=== PATIENT | male | born 1980 | race Caucasian/White ===

== ENCOUNTER → 2021-02-21 09:19 | Outpatient (CLI) | payer OTHER, MEDICAID, SELFPAY ==
[2021-02-21 10:36] LABS: Cholesterol 247 mg/dL (140-199); HDL Cholesterol 60 mg/dL (40-60); LDL Cholesterol Calculated 144 mg/dL (<100); Triglycerides 213 mg/dL (35-150)
[2021-02-21 10:45] LABS: Add Manual Diff / Slide Review NO; Basophils Absolute Auto 100 /uL (0-100); Basophils Percent Auto 0.9 % (0-2); Eosinophils Absolute Auto 100 /uL (0-450); Eosinophils Percent Auto 1.4 % (2-4); Hematocrit 48.1 % (41-53); Hemoglobin 16.6 g/dL (13.5-17.5); Lymphocytes Absolute Auto 2900 /uL (1100-4500); Lymphocytes Percent Auto 31.8 % (25-40); Mean Corpuscular HGB Conc 34.5 % (30-36); Mean Corpuscular Hemoglobin 30.4 PG (26-34); Monocytes Absolute Auto 600 /uL (0-900); Monocytes Percent Auto 6.8 % (3-14); Neutrophils Absolute Auto 5400 /uL (1500-7000); Neutrophils Percent Auto 59.1 % (50-75); Platelet Count 325 X10^3/uL (150-400); Red Blood Cell Count 5.46 X10^6/uL (4.5-5.9); Red Cell Distribution Width 13.7 % (11.6-14.8); White Blood Cell Count 9.2 X10^3/uL (4.5-11.0)
[2021-02-21 10:47] LABS: Magnesium 2.2 mg/dL (1.6-2.3)
[2021-02-21 11:51] LABS: Folate 16.7 ng/mL (2.76-20.0); Vitamin B12 427 pg/mL (239-931)
== END ==
PROVIDERS: Physician Assistant; PCP Family Medicine; Referring Provider Family Medicine; Visit Provider Family Medicine
DX: Z01.812 Encounter for preprocedural laboratory examination (principal); R71.8 Other abnormality of red blood cells
CPT/HCPCS: 36415; 80061; 82607; 82746; 83036; 83735; 85025

== ENCOUNTER → 2021-04-24 08:28 | Outpatient (CLI) | payer OTHER, MEDICAID, SELFPAY ==
[2021-04-24 10:33] LABS: Testosterone 589 ng/dL (132-813)
== END ==
PROVIDERS: PCP Family Medicine; Referring Provider Family Medicine; Visit Provider Family Medicine
DX: N52.9 Male erectile dysfunction, unspecified (principal)
CPT/HCPCS: 36415; 84403

== ENCOUNTER → 2021-08-13 09:05 | Outpatient (CLI) | payer OTHER, MEDICAID, SELFPAY ==
[2021-08-13 09:47] LABS: COVID19 -Nasal RAPID Negative (Negative)
== END ==
PROVIDERS: PCP Family Medicine; Visit Provider Specialist
DX: Z20.822 Contact with and (suspected) exposure to COVID-19 (principal)
CPT/HCPCS: 87635; C9803

== ENCOUNTER 2021-08-15 06:32 | Day surgery (SDC) | payer OTHER, MEDICAID, SELFPAY ==
[2021-08-12 08:10] VITALS: BMI 27.1
[2021-08-15] VITALS (7 sets, daily range): BP systolic 138–179; BP diastolic 92–112; PULSE 85–99; RESP 14–18; TEMP 36.3–36.4; O2SAT 98–99; BMI 26.6
--- NOTE | 2021-08-15 08:38 | PM.PREOP ---
Pre-operative Note Interval Note History & Physical reviewed/Exam performed by Physician: Yes Changes to H&P: No
[2021-08-15] MEDS: CEFAZOLIN 1 GM VIAL 2 GM IV (09:07)
--- NOTE | 2021-08-15 09:19 | SUR.OPER ---
Supine on padded OR bed, head on pillow, arms secured on padded arm boards at <90 degrees abduction, legs uncrossed, safety belt at thigh, tape over blanket over lower legs.
[2021-08-15] MEDS: BUPIVACAINE 0.25% (PF) VIAL 30 ML INJ (09:23)
[2021-08-15] MEDS: BACITRACIN OINT 0.9 GM PCKT 1 APPLIC TOP (09:27)
[2021-08-15] MEDS: LORazepam 2 MG/ML INJ 0.5 MG IV (09:51)
--- NOTE | 2021-08-15 09:57 | PM.OP.1 ---
Operative Date/Time/Diagnoses Date of procedure: 08/15/21 Time of procedure: 09:57 Pre-op diagnosis: 1. Desires sterility Post-op diagnosis: same Procedure & Clinicians Procedure: 1. Vasectomy Same procedure as scheduled: Yes Indications: 1. Desires sterility. Surgeon: Sahara Aldridge Anesthesia Type: General (LMA) Operative Notes Findings: Tissues and tissue planes were unremarkable. Closure Type: primary Specimen(s): none sent Estimated Blood Loss (mL): 0 Blood products transfused: none Procedure in detail: Patient was positioned in supine and the lower abdomen, genitalia, and groin were then prepped and draped in sterile fashion. Local anesthetic was then used to infiltrate the midline scrotal raphae and the sheath of each the right, and the left vas. Using a scalpel technique an opening the skin and dartos fascia was made in midline scrotal raphae. A ringed vas clamp was then insinuated in the incision and with guidance from the opposite hand the vas on the right was engaged within the ringed clamp. Gentle traction was then provided bringing the vas up to the skin surface. A 2nd ringed vas clamp was then applied opposite the 1st and a mild further traction brought the structure above the plane of the scrotal skin. The needle point cautery was then used to longitudinally divided the vas sheath. The ringed vas clamps reposition. A vas hook was then engaged in the midpoint and further gentle traction then brought a loop of vas well above the plane of the scrotal skin. Medium stainless steel surgical clips were then applied in opposite directions (x2) on the distal aspect and a single clip was applied proximally. An intervening segment of 1+ cm was then excised using the cautery pen and discarded. Vas as lumens were then cauterized as well. Next, the same steps and maneuvers were performed on the left side to complete bilateral interruption of the vas. The skin and subcutaneous tissues were then reapproximated with 2 interrupted 4-0 chromic suture. Bacitracin antibiotic ointment was then applied to the incision site and dry sterile gauze were applied on top of that appointment. Net shorts were then applied to the patient. He was then awakened, transferred to [facility], and transferred recovery in stable condition. Complications: none Post-operative Condition: stable Disposition: PACU Plan for aftercare: Discharge
[2021-08-15] MEDS: ACETAMINOPHEN 325 MG TABLET 975 MG PO (10:11)
[2021-08-15] MEDS: OXYCODONE IR 5 MG TABLET PO (10:12)
== END 2021-08-15 10:31 | disposition home or self-care (01) ==
PROVIDERS: PCP Family Medicine; Referring Provider Specialist; Visit Provider Specialist
PROC: (CPT 55250; principal; 2021-08-15 07:45)
DX: Z30.2 Encounter for sterilization (principal); N52.01 Erectile dysfunction due to arterial insufficiency; I10 Essential (primary) hypertension; E78.5 Hyperlipidemia, unspecified; F32.9 Major depressive disorder, single episode, unspecified
CPT/HCPCS: 55250; 82962; J0690; J1100; J2060; J2250; J2405; J2704; J3010

== ENCOUNTER → 2021-10-22 11:31 | Outpatient (CLI) | payer OTHER, MEDICAID, SELFPAY ==
[2021-10-22 12:06] LABS: Semen Sperm Prescence Post-Vas Absent (ABSENT)
== END ==
PROVIDERS: PCP Family Medicine; Referring Provider Specialist; Visit Provider Specialist
DX: Z98.52 Vasectomy status (principal)
CPT/HCPCS: 89321

== ENCOUNTER → 2023-05-03 15:20 | Oncology outpatient (ONC) | payer OTHER, MEDICAID, SELFPAY ==
--- NOTE | 2023-02-22 09:45 | ONC.MSW ---
T/C-New Referral Navigation Activity: Reviewed referral and clinicals for medical status, acuity, and immediate needs. Called the referring PCP to clarify labs, 02/11/23 was the only lab available. Called pt, he states that he has had no other labs elsewhere. Forwarded to schedulers for next available f/u.
--- NOTE | 2023-04-01 14:45 | ONC.CONS ---
History of Present Illness - Data of Consult Patient: new to practice Consult date: 04/01/23 Requesting Physician: Emanuel Chapa MD Primary Care Provider: Emanuel Chapa MD - Consult Narrative Reason for consult: Elevated red blood cells. Narrative: Scot Rosenberg is a 42 year old male with HTN, HLD, anxiety and depression. He was referred here for elevated H/H: WBC HGB HCT PLT EPO 12/12/2020 8.1 17.5 50.1 272 01/13/2021 7.1 17.1 51.2 260 02/11/2023 8.0 18.2 53.3 248 13.6 For the past 1 year, he has been experiencing itching of the skin, mostly upper chest without visible skin rashes. Patient said that the symptoms are especially worse after shower and sweating. He had to use Zyrtec before going into shower. He used to use 1 pill and sometimes he had to use 2-3 pills of Zyrtec recently. He denies any abdominal pain. He reports no abdominal distension, and no abdominal fullness. Patient had a history of H pylori infection when he was young. Patient had history of chronic diarrhea. He denies sleep apnea and denies smoking. Last Wednesday, patient had his first colonoscopy. According to patient, cecum inflammatory changes noted with 4 polyps removed. Final pathology is still pending. CC: Jenny Corado MD Patient reports pain?: No Home Medications and Allergies Home Medications Medication Instructions Recorded Confirmed Type omeprazole 20 mg capsule,delayed 20 mg PO DAILY 05/06/21 04/01/23 History release propranolol 10 mg tablet 20 mg PO BID 07/30/21 04/01/23 History lisinopril 10 mg tablet 10 mg PO DAILY 08/15/21 04/01/23 History bupropion HCl 150 mg 24 hr tablet, 450 mg PO QAM 04/01/23 04/01/23 History extended release (Wellbutrin XL) cetirizine 10 mg tablet (Zyrtec) 10 mg PO DAILY PRN Itching 04/01/23 04/01/23 History melatonin 3 mg tablet 3 mg PO BEDTIME 04/01/23 04/01/23 History tadalafil 10 mg tablet 10 mg PO PRN PRN Sexual Activity 04/01/23 04/01/23 History Allergies Allergy/AdvReac Type Severity Reaction Status Date / Time No Known Drug Allergies Allergy Verified 08/15/21 07:40 Medical History - Medical, Surgical, Family History Medical History: Medical History (Last Updated 08/15/21 @ 07:39 by Herlinda Galeano RN) Aftercare following left finger joint replacement surgery Depression Erectile dysfunction due to arterial insufficiency Family history of hypertension Finger wound, simple, open HTN (hypertension) Hyperlipidemia Migraine headache Sterilization consult Surgical History: Surgical History (Last Reviewed 08/15/21 @ 07:36 by Herlinda Galeano RN) H/O circumcision H/O umbilical hernia repair Family History: Family History (Last Reviewed 07/30/21 @ 08:44 by Sahara Aldridge MD) Mother Hypertension History of thyroid disorder - Social History Smoking Status: Never smoker Substance Use Type: does not use Review of Systems All systems PM: reviewed and no additional remarkable complaints except as stated Exam Vital signs: 04/01/23 15:12 Last Vital Signs Temp 97.2 F L 04/01/23 15:01 Pulse 95 H 04/01/23 15:01 Resp 16 04/01/23 15:01 BP 183/108 H 04/01/23 15:01 Pulse Ox 99 04/01/23 15:01 - Constitutional positive no acute distress, positive average body habitus, positive cooperative - Routine HEENT Exam Head: Present: normocephalic, atraumatic Eye: Present: EOMI, PERRL, normal accommodation. Absent: conjunctival icterus - Routine Neck Exam Present: supple. Absent: lymphadenopathy, thyromegaly - Routine Chest/Breast/Axilla Exam Axillae: Absent: lymphadenopathy - Routine Respiratory Exam Present: Clear to auscultation bilaterally. Absent: wheezes, crackles - Routine Cardiovascular Exam Present: RRR, S1, S2. Absent: murmur, gallop, rubs - Routine Abdominal Exam Present: soft. Absent: organomegaly - Routine Extremities Exam Absent: edema - Routine Neurological Exam Present: alert, oriented X3, CN II-XII intact. Absent: sensory deficit, motor deficit - Routine Psychiatric Exam Present: normal affect Results - Labs Pending Assessment and Plan (1) Polycythemia Scot Rosenberg is a is 42-year-old gentleman with medical problems notable for hypertension and hyperlipidemia. Patient endorses one year history of upper chest skin itching especially after shower and sweating and history of progressively worsening erythrocytosis. Patient denies smoking or sleep apnea. On my physical examination, no palpable splenomegaly. I talked with him that the history is highly suspicious for the diagnosis of polycythemia vera. I am recommending that we obtain laboratory tests to evaluate the JAK2 V617F mutation with reflex to CALR or JAK2 E12-E15 mutations. I also will obtain ultrasound study to evaluate if there is any evidence of enlarged spleen or enlarged liver. Today, I offered phlebotomy with goal to improve her skin itching symptoms. Patient prefers to start phlebotomy after the diagnosis is made. Today, I also touched base with the patient about the bone marrow aspiration biopsy. I talked with him that ideally it would be helpful to obtain bone marrow aspiration and biopsy, but it is not mandatory. Patient said that he would agree with bone marrow aspiration biopsy but preferably under anesthesia. Plan: CBC, CMP, Iron panel, Ferritin, JAK2 V617F RFX CALR/E12-15 US abdomen complete RTC in 10 days for follow up visit.
[2023-04-01 15:01] VITALS: BP 183/108; PULSE 95; RESP 16; TEMP 36.2; O2SAT 99
--- NOTE | 2023-04-13 16:07 | ONC.SCHED ---
Jak2 lab: Auth has been submitted with [employer]. Pending approval.
--- NOTE | 2023-04-20 10:54 | ONC.SCHED ---
Jak2 lab: I received a letter from [facility] stating that PA is not required for this lab. I have called the patient and left a VM to let him know he can go and have the draw now.
[2023-04-20 16:15] LABS: HEMOLYSIS 37 (0-50); Iron 148 ug/dL (49-181)
[2023-04-20 16:16] LABS: Alanine Aminotransferase 229 IU/L (<50); Albumin 4.6 g/dL (3.5-5.0); Albumin Globulin Ratio 1.4 (1.0-2.8); Alkaline Phosphatase 114 U/L (38-126); Aspartate Aminotransferase 152 IU/L (17-59); BUN Creatinine Ratio 10.7 (6-22); Blood Urea Nitrogen 9 mg/dL (9-20); Calcium 10.1 mg/dL (8.4-10.2); Carbon Dioxide 25 mmol/L (22-32); Chloride 103 mmol/L (98-107); Estimated Glomerular Filt Rate > 60 mL/min (>60); Globulin 3.3 g/dL (1.7-4.1); Glucose 109 mg/dL (70-100); Potassium 4.5 mmol/L (3.4-5.1); Sodium 138 mmol/L (137-145); Total Protein 7.9 g/dL (6.3-8.2)
[2023-04-20 16:17] LABS: HEMOLYSIS 55 (0-50)
[2023-04-20 16:25] LABS: Percent Iron Saturation 37 % (20-50); Total Iron Binding Capacity 405 ug/dL (261-462); Transferrin 323 mg/dL (206-381)
[2023-04-20 16:53] LABS: Ferritin 132 ng/mL (18-464)
[2023-04-24 09:40] LABS: Add Manual Diff / Slide Review NO; Basophils Absolute Auto 100 /uL (0-100); Basophils Percent Auto 1.3 % (0-2); Eosinophils Absolute Auto 200 /uL (0-450); Eosinophils Percent Auto 2.4 % (2-4); Hematocrit 46.8 % (41-53); Hemoglobin 16.3 g/dL (13.5-17.5); Lymphocytes Absolute Auto 2500 /uL (1100-4500); Lymphocytes Percent Auto 32.1 % (25-40); Mean Corpuscular HGB Conc 34.8 % (30-36); Mean Corpuscular Hemoglobin 32.7 PG (26-34); Mean Corpuscular Volume 93.8 fL (80-100); Monocytes Absolute Auto 800 /uL (0-900); Monocytes Percent Auto 10.9 % (3-14); Neutrophils Absolute Auto 4100 /uL (1500-7000); Neutrophils Percent Auto 53.3 % (50-75); Platelet Count 226 X10^3/uL (150-400); Red Blood Cell Count 4.99 X10^6/uL (4.5-5.9); White Blood Cell Count 7.7 X10^3/uL (4.5-11.0)
--- NOTE | 2023-05-03 15:50 | P.PNONC_ITS ---
PN -Subjective - Date of Visit Date of visit: 05/03/23 Chief Complaint: Polycythemia Interval history: He presents for scheduled follow up visit. He reports no new signs or symptoms. He said he continues to have aquagentic itching symptoms. [facility] Scot Rosenberg is a 42 year old male with HTN, HLD, anxiety and depression. He was referred here for elevated H/H: WBC HGB HCT PLT EPO 12/12/2020 8.1 17.5 50.1 272 01/13/2021 7.1 17.1 51.2 260 02/11/2023 8.0 18.2 53.3 248 13.6 I first met patient on 04/01/2023. He reported that for the prior one year, he had been experiencing itching of the skin, mostly upper chest without visible skin rashes. Patient said that the symptoms are especially worse after shower and sweating. He had to use Zyrtec before going into shower. He used to use 1 pill and sometimes he had to use 2-3 pills of Zyrtec recently. He denies any abdominal pain. He reports no abdominal distension, and no abdominal fullness. Patient had a history of H pylori infection when he was young. Patient had history of chronic diarrhea. He denies sleep apnea and denies smoking. - Patient Self-Reported Symptoms SR Constitution: Night Sweats SR Skin issues: Skin rash or itching - ROS All Systems: reviewed and no additional remarkable complaints except as stated Home Medications and Allergies Home Medications Medication Instructions Recorded Confirmed Type omeprazole 20 mg capsule,delayed 20 mg PO DAILY 05/06/21 05/03/23 History release propranolol 10 mg tablet 20 mg PO BID 07/30/21 05/03/23 History lisinopril 10 mg tablet 10 mg PO DAILY 08/15/21 05/03/23 History bupropion HCl 150 mg 24 hr tablet, 450 mg PO QAM 04/01/23 05/03/23 History extended release (Wellbutrin XL) cetirizine 10 mg tablet (Zyrtec) 10 mg PO DAILY PRN Itching 04/01/23 05/03/23 History melatonin 3 mg tablet 3 mg PO BEDTIME 04/01/23 05/03/23 History tadalafil 10 mg tablet 10 mg PO PRN PRN Sexual Activity 04/01/23 05/03/23 History Allergies Allergy/AdvReac Type Severity Reaction Status Date / Time No Known Drug Allergies Allergy Verified 08/15/21 07:40 Exam Vital signs: 05/03/23 18:21 Last Vital Signs Temp 97.1 F L 05/03/23 15:55 Pulse 87 05/03/23 15:55 Resp 16 05/03/23 15:55 BP 166/111 H 05/03/23 15:55 Pulse Ox 97 05/03/23 15:55 Narrative: He appears comfortable and not in any acute respiratory distress. Results - Labs Laboratory Last Values WBC 7.7 X10^3/uL (4.5-11.0) 04/24/23 09:15 RBC 4.99 X10^6/uL (4.5-5.9) 04/24/23 09:15 Hgb 16.3 g/dL (13.5-17.5) 04/24/23 09:15 Hct 46.8 % (41-53) 04/24/23 09:15 MCV 93.8 fL (80-100) 04/24/23 09:15 MCH 32.7 PG (26-34) 04/24/23 09:15 MCHC 34.8 % (30-36) 04/24/23 09:15 RDW 14.0 % (11.6-14.8) 04/24/23 09:15 Plt Count 226 X10^3/uL (150-400) 04/24/23 09:15 Neut % (Auto) 53.3 % (50-75) 04/24/23 09:15 Lymph % (Auto) 32.1 % (25-40) 04/24/23 09:15 [place] % (Auto) 10.9 % (3-14) 04/24/23 09:15 Eos % (Auto) 2.4 % (2-4) 04/24/23 09:15 Baso % (Auto) 1.3 % (0-2) 04/24/23 09:15 Neut # (Auto) 4100 /uL (0449-7022) 04/24/23 09:15 Lymph # (Auto) 2500 /uL (1129-9530) 04/24/23 09:15 [place] # (Auto) 800 /uL (0-900) 04/24/23 09:15 Eos # (Auto) 200 /uL (0-450) 04/24/23 09:15 Baso # (Auto) 100 /uL (0-100) 04/24/23 09:15 Sodium 138 mmol/L (137-145) 04/20/23 15:41 Potassium 4.5 mmol/L (3.4-5.1) 04/20/23 15:41 Chloride 103 mmol/L (98-107) 04/20/23 15:41 Carbon Dioxide 25 mmol/L (22-32) 04/20/23 15:41 BUN 9 mg/dL (9-20) 04/20/23 15:41 Creatinine 0.84 mg/dL (0.66-1.25) 04/20/23 15:41 Estimated GFR > 60 mL/min (>60) 04/20/23 15:41 BUN/Creatinine Ratio 10.7 (6-22) 04/20/23 15:41 Glucose 109 mg/dL (70-100) H 04/20/23 15:41 Calcium 10.1 mg/dL (8.4-10.2) 04/20/23 15:41 Iron 148 ug/dL (49-181) 04/20/23 15:41 TIBC 405 ug/dL (261-462) 04/20/23 15:41 % Saturation 37 % (20-50) 04/20/23 15:41 Transferrin 323 mg/dL (206-381) 04/20/23 15:41 Ferritin 132 ng/mL (18-464) 04/20/23 15:41 Total Bilirubin 1.0 mg/dL (0.2-1.3) 04/20/23 15:41 AST 152 IU/L (17-59) H 04/20/23 15:41 ALT 229 IU/L (<50) H 04/20/23 15:41 Alkaline Phosphatase 114 U/L (38-126) 04/20/23 15:41 Total Protein 7.9 g/dL (6.3-8.2) 04/20/23 15:41 Albumin 4.6 g/dL (3.5-5.0) 04/20/23 15:41 Globulin 3.3 g/dL (1.7-4.1) 04/20/23 15:41 Albumin/Globulin Ratio 1.4 (1.0-2.8) 04/20/23 15:41 Assessment and Plan (1) Polycythemia Scot Rosenberg is a 42-year-old gentleman with medical problems notable for hypertension and hyperlipidemia. Patient endorses 1-year history of upper chest skin itching especially after shower and sweating and history of progressively worsening erythrocytosis. Patient denies smoking or sleep apnea. On my physical examination, no palpable splenomegaly. Since his previous visit, patient did not get the abdominal ultrasound done. The lab tests for JAK2 molecular studies also are not done due to lack of regents and and discontinuation of the test. Available laboratory tests showed persistent polycythemia and unexpectedly worsening transaminitis. Clinically, patient has been doing relatively well without any new signs or symptoms. I talked with the patient that [facility] is discontinuing surface at [facility]. I am recommending that patient be followed at [facility] with me for continued care. Patient voiced understanding and agreed. Plan: Patient will call and get the US abdomen completeD Hepatitis screening and JAK2 mutation analysis at [facility] MD visit in 3-4 weeks.
[2023-05-03 15:55] VITALS: BP 166/111; PULSE 87; RESP 16; TEMP 36.2; O2SAT 97
--- NOTE | 2023-05-03 16:24 | ONC.SCHED ---
Transfer of Care: This has been emailed to the clinical team to send to Dr. Corado at [facility].
[2023-05-19 13:43] LABS: JAK2 V617F Mutation Detection NEGATIVE
== END ==
PROVIDERS: PCP Family Medicine; Referring Provider Family Medicine; Visit Provider Internal Medicine Hematology & Oncology
DX: D75.1 Secondary polycythemia (principal); I10 Essential (primary) hypertension; E78.5 Hyperlipidemia, unspecified; F32.A Depression, unspecified; F41.9 Anxiety disorder, unspecified
CPT/HCPCS: 36415; 80053; 81270; 82728; 83540; 83550; 85025; 99204; 99214

== ENCOUNTER → 2023-05-12 15:22 | Outpatient (CLI) | payer OTHER, MEDICAID, SELFPAY ==
--- NOTE | 2023-05-12 15:24 | DI.US.S_ITS ---
PROCEDURE: US ABDOMEN COMPLETE INDICATIONS: POLYCYTHEMIA TECHNIQUE: Real-time scanning was performed of the abdominal and retroperitoneal organs, with image documentation. COMPARISON: None. FINDINGS: Liver: The liver demonstrates enlarged size. The liver demonstrates generalized moderately increased echogenicity. This decreases ultrasound sensitivity for detection of hepatic masses. Gallbladder: No findings of gallstones or sludge are seen. The gallbladder wall is not thickened, measuring 3 mm or less. No specific pericholecystic fluid is seen. The sonographic Wright sign is negative. Biliary ducts: Intrahepatic bile ducts are non-dilated. Extrahepatic bile duct caliber measures 3 mm. Normal is 6-7 mm or less in diameter, or 10 mm or less post-cholecystectomy. Pancreas: Visualized portions of the pancreas are sonographically normal. Spleen: Spleen is normal in size and homogeneous in echotexture. Incidental note is made of a 2.1 cm accessory splenule along the hilum of the primary spleen. Kidneys: Kidneys are normal in size and echotexture. Right kidney measures 10.6 cm long; left kidney measures 10.4 cm long. No hydronephrosis or nephrolithiasis. No solid masses. Aorta: Visualized aorta is normal in caliber at less than 3 cm. Iliacs: Proximal common iliac arteries are normal in caliber at less than 2.5 cm. IVC: Intrahepatic inferior vena cava is patent. Miscellaneous: No free abdominal fluid. IMPRESSION: Normal size spleen. A 2.1 cm accessory splenule is incidentally noted. Enlarged, fatty liver. Dictated by: Golden Chirinos M.D. on 05/12/2023 at 19:49 Approved by: Golden Chirinos M.D. on 05/12/2023 at 19:50
== END ==
PROVIDERS: PCP Family Medicine; Referring Provider Internal Medicine Hematology & Oncology; Visit Provider Internal Medicine Hematology & Oncology
DX: D75.1 Secondary polycythemia (principal); K76.0 Fatty (change of) liver, not elsewhere classified
CPT/HCPCS: 76700

== ENCOUNTER 2023-06-03 00:56 | Inpatient (IN) | payer OTHER, MEDICAID, SELFPAY ==
[2023-06-03] VITALS (29 sets, daily range): BP systolic 96–213; BP diastolic 61–119; PULSE 92–141; RESP 16–51; TEMP 36.4–37.2; O2SAT 90–96; BMI 28.8; BMI 29.0
--- NOTE | 2023-06-03 01:02 | DI.RAD.S_ITS ---
PROCEDURE: XR CHEST 1V INDICATIONS: chest pain TECHNIQUE: One view of the chest was acquired. COMPARISON: None. FINDINGS: Surgical changes and devices: None. Lungs and pleura: Lungs are clear. No pleural effusions or pneumothorax. Mediastinum: Mediastinal contours appear normal. Heart size is normal. Bones and chest wall: No suspicious bony lesions. Overlying soft tissues appear unremarkable. IMPRESSION: Portable chest within normal limits for age. Dictated by: Luis Rhodes M.D. on 06/03/2023 at 1:57 Approved by: Luis Rhodes M.D. on 06/03/2023 at 1:57
--- NOTE | 2023-06-03 01:02 | DI.CT.S_ITS ---
PROCEDURE: CT ABDOMEN PELVIS W CON INDICATIONS: pain and polycythemia vera. TECHNIQUE: After the administration of intravenous contrast, axial sections acquired from the lung bases to the pubic symphysis. Coronal and sagittal reformats were performed. For radiation dose reduction, the following was used: automated exposure control, adjustment of mA and/or kV according to patient size. COMPARISON: None. FINDINGS: Image quality: Excellent. Lung bases: Small hiatal hernia. Heart: No significant findings. ABDOMEN: Liver: Marked hepatic steatosis. No solid mass. Gallbladder: No radiopaque stones. Biliary ducts: No dilation. Pancreas: Significant inflammatory changes surrounding the pancreas. Some segments of the pancreas demonstrate decreased enhancement relative to the normal parenchyma. No pancreatic ductal dilation. No vascular complication. No acute on chronic collection at this time. Spleen: Unremarkable. Adrenal Glands: Unremarkable. Kidneys and Ureters: Unremarkable. Stomach and Bowel: Stomach, small bowel loops, and colon are unremarkable. Peritoneum: Moderate volume free fluid. Peritoneal calcification in the deep pelvis, consistent with prior intraperitoneal fat necrosis. Ventral Wall: No hernias. Abdominal Nodes: No retroperitoneal or mesenteric adenopathy by size criteria. Vessels: Aorta and inferior vena cava are normal in size. PELVIS: Pelvic Organs: Unremarkable. Bladder: Unremarkable. Pelvic Nodes: No enlarged lymph nodes. Miscellaneous: No hernias are seen. Bones: Unremarkable. IMPRESSION: Acute pancreatitis. Some small segments of the pancreatic parenchyma due not demonstrate enhancement, most concerning for necrotizing pancreatitis. No acute necrotizing collection or vascular complication. No gallstones or biliary dilation. Marked hepatic steatosis. Dictated by: Luis Rhodes M.D. on 06/03/2023 at 1:57 Approved by: Luis Rhodes M.D. on 06/03/2023 at 2:03
[2023-06-03 01:39] LABS: Alanine Aminotransferase 156 IU/L (<50); Albumin 4.5 g/dL (3.5-5.0); Albumin Globulin Ratio 1.3 (1.0-2.8); Alkaline Phosphatase 85 U/L (38-126); Aspartate Aminotransferase 168 IU/L (17-59); BUN Creatinine Ratio 14.3 (6-22); Bilirubin Total 1.3 mg/dL (0.2-1.3); Blood Urea Nitrogen 12 mg/dL (9-20); Calcium 8.1 mg/dL (8.4-10.2); Carbon Dioxide 15 mmol/L (22-32); Chloride 95 mmol/L (98-107); Creatine Kinase 102 U/L (55-170); Estimated Glomerular Filt Rate > 60 mL/min (>60); Globulin 3.4 g/dL (1.7-4.1); Glucose 62 mg/dL (70-100); HEMOLYSIS < 15 (0-50); Potassium 4.4 mmol/L (3.4-5.1); Sodium 133 mmol/L (137-145); Total Protein 7.9 g/dL (6.3-8.2)
[2023-06-03 01:40] LABS: Add Manual Diff / Slide Review NO; Basophils Absolute Auto 0 /uL (0-100); Basophils Percent Auto 0.3 % (0-2); Eosinophils Absolute Auto 0 /uL (0-450); Eosinophils Percent Auto 0.1 % (2-4); Hematocrit 52.9 % (41-53); Hemoglobin 18.1 g/dL (13.5-17.5); Lymphocytes Absolute Auto 700 /uL (1100-4500); Lymphocytes Percent Auto 4.5 % (25-40); Mean Corpuscular HGB Conc 34.3 % (30-36); Mean Corpuscular Hemoglobin 32.9 PG (26-34); Mean Corpuscular Volume 95.8 fL (80-100); Monocytes Absolute Auto 1000 /uL (0-900); Monocytes Percent Auto 6.9 % (3-14); Neutrophils Absolute Auto 13200 /uL (1500-7000); Neutrophils Percent Auto 88.2 % (50-75); Platelet Count 143 X10^3/uL (150-400); Red Blood Cell Count 5.52 X10^6/uL (4.5-5.9); Red Cell Distribution Width 13.8 % (11.6-14.8)
[2023-06-03] MEDS: SODIUM CHLORIDE 0.9% 1,000 ML 1000 ML IV ×3 (01:40→11:30)
[2023-06-03 01:46] LABS: Ethanol (ETOH) 161 mg/dL
--- NOTE | 2023-06-03 01:52 | ED_ITS ---
HPI - Abdominal Pain General Chief Complaint: Abdominal Pain Stated Complaint: abd pain x 3 days Time Seen by Provider: 06/03/23 01:00 Source: patient and EMS Mode of arrival: EMS History of Present Illness HPI narrative: Patient is a 42-year-old male history of anxiety hypertension GERD and probable polycythemia vera presents today with abdominal pain for the last few days. He reports that he is had pain around his periumbilical region he is having some left-sided flank pain which radiates around his abdomen down to his pelvis. He reports that he is had some difficulty with urination in fact he thought it smelled funny so he took some emergent moxifloxacin for 3 days. He denies any fever chills. He is noted to be extremely tachycardic med denies any chest pain or palpitations. He has been taking his propranolol. He also admits to drinking a pt of vodka daily and did so today. He is also been taking Vicodin to help with pain and he reports that it is not helping pain. He says he is under a lot of stress going through a divorce. Reports that due to pain he is not been drinking as much alcohol.. To be extremely tachycardic in the 140s with normal blood pressure Related Data Home Medications Medication Instructions Recorded Confirmed omeprazole 20 mg capsule,delayed 20 mg PO DAILY 05/06/21 05/03/23 release propranolol 10 mg tablet 20 mg PO BID 07/30/21 05/03/23 lisinopril 10 mg tablet 10 mg PO DAILY 08/15/21 05/03/23 bupropion HCl 150 mg 24 hr tablet, 450 mg PO QAM 04/01/23 05/03/23 extended release (Wellbutrin XL) cetirizine 10 mg tablet (Zyrtec) 10 mg PO DAILY PRN Itching 04/01/23 05/03/23 melatonin 3 mg tablet 3 mg PO BEDTIME 04/01/23 05/03/23 tadalafil 10 mg tablet 10 mg PO PRN PRN Sexual Activity 04/01/23 05/03/23 Allergies Allergy/AdvReac Type Severity Reaction Status Date / Time No Known Drug Allergies Allergy Verified 08/15/21 07:40 Review of Systems Review of Systems ROS Unobtainable: All systems reviewed & are unremarkable except as noted in HPI and below Patient History Medical History Aftercare following left finger joint replacement surgery Depression Erectile dysfunction due to arterial insufficiency Family history of hypertension Finger wound, simple, open HTN (hypertension) Hyperlipidemia Migraine headache Sterilization consult Surgical History H/O circumcision H/O umbilical hernia repair Family History Mother Hypertension History of thyroid disorder Social History marital status: number of children: 2 household members: spouse occupational status: employed leisure activities: exercise Smoking Status: Never smoker alcohol intake: current substance use type: does not use Type(s) of exercise: weight lifting and running frequency: 5-6 times per week duration: 45-60 minutes/day Smoking Status: Never smoker alcohol intake frequency: 0-2 drinks per day Alcohol type: hard liquor Substance Use Type: does not use Exam Initial Vital Signs Initial Vital Signs: Vital Signs Pulse Rate 141 H 06/03/23 00:58 Pulse Oximetry 96 06/03/23 00:58 GENERAL: Alert well-appearing 42-year-old male HEENT: Head atraumatic,EOMI, pupils reactive, face symmetric, moist mucous membranes CARDIOVASCULAR: Regular rate and rhythm without murmurs, rubs or gallops. RESPIRATORY: Breath sounds equal bilaterally, no wheezes rales or rhonchi. ABDOMEN: Tender periumbilical region no guarding no rebound no epigastric pain or right upper quadrant pain negative Wright sign no significant lower abdominal pain : Mild bilateral CVA tenderness EXTREMITIES: Normal range of motion, no clubbing or edema. Neurovascularly intact NEUROLOGICAL: Alert and oriented x4.Normal gait and speech. SKIN: Warm, dry, no laceration, no petechiae, no rashes or lesions. Course Orders Ordered: ED Orders 06/03/23 01:02 CT abdomen pelvis w con Stat XR chest 1V Stat Urine Drug Screen, Rapid Stat EKG-12 Lead Stat 06/03/23 01:20 Complete Blood Count AUTO DIFF Stat Comprehensive Metabolic Panel Stat ETOH [Ethanol (ETOH)] Stat Lactate (Lactic Acid) Stat Lipase Stat Troponin & CK Cardiac Panel Stat Acetaminophen (Acetaminophen 325 Mg Tablet) 650 mg PO Q6H MEMO Al Hydrox/Mg Hydrox/Simethicone (Mag Hydrox/Alum/Simeth 30 Ml Udc) 30 ml PO Q6HR PRN PRN Reason: Dyspepsia Calcium Carbonate (Calcium Carbonate 500 Mg Tab) 1,000 mg PO Q4HR PRN PRN Reason: Dyspepsia Enoxaparin Sodium (Enoxaparin 40 Mg/0.4 Ml Syringe) 40 mg SUBCUT DAILY [facility] Folic Acid (Folic Acid 1 Mg Tablet) 1 mg PO DAILY [facility] Haloperidol (Haloperidol 5 Mg/Ml Vial) 5 mg IV Q1HR PRN PRN Reason: Hallucinations Sodium Chloride (Normal Saline 0.9%) 1,000 mls @ 1,000 mls/hr IV CONT MEMO Last Infusion: 06/03/23 02:40 Dose: 1,000 mls/hr Documented By: Admin: 06/03/23 01:40 Dose: 1,000 mls/hr Documented By: GC Sodium Chloride (Normal Saline 0.9%) 1,000 mls @ 150 mls/hr IV CONT [facility] Lorazepam (Lorazepam 2 Mg/Ml Inj) 0 mg IV CIWAPRN PRN; Protocol PRN Reason: Alcohol Withdrawal Metoprolol Tartrate (Metoprolol Tartrate 5 Mg/5 Ml Inj) 5 mg IV Q6H PRN PRN Reason: Hypertension Morphine Sulfate (Morphine 4 Mg/Ml Inj) 3 mg IV Q4HR PRN PRN Reason: Pain, Severe (7-10) Multivitamins (Multivitamin 1 Tablet) 1 tab PO DAILY [facility] Naloxone HCl (Naloxone 0.4 Mg/Ml Vial) 0.2 mg IV Q2MIN PRN PRN Reason: Opiate Reversal Ondansetron HCl (Ondansetron 4 Mg/2 Ml Inj) 4 mg IV Q8HR PRN PRN Reason: Nausea And Vomiting Pantoprazole Sodium (Pantoprazole 40 Mg Vial) 40 mg IV DAILY [facility] Thiamine HCl (Thiamine 100 Mg Tablet) 100 mg PO DAILY [facility] Stop: 06/06/23 09:01 Discontinued Medications Hydromorphone HCl (Hydromorphone 1 Mg Inj) 1 mg IV NOW ONE Stop: 06/03/23 02:27 Last Admin: 06/03/23 02:54 Dose: 1 mg Documented By: GC Sodium Chloride (Normal Saline 0.9%) 1,000 mls @ 1,000 mls/hr IV BOLUS ONE Stop: 06/03/23 03:25 Last Admin: 06/03/23 02:54 Dose: 1,000 mls/hr Documented By: ROSARIO Ketorolac Tromethamine (Ketorolac 30 Mg/Ml Vial) 15 mg IV NOW ONE Stop: 06/03/23 01:49 Last Admin: 06/03/23 01:55 Dose: 15 mg Documented By: ROSARIO Phenobarbital (Phenobarbital 65 Mg/Ml Vial) 130 mg IV NOW ONE Stop: 06/03/23 02:49 Last Admin: 06/03/23 02:58 Dose: 130 mg Documented By: ROSARIO Vital Signs Vital signs: Vital Signs - 8 hr 06/03/23 01:00 06/03/23 00:58 06/03/23 01:00 Temperature 98.3 F Pulse Rate 140 H 141 H 140 H Respiratory Rate 20 Blood Pressure 213/119 H Pulse Oximetry 96 96 96 Oxygen Delivery Method Room Air 06/03/23 01:13 06/03/23 01:13 06/03/23 01:38 Temperature Pulse Rate 132 H 131 H Respiratory Rate 27 H Blood Pressure 192/99 H Pulse Oximetry 94 96 Oxygen Delivery Method 06/03/23 01:57 06/03/23 01:57 06/03/23 02:00 Temperature Pulse Rate 116 H Respiratory Rate Blood Pressure 174/91 H 163/86 H Pulse Oximetry 95 Oxygen Delivery Method 06/03/23 02:00 06/03/23 02:30 06/03/23 02:30 Temperature Pulse Rate 116 H 118 H Respiratory Rate Blood Pressure 171/97 H Pulse Oximetry 94 94 Oxygen Delivery Method 06/03/23 03:00 06/03/23 03:00 Temperature Pulse Rate 109 H Respiratory Rate 27 H Blood Pressure 144/82 H Pulse Oximetry 93 Oxygen Delivery Method MDM - Abdominal Pain Lab Data 06/03/23 01:20 06/03/23 01:20 Labs: Lab Results 06/03/23 06/03/23 06/03/23 Range/Units 01:20 01:20 01:20 WBC 15.0 H (4.5-11.0) X10^3/uL RBC 5.52 (4.5-5.9) X10^6/uL Hgb 18.1 H (13.5-17.5) g/dL Hct 52.9 (41-53) % MCV 95.8 (80-100) fL MCH 32.9 (26-34) PG MCHC 34.3 (30-36) % RDW 13.8 (11.6-14.8) % Plt Count 143 L (150-400) X10^3/uL Neut % (Auto) 88.2 H (50-75) % Lymph % (Auto) 4.5 L (25-40) % [place] % (Auto) 6.9 (3-14) % Eos % (Auto) 0.1 L (2-4) % Baso % (Auto) 0.3 (0-2) % Neut # (Auto) 37426 H (4985-2419) /uL Lymph # (Auto) 700 L (0300-8222) /uL [place] # (Auto) 1000 H (0-900) /uL Eos # (Auto) 0 (0-450) /uL Baso # (Auto) 0 (0-100) /uL Sodium 133 L (137-145) mmol/L Potassium 4.4 (3.4-5.1) mmol/L Chloride 95 L (98-107) mmol/L Carbon Dioxide 15 L (22-32) mmol/L BUN 12 (9-20) mg/dL Creatinine 0.84 (0.66-1.25) mg/dL Estimated GFR > 60 (>60) mL/min BUN/Creatinine Ratio 14.3 (6-22) Glucose 62 L (70-100) mg/dL Lactate 3.3 H (0.7-2.1) mmol/L Calcium 8.1 L (8.4-10.2) mg/dL Total Bilirubin 1.3 (0.2-1.3) mg/dL AST 168 H (17-59) IU/L ALT 156 H (<50) IU/L Alkaline Phosphatase 85 (38-126) U/L Total Creatine Kinase 102 (55-170) U/L Troponin I < 0.012 (0.01-0.034) ng/mL Total Protein 7.9 (6.3-8.2) g/dL Albumin 4.5 (3.5-5.0) g/dL Globulin 3.4 (1.7-4.1) g/dL Albumin/Globulin Ratio 1.3 (1.0-2.8) Lipase 5523 H (23-300) U/L Ethyl Alcohol 161 H ( - 10) mg/dL Imaging Data CT scan - abdomen/pelvis: Radiologist's Impression: PROCEDURE:? CT ABDOMEN PELVIS W CON ? INDICATIONS:? pain and polycythemia vera. ? TECHNIQUE:? After the administration of intravenous contrast, axial sections acquired from the lung bases to the pubic symphysis.? Coronal and sagittal reformats were performed.? For radiation dose reduction, the following was used:? automated exposure control, adjustment of mA and/or kV according to patient size.? ? COMPARISON:? None. ? FINDINGS:? Image quality:? Excellent.? ? Lung bases:? Small hiatal hernia. Heart:? No significant findings. ? ABDOMEN: Liver:? Marked hepatic steatosis.? No solid mass.? ? Gallbladder:? No radiopaque stones.? ? Biliary ducts:? No dilation.? ? Pancreas:? Significant inflammatory changes surrounding the pancreas.? Some segments of the pancreas demonstrate decreased enhancement relative to the normal parenchyma.? No pancreatic ductal dilation.? No vascular complication.? No acute on chronic collection at this time.? ? Spleen:? Unremarkable.? ? Adrenal Glands:? Unremarkable.? ? Kidneys and Ureters:? Unremarkable.? ? ? Stomach and Bowel:? Stomach, small bowel loops, and colon are unremarkable.? Peritoneum:? Moderate volume free fluid.? Peritoneal calcification in the deep pelvis, consistent with prior intraperitoneal fat necrosis. ? Ventral Wall: ? No hernias.? Abdominal Nodes:? No retroperitoneal or mesenteric adenopathy by size criteria.? Vessels:? Aorta and inferior vena cava are normal in size.? ? PELVIS: Pelvic Organs:? Unremarkable.? ? Bladder:? Unremarkable.? ? Pelvic Nodes: No enlarged lymph nodes.? Miscellaneous: No hernias are seen. ? ? ? Bones:? Unremarkable.? IMPRESSION:? Acute pancreatitis.? Some small segments of the pancreatic parenchyma due not demonstrate enhancement, most concerning for necrotizing pancreatitis.? No acute necrotizing collection or vascular complication. ? No gallstones or biliary dilation. ? Marked hepatic steatosis.? ? Dictated by: Luis Rhodes M.D. on 06/03/2023 at 1:57 ? ? Approved by: Luis Rhodes M.D. on 06/03/2023 at 2:03?? Chest x-ray: Radiologist's Impression: PROCEDURE:? XR CHEST 1V ? INDICATIONS:? chest pain ? TECHNIQUE:? One view of the chest was acquired.? ? COMPARISON:? None. ? FINDINGS:? ? Surgical changes and devices:? None.? ? Lungs and pleura:? Lungs are clear.? No pleural effusions or pneumothorax.? ? Mediastinum:? Mediastinal contours appear normal.? Heart size is normal.? ? Bones and chest wall:? No suspicious bony lesions.? Overlying soft tissues appear unremarkable.? ? ? IMPRESSION:? Portable chest within normal limits for age. ? ? Dictated by: Luis Rhodes M.D. on 06/03/2023 at 1:57 ?? ECG Data Interpretation: Sinus tachycardia rate 132 SC interval 132 QRS [address] changes MDM Narrative Medical decision making narrative: Patient 42-year-old male who presents today with periumbilical pain ongoing for the past past few days. He admits to drinking alcohol daily. He is found to have pancreatitis with a lipase of 5500 and acute pancreatitis with a necrotizing pancreatitis on CT. He who is quite tachycardic no actively shaking denies any withdrawal although he feels anxious and reports history of anxiety. Heart rate improves with IV fluids and pain meds but is never actually below 100, blood pressure remained stable. I suspect that he is having some alcohol withdrawal. He reports that due to the pain he has not been able to drink as much. Lab work reviewed: He is also found have an elevated lactate of 3.3 and a bicarb of 15, with a glucose of 62. Images: Chest xray negative. Ct see above. He is given juice to drink he is tolerating some p.o. fluids Dr. angela accepts patient. Discharge Plan Departure Patient Disposition: Admitted As Inpatient Clinical Impression: Acute pancreatitis, Alcohol withdrawal Admit Date/Time: 06/03/23 03:06 Admit Provider: Mark Angela
[2023-06-03] MEDS: KETOROLAC 30 MG/ML VIAL 15 MG IV (01:55)
[2023-06-03 02:02] LABS: Lipase 5523 U/L (23-300)
[2023-06-03 02:04] LABS: Troponin I < 0.012 ng/mL (0.01-0.034)
[2023-06-03 02:40] LABS: Lactate (Lactic Acid) 3.3 mmol/L (0.7-2.1)
[2023-06-03] MEDS: HYDROMORPHONE 1 MG INJ IV (02:54)
[2023-06-03] MEDS: PHENobarbital 65 MG/ML VIAL 130 MG IV (02:58)
[2023-06-03 03:54] LABS: Lactate (Lactic Acid) 2.1 mmol/L (0.7-2.1)
[2023-06-03] MEDS: ACETAMINOPHEN 325 MG TABLET 650 MG PO ×3 (04:02→20:30)
[2023-06-03] MEDS: SODIUM CHLORIDE 0.9% 1,000 ML 150 ML IV ×2 (04:03→12:49)
[2023-06-03] MEDS: LORazepam 2 MG/ML INJ IV ×6 (04:14→21:40)
[2023-06-03 04:33] LABS: Reflexed Lactate in 2 Hours Y
--- NOTE | 2023-06-03 05:26 | PM.HP.1 ---
History of Present Illness History of Present Illness Date Patient Seen: 06/03/23 Time Patient Seen: 05:27 Chief complaint: abd pain x 3 days Narrative: The pt presents to the ER with dull achy pain in the epigastric area for the past 3 days, worse with any type of movement, his last meal was >24 hours ago, his last alcoholic drink was 5 hours ago. He normmally drinks one pint to 1/5th of vodka daily, he is not sure whether he wants to quit drinking or not, has never been in rehab before, denies having seizures with withdrawl before. Josesito states that he has had one episode of vomiting, and diarrhea, no hemoptysis, melana, but has a hx of GERD/ PUD as well as anxiety. [facility] Medical History Aftercare following left finger joint replacement surgery Depression Erectile dysfunction due to arterial insufficiency Family history of hypertension Finger wound, simple, open HTN (hypertension) Hyperlipidemia Migraine headache Sterilization consult Surgical History H/O circumcision H/O umbilical hernia repair Family History Mother Hypertension History of thyroid disorder Social History marital status: number of children: 2 household members: none occupational status: employed leisure activities: exercise Smoking Status: Never smoker alcohol intake: current substance use type: does not use Type(s) of exercise: weight lifting and running frequency: 5-6 times per week duration: 45-60 minutes/day Meds Home Medications and Allergies Home Medications Medication Instructions Recorded Confirmed Type omeprazole 20 mg capsule,delayed 20 mg PO DAILY 05/06/21 06/03/23 History release propranolol 10 mg tablet 20 mg PO BID 07/30/21 06/03/23 History lisinopril 10 mg tablet 10 mg PO DAILY 08/15/21 06/03/23 History bupropion HCl 150 mg 24 hr tablet, 450 mg PO QAM 04/01/23 06/03/23 History extended release (Wellbutrin XL) cetirizine 10 mg tablet (Zyrtec) 10 mg PO DAILY PRN Itching 04/01/23 06/03/23 History tadalafil 10 mg tablet 10 mg PO PRN PRN Sexual Activity 04/01/23 06/03/23 History aspirin 81 mg chewable tablet 81 mg PO DAILY 06/03/23 06/03/23 History Allergies Allergy/AdvReac Type Severity Reaction Status Date / Time No Known Drug Allergies Allergy Verified 08/15/21 07:40 Review of Systems Review of Systems Narrative: all systems were reviewed and are negative except what is listed in the HPI Exam Vital Signs (past 8 hours): - 06/03/23 01:00 06/03/23 00:58 06/03/23 01:00 Temperature 98.3 F Pulse Rate 140 H 141 H 140 H Respiratory Rate 20 Blood Pressure 213/119 H Pulse Oximetry 96 96 96 Oxygen Delivery Method Room Air Oxygen Flow Rate 06/03/23 01:13 06/03/23 01:13 06/03/23 01:38 Temperature Pulse Rate 132 H 131 H Respiratory Rate 27 H Blood Pressure 192/99 H Pulse Oximetry 94 96 Oxygen Delivery Method Oxygen Flow Rate 06/03/23 01:57 06/03/23 01:57 06/03/23 02:00 Temperature Pulse Rate 116 H Respiratory Rate Blood Pressure 174/91 H 163/86 H Pulse Oximetry 95 Oxygen Delivery Method Oxygen Flow Rate 06/03/23 02:00 06/03/23 02:30 06/03/23 02:30 Temperature Pulse Rate 116 H 118 H Respiratory Rate Blood Pressure 171/97 H Pulse Oximetry 94 94 Oxygen Delivery Method Oxygen Flow Rate 06/03/23 03:00 06/03/23 03:00 06/03/23 03:30 Temperature Pulse Rate 109 H Respiratory Rate 27 H Blood Pressure 144/82 H 141/79 H Pulse Oximetry 93 Oxygen Delivery Method Oxygen Flow Rate 06/03/23 03:30 06/03/23 03:39 06/03/23 04:32 Temperature 97.6 F Pulse Rate 112 H Respiratory Rate 24 Blood Pressure Pulse Oximetry 90 L Oxygen Delivery Method Room Air Room Air Oxygen Flow Rate 06/03/23 03:40 06/03/23 04:44 06/03/23 04:53 Temperature 98.6 F Pulse Rate 111 H 117 H Respiratory Rate 20 20 Blood Pressure 165/97 H 130/76 Pulse Oximetry 94 94 Oxygen Delivery Method Room Air Oxygen Flow Rate 0 Oxygen Delivery Method Room Air Oxygen Flow Rate 0 Const General: cooperative, healthy appearing and comfortable Eyes Other: no nystagmus Resp Auscultation: clear to auscultation bilaterally Cardio Rate: regular rate Rhythm: regular rhythm GI Palpation: No tender Auscultation: normal bowel sounds Objective Labs 06/03/23 01:20 06/03/23 01:20 Labs: Laboratory Results - last 24 hr 06/03/23 06/03/23 06/03/23 01:20 01:20 01:20 WBC 15.0 H RBC 5.52 Hgb 18.1 H Hct 52.9 MCV 95.8 MCH 32.9 MCHC 34.3 RDW 13.8 Plt Count 143 L Neut % (Auto) 88.2 H Lymph % (Auto) 4.5 L [place] % (Auto) 6.9 Eos % (Auto) 0.1 L Baso % (Auto) 0.3 Neut # (Auto) 00757 H Lymph # (Auto) 700 L [place] # (Auto) 1000 H Eos # (Auto) 0 Baso # (Auto) 0 Sodium 133 L Potassium 4.4 Chloride 95 L Carbon Dioxide 15 L BUN 12 Creatinine 0.84 Estimated GFR > 60 BUN/Creatinine Ratio 14.3 Glucose 62 L Lactate 3.3 H Calcium 8.1 L Total Bilirubin 1.3 AST 168 H ALT 156 H Alkaline Phosphatase 85 Total Creatine Kinase 102 Troponin I < 0.012 Total Protein 7.9 Albumin 4.5 Globulin 3.4 Albumin/Globulin Ratio 1.3 Lipase 5523 H Ethyl Alcohol 161 H 06/03/23 03:35 WBC RBC Hgb Hct MCV MCH MCHC RDW Plt Count Neut % (Auto) Lymph % (Auto) [place] % (Auto) Eos % (Auto) Baso % (Auto) Neut # (Auto) Lymph # (Auto) [place] # (Auto) Eos # (Auto) Baso # (Auto) Sodium Potassium Chloride Carbon Dioxide BUN Creatinine Estimated GFR BUN/Creatinine Ratio Glucose Lactate 2.1 Calcium Total Bilirubin AST ALT Alkaline Phosphatase Total Creatine Kinase Troponin I Total Protein Albumin Globulin Albumin/Globulin Ratio Lipase Ethyl Alcohol Assessment & Plan Assessment and plan (1) Acute pancreatitis: Status: Acute (2) Alcohol withdrawal: Status: Acute Plan Will admit the pt for IVFluids, NS at 150 cc/hr, repeat labs in am, including lipase, antiemetics ordered, no signs of withdrawl at this time since it has only been 5 hours since his last drink but he is high risk, CIWA order set ordered, ativan prn, frequent neuro checks, MVI, thiamine, folic acid ordered, NPO for now due to his N/V. We discussed popssible rehab which he is not ready for yet. Quality VTE Deep Vein Thrombosis/Pulmonary Embolism Present on Admission: Yes
[2023-06-03 05:38] LABS: Add Manual Diff / Slide Review NO; Basophils Absolute Auto 0 /uL (0-100); Basophils Percent Auto 0.2 % (0-2); Eosinophils Absolute Auto 0 /uL (0-450); Eosinophils Percent Auto 0.1 % (2-4); Hematocrit 47.1 % (41-53); INR 1.2 (0.9-1.3); Lymphocytes Absolute Auto 500 /uL (1100-4500); Lymphocytes Percent Auto 4.9 % (25-40); Mean Corpuscular HGB Conc 34.1 % (30-36); Mean Corpuscular Hemoglobin 32.7 PG (26-34); Mean Corpuscular Volume 96.1 fL (80-100); Monocytes Absolute Auto 600 /uL (0-900); Monocytes Percent Auto 5.5 % (3-14); Neutrophils Absolute Auto 9400 /uL (1500-7000); Neutrophils Percent Auto 89.3 % (50-75); Platelet Count 107 X10^3/uL (150-400); Prothrombin Time 13.9 SECONDS (10.1-12.7); White Blood Cell Count 10.5 X10^3/uL (4.5-11.0)
[2023-06-03 05:45] LABS: Reflexed Lactate in 2 Hours Y
[2023-06-03 05:55] LABS: Alanine Aminotransferase 125 IU/L (<50); Albumin 3.6 g/dL (3.5-5.0); Albumin Globulin Ratio 1.3 (1.0-2.8); Alkaline Phosphatase 65 U/L (38-126); Aspartate Aminotransferase 133 IU/L (17-59); BUN Creatinine Ratio 13.5 (6-22); Blood Urea Nitrogen 10 mg/dL (9-20); Calcium 7.1 mg/dL (8.4-10.2); Carbon Dioxide 16 mmol/L (22-32); Chloride 101 mmol/L (98-107); Estimated Glomerular Filt Rate > 60 mL/min (>60); Globulin 2.8 g/dL (1.7-4.1); Glucose 91 mg/dL (70-100); HEMOLYSIS < 15 (0-50); Magnesium 1.6 mg/dL (1.6-2.3); Potassium 4.2 mmol/L (3.4-5.1); Sodium 133 mmol/L (137-145); Total Protein 6.4 g/dL (6.3-8.2)
--- NOTE | 2023-06-03 06:00 | PC.NURSE ---
Pt. arrived to the floor via wheelchair. Pt. is a&ox4 and is actively withdrawing from ETOH, anxious, tremulous and diaphoretic. Oriented to room, call light use and instructed to never get OOB without assistance. Ativan 2 mg IV given for score of 11. Seizure pads applied and SCD's. Pt. also was assessed by Dr. Angela via video.
[2023-06-03] MEDS: MORPHINE 4 MG/ML INJ 3 MG IV ×3 (06:13→13:33)
[2023-06-03 06:15] LABS: Lipase 3916 U/L (23-300)
[2023-06-03 06:16] LABS: Ur Creatinine 20 (Normal)
[2023-06-03 06:17] LABS: UR Morphine/Opiate cutoff 300 Positive (Negative); Ur Specific Gravity >1.030 (Normal); Urine Amphetamines Negative (Negative); Urine Barbiturates Negative (Negative); Urine Benzodiazepines Negative (Negative); Urine Cocaine Negative (Negative); Urine MDMA Negative (Negative); Urine Methadone Negative (Negative); Urine Methamphetamines Negative (Negative); Urine Oxycodone Positive (Negative); Urine Phencyclidine Negative (Negative); Urine Tetrahydrocannabinol Negative (Negative); Urine Tricyclic Antidepressant Negative (Negative); Urine pH 5 (Normal)
[2023-06-03] MEDS: PANTOPRAZOLE 40 MG VIAL IV (10:05)
[2023-06-03] MEDS: ENOXAPARIN 40 MG/0.4 ML SYRINGE SUBCUT (10:05)
[2023-06-03] MEDS: THIAMINE 100 MG TABLET PO (10:05)
[2023-06-03] MEDS: FOLIC ACID 1 MG TABLET PO (10:05)
[2023-06-03] MEDS: MULTIVITAMIN 1 TABLET 1 TAB PO (10:07)
[2023-06-03] MEDS: chlordiazePOXIDE 25 MG CAPSULE 50 MG PO ×3 (10:07→20:31)
[2023-06-03] MEDS: PROPRANOLOL 10 MG TABLET 20 MG PO ×2 (11:30→20:31)
[2023-06-03] MEDS: MAGNESIUM CHLORIDE 64 MG TABLET 128 MG PO (11:31)
--- NOTE | 2023-06-03 12:27 | PC.NURSE ---
Assess- Patient is alert and oriented x4, he was given morphine and ativan for ciwa of 8 and pain of 7/10 to abdomen. Patient is unsteady on his feet and is a one person assist to bathroom. Patient is sweaty, and his heart rate is high at times. States to the doctor that he does get anxiety with being in the hospital or medical issues.
--- NOTE | 2023-06-03 12:40 | PM.PN.1 ---
Subjective Subjective Date Patient Seen: 06/03/23 Time Patient Seen: 08:00 Interval history: He says he feels quite a bit better. Pain is better controlled. He wants to trial foods. He feels his withdrawals are improving. He does look tremulous to me. Exam Vital Signs (past 8 hours): - 06/03/23 04:44 06/03/23 04:53 06/03/23 06:15 Temperature Pulse Rate 117 H 117 H Respiratory Rate 20 20 Blood Pressure 130/76 122/77 Pulse Oximetry 94 Oxygen Delivery Method Room Air Oxygen Flow Rate 06/03/23 07:16 06/03/23 09:47 06/03/23 11:30 Temperature 98.1 F Pulse Rate 120 H 120 H 120 H Respiratory Rate 20 16 18 Blood Pressure 154/91 H 154/91 H 176/103 H Pulse Oximetry 93 94 Oxygen Delivery Method Oxygen Flow Rate 0 0 06/03/23 08:00 06/03/23 12:00 Temperature Pulse Rate Respiratory Rate Blood Pressure Pulse Oximetry Oxygen Delivery Method Room Air Room Air Oxygen Flow Rate Oxygen Delivery Method Room Air Oxygen Flow Rate 0 Narrative Exam Narrative: GEN: slightly tremulous CV: tachcyardic PULM: clear ABD: soft, mildly tender, no rebound/guarding Objective Labs 06/03/23 05:12 06/03/23 05:12 Labs: Laboratory Results - last 24 hr 06/03/23 06/03/23 06/03/23 01:20 01:20 01:20 WBC 15.0 H RBC 5.52 Hgb 18.1 H Hct 52.9 MCV 95.8 MCH 32.9 MCHC 34.3 RDW 13.8 Plt Count 143 L Neut % (Auto) 88.2 H Lymph % (Auto) 4.5 L Davis % (Auto) 6.9 Eos % (Auto) 0.1 L Baso % (Auto) 0.3 Neut # (Auto) 75307 H Lymph # (Auto) 700 L Davis # (Auto) 1000 H Eos # (Auto) 0 Baso # (Auto) 0 PT INR Sodium 133 L Potassium 4.4 Chloride 95 L Carbon Dioxide 15 L BUN 12 Creatinine 0.84 Estimated GFR > 60 BUN/Creatinine Ratio 14.3 Glucose 62 L Lactate 3.3 H Calcium 8.1 L Magnesium Total Bilirubin 1.3 AST 168 H ALT 156 H Alkaline Phosphatase 85 Total Creatine Kinase 102 Troponin I < 0.012 Total Protein 7.9 Albumin 4.5 Globulin 3.4 Albumin/Globulin Ratio 1.3 Lipase 5523 H U Opiates 300ng/mL cut Ur Oxycodone Screen Urine Methadone Screen Ur Barbiturates Screen U Tricyclic Antidepress Ur Phencyclidine Scrn Ur Amphetamines Screen U Methamphetamines Scrn Ur MDMA Scrn (Ecstasy) U Benzodiazepines Scrn Urine Cocaine Screen U Marijuana (THC) Screen Ethyl Alcohol 161 H 06/03/23 06/03/23 06/03/23 03:35 05:00 05:12 WBC 10.5 RBC 4.90 Hgb 16.0 Hct 47.1 MCV 96.1 MCH 32.7 MCHC 34.1 RDW 14.0 Plt Count 107 L Neut % (Auto) 89.3 H Lymph % (Auto) 4.9 L Davis % (Auto) 5.5 Eos % (Auto) 0.1 L Baso % (Auto) 0.2 Neut # (Auto) 9400 H Lymph # (Auto) 500 L Davis # (Auto) 600 Eos # (Auto) 0 Baso # (Auto) 0 PT INR Sodium Potassium Chloride Carbon Dioxide BUN Creatinine Estimated GFR BUN/Creatinine Ratio Glucose Lactate 2.1 Calcium Magnesium Total Bilirubin AST ALT Alkaline Phosphatase Total Creatine Kinase Troponin I Total Protein Albumin Globulin Albumin/Globulin Ratio Lipase U Opiates 300ng/mL cut Positive H Ur Oxycodone Screen Positive H Urine Methadone Screen Negative Ur Barbiturates Screen Negative U Tricyclic Antidepress Negative Ur Phencyclidine Scrn Negative Ur Amphetamines Screen Negative U Methamphetamines Scrn Negative Ur MDMA Scrn (Ecstasy) Negative U Benzodiazepines Scrn Negative Urine Cocaine Screen Negative U Marijuana (THC) Screen Negative Ethyl Alcohol 06/03/23 06/03/23 06/03/23 05:12 05:12 05:12 WBC RBC Hgb Hct MCV MCH MCHC RDW Plt Count Neut % (Auto) Lymph % (Auto) Davis % (Auto) Eos % (Auto) Baso % (Auto) Neut # (Auto) Lymph # (Auto) Davis # (Auto) Eos # (Auto) Baso # (Auto) PT 13.9 H INR 1.2 Sodium 133 L Potassium 4.2 Chloride 101 Carbon Dioxide 16 L BUN 10 Creatinine 0.74 Estimated GFR > 60 BUN/Creatinine Ratio 13.5 Glucose 91 Lactate Calcium 7.1 L Magnesium 1.6 Total Bilirubin 1.0 AST 133 H ALT 125 H Alkaline Phosphatase 65 Total Creatine Kinase Troponin I Total Protein 6.4 Albumin 3.6 Globulin 2.8 Albumin/Globulin Ratio 1.3 Lipase 3916 H U Opiates 300ng/mL cut Ur Oxycodone Screen Urine Methadone Screen Ur Barbiturates Screen U Tricyclic Antidepress Ur Phencyclidine Scrn Ur Amphetamines Screen U Methamphetamines Scrn Ur MDMA Scrn (Ecstasy) U Benzodiazepines Scrn Urine Cocaine Screen U Marijuana (THC) Screen Ethyl Alcohol PFSH Medical History Aftercare following left finger joint replacement surgery Depression Erectile dysfunction due to arterial insufficiency Family history of hypertension Finger wound, simple, open HTN (hypertension) Hyperlipidemia Migraine headache Sterilization consult Surgical History H/O circumcision H/O umbilical hernia repair Family History Mother Hypertension History of thyroid disorder Social History marital status: number of children: 2 household members: none occupational status: employed leisure activities: exercise Smoking Status: Never smoker alcohol intake: current substance use type: does not use Type(s) of exercise: weight lifting and running frequency: 5-6 times per week duration: 45-60 minutes/day Assessment & Plan Assessment and plan (1) Acute pancreatitis: Status: Acute (2) Alcohol withdrawal: Status: Acute Plan Continue with IV fluids while not taking normal amount of PO. For his withdrawal, continue on CIWA and start librium taper today (06/03) at 50mg q6, careful with oversedating. Pain control, and nausea control meds have been reordered. Restart home dose of propanolol due to his persistent tachycardia. Quality VTE Deep Vein Thrombosis/Pulmonary Embolism Present on Admission: Yes
[2023-06-03] MEDS: LORATADINE 10 MG TABLET PO (13:33)
[2023-06-03] MEDS: LACTATED RINGERS 1,000 ML 125 ML IV (15:16)
[2023-06-03] MEDS: METOPROLOL TARTRATE 5 MG/5 ML INJ IV ×2 (15:50→20:55)
--- NOTE | 2023-06-03 20:44 | PC.NURSE ---
When I first got her patient respirations were 20 and breath normally, I noticed when I went into patients room his breathing increased I retook his respirations and they were 45. I had patient does he feel like his breathing is getting worse and hard to breath when I first got onto shift and he said yes. Nurse notified
[2023-06-03] MEDS: dexmedeTOMIDine in 0.9 % NaCL 400 MCG/100 ML PLAST..BAG 33.375 MCG IV (22:10)
[2023-06-04] VITALS (56 sets, daily range): BP systolic 96–153; BP diastolic 56–92; PULSE 83–101; RESP 33–51; TEMP 36.8–37.1; O2SAT 91–98
[2023-06-04] MEDS: dexmedeTOMIDine in 0.9 % NaCL 400 MCG/100 ML PLAST..BAG 22.25 MCG IV (00:38)
--- NOTE | 2023-06-04 02:50 | PC.NURSE ---
Addendum entered by Azeb Johnson R.N. 06/04/23 06:51: 0650-Patient given Ativan again for Ciwaa of 21. Patient requesting his father be called. Raimundo Rosenberg father notified of patients admission. Father states he was aware that he was hospitalized. Will monitor. Addendum entered by Azeb Johnson R.N. 06/04/23 05:53: 0548- Ciwaa now 20. Medicated per orders. Will monitor. Addendum entered by Azeb Johnson R.N. 06/04/23 05:19: 0515- Patient awake and responsive. Patient suspicious of RN and this project. Patient reoriented to hospital but does not retain the information. Patient wants to leave. Patient advised that he cannot leave due to safety. Precedex titrated up to 1.5 mcg/kg/hr. Patient states he is anxious. Ciwaa 10. Patient has had two loose stools. Cleaned and linens changed. Will monitor. Addendum entered by Azeb Johnson R.N. 06/04/23 04:26: 0420- Dr. Resendiz aware of respiratory rate no order received. Will monitor. Addendum entered by Aezb Johnson R.N. 06/04/23 03:49: 0330- Patient respiratory rate is elevated. Patient denies pain, taking sips of water. Patient lung sounds are unchanged will monitor. Original Note: 2200- Patient transferred to room 227 for delirium and combative behaviour. Patient has elevated Ciwaa scores requiring frequent Ativan IV. Patient transferred to start precedex gtt. Precedex started per order, chang catheter placed. Patient continued with agitation and combative behaviour and was given another dose of Ativan IV. 2240- Patient less combative and vss are stable. Will monitor.
[2023-06-04] MEDS: dexmedeTOMIDine in 0.9 % NaCL 400 MCG/100 ML PLAST..BAG 17.8 MCG IV (04:58)
[2023-06-04 05:00] LABS: Hemoglobin 14.2 g/dL (13.5-17.5); Mean Corpuscular HGB Conc 33.7 % (30-36); Mean Corpuscular Hemoglobin 32.8 PG (26-34); Mean Corpuscular Volume 97.3 fL (80-100); Platelet Count 79 X10^3/uL (150-400); Red Blood Cell Count 4.32 X10^6/uL (4.5-5.9); Red Cell Distribution Width 14.2 % (11.6-14.8); White Blood Cell Count 6.4 X10^3/uL (4.5-11.0)
[2023-06-04 05:10] LABS: BUN Creatinine Ratio 19.4 (6-22); Blood Urea Nitrogen 13 mg/dL (9-20); Calcium 7.6 mg/dL (8.4-10.2); Carbon Dioxide 23 mmol/L (22-32); Chloride 106 mmol/L (98-107); Estimated Glomerular Filt Rate > 60 mL/min (>60); Glucose 113 mg/dL (70-100); HEMOLYSIS < 15 (0-50); Magnesium 2.1 mg/dL (1.6-2.3); Sodium 136 mmol/L (137-145)
[2023-06-04] MEDS: LORazepam 2 MG/ML INJ IV ×9 (05:49→22:21)
[2023-06-04] MEDS: LACTATED RINGERS 1,000 ML 125 ML IV ×3 (05:50→21:49)
[2023-06-04] MEDS: dexmedeTOMIDine in 0.9 % NaCL 400 MCG/100 ML PLAST..BAG 33.375 MCG IV (07:20)
[2023-06-04] MEDS: MORPHINE 4 MG/ML INJ 3 MG IV (08:20)
--- NOTE | 2023-06-04 09:01 | DI.RAD.S_ITS ---
PROCEDURE: XR CHEST 1V INDICATIONS: respiratory failure TECHNIQUE: One view of the chest was acquired. COMPARISON: [facility], , XR CHEST 1V, 06/03/2023, 1:14. FINDINGS: Surgical changes and devices: None. Lungs and pleura: Low lung volumes are seen bilaterally with atelectasis of the lung bases. Superimposed retrocardiac consolidation is not excluded. No definite pleural effusion or pneumothorax. Mediastinum: Mediastinal contours appear normal. Heart size is normal. Bones and chest wall: No suspicious bony lesions. Overlying soft tissues appear unremarkable. IMPRESSION: Markedly low lung volumes bilaterally with atelectasis versus consolidation at the lung bases. Approved by: Hernando Diane M.D. on 06/04/2023 at 9:50
--- NOTE | 2023-06-04 09:02 | DI.US.S_ITS ---
PROCEDURE: US ABDOMEN COMPLETE INDICATIONS: Abdominal pain TECHNIQUE: Real-time scanning was performed of the abdominal and retroperitoneal organs, with image documentation. COMPARISON: [facility], CT, CT ABDOMEN PELVIS W CON, 06/03/2023, 1:22. [facility], US, US ABDOMEN COMPLETE, 05/12/2023, 15:28. FINDINGS: Liver: Liver is enlarged measuring 18.6 cm maximum diameter with diffusely increased echogenicity and posterior acoustic attenuation. Gallbladder: The gallbladder appears normal without gallstones or gallbladder wall thickening. There is no pericholecystic fluid. Sonographic Wright sign is negative. Biliary ducts: Intrahepatic bile ducts are non-dilated. Extrahepatic bile duct caliber measures 5.7 mm. Normal is 6-7 mm or less in diameter, or 10 mm or less post-cholecystectomy. Pancreas: Pancreas is not well visualized due to overlying bowel gas. Spleen: Spleen is mildly enlarged, measuring up to 14.2 cm in maximum dimension. A splenule is present.. Kidneys: Kidneys are normal in size and echotexture. Right kidney measures 10.3 cm long; left kidney measures 10.9 cm long. No hydronephrosis or nephrolithiasis. No solid masses. Aorta: Not well visualized due to overlying bowel gas. Iliacs: Not well visualized IVC: Not well visualized. Miscellaneous: Trace free fluid in the right upper and lower quadrants. IMPRESSION: 1. No gallstones or biliary ductal dilatation. 2. Trace free fluid in the right abdomen is likely related to known acute pancreatitis. The pancreas is not well visualized on this exam. 3. Hepatomegaly and diffusely hepatic echogenicity are seen, most commonly secondary to diffuse severe hepatic steatosis but other sources of hepatocellular disease cannot be excluded. Recommend clinical correlation. Approved by: Hernando Diane M.D. on 06/04/2023 at 10:27
--- NOTE | 2023-06-04 09:03 | PM.CN.EICU ---
History of Present Illness Consult details IF CAMERA ACTIVATED, patient seen via real-time interactive audiovisual communication: Camera activated Date Patient Seen: 06/04/23 Chief complaint: abd pain x 3 days Reason for consult: Alcohol withdrawal Consent obtained for tele-multicraft operator care: Yes Patient Location: ICU Provider location (State): [place] Other participants/roles: Bedside RN and MD Narrative: Patient is a 42 year old male with hisotry of alcohol abuse who presents with abdominal pain for the past few days. By report patient drinks about 1/5th of vodka daily. On presentation, CT abdomen/pelvis showed acute pancreatitis. He was started on IVF. Overnight patient became agitated and transferred to ICU. Started on precedex. Patient remains agitated and received ativan 2 mg follow by morphine IV push. Tele multicraft operator consulted for alcohol withdrawal management. CT Abdomen/Pelvis: Acute pancreatitis.? Some small segments of the pancreatic parenchyma due not demonstrate enhancement, most concerning for necrotizing pancreatitis.? No acute necrotizing collection or vascular complication. [facility] Medical History Aftercare following left finger joint replacement surgery Depression Erectile dysfunction due to arterial insufficiency Family history of hypertension Finger wound, simple, open HTN (hypertension) Hyperlipidemia Migraine headache Sterilization consult Surgical History H/O circumcision H/O umbilical hernia repair Family History Mother Hypertension History of thyroid disorder Social History marital status: number of children: 2 household members: none occupational status: employed leisure activities: exercise Smoking Status: Never smoker alcohol intake: current substance use type: does not use Type(s) of exercise: weight lifting and running frequency: 5-6 times per week duration: 45-60 minutes/day Current Medications Current Medications Medications: Home Medications omeprazole 20 mg capsule,delayed release 20 mg PO DAILY 05/06/21 [History Confirmed 06/03/23] propranolol 10 mg tablet 20 mg PO BID 07/30/21 [History Confirmed 06/03/23] lisinopril 10 mg tablet 10 mg PO DAILY 08/15/21 [History Confirmed 06/03/23] bupropion HCl 150 mg 24 hr tablet, extended release (Wellbutrin XL) 450 mg PO QAM 04/01/23 [History Confirmed 06/03/23] cetirizine 10 mg tablet (Zyrtec) 10 mg PO DAILY PRN Itching 04/01/23 [History Confirmed 06/03/23] tadalafil 10 mg tablet 10 mg PO PRN PRN Sexual Activity 04/01/23 [History Confirmed 06/03/23] aspirin 81 mg chewable tablet 81 mg PO DAILY 06/03/23 [History Confirmed 06/03/23] Visit Medications (administered) Generic Name Dose Route Start Last Admin Trade Name Freq PRN Reason Stop Dose Admin Acetaminophen 650 mg 06/03/23 03:30 06/04/23 08:48 Acetaminophen 325 Mg Tablet PO Not Given Q6H MEMO Chlordiazepoxide HCl 50 mg 06/03/23 09:00 06/04/23 08:47 Chlordiazepoxide 25 Mg Capsule PO Not Given Q6H MEMO Enoxaparin Sodium 40 mg 06/03/23 09:00 06/04/23 08:48 Enoxaparin 40 Mg/0.4 Ml Syringe SUBCUT Not Given DAILY MEMO Folic Acid 1 mg 06/03/23 09:00 06/04/23 08:48 Folic Acid 1 Mg Tablet PO Not Given DAILY MMEO Sodium Chloride 1,000 mls @ 1,000 mls/hr 06/03/23 01:15 06/03/23 02:40 Normal Saline 0.9% IV Infused CONT MEMO Infusion Lactated Ringer's 1,000 mls @ 125 mls/hr 06/03/23 14:30 06/04/23 05:50 Lactated Ringers IV 125 mls/hr CONT MEMO Administration dexmedeTOMIDine in 0.9 % NaCL 400 mcg in 100 mls @ 4.45 mls/hr 06/03/23 22:00 06/04/23 08:26 Precedex IV 2 mcg/kg/hr TITRATE MEMO 44.5 mls/hr Titration Protocol 0.2 MCG/KG/HR Loratadine 10 mg 06/03/23 12:45 06/03/23 13:33 Loratadine 10 Mg Tablet PO 10 mg DAILY PRN Administration Itching Lorazepam 0 mg 06/03/23 03:21 06/04/23 08:13 Lorazepam 2 Mg/Ml Inj IV 2 mg CIWAPRN PRN Administration Alcohol Withdrawal Protocol Metoprolol Tartrate 5 mg 06/03/23 05:26 06/03/23 20:55 Metoprolol Tartrate 5 Mg/5 Ml Inj IV 5 mg Q6H PRN Administration Hypertension if HR >100 Morphine Sulfate 3 mg 06/03/23 03:16 06/04/23 08:20 Morphine 4 Mg/Ml Inj IV 3 mg Q4HR PRN Administration Pain, Severe (7-10) Multivitamins 1 tab 06/03/23 09:00 06/04/23 08:48 Multivitamin 1 Tablet PO Not Given DAILY [facility] Pantoprazole Sodium 40 mg 06/03/23 09:00 06/03/23 10:05 Pantoprazole 40 Mg Vial IV 40 mg DAILY MEMO Administration Propranolol HCl 20 mg 06/03/23 12:45 06/04/23 08:48 Propranolol 10 Mg Tablet PO Not Given BID MEMO Thiamine HCl 100 mg 06/03/23 09:00 06/04/23 08:48 Thiamine 100 Mg Tablet PO 06/06/23 09:01 Not Given DAILY [facility] Exam Vital Signs (past 8 hours): - 06/04/23 01:30 06/04/23 01:30 06/04/23 02:00 Temperature Pulse Rate 86 Respiratory Rate 37 H Blood Pressure 98/58 L 108/72 Pulse Oximetry 96 Oxygen Delivery Method Oxygen Flow Rate 06/04/23 02:00 06/04/23 02:30 06/04/23 02:30 Temperature Pulse Rate 83 88 Respiratory Rate 33 H 37 H Blood Pressure 102/64 Pulse Oximetry 97 95 Oxygen Delivery Method Oxygen Flow Rate 06/04/23 03:00 06/04/23 03:00 06/04/23 03:30 Temperature Pulse Rate 89 Respiratory Rate 34 H Blood Pressure 102/64 141/84 H Pulse Oximetry 95 Oxygen Delivery Method Oxygen Flow Rate 06/04/23 03:30 06/04/23 05:00 06/04/23 04:00 Temperature Pulse Rate 83 Respiratory Rate 39 H Blood Pressure 114/65 Pulse Oximetry 98 95 Oxygen Delivery Method Nasal Cannula Oxygen Flow Rate 2 06/04/23 04:00 06/04/23 04:30 06/04/23 04:30 Temperature Pulse Rate 92 H 98 H Respiratory Rate 42 H 38 H Blood Pressure 142/89 H Pulse Oximetry 97 97 Oxygen Delivery Method Oxygen Flow Rate 06/04/23 05:00 06/04/23 05:00 06/04/23 06:09 Temperature Pulse Rate 100 H 101 H Respiratory Rate 42 H 35 H Blood Pressure 147/89 H 153/92 H Pulse Oximetry 95 Oxygen Delivery Method Oxygen Flow Rate 06/04/23 06:30 06/04/23 07:00 06/04/23 07:00 Temperature 98.2 F Pulse Rate 101 H Respiratory Rate 40 H Blood Pressure 153/92 H 119/72 Pulse Oximetry Oxygen Delivery Method Room Air Oxygen Flow Rate 06/04/23 07:00 06/04/23 07:30 06/04/23 07:30 Temperature Pulse Rate 97 H 95 H Respiratory Rate 43 H 41 H Blood Pressure 110/66 Pulse Oximetry 93 91 Oxygen Delivery Method Oxygen Flow Rate 06/04/23 08:33 Temperature Pulse Rate 93 H Respiratory Rate 38 H Blood Pressure 124/83 Pulse Oximetry Oxygen Delivery Method Oxygen Flow Rate Oxygen Delivery Method Room Air Oxygen Flow Rate 2 Narrative Exam Narrative: Tachypnea and on 2 liters NC. Sleeping comfortably. Objective Labs 06/04/23 04:30 06/04/23 04:30 Labs: Laboratory Results - last 24 hr 06/04/23 06/04/23 04:30 04:30 WBC 6.4 RBC 4.32 L Hgb 14.2 Hct 42.0 MCV 97.3 MCH 32.8 MCHC 33.7 RDW 14.2 Plt Count 79 L Sodium 136 L Potassium 4.0 Chloride 106 Carbon Dioxide 23 BUN 13 Creatinine 0.67 Estimated GFR > 60 BUN/Creatinine Ratio 19.4 Glucose 113 H Calcium 7.6 L Magnesium 2.1 Assessment & Plan Assessment & Plan narrative: NEURO: # Alcohol withdrawal -- Last drink was 36 hours ago -- On thiamine and folic acid -- On precedex to seek RASS goal -1 to 0 -- On librium therapy -- Ativan as needed per [facility] protocol RESP: # Acute hypoxemia respiratory failure -- Secondary to pancreatitis w/ MODS -- Pancreatitis management as below -- HOB elevation -- Aspiration precaution -- CXR pending -- Goal SPO2 > 88% CVS: -- MAP goal > 65 GI: # Acute pancreatitis -- Secondary to alcohol abuse -- On IVF -- NPO and pain control ENDO: -- GOal BS < 180 Time Spent With Patient Time with patient: 30 to 49 minutes with 50% spent counseling/coordinating care
[2023-06-04] MEDS: dexmedeTOMIDine in 0.9 % NaCL 400 MCG/100 ML PLAST..BAG 44.5 MCG IV ×7 (09:23→23:16)
[2023-06-04] MEDS: PANTOPRAZOLE 40 MG VIAL IV (09:23)
[2023-06-04 09:44] LABS: Ammonia (NH3) 24 umol/L (9-30)
[2023-06-04 10:23] LABS: Alanine Aminotransferase 77 IU/L (<50); Albumin 2.8 g/dL (3.5-5.0); Alkaline Phosphatase 56 U/L (38-126); Aspartate Aminotransferase 63 IU/L (17-59); Bilirubin Total 1.4 mg/dL (0.2-1.3); Bilirubin Unconjugated 0.6 mg/dL (0.0-1.1); Globulin 2.7 g/dL (1.7-4.1); HEMOLYSIS < 15 (0-50); Total Protein 5.5 g/dL (6.3-8.2)
--- NOTE | 2023-06-04 10:27 | PC.NURSE ---
pt currently on Precedex at 1.5 mcg, has been given 4 mg total of Ativan previous shift. Pt woke up and became extremely agitated scoring CIWA of 25, increased Precedex gtt to 2 mcg/kg/hr, administered 2mg Ativan and 3mg Morphine for pain. Pt resting again, rouses to voice, slurred speech, strugging with swallowing water using a straw or from a cup. Keeping pt NPO at this time. 1000 CIWA 20, mediccated with 2 mg Ativan, pt remains sleepy, but rouses to voice, becomes agitated, pulling at lines, RR 35-55 Dr Wallace notified, no new orders at this time. Pt 1:1, parents at bedside, 2L NC due to desat O2 87-90%. Will continue to monitor
[2023-06-04] MEDS: MORPHINE 4 MG/ML INJ IV ×3 (12:26→20:58)
--- NOTE | 2023-06-04 13:22 | PM.PN.1 ---
Subjective Subjective Interval history: Overnight he became more agitated and confused, with hallucinations. Placed on precedex infusion and moved to the ICU. He states he feels okay this morning, no nausea vomiting or abdominal pain. Exam Vital Signs (past 8 hours): - 06/04/23 06:09 06/04/23 06:30 06/04/23 07:00 Temperature Pulse Rate 101 H 101 H Respiratory Rate 35 H 40 H Blood Pressure 153/92 H 153/92 H Pulse Oximetry Oxygen Delivery Method Room Air Oxygen Flow Rate 06/04/23 07:00 06/04/23 07:00 06/04/23 07:30 Temperature 98.2 F Pulse Rate 97 H Respiratory Rate 43 H Blood Pressure 119/72 110/66 Pulse Oximetry 93 Oxygen Delivery Method Oxygen Flow Rate 06/04/23 07:30 06/04/23 08:33 06/04/23 09:00 Temperature Pulse Rate 95 H 93 H Respiratory Rate 41 H 38 H Blood Pressure 124/83 Pulse Oximetry 91 96 Oxygen Delivery Method Nasal Cannula Oxygen Flow Rate 2 06/04/23 08:00 06/04/23 08:00 06/04/23 08:30 Temperature Pulse Rate 93 H Respiratory Rate 40 H Blood Pressure 112/70 124/83 Pulse Oximetry 91 Oxygen Delivery Method Oxygen Flow Rate 06/04/23 08:30 06/04/23 09:00 06/04/23 09:00 Temperature Pulse Rate 93 H 96 H Respiratory Rate 40 H 44 H Blood Pressure 134/88 Pulse Oximetry 95 95 Oxygen Delivery Method Oxygen Flow Rate 06/04/23 09:30 06/04/23 09:30 06/04/23 10:26 Temperature Pulse Rate 96 H 93 H Respiratory Rate 39 H 38 H Blood Pressure 137/87 127/80 Pulse Oximetry 94 Oxygen Delivery Method Oxygen Flow Rate 06/04/23 10:00 06/04/23 10:00 06/04/23 11:22 Temperature 98.7 F Pulse Rate 99 H Respiratory Rate 44 H Blood Pressure 138/91 H Pulse Oximetry 94 Oxygen Delivery Method Nasal Cannula Oxygen Flow Rate 06/04/23 11:00 06/04/23 11:00 06/04/23 11:30 Temperature Pulse Rate 93 H Respiratory Rate 39 H Blood Pressure 121/76 116/78 Pulse Oximetry 96 Oxygen Delivery Method Oxygen Flow Rate 06/04/23 11:30 06/04/23 12:21 Temperature Pulse Rate 93 H 93 H Respiratory Rate 40 H 44 H Blood Pressure 129/76 Pulse Oximetry 95 Oxygen Delivery Method Oxygen Flow Rate Oxygen Delivery Method Nasal Cannula Oxygen Flow Rate 2 Narrative Exam Narrative: GEN: slightly tremulous, lethargic but arousable to voice on precedex infusion. CV: RRR no m/r/g PULM: clear ABD: S NT ND Ext: trace edema bilaterally, no joint swelling. Objective Labs 06/04/23 04:30 06/04/23 04:30 Labs: Laboratory Results - last 24 hr 06/04/23 06/04/23 06/04/23 04:30 04:30 09:18 WBC 6.4 RBC 4.32 L Hgb 14.2 Hct 42.0 MCV 97.3 MCH 32.8 MCHC 33.7 RDW 14.2 Plt Count 79 L Sodium 136 L Potassium 4.0 Chloride 106 Carbon Dioxide 23 BUN 13 Creatinine 0.67 Estimated GFR > 60 BUN/Creatinine Ratio 19.4 Glucose 113 H Calcium 7.6 L Magnesium 2.1 Total Bilirubin Conjugated Bilirubin Unconjugated Bilirubin AST ALT Alkaline Phosphatase Ammonia 24 Total Protein Albumin Globulin Albumin/Globulin Ratio 06/04/23 10:14 WBC RBC Hgb Hct MCV MCH MCHC RDW Plt Count Sodium Potassium Chloride Carbon Dioxide BUN Creatinine Estimated GFR BUN/Creatinine Ratio Glucose Calcium Magnesium Total Bilirubin 1.4 H Conjugated Bilirubin 0.0 Unconjugated Bilirubin 0.6 AST 63 H ALT 77 H Alkaline Phosphatase 56 Ammonia Total Protein 5.5 L Albumin 2.8 L Globulin 2.7 Albumin/Globulin Ratio 1.0 PFSH Medical History Aftercare following left finger joint replacement surgery Depression Erectile dysfunction due to arterial insufficiency Family history of hypertension Finger wound, simple, open HTN (hypertension) Hyperlipidemia Migraine headache Sterilization consult Surgical History H/O circumcision H/O umbilical hernia repair Family History Mother Hypertension History of thyroid disorder Social History marital status: number of children: 2 household members: none occupational status: employed leisure activities: exercise Smoking Status: Never smoker alcohol intake: current substance use type: does not use Type(s) of exercise: weight lifting and running frequency: 5-6 times per week duration: 45-60 minutes/day Assessment & Plan Assessment & Plan narrative: 1. Acute alcohol withdrawal with DTs. - librium on hold with decreased alertness due to sedation required, resume when able to with improved mental status - continue precedex infusion after discussion with tele-double end production grinder today. - continue MVI, folate, thiamine 2. Alcoholic pancreatitis - currently NPO, can advance as tolerated and advance diet when more alert. - abdominal ultrasound with no evidence for biliary obstruction. Follow bilirubin with increase to 1.4. 3. Alcoholic hepatitis - continue to follow AST/ALT, improving day by day thus far, though tbili rising - abdominal ultrasound with steatosis. 4. Acute respiratory failure with hypoxia - suspect secondary to sedation / atelectasis with EtOH withdrawal. No fever, or leukocytosis but low threshold to start antibiotics. 5. HTN, chronic - hold home propranolol for now. HOld home lisinopril - on metoprolol IV q6 hr. 6. GERD, chronic - Continue IV PPI daily 7. Depression, chronic - has self titrated to 75 mg daily, will resume buproprion when mental status improves. 8. Thrombocytopenia with history of polycythemia - Hg 14.2, had outpatient JAK2 ordered along with abdominal ultrasound. Suspect current suppression in setting of EtOH use. - continue to follow. Hold lovenox for now with thrombocytopenia. - check ferritin, has multiple reasons for secondary etiology of polycythemia. Code: Full, surrogate is patient's family/parents DVT: Hold for thrombocytopenia I spent 35 minutes providing critical care management this patient. This excludes time spent in performing separately billed procedures. Quality VTE Deep Vein Thrombosis/Pulmonary Embolism Present on Admission: Yes
[2023-06-04] MEDS: LORazepam 2 MG/ML INJ 1 MG IV ×3 (13:29→20:58)
--- NOTE | 2023-06-04 13:29 | CM.DANOTE ---
Patient is a 42 yo male who was admitted on 06/03/23 for Abd Pain/Pancreatitis. Pt has [employer] and [employer]ILAH for insurance and his PCP is Emanuel Chapa. EMR was reviewed. Per MD, pt admitted for ETOH withdrawal and currently on sedation as he seems to be in the peak of his withdrawals. UDS+ for opiates, oxycodone, and ETOH. Per RN, pt's CIWA scores have increased up to 25 and has had some DTs and delirium and currently on pressors and sedated. SW met bedside with pt, who was not able to participate in discussion, and pt's parents. Parents confirm that pt lives in [place] currently on his boat that is moored at [facility] and pt has been through a rough year that has involved a divorce from his and they share custody of their two kids ages 9 and 11 and pt has the kids one week out of the month and currently the kids are with their mother. Pt is unemployed at this time due to recent dx of a blood cancer and has been established with Oncologist Dr. Corado but parents do not think the pt has had his follow up appointment with Dr. Corado yet or had his recommended blood draw. Pt's life stressors have increased pt's drinking and parents did not realize how significantly pt has been drinking to self medicate. Parents confirm pt has a hx of alcohol abuse but never to this point and no hx of ETOH treatment. Parents live locally as well and plan to be available for support in whatever is needed and whatever the pt decides he is ready for at discharge. Plan: SW to follow closely for pt to be more medically appropriate for discussion regarding possible ETOH resources and his current Oncology dx and needs might be a barrier to Inpt ETOH tx at this time. SW to help coordinate safe d/c plan with pt and family members. SHARI Zavala Discharge Planning/Care Management CM Discharge Assessment Start: 06/04/23 13:26 Freq: Status: Active Protocol: Document 06/04/23 13:27 BF (Rec: 06/04/23 13:29 BF [id number]) Discharge Planning Assessment Assigned Dispute Resolution Specialist SHARI Good DPOA/Assigned Designee Name none, informally parents Contact Information [phone] Advance Directives? No Advance Directives on File No History Provided By Patient,Family Member,Medical Record Has Patient been admitted in last 30 No days? Prior Living Arrangements Other Comment [facility] Household Members none Type of transporation used prior to Drives own vehicle admit Independent with ADL's Yes Is patient alert and oriented? Yes Caregiver for Another Yes: has two young kids one week a month Patient/Family Preference Drug/Alcohol Rehab Comment Pending pt's progress and interest in ETOH tx Barriers to Discharge No Discharge Plan Home Transportation Arrangement Parents are bedside and willing to support and transport pt as needed Referrals Initiated Other Additional Comment Waiting for ETOH assessment when pt more medically appropriate to participate Whiteboard Updated in Patient Room with Yes name and ext. # of Dispute Resolution Specialist Review Status In Process Please Provide Date Initial DC 06/04/23 Assessment Was Performed Next Review Type Continued Stay Review
--- NOTE | 2023-06-04 20:35 | PM.ICURNDS ---
- Date Patient Seen: 06/04/23 Time Patient Seen: 20:35 :: This patient was seen via real time interactive two-way audiovisual telecommunication. Note: no acute events since admission no prn ativan given continue ciwa protocol please call eICU if condition changes
[2023-06-05] VITALS (71 sets, daily range): BP systolic 146–203; BP diastolic 82–106; PULSE 49–98; RESP 0–50; TEMP 36.6; O2SAT 89–99
[2023-06-05] MEDS: LORazepam 2 MG/ML INJ 1 MG IV ×2 (01:09→09:07)
[2023-06-05] MEDS: dexmedeTOMIDine in 0.9 % NaCL 400 MCG/100 ML PLAST..BAG 44.5 MCG IV ×5 (01:33→10:19)
--- NOTE | 2023-06-05 01:36 | PC.NURSE ---
Addendum entered by Azeb Johnson R.N. 06/05/23 05:15: 0500- Patient linen changed and katelyn care done. Patient cooperative at first but then became combative and uncooperative. Patient medicated per orders. Patient was verbalizing but acting suspicious of care givers and he does not think he is in the hospital. Patient is unable to tell us where he is. Patient diaphoretic and tremulous. Will monitor. Original Note: 0130- Patient is intermittedly impulsive and attempts to get out of bed. Patient redirects but can be resistant to cooperating. Ativan scheduled and Precedex given per order. Morphine given per order. Will monitor.
[2023-06-05] MEDS: MORPHINE 4 MG/ML INJ IV ×3 (01:39→08:00)
[2023-06-05] MEDS: LORazepam 2 MG/ML INJ IV ×5 (03:56→10:10)
[2023-06-05 05:19] LABS: Prothrombin Time 11.8 SECONDS (10.1-12.7)
[2023-06-05 05:24] LABS: Add Manual Diff / Slide Review NO; Basophils Absolute Auto 0 /uL (0-100); Basophils Percent Auto 0.4 % (0-2); Eosinophils Absolute Auto 200 /uL (0-450); Eosinophils Percent Auto 3.5 % (2-4); Hematocrit 38.9 % (41-53); Hemoglobin 13.1 g/dL (13.5-17.5); Lymphocytes Absolute Auto 800 /uL (1100-4500); Lymphocytes Percent Auto 12.1 % (25-40); Mean Corpuscular HGB Conc 33.8 % (30-36); Mean Corpuscular Hemoglobin 32.9 PG (26-34); Mean Corpuscular Volume 97.4 fL (80-100); Monocytes Absolute Auto 600 /uL (0-900); Monocytes Percent Auto 9.9 % (3-14); Neutrophils Absolute Auto 4800 /uL (1500-7000); Neutrophils Percent Auto 74.1 % (50-75); Platelet Count 95 X10^3/uL (150-400); Red Cell Distribution Width 14.3 % (11.6-14.8); White Blood Cell Count 6.5 X10^3/uL (4.5-11.0)
[2023-06-05 05:26] LABS: Alanine Aminotransferase 70 IU/L (<50); Albumin 2.9 g/dL (3.5-5.0); Albumin Globulin Ratio 1.1 (1.0-2.8); Alkaline Phosphatase 65 U/L (38-126); Aspartate Aminotransferase 59 IU/L (17-59); BUN Creatinine Ratio 17.8 (6-22); Blood Urea Nitrogen 13 mg/dL (9-20); Calcium 7.9 mg/dL (8.4-10.2); Carbon Dioxide 22 mmol/L (22-32); Chloride 107 mmol/L (98-107); Estimated Glomerular Filt Rate > 60 mL/min (>60); Globulin 2.7 g/dL (1.7-4.1); Glucose 103 mg/dL (70-100); HEMOLYSIS < 15 (0-50); Magnesium 2.1 mg/dL (1.6-2.3); Potassium 3.7 mmol/L (3.4-5.1); Sodium 136 mmol/L (137-145); Total Protein 5.6 g/dL (6.3-8.2)
[2023-06-05] MEDS: LACTATED RINGERS 1,000 ML 125 ML IV ×3 (05:30→21:09)
[2023-06-05 05:59] LABS: Ferritin 648 ng/mL (18-464)
--- NOTE | 2023-06-05 08:27 | DI.RAD.S_ITS ---
PROCEDURE: XR CERVICAL SPINE 2V OR 3V INDICATIONS: wheezing, ? upper airway foreign body TECHNIQUE: 2 view(s) of the cervical spine were acquired. COMPARISON: [facility], CR, XR CHEST 1V, 06/05/2023, 8:38. FINDINGS: Bones: No fractures or dislocations to the C5 level. No suspicious bony lesions. Soft tissues: In this patient with this given history, scrutiny is given to tracheal foreign bodies. On these images, no foreign bodies are seen. No prevertebral soft tissue swelling. IMPRESSION: No foreign body can be seen. Dictated by: Golden Chirinos M.D. on 06/05/2023 at 8:10 Approved by: Golden Chirinos M.D. on 06/05/2023 at 8:11
--- NOTE | 2023-06-05 08:27 | DI.RAD.S_ITS ---
PROCEDURE: XR CHEST 1V INDICATIONS: wheezing, ? upper airway foreign body TECHNIQUE: One view of the chest was acquired. COMPARISON: [facility], CR, XR CERVICAL SPINE 2V OR 3V, 06/05/2023, 8:38. [facility], CR, XR CHEST 1V, 06/03/2023, 1:14. [facility], CR, XR CHEST 1V, 06/04/2023, 9:00. FINDINGS: Surgical changes and devices: None. Lungs and pleura: In this patient with this given history, scrutiny is given to an airway foreign body. None can be seen. No findings of air trapping can be seen. On this semiupright portable chest examination, no large pneumothorax or large pleural effusions are seen. No focal infiltrates are seen. Low lung volumes are noted. This causes a crowded appearance to the lung markings and limits evaluation. Mediastinum: Mediastinal contours appear normal. Heart size is normal. Bones and chest wall: No suspicious bony lesions. Overlying soft tissues appear unremarkable. IMPRESSION: No airway foreign body is seen on this study. Low lung volumes, with generalized interstitial prominence. If it would be helpful for clinical management decision making in this patient with this given history, please consider a dedicated chest CT with IV contrast for further evaluation. Dictated by: Golden Chirinos M.D. on 06/05/2023 at 8:07 Approved by: Golden Chirinos M.D. on 06/05/2023 at 8:09
[2023-06-05] MEDS: diphenhydrAMINE 50 MG/ML VIAL 25 MG IV (09:06)
[2023-06-05] MEDS: PANTOPRAZOLE 40 MG VIAL IV (09:07)
[2023-06-05] MEDS: methylPREDNISolone 125 MG/2 ML VIAL IV (09:07)
[2023-06-05] MEDS: ALBUTEROL 2.5 MG/3 ML NEB (ADULT) INH (09:14)
--- NOTE | 2023-06-05 10:02 | DI.RAD.S_ITS ---
PROCEDURE: XR CHEST 1V INDICATIONS: intubation TECHNIQUE: One view of the chest was acquired. COMPARISON: [facility], CR, XR CHEST 1V, 06/04/2023, 9:00. [facility], CR, XR CHEST 1V, 06/05/2023, 8:38. FINDINGS: Surgical changes and devices: An endotracheal tube is seen, with the tip 4 cm above the omar. Lungs and pleura: Low lung volumes with diffuse interstitial type infiltrates. The infiltrates appear worse than on the prior examination. No pneumothorax or large pleural effusion can be seen on this semiupright study. Mediastinum: Mediastinal contours appear normal. Heart size is normal. Bones and chest wall: No suspicious bony lesions. Overlying soft tissues appear unremarkable. IMPRESSION: The tip of the endotracheal tube is seen 4 cm above the omar. Worsening patchy interstitial infiltrates are seen. Dictated by: Golden Chirinos M.D. on 06/05/2023 at 9:58 Approved by: Golden Chirinos M.D. on 06/05/2023 at 9:59
--- NOTE | 2023-06-05 10:13 | PM.PROC.1 ---
Procedures Date/Time Date of procedure: 06/05/23 Time of procedure: 10:00 Intubation Sedative: other (propofol) Mg given: 150 Paralytic: succinylcholine Mg given: 100 Laryngoscope: fiber optic video scope ET tube size: 7 ET tube uncuffed: Yes Tube secured depth (cm): 22 Tube secured location: teeth Tube placement confirmation: visualized tube passing through cords, equal breath sounds bilaterally and confirmation by capnometry Patient tolerated procedure: no complications
--- NOTE | 2023-06-05 10:13 | PM.PN.EICU ---
Subjective Subjective IF CAMERA ACTIVATED, patient seen via real-time interactive audiovisual communication: Camera activated Consent obtained for tele-administrative office manager care: Yes Patient Location: ICU Provider location (State): [place] Other participants/roles: RN/ hospitalist Interval history: pt admitted with pancreatitis/etoh margarita. This am noted ot have stridor with associated accessopry muscle use. /Bedside team was present during my video eval, decision was made to emergently intubae. CT neck read pending Current Medications Current Medications Medications: Home Medications omeprazole 20 mg capsule,delayed release 20 mg PO DAILY 05/06/21 [History Confirmed 06/03/23] propranolol 10 mg tablet 20 mg PO BID 07/30/21 [History Confirmed 06/03/23] lisinopril 10 mg tablet 10 mg PO DAILY 08/15/21 [History Confirmed 06/03/23] bupropion HCl 150 mg 24 hr tablet, extended release (Wellbutrin XL) 450 mg PO QAM 04/01/23 [History Confirmed 06/03/23] cetirizine 10 mg tablet (Zyrtec) 10 mg PO DAILY PRN Itching 04/01/23 [History Confirmed 06/03/23] tadalafil 10 mg tablet 10 mg PO PRN PRN Sexual Activity 04/01/23 [History Confirmed 06/03/23] aspirin 81 mg chewable tablet 81 mg PO DAILY 06/03/23 [History Confirmed 06/03/23] Visit Medications (administered) Generic Name Dose Route Start Last Admin Trade Name Freq PRN Reason Stop Dose Admin Acetaminophen 650 mg 06/03/23 03:30 06/04/23 14:48 Acetaminophen 325 Mg Tablet PO Not Given Q6H MEMO Albuterol 2.5 mg 06/05/23 08:28 06/05/23 09:14 Albuterol 2.5 Mg/3 Ml Neb (Adult) INH 2.5 mg [id number] PRN Administration Shortness Of Breath / wheezing Folic Acid 1 mg 06/03/23 09:00 06/04/23 08:48 Folic Acid 1 Mg Tablet PO Not Given DAILY MEMO Sodium Chloride 1,000 mls @ 1,000 mls/hr 06/03/23 01:15 06/03/23 02:40 Normal Saline 0.9% IV Infused CONT MEMO Infusion Lactated Ringer's 1,000 mls @ 125 mls/hr 06/03/23 14:30 06/05/23 05:30 Lactated Ringers IV 125 mls/hr CONT MEMO Administration dexmedeTOMIDine in 0.9 % NaCL 400 mcg in 100 mls @ 4.45 mls/hr 06/03/23 22:00 06/05/23 08:16 Precedex IV 2 mcg/kg/hr TITRATE MEMO 44.5 mls/hr Administration Protocol 0.2 MCG/KG/HR Loratadine 10 mg 06/03/23 12:45 06/03/23 13:33 Loratadine 10 Mg Tablet PO 10 mg DAILY PRN Administration Itching Lorazepam 0 mg 06/03/23 03:21 06/05/23 07:28 Lorazepam 2 Mg/Ml Inj IV 2 mg [id number] PRN Administration Alcohol Withdrawal Protocol Lorazepam 1 mg 06/04/23 13:00 06/05/23 09:07 Lorazepam 2 Mg/Ml Inj IV 1 mg Q4HR MEMO Administration Metoprolol Tartrate 5 mg 06/03/23 05:26 06/03/23 20:55 Metoprolol Tartrate 5 Mg/5 Ml Inj IV 5 mg Q6H PRN Administration Hypertension if HR >100 Morphine Sulfate 4 mg 06/04/23 11:20 06/05/23 08:00 Morphine 4 Mg/Ml Inj IV 4 mg Q4H PRN Administration Pain, Severe (7-10) Multivitamins 1 tab 06/03/23 09:00 06/04/23 08:48 Multivitamin 1 Tablet PO Not Given DAILY MEMO Pantoprazole Sodium 40 mg 06/03/23 09:00 06/05/23 09:07 Pantoprazole 40 Mg Vial IV 40 mg DAILY MEMO Administration Propranolol HCl 20 mg 06/03/23 12:45 06/04/23 08:48 Propranolol 10 Mg Tablet PO Not Given BID MEMO Thiamine HCl 100 mg 06/03/23 09:00 06/04/23 08:48 Thiamine 100 Mg Tablet PO Not Given DAILY [facility] Objective Labs 06/05/23 04:30 06/05/23 04:30 Labs: Laboratory Results - last 24 hr 06/04/23 06/05/23 06/05/23 10:14 04:30 04:30 WBC 6.5 RBC 4.00 L Hgb 13.1 L Hct 38.9 L MCV 97.4 MCH 32.9 MCHC 33.8 RDW 14.3 Plt Count 95 L Neut % (Auto) 74.1 Lymph % (Auto) 12.1 L [place] % (Auto) 9.9 Eos % (Auto) 3.5 Baso % (Auto) 0.4 Neut # (Auto) 4800 Lymph # (Auto) 800 L [place] # (Auto) 600 Eos # (Auto) 200 Baso # (Auto) 0 PT 11.8 INR 1.0 Sodium Potassium Chloride Carbon Dioxide BUN Creatinine Estimated GFR BUN/Creatinine Ratio Glucose Calcium Magnesium Ferritin Total Bilirubin 1.4 H Conjugated Bilirubin 0.0 Unconjugated Bilirubin 0.6 AST 63 H ALT 77 H Alkaline Phosphatase 56 Total Protein 5.5 L Albumin 2.8 L Globulin 2.7 Albumin/Globulin Ratio 1.0 06/05/23 06/05/23 04:30 04:30 WBC RBC Hgb Hct MCV MCH MCHC RDW Plt Count Neut % (Auto) Lymph % (Auto) [place] % (Auto) Eos % (Auto) Baso % (Auto) Neut # (Auto) Lymph # (Auto) [place] # (Auto) Eos # (Auto) Baso # (Auto) PT INR Sodium 136 L Potassium 3.7 Chloride 107 Carbon Dioxide 22 BUN 13 Creatinine 0.73 Estimated GFR > 60 BUN/Creatinine Ratio 17.8 Glucose 103 H Calcium 7.9 L Magnesium 2.1 Ferritin 648 H Total Bilirubin 1.0 Conjugated Bilirubin Unconjugated Bilirubin AST 59 ALT 70 H Alkaline Phosphatase 65 Total Protein 5.6 L Albumin 2.9 L Globulin 2.7 Albumin/Globulin Ratio 1.1 Exam Vital Signs (past 8 hours): - 06/05/23 02:30 06/05/23 02:30 06/05/23 03:00 Pulse Rate 93 H Respiratory Rate 34 H Blood Pressure 152/95 H 154/87 H Pulse Oximetry 95 Oxygen Delivery Method Oxygen Flow Rate 06/05/23 03:00 06/05/23 03:30 06/05/23 03:30 Pulse Rate 91 H 91 H Respiratory Rate 34 H 34 H Blood Pressure 156/99 H Pulse Oximetry 95 95 Oxygen Delivery Method Oxygen Flow Rate 06/05/23 04:00 06/05/23 04:00 06/05/23 04:16 Pulse Rate 96 H 89 Respiratory Rate 44 H 33 H Blood Pressure 155/94 H 155/94 H Pulse Oximetry 93 Oxygen Delivery Method Oxygen Flow Rate 06/05/23 04:00 06/05/23 05:00 06/05/23 04:30 Pulse Rate Respiratory Rate Blood Pressure 173/106 H Pulse Oximetry 96 Oxygen Delivery Method Nasal Cannula Nasal Cannula Oxygen Flow Rate 2 06/05/23 04:30 06/05/23 04:38 06/05/23 04:38 Pulse Rate 96 H 93 H Respiratory Rate 50 H 39 H Blood Pressure 165/94 H Pulse Oximetry 93 95 Oxygen Delivery Method Oxygen Flow Rate 06/05/23 05:00 06/05/23 05:34 06/05/23 05:30 Pulse Rate 96 H 86 86 Respiratory Rate 42 H 30 H 29 H Blood Pressure 165/94 H Pulse Oximetry 90 L 96 Oxygen Delivery Method Oxygen Flow Rate 06/05/23 06:00 06/05/23 07:48 06/05/23 08:00 Pulse Rate 86 86 Respiratory Rate 30 H 29 H Blood Pressure 158/97 H Pulse Oximetry 96 Oxygen Delivery Method Nasal Cannula Oxygen Flow Rate Oxygen Delivery Method Nasal Cannula Oxygen Flow Rate 2 Narrative Exam Narrative: intubated/sedated Resp Other: symmetric chest rise Cardio Other: tachycaric Quality TeleICU VTE Deep Vein Thrombosis/Pulmonary Embolism Present on Admission: Yes Assessment & Plan Assessment and plan (1) Acute pancreatitis: Status: Acute (2) Alcohol withdrawal: Status: Acute (3) Acute respiratory failure: Status: Acute (4) Stridor: Status: Acute Plan vent/sedation bndle cont propofol trend ABG LTVV f/u CT neck ENT eval TF/BR trend bmp monitro UO SUP dvt ppx trend cbc - hgb drop of 3 units, likely hemoconentration, but will follow Time Spent With Patient Time with patient: 30 to 49 minutes with 50% spent counseling/coordinating care
[2023-06-05] MEDS: EPINEPHrine 1 MG/ML (10:28)
[2023-06-05] MEDS: propofoL 200 MG/20 ML VIAL 90 MG IV (10:30)
[2023-06-05] MEDS: propofoL 1,000 MG/100 ML VIAL 2.7 MG IV (10:36)
[2023-06-05] MEDS: SUCCINYLCHOLINE 200 MG/10 ML VIAL 100 MG IV (10:42)
[2023-06-05] MEDS: fentaNYL 1,000 MCG in DEXTROSE 5% IN WATER 230 ML 15.575 MCG IV (10:56)
--- NOTE | 2023-06-05 11:21 | DI.CT.S_ITS ---
PROCEDURE: CT SOFT TISSUE NECK W CON INDICATIONS: upper airway obstruction, now s/p intubation TECHNIQUE: After the administration of intravenous contrast, 3.0 mm axial sections acquired from the sella to the aortic arch. Additional oblique axial 3.0 mm sections acquired through the pharynx. 3 mm thick coronal and sagittal reformats were generated. For radiation dose reduction, the following was used: automated exposure control. COMPARISON: [facility], , XR CHEST 1V, 06/05/2023, 12:27. [facility], CR, XR CHEST 1V, 06/05/2023, 10:28. FINDINGS: Image quality: Excellent. Lymph nodes: No enlarged lymph nodes seen throughout the neck. Vessels: Visualized vasculature appears patent. Neck spaces: The oropharynx, nasopharynx, and pharynx demonstrate no mucosal lesions. The vocal cords, false vocal cords, pyriform sinuses, epiglottis, vallecula, and tongue base all appear normal. Extramucosal spaces appear unremarkable. Glands: The parotid and submandibular glands appear normal. Thyroid gland demonstrates no significant abnormality. Miscellaneous: Visualized brain and orbits appear normal. Superficial soft tissues appear normal. Small bilateral pleural effusions are partially seen. Overlying atelectasis can be seen. Bones: No suspicious bony lesions. Visualized sinuses and mastoids appear unremarkable. An endotracheal tube is seen. An orogastric tube is seen. IMPRESSION: No airway mass can be seen on these images. There is partial visualization of small bilateral pleural effusions and atelectasis. An endotracheal tube and an orogastric tube can be seen. Dictated by: Golden Chirinos M.D. on 06/05/2023 at 15:27 Approved by: Golden Chirinos M.D. on 06/05/2023 at 15:29
--- NOTE | 2023-06-05 12:08 | P.PN_ITS ---
Subjective Subjective Interval history: This morning patient developed upper airway wheezing then developed into stridor. XR showed tracheal narrowing. He is developing erythema and swelling around his neck. He was intubated for airway protection after minimal response to steroids, benadryl, epinephrine. Initially resistance to OG tube placement, but patient had emesis after intubation creating a rapid repsonse. OG tube was able to be placed at that time. Exam Vital Signs (past 8 hours): - 06/05/23 04:16 06/05/23 05:00 06/05/23 04:30 Pulse Rate 89 Respiratory Rate 33 H Blood Pressure 155/94 H 173/106 H Pulse Oximetry 96 Oxygen Delivery Method Nasal Cannula Oxygen Flow Rate 2 06/05/23 04:30 06/05/23 04:38 06/05/23 04:38 Pulse Rate 96 H 93 H Respiratory Rate 50 H 39 H Blood Pressure 165/94 H Pulse Oximetry 93 95 Oxygen Delivery Method Oxygen Flow Rate 06/05/23 05:00 06/05/23 05:34 06/05/23 05:30 Pulse Rate 96 H 86 86 Respiratory Rate 42 H 30 H 29 H Blood Pressure 165/94 H Pulse Oximetry 90 L 96 Oxygen Delivery Method Oxygen Flow Rate 06/05/23 06:00 06/05/23 07:48 06/05/23 08:00 Pulse Rate 86 86 Respiratory Rate 30 H 29 H Blood Pressure 158/97 H Pulse Oximetry 96 Oxygen Delivery Method Nasal Cannula Oxygen Flow Rate 06/05/23 09:30 06/05/23 09:00 Pulse Rate 89 Respiratory Rate 24 Blood Pressure Pulse Oximetry 97 92 Oxygen Delivery Method Room Air Nasal Cannula Oxygen Flow Rate 2 Oxygen Delivery Method Room Air Oxygen Flow Rate 2 Narrative Exam Narrative: Gen: intubated, sedated, mildly diaphoretic. Pulm: coarse breath sounds bilaterally, no wheezing after intubatino CV: RRR no m/r/g Skin: swelling and erythema, warmth around his neck that extends to his shoulder and neck. ABD: mild distension, improved after OG placement Ext: no edema or joint effusions Objective Labs 06/05/23 04:30 06/05/23 04:30 Labs: Laboratory Results - last 24 hr 06/05/23 06/05/23 06/05/23 04:30 04:30 04:30 WBC 6.5 RBC 4.00 L Hgb 13.1 L Hct 38.9 L MCV 97.4 MCH 32.9 MCHC 33.8 RDW 14.3 Plt Count 95 L Neut % (Auto) 74.1 Lymph % (Auto) 12.1 L [place] % (Auto) 9.9 Eos % (Auto) 3.5 Baso % (Auto) 0.4 Neut # (Auto) 4800 Lymph # (Auto) 800 L [place] # (Auto) 600 Eos # (Auto) 200 Baso # (Auto) 0 PT 11.8 INR 1.0 Sodium 136 L Potassium 3.7 Chloride 107 Carbon Dioxide 22 BUN 13 Creatinine 0.73 Estimated GFR > 60 BUN/Creatinine Ratio 17.8 Glucose 103 H Calcium 7.9 L Magnesium 2.1 Ferritin Total Bilirubin 1.0 AST 59 ALT 70 H Alkaline Phosphatase 65 Total Protein 5.6 L Albumin 2.9 L Globulin 2.7 Albumin/Globulin Ratio 1.1 06/05/23 04:30 WBC RBC Hgb Hct MCV MCH MCHC RDW Plt Count Neut % (Auto) Lymph % (Auto) [place] % (Auto) Eos % (Auto) Baso % (Auto) Neut # (Auto) Lymph # (Auto) [place] # (Auto) Eos # (Auto) Baso # (Auto) PT INR Sodium Potassium Chloride Carbon Dioxide BUN Creatinine Estimated GFR BUN/Creatinine Ratio Glucose Calcium Magnesium Ferritin 648 H Total Bilirubin AST ALT Alkaline Phosphatase Total Protein Albumin Globulin Albumin/Globulin Ratio [facility] Medical History Aftercare following left finger joint replacement surgery Depression Erectile dysfunction due to arterial insufficiency Family history of hypertension Finger wound, simple, open HTN (hypertension) Hyperlipidemia Migraine headache Sterilization consult Surgical History H/O circumcision H/O umbilical hernia repair Family History Mother Hypertension History of thyroid disorder Social History marital status: number of children: 2 household members: none occupational status: employed leisure activities: exercise Smoking Status: Never smoker alcohol intake: current substance use type: does not use Type(s) of exercise: weight lifting and running frequency: 5-6 times per week duration: 45-60 minutes/day Assessment & Plan Assessment & Plan narrative: 1. Upper airway swelling - unclear etiology, no response to epi, steroids, or benadryl initially. Intubated at 10 AM 06/05 for airway protection - no subcutaneous air on exam or radiographs thus far but pending neck CT to rule out tracheal injury, abscess, or other external obstruction - continue steroids methylpred 60q8 for now pending above CT - No obvious infection but low threshold for antibiotics - stop lisinopril (has been held) but angioedema in this situation seems less likely. - sedation currently with fentanyl propofol, and precedex 2. Acute alcohol withdrawal with DTs. - continue precedex, along with above sedation. Hold librium and ativan given other sedation for intubation. - continue MVI, folate, thiamine 3. Alcoholic pancreatitis - currently NPO will hold futher feedings given above. - abdominal ultrasound with no evidence for biliary obstruction. Follow bilirubin with increase to 1.4 yesterday but improved to 1.4 today. 4. Alcoholic hepatitis - continue to follow AST/ALT, improving - abdominal ultrasound with steatosis. 5. Acute respiratory failure with hypoxia - suspect secondary to sedation / atelectasis with EtOH withdrawal. No fever, or leukocytosis but low threshold to start antibiotics as noted above - unclear process leading to tracheal obstruction, CT neck pending. 6. HTN, chronic - hold home propranolol for now. Hold home lisinopril - continue metoprolol IV q6 hr as needed today. 7. GERD, chronic - Continue IV PPI daily 8. Depression, chronic - has self titrated to 75 mg daily, will resume buproprion when mental status improves. 9. Thrombocytopenia with history of polycythemia - Hg 14.2, had outpatient JAK2 ordered along with abdominal ultrasound. Suspect current suppression in setting of EtOH use. - continue to follow. Hold lovenox for now with thrombocytopenia. - ferritin is elevated at 648, less likely polycythemia is due to JAK2 muta tion. has multiple reasons for secondary etiology of polycythemia. Code: Full, surrogate is patient's family/parents DVT: Hold for thrombocytopenia I spent 90 minutes providing critical care management this patient. This excludes time spent in performing separately billed procedures. Quality VTE Deep Vein Thrombosis/Pulmonary Embolism Present on Admission: Yes
--- NOTE | 2023-06-05 12:21 | DI.RAD.S_ITS ---
PROCEDURE: XR CHEST 1V INDICATIONS: OG tube placement TECHNIQUE: One view of the chest was acquired. COMPARISON: [facility], CR, XR ABDOMEN 1V, 06/05/2023, 12:27. [facility], CR, XR CHEST 1V, 06/05/2023, 10:28. FINDINGS: Surgical changes and devices: An endotracheal tube is seen, with the tip 5 cm above the omar. A gastric tube is seen, with the tip not visible, yet traversing below the level of the diaphragm. Lungs and pleura: Patchy interstitial type infiltrates are seen. The lungs are better aerated on the current study than on the prior. No large pleural effusions or pneumothorax are seen on this supine study. Mediastinum: Mediastinal contours appear normal. Heart size is normal. Bones and chest wall: No suspicious bony lesions. Overlying soft tissues appear unremarkable. IMPRESSION: A gastric tube is seen, with the tip traversing off of the field of view of this study. (On the accompanying plain film of the abdomen, it can be seen overlying the distal stomach.) Improved aeration compared to the prior. Dictated by: Golden Chirinos M.D. on 06/05/2023 at 12:25 Approved by: Golden Chirinos M.D. on 06/05/2023 at 12:27
--- NOTE | 2023-06-05 12:21 | DI.RAD.S_ITS ---
PROCEDURE: XR ABDOMEN 1V INDICATIONS: vomiting, abdominal distension TECHNIQUE: One view of the abdomen acquired. COMPARISON: [facility], CR, XR CHEST 1V, 06/05/2023, 12:27. FINDINGS: Surgical changes and devices: A gastric tube is seen, with the tip overlying the distal stomach. Bowel: Bowel gas pattern is normal. Soft tissues: No suspicious abdominal calcifications. Visualized solid organ contours appear normal in size. Bones: No suspicious bony lesions. IMPRESSION: The tip of the gastric tube can be seen overlying the distal stomach. Dictated by: Golden Chirinos M.D. on 06/05/2023 at 12:25 Approved by: Golden Chirinos M.D. on 06/05/2023 at 12:25
--- NOTE | 2023-06-05 12:33 | RT ---
assisted with intubation rm 227, pt bagged with 100% fio2 without incident. et tube secured at 22 teeth, pt rashid well and suction on and functional at hob. Breathsounds bilat throughout with pos etco2 color change
[2023-06-05] MEDS: propofoL 1,000 MG/100 ML VIAL 5.34 MG IV (12:43)
[2023-06-05] MEDS: dexmedeTOMIDine in 0.9 % NaCL 400 MCG/100 ML PLAST..BAG 33.375 MCG IV (13:33)
[2023-06-05] MEDS: CHLORHEXIDINE GLUCONATE 15 ML CUP PO ×2 (13:39→17:23)
[2023-06-05] MEDS: methylPREDNISolone 125 MG/2 ML VIAL 60 MG IV ×2 (13:40→21:06)
--- NOTE | 2023-06-05 14:05 | PC.NURSE ---
Dayshift note; Pt noted to be in pain and more agitated upon initial assessment at 0745, pt c/o 07/13, contacted provider and received permission to administer 4mg Morphine IV earlier than allowed by SAQIB, also administered 2 mg Ativan IV for a CIWA score of 16. This nurse noted pt breathing to be labored and stridoris, lungs sound diminished, audible wheezes from upper airway, Dr Wallace at bedside, stat CXR and cervical XRay ordered which showed noticeable airway tightening. Dr Wallace added solumedrol, benedryl, and Epinephrine (see mar for dosing). Dr Wallace contacted Anesthesia and made the decision to intubate to protect airway. During that time pt became extremely agitated with a CIWA of 22 requiring, 2mg Ativan, reducing CIWA 19 with reassessment requiring 2 mg Ativan, then CIWA down to 8. 1005 RT, Anesthesia, Dr Wallace, this nurse at bedside for intubation 1010 150 Propofol administered 1011 100 Succ administered successful intubation 7 ETT 22 @ teeth verified by CXR Vent setting FiO2 40%, TV 500, RR 16, PEEP 5 1202 Called to pt bedside by family member, pt thrashing, vomiting bilous, green emesis, and turning bright red. It was also noted that pt had kinked the ETT. 1205 Staff assist called to room, RT at bedside, increased pt sedation, oral suction, in-line suction, fixed kink in ETT, at that time Dr Wallace placed OG tube and connected to LIS with bilious output. CT of chest and neck ordered. [address] with RT, livan Echeverria and charge nurse, uneventful CT and return. VSS, RR controlled, see emar for sedation, bed low and locked, call light within reach, will continue to monitor.
--- NOTE | 2023-06-05 14:59 | DI.RAD.S_ITS ---
PROCEDURE: XR CHEST FOR PICC 1V INDICATIONS: PICC line placement COMPARISON: [facility], CT, CT SOFT TISSUE NECK W CON, 06/05/2023, 12:49. [facility], CR, XR CHEST 1V, 06/05/2023, 10:28. [facility], CR, XR CHEST 1V, 06/05/2023, 12:27. FINDINGS: PICC was placed by the intravenous therapy team from the left side. Fluoroscopic spot film demonstrates the tip of PICC projecting to the area of the right atrium, approximately 2 cm below the cavoatrial junction. Low lung volumes can be seen. Generalized interstitial prominence can be seen. The tip of the gastric tube can be seen overlying the distal stomach. IMPRESSION: Tip of PICC projects to the area of the right atrium, approximately 2 cm below the cavoatrial junction. Dictated by: Golden Chirinos M.D. on 06/05/2023 at 15:19 Approved by: Golden Chirinos M.D. on 06/05/2023 at 15:21
[2023-06-05] MEDS: fentaNYL 1,000 MCG in DEXTROSE 5% IN WATER 230 ML 33.375 MCG IV (17:24)
[2023-06-05] MEDS: dexmedeTOMIDine in 0.9 % NaCL 400 MCG/100 ML PLAST..BAG 22.25 MCG IV (17:24)
--- NOTE | 2023-06-05 20:28 | PM.ICURNDS ---
- Date Patient Seen: 06/05/23 Time Patient Seen: 20:28 :: This patient was seen via real time interactive two-way audiovisual telecommunication. Note: no acute issues since intubation afebrile, HD stable, HR 50s on precedex,fent, propofol adequate urine output CT neck shoes no masses suggest -increase propofol, precedex --continue current care -please call eICU if condition changes -d/w bedside Nurseing team
[2023-06-05] MEDS: propofoL 1,000 MG/100 ML VIAL 8.01 MG IV (21:07)
[2023-06-05] MEDS: dexmedeTOMIDine in 0.9 % NaCL 400 MCG/100 ML PLAST..BAG 15.575 MCG IV (22:04)
[2023-06-06] VITALS (48 sets, daily range): BP systolic 136–187; BP diastolic 72–107; PULSE 45–102; RESP 15–20; TEMP 37.1–37.2; O2SAT 90–98; BMI 29.0
[2023-06-06] MEDS: CHLORHEXIDINE GLUCONATE 15 ML CUP PO ×5 (00:20→23:55)
[2023-06-06] MEDS: fentaNYL 1,000 MCG in DEXTROSE 5% IN WATER 230 ML 33.375 MCG IV ×3 (01:11→15:18)
[2023-06-06] MEDS: propofoL 1,000 MG/100 ML VIAL 16.02 MG IV (02:52)
[2023-06-06] MEDS: dexmedeTOMIDine in 0.9 % NaCL 400 MCG/100 ML PLAST..BAG 17.8 MCG IV (04:40)
[2023-06-06] MEDS: LACTATED RINGERS 1,000 ML 125 ML IV (04:40)
--- NOTE | 2023-06-06 05:27 | PC.NURSE ---
Late entry 06/05/2023- LEYDI LYNNE wanted to try and titrate Precedex down and Propofol gtt up to help with Bradycardia and hypertension. began wean down per protocol at 1915 precedex gtt decreased to 0.9 mcg/kg/hr 1944 decreased Precedex gtt to 0.8 mcg/kg/hr and increased propofol to 15 mcg/kg/min 2014 decreased Precedex gtt to 0.7 mcg/kg/hr and increased Propofol to 20 mcg/kg/min 2029 increased Propofol gtt to 25 mcg/kg/min 2099 increased Propofol gtt to 30 mcg/kg/min pt held steady until 399 then became very agitated and uncontrolled behavior. Sedation gtts increased per protocol to achieve Rass of -2
[2023-06-06 05:29] LABS: INR 1.1 (0.9-1.3); Prothrombin Time 12.2 SECONDS (10.1-12.7)
[2023-06-06 05:32] LABS: Add Manual Diff / Slide Review NO; Basophils Absolute Auto 0 /uL (0-100); Basophils Percent Auto 0.2 % (0-2); Eosinophils Absolute Auto 0 /uL (0-450); Eosinophils Percent Auto 0.2 % (2-4); Hematocrit 39.7 % (41-53); Hemoglobin 13.6 g/dL (13.5-17.5); Lymphocytes Absolute Auto 600 /uL (1100-4500); Lymphocytes Percent Auto 8.2 % (25-40); Mean Corpuscular HGB Conc 34.2 % (30-36); Mean Corpuscular Hemoglobin 33.2 PG (26-34); Mean Corpuscular Volume 97.2 fL (80-100); Monocytes Absolute Auto 600 /uL (0-900); Neutrophils Absolute Auto 5800 /uL (1500-7000); Neutrophils Percent Auto 82.4 % (50-75); Platelet Count 134 X10^3/uL (150-400); Red Blood Cell Count 4.09 X10^6/uL (4.5-5.9); Red Cell Distribution Width 14.3 % (11.6-14.8)
[2023-06-06 05:34] LABS: Alanine Aminotransferase 85 IU/L (<50); Albumin 2.9 g/dL (3.5-5.0); Alkaline Phosphatase 71 U/L (38-126); Aspartate Aminotransferase 60 IU/L (17-59); BUN Creatinine Ratio 20.6 (6-22); Bilirubin Total 0.9 mg/dL (0.2-1.3); Blood Urea Nitrogen 13 mg/dL (9-20); Calcium 8.3 mg/dL (8.4-10.2); Carbon Dioxide 22 mmol/L (22-32); Chloride 105 mmol/L (98-107); Estimated Glomerular Filt Rate > 60 mL/min (>60); Glucose 199 mg/dL (70-100); HEMOLYSIS < 15 (0-50); Magnesium 2.2 mg/dL (1.6-2.3); Potassium 3.8 mmol/L (3.4-5.1); Sodium 138 mmol/L (137-145); Total Protein 5.9 g/dL (6.3-8.2)
[2023-06-06] MEDS: methylPREDNISolone 125 MG/2 ML VIAL 60 MG IV ×2 (05:55→13:05)
[2023-06-06] MEDS: propofoL 1,000 MG/100 ML VIAL 18.69 MG IV ×3 (07:26→16:58)
[2023-06-06] MEDS: dexmedeTOMIDine in 0.9 % NaCL 400 MCG/100 ML PLAST..BAG 22.25 MCG IV ×4 (08:25→20:30)
[2023-06-06] MEDS: PANTOPRAZOLE 40 MG VIAL IV (08:25)
--- NOTE | 2023-06-06 08:33 | DI.ECHO.S_ITS ---
[place] [facility]---------+ [facility] +---------+ : : [address] : : : : [id number] : : : : Phone: [phone]+ Echocardiogram Report + + :Name: JOVITA WEN Study Date: 06/06/2023 Height: 69 in : :[facility] ReadingLocation: Weight: 196 lb : : Gender: Male BSA: 2.0 m2 : :: 1980 Age: 42 yrs BP: 169/93 mmHg: :Reason For Study: Cardiomyopathy : :Ordering Physician: MICHAEL, : :ASPEN Performed By: Mery Hernandez : :Referring: ASPEN RODRIGUEZ : + + Interpretation Summary Sinus bradycardia with heart rate 50 bpm. Normal LV size and wall thickness. Low normal EF estimated at 50-55%. Normal chamber sizes. No significant valvular abnormalities. No prior study available for comparison. Procedure: A two-dimensional transthoracic echocardiogram with color flow and Doppler was performed. The study quality was technically adequate. There is no prior echocardiogram noted for this patient. The patient was in a bradycardic rhythm during the exam. Left Ventricle: The left ventricle is normal in size. The ejection fraction is estimated to be 50-55%. Diastolic parameters suggest probable normal left ventricular diastolic function and normal filling pressures. Right Ventricle: The right ventricle is normal in size and function. Atria: The left atrial size is normal. Right atrial size is normal. There is no Doppler evidence for an interatrial shunt. Mitral Valve: The mitral valve leaflets appear borderline thickened, but open well. There is no mitral valve stenosis. There is mild mitral regurgitation. Aortic Valve: The aortic valve is trileaflet. The aortic valve opens well. There is no aortic valve stenosis. There is trace aortic regurgitation. Tricuspid Valve: The tricuspid valve is normal. There is no tricuspid stenosis. There is trace tricuspid regurgitation. The right ventricular systolic pressure is estimated to be at least 25 mmHg based on an estimated right atrial pressure of 8 mm Hg. Pulmonic Valve: The pulmonic valve leaflets are thin and pliable; valve motion is normal. There is no pulmonic valvular stenosis. There is trace pulmonic regurgitation. Great Vessels: The aortic root is normal size. The ascending aorta is normal in size. The pulmonary artery is normal size. The IVC is of normal diameter and collapses less than 50% with a sniff. This suggests a right atrial pressure of 8 mm Hg. Pericardium/ Pleura There is a trivial pericardial effusion noted. There is a moderate left-sided pleural effusion. MMode/2D Measurements & Calculations LVIDd: 4.6 cm LVOT diam: 2.1 cm LVIDs: 3.2 cm Ao root diam: 3.0 cm FS: 30.4 % asc Aorta Diam: 2.5 cm IVSd: 0.90 cm LVPWd: 0.90 cm LV gacria. diameter/BSA (cm/m^2): 2.2 LV sys. diameter/BSA (cm/m^2): 1.6 LA A2 area: 16.0 cm2 RA long axis: 4.5 cm LA A4 area: 17.1 cm2 RA area: 11.4 cm2 LA length (vol): 4.8 cm RA vol: 24.2 ml LA vol: 48.2 ml RA : 11.8 ml/m2 LA vol index: 23.5 ml/m2 RVD1 (basal): 3.7 cm LVLs ap4: 6.7 cm LVLd ap2: 8.4 cm TAPSE_phl: 2.2 cm LVLs ap2: 7.2 cm Doppler Measurements & Calculations Ao V2 max: 113.5 cm/sec LVOT Max Abel: 100.5 cm/sec Ao V2 mean: 73.3 cm/sec LV V1 max P.0 mmHg Ao max P.0 mmHg LV V1 VTI: 21.0 cm Ao mean P.5 mmHg KEILY(I,D): 2.8 cm2 Ao V2 VTI: 25.9 cm KEILY(V,D): 3.1 cm2 sev ratio: 0.81 KEILY indexed to BSA (cm^2/m^2): 1.4 MV E max abel: 89.8 cm/sec TR max abel: 208.5 cm/sec MV A max abel: 48.7 cm/sec TR max P.4 mmHg MV E/A: 1.8 PA V2 max: 92.8 cm/sec Med Peak E' Abel: 9.5 cm/sec PA V2 mean: 63.5 cm/sec E/E' med: 9.4 PA mean P.0 mmHg Lat Peak E' Abel: 14.0 cm/sec PA pr(Accel): 27.7 mmHg E/E' lat: 6.4 E/e' average: 7.9 MV dec time: 0.18 sec SV(LVOT): 72.7 ml AV VR_phl: 0.89 KEILY(VTI)/BSA_phl: 1.4 Electronically signed by: Gayathri Marrero M.D. on Reading Physician:06/06/2023 06:01 PM
[2023-06-06] MEDS: THIAMINE 500 MG in SODIUM CHLORIDE 0.9% 100 ML 420 MG IV ×3 (10:38→20:30)
[2023-06-06] MEDS: INSULIN LISPRO 100 UNIT/ML 3ML VIAL SUBCUT ×3 (12:16→20:42)
--- NOTE | 2023-06-06 14:46 | PC.NURSE ---
Addendum entered by Lizette Bower R.N. 06/06/23 15:34: 1510 Pt became very agitated, thrashing in bed, pulling at restraints, biting ETT, O2 sat dropped to 71%. Called RT, ET suctioned pt, administered bolus of Fentanyl, gave 130mg phenobarbitol as ordered for agitation. Pt calmed, repositioned, and resting comfortably, will continue to monitor. Original Note: Pt tolerating vent with no complications, current vent settings are FiO2 28% TV 500 RR 16 PEEP 5, sedation is Propofol at 35 mcg/kg/min, Fentanyl 1.5 mcg/kg/hr, Precedex 1 mcg/kg/hr, HR has been flakito 45-52, SBP has been elevated 166-182, providers aware, no new orders. Q2H turns using bed with pt bridged, restraints in place with no complications, chang patent with clear ollie urine, will continue to monitor.
--- NOTE | 2023-06-06 15:15 | PM.PN.EICU ---
Subjective Subjective IF CAMERA ACTIVATED, patient seen via real-time interactive audiovisual communication: Camera activated Consent obtained for tele-automobile club information clerk care: Yes Patient Location: ICU Provider location (State): [place] Other participants/roles: rn Interval history: patient remains intubaed sedated, ENT eval pending Current Medications Current Medications Medications: Home Medications omeprazole 20 mg capsule,delayed release 20 mg PO DAILY 05/06/21 [History Confirmed 06/03/23] propranolol 10 mg tablet 20 mg PO BID 07/30/21 [History Confirmed 06/03/23] lisinopril 10 mg tablet 10 mg PO DAILY 08/15/21 [History Confirmed 06/03/23] bupropion HCl 150 mg 24 hr tablet, extended release (Wellbutrin XL) 450 mg PO QAM 04/01/23 [History Confirmed 06/03/23] cetirizine 10 mg tablet (Zyrtec) 10 mg PO DAILY PRN Itching 04/01/23 [History Confirmed 06/03/23] tadalafil 10 mg tablet 10 mg PO PRN PRN Sexual Activity 04/01/23 [History Confirmed 06/03/23] aspirin 81 mg chewable tablet 81 mg PO DAILY 06/03/23 [History Confirmed 06/03/23] Visit Medications (administered) Generic Name Dose Route Start Last Admin Trade Name Freq PRN Reason Stop Dose Admin Acetaminophen 650 mg 06/03/23 03:30 06/04/23 14:48 Acetaminophen 325 Mg Tablet PO Not Given Q6H MEMO Albuterol 2.5 mg 06/05/23 08:28 06/05/23 09:14 Albuterol 2.5 Mg/3 Ml Neb (Adult) INH 2.5 mg [id number] PRN Administration Shortness Of Breath / wheezing Chlorhexidine Gluconate 15 ml 06/05/23 12:00 06/06/23 12:17 Chlorhexidine Gluconate 15 Ml Cup PO 15 ml Q6HR MEMO Administration Folic Acid 1 mg 06/03/23 09:00 06/04/23 08:48 Folic Acid 1 Mg Tablet PO Not Given DAILY MEMO dexmedeTOMIDine in 0.9 % NaCL 400 mcg in 100 mls @ 4.45 mls/hr 06/03/23 22:00 06/06/23 13:05 Precedex IV 1 mcg/kg/hr TITRATE MEMO 22.25 mls/hr Administration Protocol 0.2 MCG/KG/HR Fentanyl 1,000 mcg/ Dextrose 250 mls @ 15.575 mls/hr 06/05/23 09:45 06/06/23 07:27 IV 1.5 mcg/kg/hr TITRATE MEMO 33.375 mls/hr Administration Protocol 0.7 MCG/KG/HR Propofol 1,000 mg in 100 mls @ 2.67 mls/hr 06/05/23 09:45 06/06/23 12:17 Propofol IV 35 mcg/kg/min TITRATE MEMO 18.69 mls/hr Administration Protocol 5 MCG/KG/MIN Thiamine HCl 500 mg/ Sodium 105 mls @ 420 mls/hr 06/06/23 09:00 06/06/23 15:03 Chloride IV 420 mls/hr TID MEMO Administration Insulin Human Lispro 0 unit 06/06/23 11:45 06/06/23 12:16 Insulin Lispro 100 Unit/Ml 3ml Vial SUBCUT 2 unit ACHS MEMO Administration Protocol Loratadine 10 mg 06/03/23 12:45 06/03/23 13:33 Loratadine 10 Mg Tablet PO 10 mg DAILY PRN Administration Itching Methylprednisolone 60 mg 06/05/23 14:00 06/06/23 13:05 Methylprednisolone 125 Mg/2 Ml Vial IV 60 mg Q8H MEMO Administration Metoprolol Tartrate 5 mg 06/03/23 05:26 06/03/23 20:55 Metoprolol Tartrate 5 Mg/5 Ml Inj IV 5 mg Q6H PRN Administration Hypertension if HR >100 Morphine Sulfate 4 mg 06/04/23 11:20 06/05/23 08:00 Morphine 4 Mg/Ml Inj IV 4 mg Q4H PRN Administration Pain, Severe (7-10) Multivitamins 1 tab 06/03/23 09:00 06/04/23 08:48 Multivitamin 1 Tablet PO Not Given DAILY MEMO Pantoprazole Sodium 40 mg 06/03/23 09:00 06/06/23 08:25 Pantoprazole 40 Mg Vial IV 40 mg DAILY MEMO Administration Objective Ventilator Parameters: Ventilator Settings FiO2 28 RT Vent Frequency 16 Ventilator Tidal Volume 500 Exhaled Positive End Expiratory 5 Pressure Inspiratory Phase Time 0.90 Patient Position HOB >= 30 degrees Labs 06/07/23 04:50 06/07/23 04:50 Labs: Laboratory Results - last 24 hr 06/06/23 06/06/23 06/06/23 04:35 04:35 04:35 WBC 7.0 RBC 4.09 L Hgb 13.6 Hct 39.7 L MCV 97.2 MCH 33.2 MCHC 34.2 RDW 14.3 Plt Count 134 L Neut % (Auto) 82.4 H Lymph % (Auto) 8.2 L [place] % (Auto) 9.0 Eos % (Auto) 0.2 L Baso % (Auto) 0.2 Neut # (Auto) 5800 Lymph # (Auto) 600 L [place] # (Auto) 600 Eos # (Auto) 0 Baso # (Auto) 0 PT 12.2 INR 1.1 Sodium 138 Potassium 3.8 Chloride 105 Carbon Dioxide 22 BUN 13 Creatinine 0.63 L Estimated GFR > 60 BUN/Creatinine Ratio 20.6 Glucose 199 H Calcium 8.3 L Magnesium 2.2 Total Bilirubin 0.9 AST 60 H ALT 85 H Alkaline Phosphatase 71 Total Protein 5.9 L Albumin 2.9 L Globulin 3.0 Albumin/Globulin Ratio 1.0 Exam Vital Signs (past 8 hours): - 06/06/23 08:00 06/06/23 08:00 06/06/23 09:00 Temperature 98.7 F Pulse Rate 48 L Respiratory Rate 16 Blood Pressure 166/107 H Pulse Oximetry 97 96 Oxygen Delivery Method Mechanical Ventilation Oxygen Flow Rate 06/06/23 11:00 06/06/23 13:00 06/06/23 09:00 Temperature Pulse Rate Respiratory Rate Blood Pressure 169/93 H Pulse Oximetry 96 Oxygen Delivery Method Mechanical Ventilation Mechanical Ventilation Oxygen Flow Rate 06/06/23 09:00 06/06/23 10:00 06/06/23 10:00 Temperature Pulse Rate 48 L 49 L Respiratory Rate 16 16 Blood Pressure 170/88 H Pulse Oximetry 96 96 Oxygen Delivery Method Oxygen Flow Rate 06/06/23 11:00 06/06/23 11:00 06/06/23 12:00 Temperature Pulse Rate 59 L Respiratory Rate 16 Blood Pressure 184/102 H 171/88 H Pulse Oximetry 96 Oxygen Delivery Method Oxygen Flow Rate 06/06/23 12:00 06/06/23 13:00 06/06/23 13:00 Temperature Pulse Rate 48 L 48 L Respiratory Rate 16 16 Blood Pressure 187/95 H Pulse Oximetry 97 97 Oxygen Delivery Method Oxygen Flow Rate 06/06/23 14:00 06/06/23 14:00 Temperature Pulse Rate 48 L Respiratory Rate 16 Blood Pressure 176/92 H Pulse Oximetry 97 Oxygen Delivery Method Oxygen Flow Rate Oxygen Delivery Method Mechanical Ventilation Oxygen Flow Rate 28 Narrative Exam Narrative: inutbated/sedated Resp Other: symmetric chest rise Quality TeleICU VTE Deep Vein Thrombosis/Pulmonary Embolism Present on Admission: Yes Assessment & Plan Assessment and plan (1) Acute respiratory failure: Status: Acute (2) Stridor: Status: Acute (3) Alcohol withdrawal: Status: Acute Plan vent/sedation bndle cont propofol phenobarb prn trend ABG LTVV ENT eval TF/BR trend bmp monitro UO SUP dvt ppx trend cbc - hgb drop of 3 units, likely hemoconentration, but will follow Time Spent With Patient Time with patient: 30 to 49 minutes with 50% spent counseling/coordinating care
[2023-06-06] MEDS: PHENobarbital 130 MG/ML VIAL IV ×2 (15:24→23:55)
--- NOTE | 2023-06-06 16:37 | PM.PN.1 ---
Subjective Subjective Date Patient Seen: 06/06/23 Time Patient Seen: 08:00 Exam Vital Signs (past 8 hours): - 06/06/23 09:00 06/06/23 11:00 06/06/23 13:00 Pulse Rate Respiratory Rate Blood Pressure Pulse Oximetry 96 96 Oxygen Delivery Method Mechanical Ventilation Mechanical Ventilation Mechanical Ventilation Oxygen Flow Rate 28 28 06/06/23 09:00 06/06/23 09:00 06/06/23 10:00 Pulse Rate 48 L Respiratory Rate 16 Blood Pressure 169/93 H 170/88 H Pulse Oximetry 96 Oxygen Delivery Method Oxygen Flow Rate 06/06/23 10:00 06/06/23 11:00 06/06/23 11:00 Pulse Rate 49 L 59 L Respiratory Rate 16 16 Blood Pressure 184/102 H Pulse Oximetry 96 96 Oxygen Delivery Method Oxygen Flow Rate 06/06/23 12:00 06/06/23 12:00 06/06/23 13:00 Pulse Rate 48 L Respiratory Rate 16 Blood Pressure 171/88 H 187/95 H Pulse Oximetry 97 Oxygen Delivery Method Oxygen Flow Rate 06/06/23 13:00 06/06/23 14:00 06/06/23 14:00 Pulse Rate 48 L 48 L Respiratory Rate 16 16 Blood Pressure 176/92 H Pulse Oximetry 97 97 Oxygen Delivery Method Oxygen Flow Rate 06/06/23 15:00 Pulse Rate Respiratory Rate Blood Pressure Pulse Oximetry Oxygen Delivery Method Mechanical Ventilation Oxygen Flow Rate Oxygen Delivery Method Mechanical Ventilation Oxygen Flow Rate 28 Narrative Exam Narrative: Gen: intubated, sedate Pulm: coarse breath sounds bilaterally CV: RRR no m/r/g Skin: swelling and erythema, warmth around his neck that extends to his shoulder and neck. Ext: no edema or joint effusions Objective Labs 06/06/23 04:35 06/06/23 04:35 Labs: Laboratory Results - last 24 hr 06/06/23 06/06/23 06/06/23 04:35 04:35 04:35 WBC 7.0 RBC 4.09 L Hgb 13.6 Hct 39.7 L MCV 97.2 MCH 33.2 MCHC 34.2 RDW 14.3 Plt Count 134 L Neut % (Auto) 82.4 H Lymph % (Auto) 8.2 L [place] % (Auto) 9.0 Eos % (Auto) 0.2 L Baso % (Auto) 0.2 Neut # (Auto) 5800 Lymph # (Auto) 600 L [place] # (Auto) 600 Eos # (Auto) 0 Baso # (Auto) 0 PT 12.2 INR 1.1 Sodium 138 Potassium 3.8 Chloride 105 Carbon Dioxide 22 BUN 13 Creatinine 0.63 L Estimated GFR > 60 BUN/Creatinine Ratio 20.6 Glucose 199 H Calcium 8.3 L Magnesium 2.2 Total Bilirubin 0.9 AST 60 H ALT 85 H Alkaline Phosphatase 71 Total Protein 5.9 L Albumin 2.9 L Globulin 3.0 Albumin/Globulin Ratio 1.0 PFSH Medical History Aftercare following left finger joint replacement surgery Depression Erectile dysfunction due to arterial insufficiency Family history of hypertension Finger wound, simple, open HTN (hypertension) Hyperlipidemia Migraine headache Sterilization consult Surgical History H/O circumcision H/O umbilical hernia repair Family History Mother Hypertension History of thyroid disorder Social History marital status: number of children: 2 household members: none occupational status: employed leisure activities: exercise Smoking Status: Never smoker alcohol intake: current substance use type: does not use Type(s) of exercise: weight lifting and running frequency: 5-6 times per week duration: 45-60 minutes/day Assessment & Plan Assessment & Plan narrative: 1. Stridor - unclear etiology, no response to epi, steroids, or benadryl initially. Intubated at 10 AM 06/05 for airway protection - neck CT with no abnormality - continue steroids methylpred 60 daily - No obvious infection but low threshold for antibiotics - stop lisinopril (has been held) but angioedema in this situation seems less likely. - sedation currently with fentanyl propofol, and precedex - ECHO ordered - patient does have history of GERD do wonder about injury from reflux vs vomiting - plan for ENT consult when DTs improved 2. Acute alcohol withdrawal with DTs. - continue precedex, along with above sedation - ordered phenobarb prn - continue MVI, folate, thiamine 3. Alcoholic pancreatitis - currently NPO will hold futher feedings given above. - abdominal ultrasound with no evidence for biliary obstruction. Follow bilirubin with increase to 1.4 yesterday but improved to 1.4 today. 4. Alcoholic hepatitis - continue to follow AST/ALT, improving - abdominal ultrasound with steatosis. 5. Acute respiratory failure with hypoxia - suspect secondary to sedation / atelectasis with EtOH withdrawal. No fever, or leukocytosis but low threshold to start antibiotics as noted above - unclear process leading to tracheal obstruction, CT neck pending. 6. HTN, chronic - hold home propranolol for now. Hold home lisinopril - continue metoprolol IV q6 hr as needed today. 7. GERD, chronic - Continue IV PPI daily 8. Depression, chronic - has self titrated to 75 mg daily, will resume buproprion when mental status improves. 9. Thrombocytopenia with history of polycythemia - Hg 14.2, had outpatient JAK2 ordered along with abdominal ultrasound. Suspect current suppression in setting of EtOH use. - continue to follow. Hold lovenox for now with thrombocytopenia. - ferritin is elevated at 648, less likely polycythemia is due to JAK2 mutation. has multiple reasons for secondary etiology of polycythemia. Quality VTE Deep Vein Thrombosis/Pulmonary Embolism Present on Admission: Yes
--- NOTE | 2023-06-06 20:25 | PM.ICURNDS ---
- Date Patient Seen: 06/06/23 Time Patient Seen: 20:25 :: This patient was seen via real time interactive two-way audiovisual telecommunication. Note: Patient is currently intubated and sedated. On precedex, propofol, and fentanyl. On PEEP 5 and FiO2 35%. Will continue supportive care and check SAT and SBT tomorrow. D/w bedside RN.
[2023-06-06] MEDS: fentaNYL 1,000 MCG in DEXTROSE 5% IN WATER 230 ML 44.5 MCG IV (20:30)
[2023-06-06] MEDS: propofoL 1,000 MG/100 ML VIAL 26.7 MG IV ×2 (20:32→23:56)
[2023-06-06] MEDS: HYDRALAZINE 20 MG/ML VIAL 10 MG IV (21:22)
[2023-06-07] VITALS (60 sets, daily range): BP systolic 123–180; BP diastolic 71–109; PULSE 46–101; RESP 16–23; TEMP 35.8–37.3; O2SAT 89–97
[2023-06-07] MEDS: dexmedeTOMIDine in 0.9 % NaCL 400 MCG/100 ML PLAST..BAG 26.7 MCG IV ×8 (00:59→23:00)
[2023-06-07] MEDS: fentaNYL 1,000 MCG in DEXTROSE 5% IN WATER 230 ML 55.625 MCG IV ×2 (02:15→06:32)
[2023-06-07] MEDS: propofoL 1,000 MG/100 ML VIAL 26.7 MG IV ×3 (04:00→23:00)
[2023-06-07 05:10] LABS: Add Manual Diff / Slide Review NO; Basophils Absolute Auto 0 /uL (0-100); Basophils Percent Auto 0.3 % (0-2); Eosinophils Absolute Auto 0 /uL (0-450); Eosinophils Percent Auto 0.3 % (2-4); Hematocrit 40.5 % (41-53); Hemoglobin 13.8 g/dL (13.5-17.5); Lymphocytes Absolute Auto 900 /uL (1100-4500); Mean Corpuscular Volume 96.9 fL (80-100); Monocytes Absolute Auto 1000 /uL (0-900); Monocytes Percent Auto 15.8 % (3-14); Neutrophils Absolute Auto 4300 /uL (1500-7000); Neutrophils Percent Auto 69.6 % (50-75); Platelet Count 155 X10^3/uL (150-400); Red Blood Cell Count 4.17 X10^6/uL (4.5-5.9); Red Cell Distribution Width 14.1 % (11.6-14.8); White Blood Cell Count 6.2 X10^3/uL (4.5-11.0)
[2023-06-07 05:15] LABS: INR 1.1 (0.9-1.3); Prothrombin Time 12.7 SECONDS (10.1-12.7)
[2023-06-07 05:24] LABS: Alanine Aminotransferase 66 IU/L (<50); Albumin 2.7 g/dL (3.5-5.0); Albumin Globulin Ratio 0.9 (1.0-2.8); Alkaline Phosphatase 71 U/L (38-126); Aspartate Aminotransferase 36 IU/L (17-59); BUN Creatinine Ratio 23.5 (6-22); Bilirubin Total 0.7 mg/dL (0.2-1.3); Blood Urea Nitrogen 16 mg/dL (9-20); Carbon Dioxide 27 mmol/L (22-32); Chloride 106 mmol/L (98-107); Estimated Glomerular Filt Rate > 60 mL/min (>60); Globulin 2.9 g/dL (1.7-4.1); Glucose 223 mg/dL (70-100); HEMOLYSIS < 15 (0-50); Magnesium 2.3 mg/dL (1.6-2.3); Potassium 3.5 mmol/L (3.4-5.1); Sodium 137 mmol/L (137-145); Total Protein 5.6 g/dL (6.3-8.2)
[2023-06-07 06:08] LABS: Lipase 200 U/L (23-300)
[2023-06-07] MEDS: PHENobarbital 130 MG/ML VIAL IV ×3 (06:32→20:00)
[2023-06-07] MEDS: CHLORHEXIDINE GLUCONATE 15 ML CUP PO ×4 (06:32→23:01)
[2023-06-07] MEDS: PANTOPRAZOLE 40 MG VIAL IV (08:16)
[2023-06-07] MEDS: methylPREDNISolone 125 MG/2 ML VIAL 60 MG IV (08:16)
[2023-06-07] MEDS: THIAMINE 500 MG in SODIUM CHLORIDE 0.9% 100 ML 420 MG IV ×3 (08:17→20:00)
[2023-06-07] MEDS: POTASSIUM CHLORIDE IN WATER 10 MEQ/100 ML PIGGYBACK 100 MEQ IV ×2 (08:17→09:57)
[2023-06-07 08:47] LABS: HCO3 ABG 27 mmol/L (23-27); Oxygen Saturation ABG 94 % (95-100); PCO2 ABG 39.1 mmHg (35-45); PO2 ABG 67 mmHg (80-100); TCO2 ABG 28 mmol/L (23-27); pH ABG 7.45 (7.35-7.45)
[2023-06-07 08:48] LABS: Fractionated Inspired Oxygen 28
[2023-06-07] MEDS: INSULIN LISPRO 100 UNIT/ML 3ML VIAL SUBCUT ×4 (08:51→21:13)
[2023-06-07] MEDS: propofoL 1,000 MG/100 ML VIAL 27.8 MG IV ×2 (09:54→15:22)
[2023-06-07] MEDS: ALBUTEROL 2.5 MG/3 ML NEB (ADULT) INH (10:34)
[2023-06-07] MEDS: fentaNYL 2,000 MCG in DEXTROSE 5% IN WATER 210 ML 28.906 MCG IV ×2 (11:21→20:00)
--- NOTE | 2023-06-07 11:31 | PM.PN.EICU ---
Subjective Subjective IF CAMERA ACTIVATED, patient seen via real-time interactive audiovisual communication: Camera activated Consent obtained for tele-insurance account executive care: Yes Patient Location: ICU Provider location (State): [place] Other participants/roles: RN Interval history: pt remains intubated, did well with SAT and seemed to follow commands and understand me. there was a + leak test tday Current Medications Current Medications Medications: Home Medications omeprazole 20 mg capsule,delayed release 20 mg PO DAILY 05/06/21 [History Confirmed 06/03/23] propranolol 10 mg tablet 20 mg PO BID 07/30/21 [History Confirmed 06/03/23] lisinopril 10 mg tablet 10 mg PO DAILY 08/15/21 [History Confirmed 06/03/23] bupropion HCl 150 mg 24 hr tablet, extended release (Wellbutrin XL) 450 mg PO QAM 04/01/23 [History Confirmed 06/03/23] cetirizine 10 mg tablet (Zyrtec) 10 mg PO DAILY PRN Itching 04/01/23 [History Confirmed 06/03/23] tadalafil 10 mg tablet 10 mg PO PRN PRN Sexual Activity 04/01/23 [History Confirmed 06/03/23] aspirin 81 mg chewable tablet 81 mg PO DAILY 06/03/23 [History Confirmed 06/03/23] Visit Medications (administered) Generic Name Dose Route Start Last Admin Trade Name Freq PRN Reason Stop Dose Admin Acetaminophen 650 mg 06/03/23 03:30 06/04/23 14:48 Acetaminophen 325 Mg Tablet PO Not Given Q6H MEMO Albuterol 2.5 mg 06/05/23 08:28 06/07/23 10:34 Albuterol 2.5 Mg/3 Ml Neb (Adult) INH 2.5 mg [id number] PRN Administration Shortness Of Breath / wheezing Chlorhexidine Gluconate 15 ml 06/05/23 12:00 06/07/23 11:21 Chlorhexidine Gluconate 15 Ml Cup PO 15 ml Q6HR MEMO Administration Folic Acid 1 mg 06/03/23 09:00 06/04/23 08:48 Folic Acid 1 Mg Tablet PO Not Given DAILY MEMO Hydralazine HCl 10 mg 06/06/23 20:27 06/06/23 21:22 Hydralazine 20 Mg/Ml Vial IV 10 mg Q6HR PRN Administration Hypertension SBP >180 dexmedeTOMIDine in 0.9 % NaCL 400 mcg in 100 mls @ 4.45 mls/hr 06/03/23 22:00 06/07/23 11:21 Precedex IV 1.2 mcg/kg/hr TITRATE MEMO 26.7 mls/hr Administration Protocol 0.2 MCG/KG/HR Propofol 1,000 mg in 100 mls @ 2.67 mls/hr 06/05/23 09:45 06/07/23 09:54 Propofol IV 52.06 mcg/kg/min TITRATE MEMO 27.8 mls/hr Administration Protocol 5 MCG/KG/MIN Thiamine HCl 500 mg/ Sodium 105 mls @ 420 mls/hr 06/06/23 09:00 06/07/23 08:54 Chloride IV Infused TID MEMO Infusion Fentanyl 2,000 mcg/ Dextrose 250 mls @ 8.094 mls/hr 06/07/23 11:00 06/07/23 11:21 IV 2.5 mcg/kg/hr TITRATE MEMO 28.906 mls/hr Administration Protocol 0.7 MCG/KG/HR Insulin Human Lispro 0 unit 06/06/23 11:45 06/07/23 11:19 Insulin Lispro 100 Unit/Ml 3ml Vial SUBCUT 1 unit ACHS MEMO Administration Protocol Loratadine 10 mg 06/03/23 12:45 06/03/23 13:33 Loratadine 10 Mg Tablet PO 10 mg DAILY PRN Administration Itching Methylprednisolone 60 mg 06/07/23 09:00 06/07/23 08:16 Methylprednisolone 125 Mg/2 Ml Vial IV 60 mg DAILY MEMO Administration Metoprolol Tartrate 5 mg 06/03/23 05:26 06/03/23 20:55 Metoprolol Tartrate 5 Mg/5 Ml Inj IV 5 mg Q6H PRN Administration Hypertension if HR >100 Morphine Sulfate 4 mg 06/04/23 11:20 06/05/23 08:00 Morphine 4 Mg/Ml Inj IV 4 mg Q4H PRN Administration Pain, Severe (7-10) Multivitamins 1 tab 06/03/23 09:00 06/04/23 08:48 Multivitamin 1 Tablet PO Not Given DAILY MEMO Pantoprazole Sodium 40 mg 06/03/23 09:00 06/07/23 08:16 Pantoprazole 40 Mg Vial IV 40 mg DAILY MEMO Administration Phenobarbital Sodium 130 mg 06/06/23 15:19 06/07/23 06:32 Phenobarbital 130 Mg/Ml Vial IV 130 mg Q6HR PRN Administration agitation/withdrawal Objective Ventilator Parameters: Ventilator Settings FiO2 34 RT Vent Frequency 16 Ventilator Tidal Volume 500 Exhaled Positive End Expiratory 5 Pressure Inspiratory Phase Time 0.9 Patient Position HOB >= 30 degrees Labs 06/07/23 04:50 06/07/23 04:50 Labs: Laboratory Results - last 24 hr 06/07/23 06/07/23 06/07/23 04:50 04:50 04:50 WBC 6.2 RBC 4.17 L Hgb 13.8 Hct 40.5 L MCV 96.9 MCH 33.0 MCHC 34.0 RDW 14.1 Plt Count 155 Neut % (Auto) 69.6 Lymph % (Auto) 14.0 L [place] % (Auto) 15.8 H Eos % (Auto) 0.3 L Baso % (Auto) 0.3 Neut # (Auto) 4300 Lymph # (Auto) 900 L [place] # (Auto) 1000 H Eos # (Auto) 0 Baso # (Auto) 0 PT 12.7 INR 1.1 ABG pH ABG pCO2 ABG pO2 ABG HCO3 ABG Total CO2 ABG O2 Saturation ABG Base Excess FiO2 Sodium 137 Potassium 3.5 Chloride 106 Carbon Dioxide 27 BUN 16 Creatinine 0.68 Estimated GFR > 60 BUN/Creatinine Ratio 23.5 H Glucose 223 H Calcium 8.0 L Magnesium 2.3 Total Bilirubin 0.7 AST 36 ALT 66 H Alkaline Phosphatase 71 Total Protein 5.6 L Albumin 2.7 L Globulin 2.9 Albumin/Globulin Ratio 0.9 L Lipase 06/07/23 06/07/23 04:50 08:34 WBC RBC Hgb Hct MCV MCH MCHC RDW Plt Count Neut % (Auto) Lymph % (Auto) [place] % (Auto) Eos % (Auto) Baso % (Auto) Neut # (Auto) Lymph # (Auto) [place] # (Auto) Eos # (Auto) Baso # (Auto) PT INR ABG pH 7.45 ABG pCO2 39.1 ABG pO2 67 L ABG HCO3 27 ABG Total CO2 28 H ABG O2 Saturation 94 L ABG Base Excess 3.0 FiO2 28 Sodium Potassium Chloride Carbon Dioxide BUN Creatinine Estimated GFR BUN/Creatinine Ratio Glucose Calcium Magnesium Total Bilirubin AST ALT Alkaline Phosphatase Total Protein Albumin Globulin Albumin/Globulin Ratio Lipase 200 D Exam Vital Signs (past 8 hours): - 06/07/23 04:00 06/07/23 04:00 06/07/23 04:30 Temperature Pulse Rate 82 82 Respiratory Rate 16 16 Blood Pressure 134/77 Pulse Oximetry 93 93 Oxygen Delivery Method Oxygen Flow Rate Fraction of Inspired Oxygen 06/07/23 05:00 06/07/23 05:00 06/07/23 05:00 Temperature Pulse Rate 83 Respiratory Rate 16 Blood Pressure 138/84 Pulse Oximetry 94 94 Oxygen Delivery Method Mechanical Ventilation Oxygen Flow Rate 28 Fraction of Inspired Oxygen 06/07/23 04:00 06/07/23 05:30 06/07/23 06:00 Temperature 99.4 F Pulse Rate 78 Respiratory Rate 16 16 Blood Pressure 148/94 H Pulse Oximetry 94 94 Oxygen Delivery Method Oxygen Flow Rate Fraction of Inspired Oxygen 28 06/07/23 06:00 06/07/23 06:30 06/07/23 07:00 Temperature Pulse Rate 87 82 Respiratory Rate 16 16 Blood Pressure 129/77 Pulse Oximetry 93 93 Oxygen Delivery Method Oxygen Flow Rate Fraction of Inspired Oxygen 06/07/23 07:00 06/07/23 07:00 06/07/23 09:00 Temperature Pulse Rate 82 Respiratory Rate 16 Blood Pressure Pulse Oximetry 93 94 Oxygen Delivery Method Mechanical Ventilation Mechanical Ventilation Oxygen Flow Rate Fraction of Inspired Oxygen 06/07/23 07:30 06/07/23 08:00 06/07/23 08:00 Temperature Pulse Rate 78 78 Respiratory Rate 16 16 Blood Pressure 131/77 Pulse Oximetry 94 93 Oxygen Delivery Method Oxygen Flow Rate Fraction of Inspired Oxygen 06/07/23 08:30 06/07/23 09:00 06/07/23 09:00 Temperature Pulse Rate 86 85 Respiratory Rate 16 16 Blood Pressure 123/74 Pulse Oximetry 95 93 Oxygen Delivery Method Oxygen Flow Rate Fraction of Inspired Oxygen 06/07/23 09:30 06/07/23 10:00 06/07/23 10:00 Temperature Pulse Rate 101 H 85 Respiratory Rate 19 16 Blood Pressure 125/74 Pulse Oximetry 92 89 L Oxygen Delivery Method Oxygen Flow Rate Fraction of Inspired Oxygen 06/07/23 10:30 Temperature Pulse Rate 84 Respiratory Rate 16 Blood Pressure Pulse Oximetry 92 Oxygen Delivery Method Oxygen Flow Rate Fraction of Inspired Oxygen Fraction of Inspired Oxygen 28 Oxygen Delivery Method Mechanical Ventilation Oxygen Flow Rate 28 Narrative Exam Narrative: intubated/sedated Chest Other: symmetric chest rise Cardio Other: rate controlled Quality TeleICU VTE Deep Vein Thrombosis/Pulmonary Embolism Present on Admission: Yes Assessment & Plan Assessment and plan (1) Stridor: Status: Acute (2) Acute respiratory failure: Status: Acute (3) Alcohol withdrawal: Status: Acute Plan vent/sedation bndle cont propofol phenobarb prn trend ABG LTVV ENT eval TF/BR trend bmp monitro UO steroids SUP dvt ppx trend cbc - hgb drop of 3 units, likely hemoconentration, but will follow ENT eval tomorrow Time Spent With Patient Time with patient: 30 to 49 minutes with 50% spent counseling/coordinating care
--- NOTE | 2023-06-07 15:14 | P.PN_ITS ---
Subjective Subjective Date Patient Seen: 06/07/23 Time Patient Seen: 08:00 Interval history: He appears more calm today. Exam Vital Signs (past 8 hours): - 06/07/23 09:00 06/07/23 07:30 06/07/23 08:00 Pulse Rate 78 Respiratory Rate 16 Blood Pressure 131/77 Pulse Oximetry 94 94 Oxygen Delivery Method Mechanical Ventilation 06/07/23 08:00 06/07/23 08:30 06/07/23 09:00 Pulse Rate 78 86 Respiratory Rate 16 16 Blood Pressure 123/74 Pulse Oximetry 93 95 Oxygen Delivery Method 06/07/23 09:00 06/07/23 09:30 06/07/23 10:00 Pulse Rate 85 101 H Respiratory Rate 16 19 Blood Pressure 125/74 Pulse Oximetry 93 92 Oxygen Delivery Method 06/07/23 10:00 06/07/23 10:30 06/07/23 11:00 Pulse Rate 85 84 Respiratory Rate 16 16 Blood Pressure Pulse Oximetry 89 L 92 Oxygen Delivery Method Mechanical Ventilation 06/07/23 11:00 06/07/23 11:00 06/07/23 11:30 Pulse Rate 86 98 H Respiratory Rate 16 19 Blood Pressure 138/82 Pulse Oximetry 94 95 Oxygen Delivery Method 06/07/23 12:00 06/07/23 12:00 06/07/23 12:55 Pulse Rate 83 Respiratory Rate 16 Blood Pressure 169/99 H Pulse Oximetry 93 94 Oxygen Delivery Method Mechanical Ventilation 06/07/23 12:30 06/07/23 13:00 06/07/23 13:00 Pulse Rate 100 H 74 Respiratory Rate 19 16 Blood Pressure 156/90 H Pulse Oximetry 92 95 Oxygen Delivery Method 06/07/23 13:30 06/07/23 14:00 06/07/23 14:17 Pulse Rate 87 80 Respiratory Rate 16 23 Blood Pressure 157/94 H Pulse Oximetry 93 96 Oxygen Delivery Method 06/07/23 14:17 06/07/23 14:30 Pulse Rate 79 77 Respiratory Rate 16 16 Blood Pressure Pulse Oximetry 93 94 Oxygen Delivery Method Fraction of Inspired Oxygen 28 Oxygen Delivery Method Mechanical Ventilation Oxygen Flow Rate 28 Narrative Exam Narrative: Gen: intubated, sedate Pulm: coarse breath sounds bilaterally CV: RRR no m/r/g Skin: swelling and erythema, warmth around his neck that extends to his shoulder and neck. Ext: no edema or joint effusions Objective Labs 06/07/23 04:50 06/07/23 04:50 Labs: Laboratory Results - last 24 hr 06/07/23 06/07/23 06/07/23 04:50 04:50 04:50 WBC 6.2 RBC 4.17 L Hgb 13.8 Hct 40.5 L MCV 96.9 MCH 33.0 MCHC 34.0 RDW 14.1 Plt Count 155 Neut % (Auto) 69.6 Lymph % (Auto) 14.0 L [place] % (Auto) 15.8 H Eos % (Auto) 0.3 L Baso % (Auto) 0.3 Neut # (Auto) 4300 Lymph # (Auto) 900 L [place] # (Auto) 1000 H Eos # (Auto) 0 Baso # (Auto) 0 PT 12.7 INR 1.1 ABG pH ABG pCO2 ABG pO2 ABG HCO3 ABG Total CO2 ABG O2 Saturation ABG Base Excess FiO2 Sodium 137 Potassium 3.5 Chloride 106 Carbon Dioxide 27 BUN 16 Creatinine 0.68 Estimated GFR > 60 BUN/Creatinine Ratio 23.5 H Glucose 223 H Calcium 8.0 L Magnesium 2.3 Total Bilirubin 0.7 AST 36 ALT 66 H Alkaline Phosphatase 71 Total Protein 5.6 L Albumin 2.7 L Globulin 2.9 Albumin/Globulin Ratio 0.9 L Lipase 06/07/23 06/07/23 04:50 08:34 WBC RBC Hgb Hct MCV MCH MCHC RDW Plt Count Neut % (Auto) Lymph % (Auto) [place] % (Auto) Eos % (Auto) Baso % (Auto) Neut # (Auto) Lymph # (Auto) [place] # (Auto) Eos # (Auto) Baso # (Auto) PT INR ABG pH 7.45 ABG pCO2 39.1 ABG pO2 67 L ABG HCO3 27 ABG Total CO2 28 H ABG O2 Saturation 94 L ABG Base Excess 3.0 FiO2 28 Sodium Potassium Chloride Carbon Dioxide BUN Creatinine Estimated GFR BUN/Creatinine Ratio Glucose Calcium Magnesium Total Bilirubin AST ALT Alkaline Phosphatase Total Protein Albumin Globulin Albumin/Globulin Ratio Lipase 200 D PFSH Medical History Aftercare following left finger joint replacement surgery Depression Erectile dysfunction due to arterial insufficiency Family history of hypertension Finger wound, simple, open HTN (hypertension) Hyperlipidemia Migraine headache Sterilization consult Surgical History H/O circumcision H/O umbilical hernia repair Family History Mother Hypertension History of thyroid disorder Social History marital status: number of children: 2 household members: none occupational status: employed leisure activities: exercise Smoking Status: Never smoker alcohol intake: current substance use type: does not use Type(s) of exercise: weight lifting and running frequency: 5-6 times per week duration: 45-60 minutes/day Assessment & Plan Assessment & Plan narrative: 1. Stridor - unclear etiology, no response to epi, steroids, or benadryl initially. Intubated at 10 AM 06/05 for airway protection - neck CT with no abnormality - continue steroids methylpred 60 daily - No obvious infection but low threshold for antibiotics - stop lisinopril (has been held) but angioedema in this situation seems less likely. - sedation currently with fentanyl propofol, and precedex - ECHO ordered - patient does have history of GERD do wonder about injury from reflux vs vomiting but would suspect would have some finding on CT - other consideration is possible vocal cord dysfunction - plan for ENT consult on 06/08 to see if can come in to evaluate 2. Acute alcohol withdrawal with DTs. - continue precedex, along with above sedation - ordered phenobarb prn - continue MVI, folate, thiamine high dose for 6 doses 3. Alcoholic pancreatitis - currently NPO will hold futher feedings given above. - abdominal ultrasound with no evidence for biliary obstruction. Follow bilirubin with increase to 1.4 yesterday but improved to 1.4 today. 4. Alcoholic hepatitis - continue to follow AST/ALT, improving - abdominal ultrasound with steatosis. 5. Acute respiratory failure with hypoxia - suspect secondary to sedation / atelectasis with EtOH withdrawal. No fever, or leukocytosis but low threshold to start antibiotics as noted above - unclear process leading to tracheal obstruction, CT neck pending. 6. HTN, chronic - hold home propranolol for now. Hold home lisinopril - continue metoprolol IV q6 hr as needed today. 7. GERD, chronic - Continue IV PPI daily 8. Depression, chronic - has self titrated to 75 mg daily, will resume buproprion when mental status improves. 9. Thrombocytopenia with history of polycythemia - Hg 14.2, had outpatient JAK2 ordered along with abdominal ultrasound. Suspect current suppression in setting of EtOH use. - continue to follow. Hold lovenox for now with thrombocytopenia. - ferritin is elevated at 648, less likely polycythemia is due to JAK2 mutation. has multiple reasons for secondary etiology of polycythemia. Quality VTE Deep Vein Thrombosis/Pulmonary Embolism Present on Admission: Yes
--- NOTE | 2023-06-07 19:54 | PM.ICURNDS ---
- :: This patient was seen via real time interactive two-way audiovisual telecommunication. Note: Pt comfortable , on sedation propfol, fentanyl and precedex, renewed soft restraints order.
[2023-06-07] MEDS: LORATADINE 10 MG TABLET PO (20:00)
[2023-06-07] MEDS: diphenhydrAMINE 50 MG/ML VIAL 25 MG IV (23:00)
[2023-06-08] VITALS (47 sets, daily range): BP systolic 106–175; BP diastolic 65–102; PULSE 51–124; RESP 0–43; TEMP 35.8–38.3; O2SAT 90–98
[2023-06-08] MEDS: propofoL 1,000 MG/100 ML VIAL 26.7 MG IV ×2 (02:30→06:00)
[2023-06-08] MEDS: dexmedeTOMIDine in 0.9 % NaCL 400 MCG/100 ML PLAST..BAG 26.7 MCG IV ×2 (02:30→06:00)
[2023-06-08] MEDS: fentaNYL 2,000 MCG in DEXTROSE 5% IN WATER 210 ML 28.906 MCG IV (04:44)
[2023-06-08 04:52] LABS: Hematocrit 43.3 % (41-53); Hemoglobin 14.6 g/dL (13.5-17.5); Mean Corpuscular HGB Conc 33.7 % (30-36); Mean Corpuscular Hemoglobin 32.8 PG (26-34); Mean Corpuscular Volume 97.3 fL (80-100); Platelet Count 150 X10^3/uL (150-400); Red Blood Cell Count 4.45 X10^6/uL (4.5-5.9); Red Cell Distribution Width 14.3 % (11.6-14.8); White Blood Cell Count 6.2 X10^3/uL (4.5-11.0)
[2023-06-08 05:06] LABS: BUN Creatinine Ratio 14.3 (6-22); Blood Urea Nitrogen 11 mg/dL (9-20); Calcium 7.8 mg/dL (8.4-10.2); Carbon Dioxide 30 mmol/L (22-32); Chloride 105 mmol/L (98-107); Estimated Glomerular Filt Rate > 60 mL/min (>60); Glucose 226 mg/dL (70-100); HEMOLYSIS < 15 (0-50); Potassium 2.8 mmol/L (3.4-5.1); Sodium 140 mmol/L (137-145)
[2023-06-08] MEDS: PHENobarbital 130 MG/ML VIAL IV ×3 (06:02→22:07)
[2023-06-08] MEDS: diphenhydrAMINE 50 MG/ML VIAL 25 MG IV ×2 (06:02→12:02)
[2023-06-08] MEDS: CHLORHEXIDINE GLUCONATE 15 ML CUP PO (06:02)
[2023-06-08] MEDS: POTASSIUM CHLORIDE 20 MEQ/15 ML UDC 40 MEQ PO (06:35)
[2023-06-08] MEDS: INSULIN LISPRO 100 UNIT/ML 3ML VIAL SUBCUT (08:19)
--- NOTE | 2023-06-08 09:01 | PM.PN.EICU ---
Subjective Subjective IF CAMERA ACTIVATED, patient seen via real-time interactive audiovisual communication: Camera activated Date Patient Seen: 06/08/23 Consent obtained for tele-personnel representative care: Yes Patient Location: ICU Provider location (State): [place] Other participants/roles: Bedside RN Interval history: Was intubated, awaiting ENT evaluation today and then self extubated this am doing well, no stridor on 6 L O2 by facemask continuing steroids for stridor continuing treatment for alcohol withdrawal remains on precedex gtt Current Medications Current Medications Medications: Home Medications omeprazole 20 mg capsule,delayed release 20 mg PO DAILY 05/06/21 [History Confirmed 06/03/23] propranolol 10 mg tablet 20 mg PO BID 07/30/21 [History Confirmed 06/03/23] lisinopril 10 mg tablet 10 mg PO DAILY 08/15/21 [History Confirmed 06/03/23] bupropion HCl 150 mg 24 hr tablet, extended release (Wellbutrin XL) 450 mg PO QAM 04/01/23 [History Confirmed 06/03/23] cetirizine 10 mg tablet (Zyrtec) 10 mg PO DAILY PRN Itching 04/01/23 [History Confirmed 06/03/23] tadalafil 10 mg tablet 10 mg PO PRN PRN Sexual Activity 04/01/23 [History Confirmed 06/03/23] aspirin 81 mg chewable tablet 81 mg PO DAILY 06/03/23 [History Confirmed 06/03/23] Visit Medications (administered) Generic Name Dose Route Start Last Admin Trade Name Freq PRN Reason Stop Dose Admin Acetaminophen 650 mg 06/03/23 03:30 06/04/23 14:48 Acetaminophen 325 Mg Tablet PO Not Given Q6H MEMO Albuterol 2.5 mg 06/05/23 08:28 06/07/23 10:34 Albuterol 2.5 Mg/3 Ml Neb (Adult) INH 2.5 mg [id number] PRN Administration Shortness Of Breath / wheezing Chlorhexidine Gluconate 15 ml 06/05/23 12:00 06/08/23 06:02 Chlorhexidine Gluconate 15 Ml Cup PO 15 ml Q6HR MEMO Administration Diphenhydramine HCl 25 mg 06/07/23 19:55 06/08/23 06:02 Diphenhydramine 50 Mg/Ml Vial IV 25 mg Q6HR PRN Administration Itching Folic Acid 1 mg 06/03/23 09:00 06/04/23 08:48 Folic Acid 1 Mg Tablet PO Not Given DAILY [facility] Hydralazine HCl 10 mg 06/06/23 20:27 06/06/23 21:22 Hydralazine 20 Mg/Ml Vial IV 10 mg Q6HR PRN Administration Hypertension SBP >180 dexmedeTOMIDine in 0.9 % NaCL 400 mcg in 100 mls @ 4.45 mls/hr 06/03/23 22:00 06/08/23 08:52 Precedex IV 1 mcg/kg/hr TITRATE MEMO 22.25 mls/hr Titration Protocol 0.2 MCG/KG/HR Propofol 1,000 mg in 100 mls @ 2.67 mls/hr 06/05/23 09:45 06/08/23 08:53 Propofol IV 15 mcg/kg/min TITRATE MEMO 8.01 mls/hr Titration Protocol 5 MCG/KG/MIN Thiamine HCl 500 mg/ Sodium 105 mls @ 420 mls/hr 06/06/23 09:00 06/07/23 21:30 Chloride IV Infused TID [facility] Infusion Fentanyl 2,000 mcg/ Dextrose 250 mls @ 8.094 mls/hr 06/07/23 11:00 06/08/23 08:52 IV 0.5 mcg/kg/hr TITRATE MEMO 5.781 mls/hr Titration Protocol 0.7 MCG/KG/HR Insulin Human Lispro 0 unit 06/06/23 11:45 06/08/23 08:19 Insulin Lispro 100 Unit/Ml 3ml Vial SUBCUT 2 unit ACHS [facility] Administration Protocol Loratadine 10 mg 06/03/23 12:45 06/07/23 20:00 Loratadine 10 Mg Tablet PO 10 mg DAILY PRN Administration Itching Methylprednisolone 60 mg 06/07/23 09:00 06/07/23 08:16 Methylprednisolone 125 Mg/2 Ml Vial IV 60 mg DAILY [facility] Administration Metoprolol Tartrate 5 mg 06/03/23 05:26 06/03/23 20:55 Metoprolol Tartrate 5 Mg/5 Ml Inj IV 5 mg Q6H PRN Administration Hypertension if HR >100 Morphine Sulfate 4 mg 06/04/23 11:20 06/05/23 08:00 Morphine 4 Mg/Ml Inj IV 4 mg Q4H PRN Administration Pain, Severe (7-10) Multivitamins 1 tab 06/03/23 09:00 06/04/23 08:48 Multivitamin 1 Tablet PO Not Given DAILY MEMO Pantoprazole Sodium 40 mg 06/03/23 09:00 06/07/23 08:16 Pantoprazole 40 Mg Vial IV 40 mg DAILY MEMO Administration Phenobarbital Sodium 130 mg 06/06/23 15:19 06/08/23 06:02 Phenobarbital 130 Mg/Ml Vial IV 130 mg Q6HR PRN Administration agitation/withdrawal Objective Ventilator Parameters: Ventilator Settings FiO2 28 RT Vent Frequency 16 Ventilator Tidal Volume 500 Exhaled Vt/kg IBW 7 Positive End Expiratory 5 Pressure Inspiratory Phase Time 0.9 I:E Ratio 1:32 Patient Position HOB >= 30 degrees Labs 06/08/23 04:15 06/08/23 04:15 Labs: Laboratory Results - last 24 hr 06/08/23 06/08/23 04:15 04:15 WBC 6.2 RBC 4.45 L Hgb 14.6 Hct 43.3 MCV 97.3 MCH 32.8 MCHC 33.7 RDW 14.3 Plt Count 150 Sodium 140 Potassium 2.8 L Chloride 105 Carbon Dioxide 30 BUN 11 Creatinine 0.77 Estimated GFR > 60 BUN/Creatinine Ratio 14.3 Glucose 226 H Calcium 7.8 L Exam Vital Signs (past 8 hours): - 06/08/23 01:30 06/08/23 02:00 06/08/23 02:00 Temperature Pulse Rate 57 L 58 L Respiratory Rate 16 16 Blood Pressure 175/92 H Pulse Oximetry 95 95 Oxygen Delivery Method Fraction of Inspired Oxygen 06/08/23 02:45 06/08/23 02:30 06/08/23 03:00 Temperature Pulse Rate 61 Respiratory Rate 16 Blood Pressure 165/88 H Pulse Oximetry 96 Oxygen Delivery Method Mechanical Ventilation Fraction of Inspired Oxygen 06/08/23 03:00 06/08/23 03:30 06/08/23 04:50 Temperature 96.5 F L Pulse Rate 66 66 88 Respiratory Rate 16 16 16 Blood Pressure 164/90 H Pulse Oximetry 96 95 95 Oxygen Delivery Method Fraction of Inspired Oxygen 28 06/08/23 04:00 06/08/23 04:00 06/08/23 04:30 Temperature Pulse Rate 71 104 H Respiratory Rate 16 21 Blood Pressure 164/90 H Pulse Oximetry 94 93 Oxygen Delivery Method Fraction of Inspired Oxygen 06/08/23 05:00 06/08/23 05:00 06/08/23 05:00 Temperature Pulse Rate 78 Respiratory Rate 16 Blood Pressure 136/81 Pulse Oximetry 92 94 Oxygen Delivery Method Mechanical Ventilation Fraction of Inspired Oxygen 06/08/23 05:30 06/08/23 06:00 06/08/23 06:00 Temperature Pulse Rate 79 80 Respiratory Rate 17 16 Blood Pressure 134/83 Pulse Oximetry 93 92 Oxygen Delivery Method Fraction of Inspired Oxygen 06/08/23 06:30 06/08/23 07:30 06/08/23 07:00 Temperature 98.3 F Pulse Rate 79 Respiratory Rate 16 Blood Pressure 106/65 Pulse Oximetry 92 Oxygen Delivery Method Fraction of Inspired Oxygen 06/08/23 07:00 06/08/23 07:30 06/08/23 08:00 Temperature Pulse Rate 80 80 Respiratory Rate 16 16 Blood Pressure 110/70 Pulse Oximetry 92 93 Oxygen Delivery Method Fraction of Inspired Oxygen 06/08/23 08:00 Temperature Pulse Rate 77 Respiratory Rate 16 Blood Pressure Pulse Oximetry 93 Oxygen Delivery Method Fraction of Inspired Oxygen Fraction of Inspired Oxygen 28 Oxygen Delivery Method Mechanical Ventilation Oxygen Flow Rate 28 Narrative Exam Narrative: wearing face mask, no apparent resp distress oriented and able to answer questions coherently Resp Other: normal EFFORT Cardio Other: sinus tach on tele Psych Other: tearful this am Quality TeleICU VTE Deep Vein Thrombosis/Pulmonary Embolism Present on Admission: Yes Assessment & Plan Assessment and plan (1) Stridor: Status: Acute (2) Acute respiratory failure: Status: Acute (3) Acute pancreatitis: Status: Acute (4) Alcohol withdrawal: Status: Acute (5) HTN (hypertension): Qualifiers: Hypertension type: unspecified Qualified Code(s): I10 - Essential (primary) hypertension Status: Acute Assessment & Plan narrative: Self extubated. oxygenating well on FM, no stridor CTM neck ct neg holding lisinopril in case angioedema component continuing steroids ENT eval today Continue alcohol withdrawal protocol precedex gtt phenobarb PRN thiamine MVI folate lyte replacement pancreatitis resolving lipase WNL, bill WNL, and LFT's downtrending will need swallow study after ENT eval HTN- hydralazine, metoprolol PPI PLT 150 K today, needs DVT ppx, recommend starting heparin SQ BID watch for plt drop or e/o bleeding given increase risk of thrombosis in PCV will get BLE dopplers continue SCD Time Spent With Patient Time with patient: 30 to 49 minutes with 50% spent counseling/coordinating care
[2023-06-08 09:27] LABS: BUN Creatinine Ratio 17.7 (6-22); Blood Urea Nitrogen 11 mg/dL (9-20); Calcium 8.1 mg/dL (8.4-10.2); Carbon Dioxide 27 mmol/L (22-32); Chloride 106 mmol/L (98-107); Estimated Glomerular Filt Rate > 60 mL/min (>60); Glucose 230 mg/dL (70-100); HEMOLYSIS 45 (0-50); Potassium 3.7 mmol/L (3.4-5.1); Sodium 141 mmol/L (137-145)
[2023-06-08] MEDS: dexmedeTOMIDine in 0.9 % NaCL 400 MCG/100 ML PLAST..BAG 33.375 MCG IV (09:34)
[2023-06-08] MEDS: PANTOPRAZOLE 40 MG VIAL IV (09:50)
[2023-06-08] MEDS: methylPREDNISolone 125 MG/2 ML VIAL 60 MG IV (09:50)
--- NOTE | 2023-06-08 10:01 | DI.US.S_ITS ---
PROCEDURE: US PERIPH VENOUS LOW EXTREM BI INDICATIONS: INCREASED RISK OF THROMBOSIS PCV TECHNIQUE: Real-time imaging, as well as color and pulse Doppler interrogation, were performed of the deep veins of both legs from the inguinal ligament to the popliteal fossa, with documentation of the visualized calf veins. COMPARISON: None. FINDINGS: Right: The common femoral, femoral, popliteal, and the visualized calf veins are normally compressible, and free of intraluminal thrombus. Color and pulse Doppler demonstrate normal phasic intravascular flow. There is normal augmentation response to distal compression maneuver. 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 There is a Chicas's cyst posterior to the right knee measuring 2.8 x 0.8 x 2.2 cm. Left: The common femoral, femoral, popliteal, and the visualized calf veins are normally compressible, and free of intraluminal thrombus. Color and pulse Doppler demonstrate normal phasic intravascular flow. There is normal augmentation response to distal compression maneuver. IMPRESSION: 1. No findings of deep venous thrombosis in either lower extremity. 2. A right Chicas's cyst. Dictated by: Raymon Bass M.D. on 06/08/2023 at 11:21 Approved by: Raymon Bass M.D. on 06/08/2023 at 11:23
[2023-06-08] MEDS: ALBUTEROL 2.5 MG/3 ML NEB (ADULT) INH (10:18)
[2023-06-08] MEDS: POTASSIUM CHLORIDE IN WATER 10 MEQ/100 ML PIGGYBACK 100 MEQ IV ×4 (10:41→14:21)
[2023-06-08] MEDS: THIAMINE 100 MG in SODIUM CHLORIDE 0.9% 100 ML 420 MG IV (10:41)
[2023-06-08] MEDS: LORazepam 2 MG/ML INJ IV ×3 (10:59→20:56)
[2023-06-08] MEDS: MORPHINE 4 MG/ML INJ IV ×3 (11:00→23:16)
[2023-06-08] MEDS: dexmedeTOMIDine in 0.9 % NaCL 400 MCG/100 ML PLAST..BAG 44.5 MCG IV ×3 (12:34→16:40)
--- NOTE | 2023-06-08 12:36 | CM.DPC ---
Addendum entered by SHARI Zavala 06/08/23 15:35: ADD: Per RN and MD, pt communicated to RN that he is actively suicidal with a plan of taking benzos and drinking alcohol and that he may have enacted upon this plan which led to his current hospital admission with potential that he also used a device to restrict his airway but pt currently cannot confirm/remember this but states he likely may have. Pt currently not medically cleared and SW will assess pt in the AM to determine if pt Voluntary vs Involuntary for Dual Dx Inpt Tx. BF Original Note: DCP Cont: Per MD and RN, pt was on sedation vacation towards attempting to determine if pt could safely be extubated today and then pt self-extubated and RT and staff helped to get pt's oxygen levels stabilized and pt currently off vent and on oxygen and still sedated while weaning off his pressors. SW spoke with pt's parents and discussed need for pt to be more alert and able to participate in discussion towards determining if pt will be interested and agreeable in either Inpt ETOH or outpt ETOH tx. Parents confirm they are hopeful that pt will d/c to their home in [place] for ongoing support as they feel directly back [place] [employer] is not a safe d/c plan for pt at this time but they realize that pt will need to be agreeable and voluntary in his decisions at d/c. Plan: SW to follow closely for pt to continue to be weaned from his sedation before bedside discussion and ETOH resources presented to determine discharge planning needs and pt may need PT eval as he has been intubated for a few days and below baseline. SHARI Zavala
--- NOTE | 2023-06-08 12:41 | DI.RAD.S_ITS ---
PROCEDURE: XR CHEST 1V INDICATIONS: self extubation, reassess TECHNIQUE: One view of the chest was acquired. COMPARISON: [facility], CR, XR CHEST 1V, 06/05/2023, 12:27. FINDINGS: Surgical changes and devices: Left-sided PICC line with tip projecting over the distal SVC. Lungs and pleura: Lungs hypoinflated. Bibasilar opacities. No pleural effusions or pneumothorax. Mediastinum: Mediastinal contours appear normal. Heart size is normal. Bones and chest wall: No suspicious bony lesions. Overlying soft tissues appear unremarkable. IMPRESSION: Bibasilar opacities which could represent atelectasis, aspiration or pneumonia. Dictated by: Hawa Castillo MD, PhD on 06/08/2023 at 13:21 Approved by: Hawa Castillo MD, PhD on 06/08/2023 at 13:22
--- NOTE | 2023-06-08 12:42 | DI.RAD.S_ITS ---
PROCEDURE: XR SOFT TISSUE NECK INDICATIONS: stridor TECHNIQUE: 2 views of the neck were acquired. COMPARISON: None. FINDINGS: Airway: The airway appears patent. Soft tissues: Prevertebral soft tissues are normal in thickness. The epiglottis and aryepiglottic folds appear normal. Mild subglottic narrowing. No soft tissue gas. Bones: No suspicious bony lesions. Visualized cervical spine is normally aligned. IMPRESSION: Mild nonspecific subglottic narrowing. Dictated by: Hawa Castillo MD, PhD on 06/08/2023 at 13:18 Approved by: Hawa Castillo MD, PhD on 06/08/2023 at 13:21
--- NOTE | 2023-06-08 14:42 | PC.NURSE ---
Addendum entered by Lizette Bower R.N. 06/08/23 16:54: Pt notes that he is hallucinating and would like to know when that will stop. This nurse explained that it is likely that he is still going through alcohol withdrawal and the hallucinations will go away with time, Provider notified, no new orders at this time. Addendum entered by Lizette Bower R.N. 06/08/23 15:30: 1320 Pt told this nurse, in front of his father Raimundo Rosenberg, that he did not want to live anymore, that he had a plan to take benzos and drink a lot of alcohol which is what he was doing before he came in to the hospital. When asked if he put anything around his neck, he stated Probably. Dr Wallace updated on change. Suicide precautions in place, 1:1, Q15M safety checks. Bed low and locked, alarm on, curtain open for constant monitoring, able to make needs known. Original Note: 0730 Started titrating sedation by half (see emar) in anticipation of extubating pt around 11am 0830 Pt awake, following commands, able to respond with head nodding to yes and no questions, this nurse explained the plan was to extubate pt with RT at bedside. Pt acknowledged the plan and was indicating he was ready to be extubated. 0910 Pt was able to maneuver his hand enough with restraints on to get a hold of the ETT and pulled it partially out, RT was quickly at pt side and we made the decision to pull the tube as it was occluding pt airway. It was necessary to bag the pt while we got him set up with a oxymask 8L. Provider at bedside, no new orders at this time.
--- NOTE | 2023-06-08 17:01 | ST.IPCSEOM ---
Visit Care Team Role Provider Type Emanuel Chapa MD Primary Care Provider Non-Staff Specialty: Family Practice Address: [address] [place], [address] Email: Berta Joshi MD Other Providers Physician Specialty: Medical Address: Phone: Fax: Email: Arlen Gutierrez MD Other Providers Physician Specialty: Medical Address: Phone: Fax: Email: Woodrow Mccollum MD Other Providers Physician Specialty: Medical Address: [address] [place], [address] Phone: Fax: Email: Ned Mart MD Other Providers Physician Specialty: Internal Medicine Address: Phone: Fax: Email: Mark Feliciano MD Other Providers Physician Specialty: Medical Address: Phone: Fax: Email: Nathalia Meehan MD Other Providers Physician Specialty: Anesthesiology Internal Medicine Address: [address] [place], [address] Fax: Email: [email or web address] Sourav Hyman MD Other Providers Physician Specialty: Internal Medicine Address: [address] [place], [address] Phone: Fax: Email: [email or web address] Alfonso Sesay MD Other Providers Physician Specialty: Internal Medicine Address: Phone: Fax: Email: Dylan Jackson MD Other Providers Physician Specialty: Medical Address: Phone: Fax: Email: Eleazar Robles MD Other Providers Physician Specialty: Internal Medicine Address: [address] [place], [address] Phone: Fax: Email: Carlito Carty MD Other Providers Physician Specialty: Medical Address: [address], [address] Phone: Fax: Email: Manisha Das MD Other Providers Physician Specialty: Medical Address: Phone: Fax: Email: Ericka Merritt Other Providers Physician Specialty: Medical Address: Phone: Fax: Email: Vanessa Alfredo MD Other Providers Physician Specialty: Internal Medicine Address: Phone: Fax: Email: So Martínez DO Emergency Provider Physician Referring Provider Specialty: Emergency Medicine Address: [address] [place], [place] [address], [place], [address] Email: [email or web address] Mark Angela MD Admit Provider Physician Attending Provider Specialty: Internal Medicine Address: [address] [place] [address], [address] Fax: Email: [email or web address] Current Diagnoses Alcohol use, unspecified with withdrawal, unspecified (06/03/23) Essential (primary) hypertension (06/03/23) Acute respiratory failure, unspecified whether with hypoxia or hypercapnia (06/03/23) Acute pancreatitis without necrosis or infection, unspecified (06/03/23) Stridor (06/03/23) Past Medical History (Last Reviewed 06/03/23 @ 01:57 by So Martínez DO) Aftercare following left finger joint replacement surgery (Medical) Depression (Medical) Erectile dysfunction due to arterial insufficiency (Medical) Family history of hypertension (Medical) Finger wound, simple, open (Medical) ORIF of 5 digit left HTN (hypertension) (Medical) Hyperlipidemia (Medical) Migraine headache (Medical) Sterilization consult (Medical) Speech-Language Pathology Swallow Evaluation ENTRY LEVEL MARKETING ASSISTANT Clinical Swallow Evaluation Start: 06/08/23 16:22 Freq: Status: Active Protocol: Document 06/08/23 16:22 CG (Rec: 06/08/23 17:00 CG [id number]) Clinical Swallow Evaluation Session Time Visit Start Time 15:30 Visit Stop Time 17:00 Total Visit Minutes 90 Visit Information Visit Number 1 Referral Referring Provider Yao Wallace Reason for Referral Recent extubation Setting Assessment Location Acute Care Visit Type Note Type Initial evaluation Next Note Type Next Note Type Re-evaluation Patient Information Identification Type Name,Wristband History Per H&P: he pt presents to the ER with dull achy pain in the epigastric area for the past 3 days, worse with any type of movement, his last meal was >24 hours ago, his last alcoholic drink was 5 hours ago. He normally drinks one pint to 1/5th of vodka daily, he is not sure whether he wants to quit drinking or not, has never been in rehab before, denies having seizures with withdrawl before. Josesito states that he has had one episode of vomiting, and diarrhea, no hemoptysis, melana, but has a hx of GERD/ PUD as well as anxiety. Pt was admitted to the hospital for detox of ETOH. Since admission, he was intubated due to an upper respiratory obstruction in the airway (unknown etiology). Additionally, he presents with stridor of unkown origin. ENT consult has been ordered to assess for vocal fold dysfunction. Pt self- extubated this morning and has been NPO pending ENTRY LEVEL MARKETING ASSISTANT evaluation. Neck X-ray report has not yet been completed; however, on quick examination of imaging there appears to be an abnormality of the tissue on the R side of the neck (? swelling ?mass) though outside of ENTRY LEVEL MARKETING ASSISTANT's scope to interpret. Awaiting formal report. Subjective Observations Pt was laying partially reclined in bed upon ST entry to room, with his mother present at bedside. He was agreeable to swallowing evaluation, though his alertness is greatly reduced. He was oriented to person, place, time, and situation upon ST probes. He stated that he needs reminders to stay awake. Pt is on high dose of precedex which is reducing alertness. He needed multiple cues/reminders to follow one-step directions during OME. Pt was switched from O2 via mask to O2 via high flow nasal cannula. Reported by Patient/Caregiver Pain/Discomfort No Other Symptoms Coughing,Other Comment Recently self-extubated this morning. Pt presents with stridor of unknown origin and required intubation due to upper airway obstruction of unknown origin. His neck X- ray imaging appears anomalous on R side of neck based on informal observation (presence of ?inflammation ?mass) , though outside of ENTRY LEVEL MARKETING ASSISTANT's scope to interpret. Awaiting full radiologist report. Current Diet NPO Baseline Feeding Method Independent in self-feeding The IDDSI Framework Protocol: IDDSI.1 Objective Assessment Mental Status Cooperative,Lethargic Oral Integrity WFL Dentition Within normal limits Lip Function Mild impairment Observation of Lips at Rest Symmetrical Pucker Reduced strength Lip Retraction Reduced range of motion Tongue Function Mild impairment Observations of Tongue at Rest Within normal limits Tongue Protrusion Reduced range of motion, Reduced strength Tongue Lateralization Reduced range of motion, Reduced strength Jaw Function Moderate impairment Observation of Jaw at Rest Within normal limits Jaw Opening Reduced range of motion Respiratory Sufficiency Moderate impairment Comment Pt's oral motor function appears to be reduced primarily as a result of overall weakness and fatigue. Given multiple cues and stimuli to stay awake and follow directions, the pt is able to lateralize, elevate, and protrude tongue with ROM WFL; however, he is not able to consistently perform these tasks independently without max cueing. His lingual and labial movements are very slowed and weakened both during OME and during PO trials (slowed labial closure around spoon, delayed AP transit and swallow initiation , etc). Food and Liquid Trials Position During Assessment Upright (90 degrees) Liquids Trialed Ice chips,Thin (IDDSI 0) Administration Type Tea spoon Oral Impairment Moderately impaired Oral Phase Comments Pt's required cue to form labial seal around spoon, and labial seal was weak. Lingual movement appeared slowed and disorganized, though an objective visual is not available without an MBSS. Ice chips were tolerated, but minimal lingual movement was observed to suck on ice chip and no effort made of mastication. Other than ice chips, solids were not trialed due to significantly reduced alertness/responsiveness and overall oral weakness. Pt also stated he was not hungry. Pharyngeal Impairment Moderately impaired Pharyngeal Phase Comments Trials of thin via 1/2 teaspoon sips appeared WFL, though swallow initiation appeared delayed. No overt s/ sx aspiration on 1/2 tsp thin across 4 trials; however, silent aspiration cannot be ruled out without an instrumental assessment. During trial of full teaspoon of thin, pt presented with immediate cough/throat clear which appeared to be the result of premature spillage, as the swallow reflex had not yet initiated prior to cough observed. Pt stated that this larger bolus was harder. Trials ice chips x2 were completed without overt s/sx aspiration, though silent aspiration cannot be ruled out without an instrumental assessment. Ice chips trialed were small (about the size of half of a dime) due to oral weakness and reduced oral motor control. Fatigue/Endurance Severe fatigue Comment Pt is severely fatigued, likely 2/medications. The IDDSI Framework Protocol: IDDSI.1 Findings Swallowing Function Pharyngeal phase dysphagia Swallowing Function Comments Possible 2/fatigue, possibly 2 /neck tissue anomaly? Severity of Swallow Impairment Moderately-severely impaired Contributing Factors to Swallow Reduced alertness or attention Impairment ,Reduced oral strength/ coordination/sensation,Delayed swallow initiation Prognosis Good Based on Cognitive status,Age Comment Assuming pt alertness improves , will re-evaluate tomorrow morning. Orientation is intact despite sedation, which is positive for prognosis. Impact on Safety and Functioning Risk for aspiration,Risk for inadequate nutrition/hydration Recommendations Instrumental Assessment Yes Swallowing Treatment Yes Recommended Liquids Thin (IDDSI 0) Other Recommendations 1. STRICT oral care 2. Follow up with ENT re stridor and ?neck tissue anomaly? 3. Thin liuid via ONE HALF teaspoon only. No full tsp. 4. SMALL ice chips one at a time when alert. 5. NO cup sips, NO straws, water ONLY via 1/2 tsp. 6. Consider MBSS as alertness improves if warranted. Safety Precautions/Swallowing 1 to 1 close supervision, Recommendations Remain upright (90 degrees) during all oral intake,No straw,Family assistance/ supervision,Strict oral care after intake Medication Recommendations Not Recommended by Mouth Discharge Recommendations Outpatient therapy,Other ( comment) Comments Consider substance abuse rehabilitation facility due to ETOH dependence Referrals Recommended Referrals Otolaryngology/ENT Education Patient/Caregiver Education Described results of evaluation,Patient expressed understanding of evaluation, Patient expressed agreement with goals & treatment plans, Patient requires further education/training Goals Short-term Goals 1. Pt will tolerate current diet of thin liquids via 1/2 teaspoon sips without overt s/ sx aspiration in order to reduce the risk of aspiration pneumonia. 2. Pt will tolerate trials of puree solids (IDDSI 4) and thin liquids (IDDSI 0) via cup sip with ENTRY LEVEL MARKETING ASSISTANT without overt s/ sx aspiration in order to progress to less restrictive diet. Long-term Goals Pt will tolerate least restrictive diet without overt s/sx aspiration in order to meet nutrition/hydration needs .
--- NOTE | 2023-06-08 17:25 | PM.PN.1 ---
Subjective Subjective Interval history: 42M admitted with alcohol withdrawal initially. Was on a sedation vacation this morning, continued on precedex but self extubated this morning. He continues to have upper airway wheeze but is much improved compared to previous. Cervical Xray shows mild subglottic narrowing. He is on supplemental oxygen and improved. Continues on precedex for withdrawal, reports hallucinations. He also reported recent suicidal ideation with a plan to drink EtOH and take benzodiazepines. Given the redness around his neck there is concern for a strangulation attempt which may indicate a traumatic source of his subglottic narrowing. Discussed with pulmonary and bronchoscopy is not recommended at this time, can consider ENT visualization past the cords though this can often times exacerbate pathology and with no obvious findings on CT scan. Did recommend to continue steroids for swelling. Exam Vital Signs (past 8 hours): - 06/08/23 10:23 06/08/23 09:30 06/08/23 10:00 Temperature Pulse Rate 123 H 114 H 114 H Respiratory Rate 40 H 35 H 32 H Blood Pressure Pulse Oximetry 96 95 90 L Oxygen Delivery Method Oximask Oxygen Flow Rate 8 Fraction of Inspired Oxygen 06/08/23 10:30 06/08/23 11:00 06/08/23 11:06 Temperature Pulse Rate 121 H 122 H Respiratory Rate 39 H 38 H Blood Pressure 154/88 H Pulse Oximetry 94 92 Oxygen Delivery Method Oxygen Flow Rate Fraction of Inspired Oxygen 06/08/23 11:06 06/08/23 11:00 06/08/23 11:19 Temperature Pulse Rate 114 H 101 H Respiratory Rate 34 H 33 H Blood Pressure 154/88 H Pulse Oximetry 96 Oxygen Delivery Method Oximask Oxygen Flow Rate Fraction of Inspired Oxygen 06/08/23 13:00 06/08/23 13:43 06/08/23 13:58 Temperature 97.8 F Pulse Rate 92 H Respiratory Rate 38 H Blood Pressure Pulse Oximetry 91 94 Oxygen Delivery Method Oximask Oximask Oxygen Flow Rate 8 8 Fraction of Inspired Oxygen 52 06/08/23 11:30 06/08/23 12:00 06/08/23 12:30 Temperature Pulse Rate 124 H 105 H 112 H Respiratory Rate 37 H 37 H 43 H Blood Pressure Pulse Oximetry 93 92 92 Oxygen Delivery Method Oxygen Flow Rate Fraction of Inspired Oxygen 06/08/23 13:00 06/08/23 13:30 06/08/23 14:00 Temperature Pulse Rate 99 H 101 H 99 H Respiratory Rate 35 H 38 H 36 H Blood Pressure Pulse Oximetry 90 L 90 L 98 Oxygen Delivery Method Oxygen Flow Rate Fraction of Inspired Oxygen 06/08/23 15:00 06/08/23 17:00 06/08/23 17:00 Temperature 96.4 F L Pulse Rate 79 Respiratory Rate 36 H Blood Pressure 167/102 H Pulse Oximetry 91 97 Oxygen Delivery Method High Flow Nasal Cannula Room Air Oxygen Flow Rate 8 5 Fraction of Inspired Oxygen Fraction of Inspired Oxygen 52 SaO2/FiO2 Ratio 180 Oxygen Delivery Method Room Air Oxygen Flow Rate 5 Narrative Exam Narrative: Gen: anxious appearing male, on oxygen mask, breathing comfortably. Intermittent anxiety. Pulm: coarse breath sounds bilaterally with predominantly upper airway wheeze. CV: tachycardic, regular no m/r/g. Skin: swelling and erythema, mild warmth around his neck that extends to his shoulder and neck. This appears improved. Ext: no edema or joint effusions Objective Labs 06/08/23 04:15 06/08/23 09:04 Labs: Laboratory Results - last 24 hr 06/08/23 06/08/23 06/08/23 04:15 04:15 09:04 WBC 6.2 RBC 4.45 L Hgb 14.6 Hct 43.3 MCV 97.3 MCH 32.8 MCHC 33.7 RDW 14.3 Plt Count 150 Sodium 140 141 Potassium 2.8 L 3.7 Chloride 105 106 Carbon Dioxide 30 27 BUN 11 11 Creatinine 0.77 0.62 L Estimated GFR > 60 > 60 BUN/Creatinine Ratio 14.3 17.7 Glucose 226 H 230 H Calcium 7.8 L 8.1 L PFSH Medical History Aftercare following left finger joint replacement surgery Depression Erectile dysfunction due to arterial insufficiency Family history of hypertension Finger wound, simple, open HTN (hypertension) Hyperlipidemia Migraine headache Sterilization consult Surgical History H/O circumcision H/O umbilical hernia repair Family History Mother Hypertension History of thyroid disorder Social History marital status: number of children: 2 household members: none occupational status: employed leisure activities: exercise Smoking Status: Never smoker alcohol intake: current substance use type: does not use Type(s) of exercise: weight lifting and running frequency: 5-6 times per week duration: 45-60 minutes/day Assessment & Plan Assessment & Plan narrative: 1. Stridor with subglottic tracheal narrowing. - no response to epi, steroids, or benadryl initially. Intubated at 10 AM 06/05 for airway protection and self extubated on 06/08 AM. - neck CT with no abnormality - continue steroids methylpred 60 daily - No obvious infection but low threshold for antibiotics - stop lisinopril (has been held) but angioedema in this situation seems less likely. - sedation currently with precedex for EtOH withdrawal - TTE with normal EF, trivial pericardial effusion and some L pleural effusion. - patient does have history of GERD do wonder about injury from reflux vs vomiting but would suspect would have some finding on CT - other consideration is possible vocal cord dysfunction though his voice is strong. - with suicidal ideation reported today, concern for traumatic etiology for his neck and subglottic swelling. Discussed with pulmonary physician senior project controls specialist, can consider ENT evaluation for visualization but this also risks further exacerbation. If he remains stable for now, continue steroids with medical management. - TERMINAL MANAGER evaluation appreciated and discussed with therapist today. He remains too sedated for swallow at this time, continue to follow along with TERMINAL MANAGER evaluations. 2. Acute alcohol withdrawal with DTs. - continue precedex. Once tolerating more oral intake try to resume librium as well. - ordered phenobarb prn - continue MVI, folate, thiamine high dose for 6 doses which ends today. Transition to daily thiamine IV tomorrow, 100 mg. 3. Alcoholic pancreatitis - currently NPO and feedings removed with OG tube removed. - abdominal ultrasound with no evidence for biliary obstruction. Follow bilirubin with increase to 1.4 yesterday but improved to 1.4 today. 4. Alcoholic hepatitis - continue to follow AST/ALT, improvws - abdominal ultrasound with steatosis. 5. Acute respiratory failure with hypoxia - suspect secondary to sedation / atelectasis with EtOH withdrawal. No fever, or leukocytosis but low threshold to start antibiotics as noted above - unclear process leading to tracheal obstruction, CT neck pending. 6. HTN, chronic - hold home propranolol for now. Hold home lisinopril - continue metoprolol IV q6 hr as needed today. 7. GERD, chronic - Continue IV PPI daily 8. Depression, with suicidal ideation and anxiety. - has self titrated to 75 mg daily, will resume buproprion when mental status improves. - with SI reported 06/08, once he improved from EtOH withdrawal and more coherent will consult psychiatry. 9. Thrombocytopenia with history of polycythemia - Hg 14.2, had outpatient JAK2 ordered along with abdominal ultrasound. Suspect current suppression in setting of EtOH use. - continue to follow. Hold lovenox for now with thrombocytopenia. - ferritin is elevated at 648, less likely polycythemia is due to JAK2 mutation. has multiple reasons for secondary etiology of polycythemia. Code: full Dispo: Remains ICU I spent 60 minutes providing critical care management this patient. This excludes time spent in performing separately billed procedures. Quality VTE Deep Vein Thrombosis/Pulmonary Embolism Present on Admission: Yes
[2023-06-08] MEDS: DEXMEDETOMIDINE HCL IV (18:52)
[2023-06-08] MEDS: SODIUM CHLORIDE 0.9% IV (18:52)
[2023-06-08] MEDS: HEPARIN 5,000 UNIT/ML VIAL 5000 UNIT SUBCUT (20:56)
[2023-06-08] MEDS: METOPROLOL TARTRATE 5 MG/5 ML INJ IV (23:05)
[2023-06-09] VITALS (17 sets, daily range): BP systolic 138–164; BP diastolic 83–98; PULSE 100–124; RESP 22–44; TEMP 36.4–37.7; O2SAT 93–97
--- NOTE | 2023-06-09 00:16 | PC.NURSE ---
0015--pt has been tachypneic since extubation this morning, 30s-40s; HR has increased and pt remains restless/anxious at times; Dr Das notified and orders rec'd; ABG drawn and results called to Dr Das; no new orders at this time; will continue to monitor pt
[2023-06-09] MEDS: LORazepam 2 MG/ML INJ IV ×5 (01:23→23:03)
[2023-06-09 01:54] LABS: PO2 ABG 76 mmHg (80-100); pH ABG 7.52 (7.35-7.45)
[2023-06-09 01:55] LABS: Fractionated Inspired Oxygen 40; HCO3 ABG 28 mmol/L (23-27); Oxygen Saturation ABG 96 % (95-100); TCO2 ABG 29 mmol/L (23-27)
[2023-06-09 05:22] LABS: Add Manual Diff / Slide Review NO; Basophils Absolute Auto 0 /uL (0-100); Basophils Percent Auto 0.2 % (0-2); Eosinophils Absolute Auto 200 /uL (0-450); Eosinophils Percent Auto 1.6 % (2-4); Hematocrit 41.3 % (41-53); Hemoglobin 14.1 g/dL (13.5-17.5); Lymphocytes Absolute Auto 1200 /uL (1100-4500); Lymphocytes Percent Auto 12.2 % (25-40); Mean Corpuscular HGB Conc 34.1 % (30-36); Mean Corpuscular Hemoglobin 32.6 PG (26-34); Mean Corpuscular Volume 95.7 fL (80-100); Monocytes Absolute Auto 900 /uL (0-900); Monocytes Percent Auto 9.5 % (3-14); Neutrophils Absolute Auto 7600 /uL (1500-7000); Neutrophils Percent Auto 76.5 % (50-75); Platelet Count 188 X10^3/uL (150-400); Red Blood Cell Count 4.32 X10^6/uL (4.5-5.9); Red Cell Distribution Width 14.4 % (11.6-14.8)
[2023-06-09 06:00] LABS: Alanine Aminotransferase 46 IU/L (<50); Alkaline Phosphatase 89 U/L (38-126); Aspartate Aminotransferase 29 IU/L (17-59); BUN Creatinine Ratio 18.8 (6-22); Bilirubin Total 0.9 mg/dL (0.2-1.3); Blood Urea Nitrogen 12 mg/dL (9-20); Carbon Dioxide 30 mmol/L (22-32); Chloride 100 mmol/L (98-107); Estimated Glomerular Filt Rate > 60 mL/min (>60); Globulin 2.9 g/dL (1.7-4.1); Glucose 122 mg/dL (70-100); HEMOLYSIS < 15 (0-50); Magnesium 2.2 mg/dL (1.6-2.3); Potassium 3.5 mmol/L (3.4-5.1); Sodium 136 mmol/L (137-145); Total Protein 5.9 g/dL (6.3-8.2)
[2023-06-09] MEDS: THIAMINE 100 MG in SODIUM CHLORIDE 0.9% 100 ML 420 MG IV (08:25)
[2023-06-09] MEDS: PANTOPRAZOLE 40 MG VIAL IV (08:33)
[2023-06-09] MEDS: HEPARIN 5,000 UNIT/ML VIAL 5000 UNIT SUBCUT ×2 (08:34→20:03)
[2023-06-09] MEDS: methylPREDNISolone 125 MG/2 ML VIAL 60 MG IV (08:35)
--- NOTE | 2023-06-09 09:20 | P.TELICUPN_ITS ---
Subjective Subjective IF CAMERA ACTIVATED, patient seen via real-time interactive audiovisual communication: Camera activated Consent obtained for tele-die maintenance care: Yes Patient Location: ICU Provider location (State): [place] Other participants/roles: Bedside RN Interval history: The encounter was completed by real-time 2-way audio visual telecommunication. Medical chart reviewed in detail.? Briefly, a 42 years old male who was originally admitted for alcohol withdrawal syndrome, intubated on 06/05/2023 for airway protection, self extubated on 06/08/2023 AM.? Noted to have stridor post-extubation with some concern for subglottic narrowing on cervical x-ray.? Received epinephrine, steroids and Benadryl initially without much response, continued on Solu-Medrol 60 mg daily for upper airway edema with some improvement in stridor today. ? This morning, somnolent and encephalopathic but arousable, does not follow commands, remains on Precedex gtt. currently at 0.6 mcg/kg/min. Has not required any BZPs or phenorbarb overnight pwer bedside RN. No stridor this morning. Remains hemodynamically stable.? Denies any fever, chills, N/V, abdominal pain, shortness of breath. Current Medications Current Medications Medications: Home Medications omeprazole 20 mg capsule,delayed release 20 mg PO DAILY 05/06/21 [History Confirmed 06/03/23] propranolol 10 mg tablet 20 mg PO BID 07/30/21 [History Confirmed 06/03/23] lisinopril 10 mg tablet 10 mg PO DAILY 08/15/21 [History Confirmed 06/03/23] bupropion HCl 150 mg 24 hr tablet, extended release (Wellbutrin XL) 450 mg PO QAM 04/01/23 [History Confirmed 06/03/23] cetirizine 10 mg tablet (Zyrtec) 10 mg PO DAILY PRN Itching 04/01/23 [History Confirmed 06/03/23] tadalafil 10 mg tablet 10 mg PO PRN PRN Sexual Activity 04/01/23 [History Confirmed 06/03/23] aspirin 81 mg chewable tablet 81 mg PO DAILY 06/03/23 [History Confirmed 06/03/23] Visit Medications (administered) Generic Name Dose Route Start Last Admin Trade Name Freq PRN Reason Stop Dose Admin Acetaminophen 650 mg 06/03/23 03:30 06/04/23 14:48 Acetaminophen 325 Mg Tablet PO Not Given Q6H MEMO Albuterol 2.5 mg 06/05/23 08:28 06/08/23 10:18 Albuterol 2.5 Mg/3 Ml Neb (Adult) INH 2.5 mg [id number] PRN Administration Shortness Of Breath / wheezing Diphenhydramine HCl 25 mg 06/07/23 19:55 06/08/23 12:02 Diphenhydramine 50 Mg/Ml Vial IV 25 mg Q6HR PRN Administration Itching Folic Acid 1 mg 06/03/23 09:00 06/04/23 08:48 Folic Acid 1 Mg Tablet PO Not Given DAILY MEMO Heparin Sodium (Porcine) 5,000 unit 06/08/23 21:00 06/09/23 08:34 Heparin 5,000 Unit/Ml Vial SUBCUT 5,000 unit BID MEMO Administration Hydralazine HCl 10 mg 06/06/23 20:27 06/06/23 21:22 Hydralazine 20 Mg/Ml Vial IV 10 mg Q6HR PRN Administration Hypertension SBP >180 Thiamine HCl 100 mg/ Sodium 101 mls @ 420 mls/hr 06/08/23 10:45 06/09/23 09:01 Chloride IV Infused DAILY [facility] Infusion Dexmedetomidine HCl 1,600 mcg/ 100 mls @ 1.113 mls/hr 06/08/23 17:00 06/09/23 08:52 Sodium Chloride IV 0.6 mcg/kg/hr TITRATE MEMO 3.338 mls/hr Titration Protocol 0.2 MCG/KG/HR Loratadine 10 mg 06/03/23 12:45 06/07/23 20:00 Loratadine 10 Mg Tablet PO 10 mg DAILY PRN Administration Itching Lorazepam 2 mg 06/08/23 10:50 06/09/23 01:23 Lorazepam 2 Mg/Ml Inj IV 2 mg Q4HR PRN Administration Anxiety Methylprednisolone 60 mg 06/07/23 09:00 06/09/23 08:35 Methylprednisolone 125 Mg/2 Ml Vial IV 60 mg DAILY MEMO Administration Metoprolol Tartrate 5 mg 06/03/23 05:26 06/08/23 23:05 Metoprolol Tartrate 5 Mg/5 Ml Inj IV 5 mg Q6H PRN Administration Hypertension if HR >100 Morphine Sulfate 4 mg 06/04/23 11:20 06/08/23 23:16 Morphine 4 Mg/Ml Inj IV 4 mg Q4H PRN Administration Pain, Severe (7-10) Multivitamins 1 tab 06/03/23 09:00 06/04/23 08:48 Multivitamin 1 Tablet PO Not Given DAILY MEMO Pantoprazole Sodium 40 mg 06/03/23 09:00 06/09/23 08:33 Pantoprazole 40 Mg Vial IV 40 mg DAILY MEMO Administration Phenobarbital Sodium 130 mg 06/06/23 15:19 06/08/23 22:07 Phenobarbital 130 Mg/Ml Vial IV 130 mg Q6HR PRN Administration agitation/withdrawal Objective Ventilator Parameters: Ventilator Settings FiO2 28 RT Vent Frequency 16 Ventilator Tidal Volume 500 Exhaled Vt/kg IBW 7 Positive End Expiratory 5 Pressure Inspiratory Phase Time 0.9 I:E Ratio 1:32 Patient Position HOB >= 30 degrees Labs 06/09/23 04:40 06/09/23 04:40 Labs: Laboratory Results - last 24 hr 06/08/23 06/08/23 06/09/23 09:04 23:55 04:40 WBC 10.0 D RBC 4.32 L Hgb 14.1 Hct 41.3 MCV 95.7 MCH 32.6 MCHC 34.1 RDW 14.4 Plt Count 188 Neut % (Auto) 76.5 H Lymph % (Auto) 12.2 L [place] % (Auto) 9.5 Eos % (Auto) 1.6 L Baso % (Auto) 0.2 Neut # (Auto) 7600 H Lymph # (Auto) 1200 [place] # (Auto) 900 Eos # (Auto) 200 Baso # (Auto) 0 ABG pH 7.52 H ABG pCO2 35.0 ABG pO2 76 L ABG HCO3 28 H ABG Total CO2 29 H ABG O2 Saturation 96 ABG Base Excess 5.0 H FiO2 40 Sodium 141 Potassium 3.7 Chloride 106 Carbon Dioxide 27 BUN 11 Creatinine 0.62 L Estimated GFR > 60 BUN/Creatinine Ratio 17.7 Glucose 230 H Calcium 8.1 L Magnesium Total Bilirubin AST ALT Alkaline Phosphatase Total Protein Albumin Globulin Albumin/Globulin Ratio 06/09/23 04:40 WBC RBC Hgb Hct MCV MCH MCHC RDW Plt Count Neut % (Auto) Lymph % (Auto) [place] % (Auto) Eos % (Auto) Baso % (Auto) Neut # (Auto) Lymph # (Auto) [place] # (Auto) Eos # (Auto) Baso # (Auto) ABG pH ABG pCO2 ABG pO2 ABG HCO3 ABG Total CO2 ABG O2 Saturation ABG Base Excess FiO2 Sodium 136 L Potassium 3.5 Chloride 100 Carbon Dioxide 30 BUN 12 Creatinine 0.64 L Estimated GFR > 60 BUN/Creatinine Ratio 18.8 Glucose 122 H D Calcium 8.0 L Magnesium 2.2 Total Bilirubin 0.9 AST 29 ALT 46 Alkaline Phosphatase 89 Total Protein 5.9 L Albumin 3.0 L Globulin 2.9 Albumin/Globulin Ratio 1.0 Exam Vital Signs (past 8 hours): - 06/09/23 03:00 06/09/23 04:00 06/09/23 05:00 Temperature 97.5 F L Pulse Rate 100 H Respiratory Rate 32 H Blood Pressure 152/90 H Pulse Oximetry 97 94 Oxygen Delivery Method High Flow Nasal Cannula High Flow Nasal Cannula Oxygen Flow Rate 5 5 Fraction of Inspired Oxygen 06/09/23 07:36 06/09/23 08:05 Temperature Pulse Rate Respiratory Rate Blood Pressure Pulse Oximetry 95 97 Oxygen Delivery Method Nasal Cannula High Flow Nasal Cannula Oxygen Flow Rate 5 Fraction of Inspired Oxygen 40 Fraction of Inspired Oxygen 40 SaO2/FiO2 Ratio 237 Oxygen Delivery Method High Flow Nasal Cannula Oxygen Flow Rate 5 Narrative Exam Narrative: Awake, oriented x 2, in no apparent distress. Comfortably resting in bed. On RA. Resp Other: Not using accessory muscles of respiration. Neuro Other: Moving all extremities spontaneously and on commands. Quality TeleICU VTE Deep Vein Thrombosis/Pulmonary Embolism Present on Admission: Yes Assessment & Plan Assessment & Plan narrative: # Acute respiratory failure, neurologically mediated. # Postextubation stridor - Was intubated on 06/05/2023 for airway protection, self extubated on 06/08/2023 am. - Postextubation, noted to have stridor with some concern for subglottic narrowing on x-ray. - Received epi, steroids and Benadryl.? Continued on Solu-Medrol 60 mg daily with some improvement in stridor today. - Would continue steroids for 1 more day and reassess tomorrow - If there is any recurrence of stridor, would need evaluation by ENT. - Agree with holding lisinopril for now due to its known risk of angioedema - Continue to wean supplemental O2 to maintain SPO2 >92%. - Consider using racemic epinephrine as needed to improve stridor. - He is able to protect his airway, does not need endotracheal intubation # Alcohol withdrawal syndrome with DTs: - Continue alcohol withdrawal protocol including monitoring by CIWA score. C/w MVI + Folate + Thiamine + pyridoxine. - C/w IV Ativan 2-10 mg every 15 min PRN with the goal to keep CIWA <8 per symptom triggered protocol. - Start Librium 25 mg PO QID when able to tolerate PO meds. - Currently on Precedex gtt. Attempt to wean as tolerated. Use Precedex gtt only for refractory DTs despite aggressive treatment with BZPs + Phencarb.? Would discourage the use of Precedex solely for the treatment of alcohol withdrawal. - C/w aspiration and seizure precautions, Symptomatic treatment for nausea/vomiting - Consult social sciences lecturer to arrange for appropriate referral for detox program. # Acute alcohol induced pancreatitis # Acute alcoholic hepatitis - Labs including lipase/LFTs slowly improving.? Continue to monitor. - Abdominal ultrasound with hepatic steatosis.? No evidence of biliary obstruction. # Thrombocytopenia with history of polycythemia vera: - Monitor platelet count with serial CBC. - High risk for thrombosis.? Would continue pharmacological DVT prophylaxis.? Currently on heparin subcu. - Venous duplex of both legs is negative for acute DVT. - Continue supportive care. ICU core bundle: # FEN: Currently NPO pending speech therapy evaluation. Aggressively replace Mg, K and Phos. # Glucose: Fairly controlled. BG goal 120-180 # Prophylaxis: Heparin subcu and SCDs for DVT prophylaxis, Protonix for stress ulcer prophylaxis # Lines/tubes: PIV, Flores # CODE STATUS: Full code # Disposition: Remains in ICU. ? Discussed the plan of care with bedside RN, and ICU charge nurse.
[2023-06-09] MEDS: POTASSIUM CHLORIDE IN WATER 10 MEQ/100 ML PIGGYBACK 100 MEQ IV ×2 (09:29→10:31)
[2023-06-09] MEDS: METOPROLOL TARTRATE 5 MG/5 ML INJ IV (10:40)
--- NOTE | 2023-06-09 13:28 | ST.IPTN ---
Visit Care Team Role Provider Type Emanuel Chapa MD Primary Care Provider Non-Staff Address: [address] [place], [address] Berta Joshi MD Other Providers Physician Address: Phone: Fax: Arlen Gutierrez MD Other Providers Physician Address: Phone: Fax: Woodrow Mccollum MD Other Providers Physician Address: [facility] [place], [address] Phone: Fax: Ned Mart MD Other Providers Physician Address: Phone: Fax: Mark Feliciano MD Other Providers Physician Address: Phone: Fax: Nathalia Meehan MD Other Providers Physician Address: [address] [place], [address] Fax: Sourav Hyman MD Other Providers Physician Address: [address] [place] [address], [address] Phone: Fax: Alfonso Sesay MD Other Providers Physician Address: Phone: Fax: Dylan Jackson MD Other Providers Physician Address: Phone: Fax: Eleazar Robles MD Other Providers Physician Address: [address] [place], [address] Phone: Fax: Carlito Carty MD Other Providers Physician Address: [address], [address] Phone: Fax: Manisha Das MD Other Providers Physician Address: Phone: Fax: Ericka Merritt Other Providers Physician Address: Phone: Fax: Vanessa Alfredo MD Other Providers Physician Address: Phone: Fax: So Martínez DO Emergency Provider Physician Referring Provider Address: [address] [place] [address], [address] Mark Angela MD Admit Provider Physician Attending Provider Address: [address] [place] [address], [phone] Fax: RESTAURANT GREETER Treatment Note RESTAURANT GREETER Treatment Note Start: 06/09/23 13:12 Freq: Status: Active Protocol: Document 06/09/23 13:12 (Rec: 06/09/23 13:18 [id number]) Speech Pathology Treatment Note Session Time Visit Start Time 12:05 Visit Stop Time 12:45 Total Visit Minutes 40 Setting Treatment Setting Acute Care Visit Type Note Type Treatment Note General Information Patient History Per H&P: he pt presents to the ER with dull achy pain in the epigastric area for the past 3 days, worse with any type of movement, his last meal was >24 hours ago, his last alcoholic drink was 5 hours ago. He normally drinks one pint to 1/5th of vodka daily, he is not sure whether he wants to quit drinking or not, has never been in rehab before, denies having seizures with withdrawl before. Josesito states that he has had one episode of vomiting, and diarrhea, no hemoptysis, melana, but has a hx of GERD/ PUD as well as anxiety. Pt was admitted to the hospital for detox of ETOH. Since admission, he was intubated due to an upper respiratory obstruction in the airway (unknown etiology). Additionally, he presents with stridor of unkown origin. ENT consult has been ordered to assess for vocal fold dysfunction. Pt self- extubated this morning and has been NPO pending RESTAURANT GREETER evaluation. Neck X-ray report has not yet been completed; however, on quick examination of imaging there appears to be an abnormality of the tissue on the R side of the neck (? swelling ?mass) though outside of RESTAURANT GREETER's scope to interpret. Awaiting formal report. Assessment Assessment of Overall Progress Improving Assessment of Improvement ST facilitated feeding trials with thin liquids and puree solids via teaspoon, straw and cup sip. Pt demonstrated improved alertness, but was still unable to complete self feeding. Pt demonstrated good response to increased bolus size of full teaspoon, but demonstrated max difficulty w cup sip and was noted to have a cough response w cups sips and with small sip via straws combined w chin tuck. Pt demonstrated cough x2 with purees, however trials of multiple (2-3) swallows per bite was effective to eliminate s/s of asp/pen. ST provided education on progress and compensatory strategies to pt and to staff. Reviewed with Patient Progress Being Made Patient/Caregiver Understanding Good Plan Therapeutic Contents Swallowing/Feeding
--- NOTE | 2023-06-09 13:48 | P.PN_ITS ---
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 He self extubated yesterday but is doing quite well today. He is being weaned off precedex. Tele-intensivists have signed off. Today he is much more alert and less tremulous. He did endorse previous SI with a plan of drinking EtOH and taking benzos. He has previously worked with therapists but they have retired. He denied any strangulation a ttempts to me given concern for this with the subglottic stenosis. He denies active SI at this moment to me. Exam Vital Signs (past 8 hours): - 06/09/23 07:36 06/09/23 08:05 06/09/23 08:00 Temperature 97.9 F Pulse Rate 108 H Respiratory Rate 35 H Blood Pressure 138/83 Pulse Oximetry 95 97 97 Oxygen Delivery Method Nasal Cannula High Flow Nasal Cannula Oxygen Flow Rate 5 2 Fraction of Inspired Oxygen 40 06/09/23 08:04 06/09/23 09:15 06/09/23 11:27 Temperature Pulse Rate 101 H Respiratory Rate 44 H Blood Pressure 163/97 H Pulse Oximetry 93 95 Oxygen Delivery Method High Flow Nasal Cannula Oxygen Flow Rate 0 0 Fraction of Inspired Oxygen 06/09/23 12:02 Temperature Pulse Rate Respiratory Rate Blood Pressure Pulse Oximetry 93 Oxygen Delivery Method Room Air Oxygen Flow Rate 0 Fraction of Inspired Oxygen Fraction of Inspired Oxygen 40 SaO2/FiO2 Ratio 237 Oxygen Delivery Method Room Air Oxygen Flow Rate 0 Narrative Exam Narrative: Gen: faitgued appearing male, no acute distress, no longer on supplemental o2. Pulm: CTA b/l with no wheezing noted today. CV: tachycardic, regular no m/r/g. Skin: no erythema around his neck today. Ext: no edema or joint effusions Objective Labs 06/09/23 04:40 06/09/23 04:40 Labs: Laboratory Results - last 24 hr 06/08/23 06/09/23 06/09/23 23:55 04:40 04:40 WBC 10.0 D RBC 4.32 L Hgb 14.1 Hct 41.3 MCV 95.7 MCH 32.6 MCHC 34.1 RDW 14.4 Plt Count 188 Neut % (Auto) 76.5 H Lymph % (Auto) 12.2 L [place] % (Auto) 9.5 Eos % (Auto) 1.6 L Baso % (Auto) 0.2 Neut # (Auto) 7600 H Lymph # (Auto) 1200 [place] # (Auto) 900 Eos # (Auto) 200 Baso # (Auto) 0 ABG pH 7.52 H ABG pCO2 35.0 ABG pO2 76 L ABG HCO3 28 H ABG Total CO2 29 H ABG O2 Saturation 96 ABG Base Excess 5.0 H FiO2 40 Sodium 136 L Potassium 3.5 Chloride 100 Carbon Dioxide 30 BUN 12 Creatinine 0.64 L Estimated GFR > 60 BUN/Creatinine Ratio 18.8 Glucose 122 H D Calcium 8.0 L Magnesium 2.2 Total Bilirubin 0.9 AST 29 ALT 46 Alkaline Phosphatase 89 Total Protein 5.9 L Albumin 3.0 L Globulin 2.9 Albumin/Globulin Ratio 1.0 PFSH Medical History Aftercare following left finger joint replacement surgery Depression Erectile dysfunction due to arterial insufficiency Family history of hypertension Finger wound, simple, open HTN (hypertension) Hyperlipidemia Migraine headache Sterilization consult Surgical History H/O circumcision H/O umbilical hernia repair Family History Mother Hypertension History of thyroid disorder Social History marital status: number of children: 2 household members: none occupational status: employed leisure activities: exercise Smoking Status: Never smoker alcohol intake: current substance use type: does not use Type(s) of exercise: weight lifting and running frequency: 5-6 times per week duration: 45-60 minutes/day Assessment & Plan Assessment & Plan narrative: 1. Stridor with subglottic tracheal narrowing. - no response to epi, steroids, or benadryl initially. Intubated at 10 AM 06/05 for airway protection and self extubated on 9 AM. - neck CT with no abnormality - continue steroids methylpred 60 daily, when tolerating PO transition to oral prednisone, with taper over 1 week. - No obvious infection but low threshold for antibiotics - stop lisinopril (has been held) but angioedema in this situation seems less likely. - now weaned from precedex today. - TTE with normal EF, trivial pericardial effusion and some L pleural effusion. - patient does have history of GERD do wonder about injury from reflux vs vomiting but would suspect would have some finding on CT - other consideration is possible vocal cord dysfunction though his voice is strong. - with suicidal ideation reported today, concern for traumatic etiology for his neck and subglottic swelling however patient denies this at this time. Discussed with pulmonary physician aviation project engineer, can consider ENT evaluation for visualization but this also risks further exacerbation. If he remains stable for now, continue steroids with medical management. Message left with ENT today for possible further evaluation. - VEHICLE BODY MAKER evaluations to continue, diet per speech ordered. 2. Acute alcohol withdrawal with DTs. - Appears much improved today. Was able to wean from precedex infusion today without severe withdrawal symptoms. Continue ativan prn for now. - ordered phenobarb prn - continue MVI, folate, thiamine high dose for 6 doses now complete. Transitioned to daily thiamine IV today, 100 mg. Transition to oral pending speech. 3. Alcoholic pancreatitis - tolerating his current diet, continue per speech therapy. - abdominal ultrasound with no evidence for biliary obstruction. Follow bilirubin with increase to 1.4 but has been stable thus far. 4. Alcoholic hepatitis - continued to follow AST/ALT, improving daily and now resolved so can stop checking CMP. - abdominal ultrasound with steatosis. 5. Acute respiratory failure with hypoxia - suspect secondary to sedation / atelectasis with EtOH withdrawal. No fever, or leukocytosis but low threshold to start antibiotics as noted above - unclear process leading to tracheal obstruction, CT neck was unremarkable. Discussed with pulmonary as above. - continue steroids. Awaiting callback from ENT for further recommendations. 6. HTN, chronic - hold home propranolol for now. Hold home lisinopril given above stenosis. 7. GERD, chronic - Continue IV PPI daily, transition to oral when able. 8. Depression, with suicidal ideation and anxiety. - has self titrated to 75 mg daily, will resume buproprion when mental status improves. - with SI reported 06/08, once he improved from EtOH withdrawal will consult psychiatry. Left a message today in anticipation of consult tomorrow. Discussed with patient as well. He did confirm previous SI with plan. He is high risk, denies current SI to me today. Denies strangulation attempt as noted above. 9. Thrombocytopenia with history of polycythemia - Hg 14.2, had outpatient JAK2 ordered along with abdominal ultrasound. Suspect current suppression in setting of EtOH use. - continue to follow. Held lovenox for now with thrombocytopenia. With improve ment have resumed HSQ for DVT ppx. - ferritin is elevated at 648, less likely polycythemia is due to JAK2 mutation. has multiple reasons for secondary etiology of polycythemia. Code: full Dispo: downgrade to regular floor today since he is off precedex now. Tomorrow will do PT evaluation given weakness and deconditioning after inubation and prolonged bed rest for etoh withdrawal. I spent 45 minutes providing critical care management this patient. This excludes time spent in performing separately billed procedures. Quality VTE Deep Vein Thrombosis/Pulmonary Embolism Present on Admission: Yes
--- NOTE | 2023-06-09 14:47 | PC.NURSE ---
VALUABLES Patient requested phone and other items from the safe. These were signed over to him and cell phone and wallet currently at bedside.
--- NOTE | 2023-06-09 15:34 | CM.DPC ---
DCP Cont: Per MD, pt had some withdrawal hallucinations overnight but does not appear to be hallucinating still this morning and remains on pressors with plan to wean off today and switch to librium taper. Pt not yet medically stable and MD plans to consult Psychiatrist for bedside eval tomorrow 06/10/23 when more medically appropriate. Per RN, pt has been able to follow commands today but very slow with speech and word finding. Parents have been bedside regularly and remain supportive and plan to bring in pt's children to visit this afternoon per pt's request. ST eval yesterday and pt was struggling with swallow and following commands likely due to sedation but will continue to work with pt while admitted with possible need of outpt ENT appointment. Plan: SW waiting on bedside assessment until pt more cognitively clear and better able to participate in goal directed discussion and Psych Consult to help determine d/c with outpt resources vs inpt resources. SHARI Zavala
--- NOTE | 2023-06-09 16:34 | PC.NURSE ---
Addendum entered by Jazmyne Bello R.N. 06/09/23 18:17: Assisted pt to eat dinner, one to one feed, pt did feed self with lots of prompting and direction, has difficulty with fine motor movement. Pt resting after and HR noted to be 120s ST, Dr. Wallace notified and order received for PO propranolol. Per speech therapy, pills crushed and given in applesauce, pt tolerated well. Original Note: Day Shift Note Patient awoken this morning for breakfast, able to accurately state name, birthdate, month, and place. Remains intermittently forgetful at times. Voice is soft and speech is slow but able to answer questions and follow commands. RR is in the 30s, initially on 5L HFNC but weaned to RA by 1000. SpO2 93-96% on RA. Pt has been intermittently tearful and endorsing anxiety - Ativan administered prn per emar. Precedex was at 0.8 mcg/kg/hr at start of shift, weaned to off at 1240. ST in the 110s. Flores catheter in place draining clear yellow urine with some sediment. Pt one to one feed, taking in liquids and pureed foods via teaspoon, tolerating well, see recent speech therapy note. Denies pain. Pt's two sons in to visit this afternoon and parents at bedside. Bed alarm on.
[2023-06-09] MEDS: ALBUTEROL 2.5 MG/3 ML NEB (ADULT) INH (16:53)
[2023-06-09] MEDS: PROPRANOLOL 10 MG TABLET 20 MG PO (18:12)
--- NOTE | 2023-06-09 22:35 | PC.NURSE ---
Addendum entered by Kaitlyn Hudson R.N. 06/10/23 04:53: 2255 pt woke and teary. Per patient wants to just go home, but understands he will be in the hospital a few more days. Patient got a dose of Ativan d/t being teary and states he is anxious. 0120 pt c/o feeling itchy, Benadryl given and got a bed bath, which helped. 0415, patient with mild temp of 100.0, Tylenol given, crushed in applesauce which pt tolerated well. Teary again and c/o feeling anxious, Ativan given and helpful to help him relax. Patient has been mostly calm other then the times he is teary. And has been very cooperative. Original Note: 2220 patient minimally restless in bed d/t needing to have a bowel movement. D/t not being out of bed since being intubated and weakness patient was agreeable to use bedpan, with success. Patient able to help with transferring to get bedpan underneath him and cleanup. Patient was clam and cooperative through the whole process.
[2023-06-09] MEDS: ALBUTEROL 1.25 MG/3 ML NEB (PEDIATRIC) INH (23:16)
[2023-06-10] VITALS (12 sets, daily range): BP systolic 148–176; BP diastolic 76–102; PULSE 65–110; RESP 20–33; TEMP 36.3–37.8; O2SAT 91–98
[2023-06-10] MEDS: diphenhydrAMINE 50 MG/ML VIAL 25 MG IV ×2 (01:26→20:19)
[2023-06-10] MEDS: ACETAMINOPHEN 325 MG TABLET 650 MG PO ×2 (04:20→20:20)
[2023-06-10] MEDS: LORazepam 2 MG/ML INJ IV (04:44)
[2023-06-10 04:49] LABS: Add Manual Diff / Slide Review NO; Basophils Absolute Auto 100 /uL (0-100); Basophils Percent Auto 0.9 % (0-2); Eosinophils Absolute Auto 100 /uL (0-450); Eosinophils Percent Auto 1.1 % (2-4); Hematocrit 45.2 % (41-53); Hemoglobin 15.2 g/dL (13.5-17.5); Lymphocytes Absolute Auto 1000 /uL (1100-4500); Lymphocytes Percent Auto 8.1 % (25-40); Mean Corpuscular HGB Conc 33.6 % (30-36); Mean Corpuscular Volume 95.5 fL (80-100); Monocytes Absolute Auto 1000 /uL (0-900); Monocytes Percent Auto 7.7 % (3-14); Neutrophils Absolute Auto 10300 /uL (1500-7000); Neutrophils Percent Auto 82.2 % (50-75); Platelet Count 298 X10^3/uL (150-400); Red Blood Cell Count 4.73 X10^6/uL (4.5-5.9); Red Cell Distribution Width 14.2 % (11.6-14.8); White Blood Cell Count 12.5 X10^3/uL (4.5-11.0)
[2023-06-10 04:59] LABS: Alanine Aminotransferase 43 IU/L (<50); Albumin 3.4 g/dL (3.5-5.0); Alkaline Phosphatase 98 U/L (38-126); Aspartate Aminotransferase 26 IU/L (17-59); BUN Creatinine Ratio 32.8 (6-22); Blood Urea Nitrogen 20 mg/dL (9-20); Calcium 8.8 mg/dL (8.4-10.2); Carbon Dioxide 27 mmol/L (22-32); Chloride 103 mmol/L (98-107); Estimated Glomerular Filt Rate > 60 mL/min (>60); Globulin 3.3 g/dL (1.7-4.1); Glucose 184 mg/dL (70-100); HEMOLYSIS 16 (0-50); Magnesium 2.6 mg/dL (1.6-2.3); Potassium 4.2 mmol/L (3.4-5.1); Sodium 137 mmol/L (137-145); Total Protein 6.7 g/dL (6.3-8.2)
[2023-06-10] MEDS: PANTOPRAZOLE 40 MG VIAL IV (08:15)
[2023-06-10] MEDS: methylPREDNISolone 125 MG/2 ML VIAL 60 MG IV (08:15)
[2023-06-10] MEDS: PROPRANOLOL 10 MG TABLET 20 MG PO ×2 (08:15→20:19)
[2023-06-10] MEDS: HEPARIN 5,000 UNIT/ML VIAL 5000 UNIT SUBCUT ×2 (08:15→20:19)
[2023-06-10] MEDS: THIAMINE 100 MG in SODIUM CHLORIDE 0.9% 100 ML 420 MG IV (08:28)
--- NOTE | 2023-06-10 10:36 | PC.NURSE ---
Pt resting in bed, sitting up, VSS, able to make needs known. Able to state name, birthdate, month, year and place, speech is slow and soft, but answers questions and follows commands. Pt remains 92-94% on room air, HR in the 90s, BP slightly elevated SBP 176, he is afebrile, although diaphoretic. Flores catheter removed per protocol, tele removed as order by Dr Wallace, still monitoring pulse ox. Plan for the day discussed with pt, Psych eval, PT/OT eval and speech therapy. Pt is intermittently confused and tearful, but is able to be re-oriented and consoled. Pt remains a 1:1 until assessed by Psychology. Bed alarm on, call light within reach, no further needs at this time
--- NOTE | 2023-06-10 11:27 | PT.IIE ---
Current Diagnoses Alcohol use, unspecified with withdrawal, unspecified (06/03/23) Essential (primary) hypertension (06/03/23) Acute respiratory failure, unspecified whether with hypoxia or hypercapnia (06/03/23) Acute pancreatitis without necrosis or infection, unspecified (06/03/23) Stridor (06/03/23) Surgical History (Last Reviewed 06/03/23 @ 01:57 by So Martínez DO) H/O circumcision H/O umbilical hernia repair Medical History (Last Reviewed 06/03/23 @ 01:57 by So Martínez DO) Aftercare following left finger joint replacement surgery Depression Erectile dysfunction due to arterial insufficiency Family history of hypertension Finger wound, simple, open HTN (hypertension) Hyperlipidemia Migraine headache Sterilization consult Physical Therapy Inpatient Evaluation/Re-Eval M1 PT/OT-IP Prior Functional Status Start: 06/10/23 12:35 Freq: NEEDED Status: Active Protocol: Document 06/10/23 12:35 AB (Rec: 06/10/23 12:58 AB [id number]) Medical Review Prior Functional Status Medical History Reviewed Yes Mobility and Gait IND, no use of AD Activities of Daily Living and IADL's IND Social History Household Members none Living Arrangements Other Home Environment Standard Height Toilet,Walk in Shower Home Equipment Shower Seat with Backrest,Hand Held Shower Additional Social History Comment Pt reports he lives in a sailboat and uses a ladder to enter. However, he states he is able to live with parents ( 1 level home with 1 TOOTIE) here in town if needed. M2 PT-IP Current Condition Start: 06/10/23 12:35 Freq: NEEDED Status: Active Protocol: Document 06/10/23 12:35 AB (Rec: 06/10/23 12:58 AB [id number]) Physical Therapy Current Condition Current Condition Evaluation Date 06/10/23 Treatment Diagnosis abdominal pain; weakness Onset Date 06/03/23 M3 PT-IP Subjective Start: 06/10/23 12:35 Freq: NEEDED Status: Active Protocol: Document 06/10/23 12:35 AB (Rec: 06/10/23 12:58 AB [id number]) Subjective Physical Therapy Visit Type Type Initial Evaluation Visit Start Time 11:27 Visit Stop Time 12:04 Total Visit Minutes 37 Notes Pt present semi supine in bed with all needs met and call light within reach. Number of CALL CENTER NURSE Visits 0 Physical Therapy Visit Comments Patient Comments The pt reports he is feeling well and is not having any pain. He is agreeable to PT this morning. Patient Goals He would like to get up and move. Therapy Pain Assessment Pain Present Pain Present Denied Pain M4 PT-IP Mobility and Gait Start: 06/10/23 12:35 Freq: NEEDED Status: Active Protocol: Document 06/10/23 12:35 AB (Rec: 06/10/23 12:58 AB [id number]) PT-Bed Mobility Assessment Rolling Type of Rolling Bilateral Level of Assist Independent Supine to Sit Supine to Sit Standby Assistance,1 Person Assistance Sit to Supine Sit to Supine Standby Assistance,1 Person Assistance Scooting Scooting to Edge of Bed Standby Assistance PT-Transfer Assessment Sit to and From Stand Sit to and from Stand Contact Guard Assistance,1 Person Assistance,Use of Upper Extremities Equipment Transfer Assistive Device Gait Belt,Front Wheeled Walker Transfers Transfer Destination Bed,Toilet Transfer Technique Stand Step Pivot Transfer Ability Level of Assist Contact Guard Assistance,1 Person Assistance,Use of Upper Extremities Gait Assessment Gait Gait Assistance Required: Contact Guard Assist,1 Person Assist Distance (Feet) 10 Assistive Devices Assistive Device Gait Belt,Front Wheeled Walker Gait Deviations General Gait Pattern Decreased Stride Length, Decreased Feet Clearance, Flexed Trunk Factors Limiting Gait Function Factors Limiting Gait Function Decreased Activity Tolerance, Decreased Strength,Difficulty Following Directions,Poor Balance Comments Gait Comments Pt requires repetition of verbal cues when ambulating. He had one instance of LOB, which required him to lower himself to the bed. Stair Climbing Assessment Comments Stair Climbing Comments Unable to assess due to weakness and fatigue. PT-Balance Assessment Sitting Balance and Reactions Static Sitting Balance Ability Good Dynamic Sitting Balance Ability Fair Standing Balance and Reactions Static Standing Balance Ability Fair Dynamic Standing Balance Ability Fair Device Used FWW M5 PT-IP Objective Assessments Start: 06/10/23 12:35 Freq: NEEDED Status: Active Protocol: Document 06/10/23 12:35 AB (Rec: 06/10/23 12:58 AB [id number]) Orientation Orientation/Cognition Level of Alertness Lethargic Orientation Name,Place,Situation Safety Awareness Decreased Safety Awareness Memory Description No Deficits Noted Comments Pt speaks in short sentances, requires time to respond to questions. Gross Range of Motion Upper Extremity ROM Assessment Within Functional Limits Lower Extremity ROM Assessment Within Functional Limits Strength Upper Extremity Strength Assessment Bilaterally Impaired Lower Extremity Strength Assessment Bilaterally Impaired M6 PT-IP Treatment Start: 06/10/23 12:35 Freq: NEEDED Status: Active Protocol: Document 06/10/23 12:35 AB (Rec: 06/10/23 12:58 AB [id number]) Physical Therapy Treatment Exercises Exercises Ankle Pumps,Heel Slides, Straight Leg Raises,Shoulder Flexion,Elbow Flexion/ Extension Education Education Provided Precautions,Safety Brace Education Patient Other Treatments Other Treatment Performed 10 reps of each exercise performed. At end of session, pt ambulated to toilet with FWW and CGA, as he needed to have a BM. The pt was then handed off to nursing staff. M7 PT-IP Assessment and Plan Start: 06/10/23 12:35 Freq: NEEDED Status: Active Protocol: Document 06/10/23 12:35 AB (Rec: 06/10/23 12:58 AB [id number]) PT Summary Assessment and Plan Potential Rehabilitation Potential Good Status of Condition at Evaluation Stable Summary Impairments Strength,Balance,Cognition,Bed Mobility,Transfers,Gait, Activity Tolerance Assessment Summary Scot Rosenberg is a 42 year old male patient who presented to ER with complaints of abdominal pain on 06/03/23. Today's PT evaluation revealed muscular weakness, gait abnormalities and balance deficits which are contributing to his decreased ability to perform functional mobility. He requires SBA for bed mobility, and CGA to perform STS, transfers and ambulation using FWW. The patient is able to ambulate 10ft x 2 with FWW and CGA, though he demonstrates gait impairments as detailed above and had one instance of LOB which required him to lower himself to the bed. Stairs were not assessed due to weakness and fatigue. Based on these findings, the patient would benefit from skilled PT to improve these deficits in order to return to his PLOF. Currently, discharge to his parents' home is recommended, as he may not be safe to return to his current home in his sailboat. Goals Bed Mobility Goal Independent Transfer Goal Independent Gait Goal Independent Gait Distance 200 Other Goals Pt to be able to ascend/ descend 6 steps to show improving LE strength to discharge safely to home. Days to Meet Goals 10 Frequency of Treatment Frequency Of Treatment Once a Day Treatment Plan Physical Therapy Treatment Plan Transfer Training,Gait Training,Therapeutic Exercise, Balance Retraining,Discharge Planning,Hot or Cold Pack, Neuromuscular Re-ed,Manual Therapy Recommendations To Nursing Amount of Assist Needed 1 Person Assist Discharge Recommendations PT Discharge Recommendations Home Other Discharge Recommendations Discharge to parents' home. Equipment Needed for Home Before TBD based on progress. Discharge Transportation Needs at Discharge Private Vehicle
[2023-06-10] MEDS: lisinopriL 10 MG TABLET PO (12:38)
--- NOTE | 2023-06-10 13:13 | ST.IPTN ---
Visit Care Team Role Provider Type Emanuel Chapa MD Primary Care Provider Non-Staff Address: [address] [place], [address] Berta Joshi MD Other Providers Physician Address: Phone: Fax: Arlen Gutierrez MD Other Providers Physician Address: Phone: Fax: Woodrow Mccollum MD Other Providers Physician Address: [facility] [place], [address] Phone: Fax: Ned Mart MD Other Providers Physician Address: Phone: Fax: Mark Feliciano MD Other Providers Physician Address: Phone: Fax: Nathalia Meehan MD Other Providers Physician Address: [address] [place], [address] Fax: Sourav Hyman MD Other Providers Physician Address: [address] [place] [address], [address] Phone: Fax: Alfonso Sesay MD Other Providers Physician Address: Phone: Fax: Dylan Jackson MD Other Providers Physician Address: Phone: Fax: Eleazar Robles MD Other Providers Physician Address: [address] [place], [address] Phone: Fax: Carlito Carty MD Other Providers Physician Address: [address], [address] Phone: Fax: Manisha Das MD Other Providers Physician Address: Phone: Fax: Ericka Merritt Other Providers Physician Address: Phone: Fax: Vanessa Alfredo MD Other Providers Physician Address: Phone: Fax: So Martínez DO Emergency Provider Physician Referring Provider Address: [address] [place] [address], [address] Mark Angela MD Admit Provider Physician Attending Provider Address: [address] [place] [address], [address] Fax: SPA MANAGER/ESTHETICIAN Treatment Note SPA MANAGER/ESTHETICIAN Treatment Note Start: 06/09/23 13:12 Freq: Status: Active Protocol: Document 06/10/23 11:28 CG (Rec: 06/10/23 11:47 [id number]) Speech Pathology Treatment Note Session Time Visit Start Time 09:44 Visit Stop Time 10:45 Total Visit Minutes 31 Visit Information Visit Number 3 Setting Treatment Setting Acute Care Visit Type Note Type Treatment Note General Information Patient History Per H&P: he pt presents to the ER with dull achy pain in the epigastric area for the past 3 days, worse with any type of movement, his last meal was >24 hours ago, his last alcoholic drink was 5 hours ago. He normally drinks one pint to 1/5th of vodka daily, he is not sure whether he wants to quit drinking or not, has never been in rehab before, denies having seizures with withdrawl before. Josesito states that he has had one episode of vomiting, and diarrhea, no hemoptysis, melana, but has a hx of GERD/ PUD as well as anxiety. Pt was admitted to the hospital for detox of ETOH. Since admission, he was intubated due to an upper respiratory obstruction in the airway (unknown etiology). Additionally, he presents with stridor of unkown origin. ENT consult has been ordered to assess for vocal fold dysfunction. Pt self- extubated this morning and has been NPO pending SPA MANAGER/ESTHETICIAN evaluation. Neck X-ray report has not yet been completed; however, on quick examination of imaging there appears to be an abnormality of the tissue on the R side of the neck (? swelling ?mass) though outside of SPA MANAGER/ESTHETICIAN's scope to interpret. Awaiting formal report. Subjective Chief Complaint(s) Swallowing Objective Short Term Goals 1. Pt will tolerate current diet of thin liquids via 1/2 teaspoon sips without overt s/ sx aspiration in order to reduce the risk of aspiration pneumonia. 2. Pt will tolerate trials of puree solids (IDDSI 4) and thin liquids (IDDSI 0) via cup sip with SPA MANAGER/ESTHETICIAN without overt s/ sx aspiration in order to progress to less restrictive diet. Longterm Goals Pt will tolerate least restrictive diet without overt s/sx aspiration in order to meet nutrition/hydration needs . Treatment Activities SPA MANAGER/ESTHETICIAN reviewed progress with pt. Repositioned pt with education in importance of upright positioning for swallowing safety. Conducted PO trials of thin liquids via teaspoon, cup sip, and small straw sip, with verbal cues to reduce bolus size. Provided pt education regarding pursuing MBS. Communicated results of PO trials to pt, nursing, and physician (Dr. Wallace) and updated pt signage and diet orders. Discussed recommended OT referral with physician due to self-feeding concerns, and collaborated with PT to update ST team of pt's transfer status to coordinate MBS. Assessment Patient Response to Treatment Good Rehab Potential Good Impairments Identified Swallow Assessment of Overall Progress Improving Assessment of Improvement ST facilitated feeding trials with thin liquids and puree solids via teaspoon, straw and cup sip. Pt demonstrated sustained improvement in alertness. Today, pt tolerated sips thin via teaspoon x3 without overt s/sx aspiration (though silent aspiration cannot be ruled out without an instrumental assessment). However, when PO trials initiated, he at first had difficulty maintaining adequate O2 levels. These did regulate when given verbal cues to take deep breaths through the nose. Additionally , he tolerated cup sips of thin liquid given SPA MANAGER/ESTHETICIAN cues and [id number] assistance to take small sips. Pt tolerated trials thin liquid via small sip through thin straw x2 without overt s/sx aspiration, though silent aspiration cannot be ruled out without an instrumental assessment. Pt tolerated trials puree ( applesauce) x4 via teaspoon without overt s/sx aspiration/ penetration. Following PO trials, frequent belching was observed. Pt also shared that as a child, he had frequent recurring stomach ulcers as a result of H. pylori infections , so pt does have a long hx of GI concerns. Pt was unable to self-feed independently today and required SPA MANAGER/ESTHETICIAN assistance to prop and guide hand to hold cup, grasp spoon, and move food/drinks to mouth. Given continued fatigue, overall weakness, and respiratory status (decreasing O2 when initiating PO), trials of less restrictive solids were not attempted today. Will conduct trials as pt's strength and respiratory status improves. PT eval pending to determine mobility status, which will guide timing of MBS. ST updated pt's door sign to include small sips of thin via small straw. Provided education on progress and compensatory strategies to pt and to staff. Reviewed with Patient Progress Being Made Patient/Caregiver Understanding Good Plan Therapeutic Contents Swallowing/Feeding
--- NOTE | 2023-06-10 14:24 | PM.PN.1 ---
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 He self extubated on 06/08 but is doing quite well today. He is getting ativan for anxiety, but no longer on predex and from a withdrawal perspective he is doing quite well. He continues to have what he calls hallucinations, though I am unclear as he describes seeing himself pull two blue U shaped objects out of his chest and breaking them against a tree if this is hallucination or vivid dreams to me. He is quite tearful, but denies current SI or HI. Pending psychiatry evaluation today. Will have him start working with PT and OT, he is quite deconditioned from the past week. Exam Vital Signs (past 8 hours): - 06/10/23 07:00 06/10/23 08:00 06/10/23 08:55 Temperature 97.4 F L Pulse Rate 65 Respiratory Rate 25 H Blood Pressure 176/102 H Pulse Oximetry 92 93 Oxygen Delivery Method Room Air Room Air Oxygen Flow Rate 0 06/10/23 12:28 06/10/23 12:38 06/10/23 12:39 Temperature 98.2 F Pulse Rate 110 H 103 H Respiratory Rate 24 Blood Pressure 166/81 H 148/92 H Pulse Oximetry 94 Oxygen Delivery Method Oxygen Flow Rate 0 06/10/23 12:00 Temperature Pulse Rate Respiratory Rate Blood Pressure Pulse Oximetry 92 Oxygen Delivery Method Room Air Oxygen Flow Rate Fraction of Inspired Oxygen 21 SaO2/FiO2 Ratio 447 Oxygen Delivery Method Room Air Oxygen Flow Rate 0 Narrative Exam Narrative: Gen: faitgued appearing male, no acute distress, no longer on supplemental o2. Pulm: CTA b/l with no wheezing noted today. CV: tachycardic, regular no m/r/g. Skin: no erythema around his neck today. Ext: no edema or joint effusions Objective Labs 06/10/23 04:40 06/10/23 04:40 Labs: Laboratory Results - last 24 hr 06/10/23 06/10/23 04:40 04:40 WBC 12.5 H RBC 4.73 Hgb 15.2 Hct 45.2 MCV 95.5 MCH 32.0 MCHC 33.6 RDW 14.2 Plt Count 298 Neut % (Auto) 82.2 H Lymph % (Auto) 8.1 L [place] % (Auto) 7.7 Eos % (Auto) 1.1 L Baso % (Auto) 0.9 Neut # (Auto) 87205 H Lymph # (Auto) 1000 L [place] # (Auto) 1000 H Eos # (Auto) 100 Baso # (Auto) 100 Sodium 137 Potassium 4.2 Chloride 103 Carbon Dioxide 27 BUN 20 Creatinine 0.61 L Estimated GFR > 60 BUN/Creatinine Ratio 32.8 H Glucose 184 H Calcium 8.8 Magnesium 2.6 H Total Bilirubin 1.0 AST 26 ALT 43 Alkaline Phosphatase 98 Total Protein 6.7 Albumin 3.4 L Globulin 3.3 Albumin/Globulin Ratio 1.0 PFSH Medical History Aftercare following left finger joint replacement surgery Depression Erectile dysfunction due to arterial insufficiency Family history of hypertension Finger wound, simple, open HTN (hypertension) Hyperlipidemia Migraine headache Sterilization consult Surgical History H/O circumcision H/O umbilical hernia repair Family History Mother Hypertension History of thyroid disorder Social History marital status: number of children: 2 household members: none occupational status: employed leisure activities: exercise Smoking Status: Never smoker alcohol intake: current substance use type: does not use Type(s) of exercise: weight lifting and running frequency: 5-6 times per week duration: 45-60 minutes/day Assessment & Plan Assessment & Plan narrative: 1. Stridor with subglottic tracheal narrowing. - no response to epi, steroids, or benadryl initially. Intubated at 10 AM 06/05 for airway protection and self extubated on 95 AM. - neck CT with no abnormality - continue steroids methylpred 60 daily, when tolerating PO transition to oral prednisone, with taper over 1 week. - No obvious infection but low threshold for antibiotics - lisinopril has been held but angioedema in this situation seems less likely, will trial resumption today given HTN today. - now weaned from precedex today. - TTE with normal EF, trivial pericardial effusion and some L pleural effusion. - patient does have history of GERD do wonder about injury from reflux vs vomiting but would suspect would have some finding on CT - other consideration is possible vocal cord dysfunction though his voice is strong. - with suicidal ideation reported and erythema noted around his neck, concern for traumatic etiology for his neck and subglottic swelling however patient denies this at this time. Discussed with pulmonary physician electronic device repairer, can consider ENT evaluation for visualization but this also risks further exacerbation. If he remains stable for now, continue steroids with medical management. Discussed with ENT whom recommended 1 week taper of steroids, and outpatient follow up for possible laryngoscopy in the near future. - DIRECTOR OF CONVENTION SERVICES evaluations to continue, diet per speech ordered. 2. Acute alcohol withdrawal with DTs, continuing hallucinations - Appears much improved today. Was able to wean from precedex infusion without severe withdrawal symptoms. Continue ativan prn for now, reduce dosing to 1 mg as needed from 2. - can discontinue phenobarb prn. - consider seroquel at night given reported hallucinations, and insomnia. Will discuss further with psychiatry after he is seen. - continue MVI, folate, thiamine high dose for 6 doses now complete. Transitioned to daily thiamine IV today, 100 mg. Transition to oral pending speech progress. 3. Alcoholic pancreatitis - tolerating his current diet, continue per speech therapy. - abdominal ultrasound with no evidence for biliary obstruction. Follow bilirubin with increase to 1.4 but has been stable thus far. 4. Alcoholic hepatitis - continued to follow AST/ALT, improving daily and now resolved so can stop checking CMP. - abdominal ultrasound with steatosis. 5. Acute respiratory failure with hypoxia - suspect secondary to sedation / atelectasis with EtOH withdrawal. No fever, or leukocytosis but low threshold to start antibiotics as noted above - unclear process leading to tracheal obstruction, CT neck was unremarkable. Discussed with pulmonary and ENT as above. - continue steroids. ENT recommended a 1 week taper. If he continues to improve they recommend outpatient consult for further eval. 6. HTN, chronic - hold home propranolol for now. Hold home lisinopril given above stenosis. 7. GERD, chronic - Continue IV PPI daily, transition to oral when able. 8. Depression, with suicidal ideation and anxiety. - has self titrated to 75 mg daily, discuss with psychiatry regarding possible transition of therapy - with SI reported 06/08, once he improved from EtOH withdrawal will consult psychiatry. He did confirm previous SI with plan. He is high risk, denies current SI to me today. Denies strangulation attempt as noted above. - he was having hallucinations previously, though with his significant alcohol use I suspect it is related to that. 9. Thrombocytopenia with history of polycythemia - Hg 14.2, had outpatient JAK2 ordered along with abdominal ultrasound. Suspect current suppression in setting of EtOH use. - continue to follow. Held lovenox for now with thrombocytopenia. With improvement have resumed HSQ for DVT ppx. - ferritin is elevated at 648, less likely polycythemia is due to JAK2 mutation. has multiple reasons for secondary etiology of polycythemia. Code: full Dispo: likely discharge home, timing in 2-3 days. Quality VTE Deep Vein Thrombosis/Pulmonary Embolism Present on Admission: Yes
--- NOTE | 2023-06-10 15:03 | OT.IP.EVAL ---
Current Diagnoses Alcohol use, unspecified with withdrawal, unspecified (06/03/23) Essential (primary) hypertension (06/03/23) Acute respiratory failure, unspecified whether with hypoxia or hypercapnia (06/03/23) Acute pancreatitis without necrosis or infection, unspecified (06/03/23) Stridor (06/03/23) Past Medical History (Last Reviewed 06/03/23 @ 01:57 by So Martínez DO) Aftercare following left finger joint replacement surgery Depression Erectile dysfunction due to arterial insufficiency Family history of hypertension Finger wound, simple, open HTN (hypertension) Hyperlipidemia Migraine headache Sterilization consult Surgical History (Last Reviewed 06/03/23 @ 01:57 by So Martínez DO) H/O circumcision H/O umbilical hernia repair Occupational Therapy Inpatient Evaluation/Re-Eval M1 PT/OT-IP Prior Functional Status Start: 06/10/23 15:58 Freq: NEEDED Status: Active Protocol: Document 06/10/23 14:06 [facility] (Rec: 06/10/23 16:35 [facility] [id number]) Medical Review Prior Functional Status Medical History Reviewed Yes Communication Indepndent. Mobility and Gait IND, no use of AD Activities of Daily Living and IADL's IND Social History Household Members none Living Arrangements Other Home Environment Standard Height Toilet,Walk in Shower Home Equipment Shower Seat with Backrest,Hand Held Shower,Grab Bars Near Toilet,Grab Bars In Shower Additional Social History Comment Pt reports he lives in a sailboat and uses a ladder to enter. However, he states he is able to live with parents ( 1 level home with 1 TOOTIE) here in town if needed. M2 OT-IP Current Condition Start: 06/10/23 15:58 Freq: Status: Active Protocol: Document 06/10/23 14:06 [facility] (Rec: 06/10/23 16:35 [facility] [id number]) Occupational Therapy Current Condition Current Condition Evaluation Date 06/10/23 Treatment Diagnosis ETOH withdrawal, weakness Diagnosis Onset Date 06/03/23 M3 OT- IP Subjective and Pain Start: 06/10/23 15:58 Freq: Status: Active Protocol: Document 06/10/23 14:06 [facility] (Rec: 06/10/23 16:35 [facility] [id number]) OT- Subjective Occupational Therapy Visit Type Type Initial Evaluation Visit Start Time 14:06 Visit Stop Time 15:03 Total Visit Minutes 57 Occupational Therapy Visit Comments Patient Comments Pt agreed to get up to take a shower. Patient/Caregiver Goals To go home to his parent's house. OT Pain Assessment Pain When Pain Assessed At Rest Pain Present Pain Present Denied Pain M4 OT- IP ADL's Start: 06/10/23 15:58 Freq: Status: Active Protocol: Document 06/10/23 14:06 [facility] (Rec: 06/10/23 16:35 [facility] [id number]) OT [id number] Comments OT Self-Feeding Comments Not at meal time. Pt noted was coughing after drinking from the water bottle. OT ADL-Grooming Comments OT Grooming Comments Not performed. OT ADL-Oral Care Comments Oral Care Comments Not performed. OT ADL-Dressing General Eval Lower Body Dressing Ability Moderate Assistance Comments OT Dressing Comments Pt needing increased time to take off his socks and assist to valeri his socks. Pt having more difficulty with his left foot. OT ADL-Toileting Comments OT Toileting Comments Pt not having to go. OT ADL-Bathing Bathing Type Bathing Type Bed Bath General Evaluation Bathing Ability Moderate Assistance Areas Needing Assistance Wash/Dry Back,Wash/Dry Perineal Area Devices Bathing Equipment Shower Chair with Arms Comments OT Bathing Comments Pt needing assist for completeness, assist for his back,hair and pericare needs. M5 OT- IP IADL's Start: 06/10/23 15:58 Freq: Status: Active Protocol: Document 06/10/23 14:06 [facility] (Rec: 06/10/23 16:35 [facility] [id number]) OT-Instrumental Activities of Daily Living Deficits IADL Deficits Identified Deficits Home Safety Awareness Home Safety Comments Pt needing cues for safety for his balance, completenss for showering, and for FWW use. At this time would be best for his parents to provide at least supervision and assist for the pt. M6 OT- IP Functional Cognition Start: 06/10/23 15:58 Freq: Status: Active Protocol: Document 06/10/23 14:06 [facility] (Rec: 06/10/23 16:35 [facility] [id number]) Cognitive Factors Limiting Selfcare Function Cognitive Ability Level of Alertness Alert Patient Orientation Name,Place,Situation Attention Span Ability Capable of Focused Attention, Capable of Sustained Attention Ability to Follow Commands Able to Follow One Step Commands Safety Awareness Underestimates Need for Assistance Problem Solving Ability Needs Assist to Identify Solutions Executive Function Ability Unable to Filter Distractions, Unable to Organize Plans, Unable to Remember Details Cognitive Comments Cognitive Assessment Comments Pt needing cues fo FWW safety, balance, and for completeness during shower. Pt increased time for movements and thinking at this time. Pt having difficulty to understand complex directions. OT- Vision and Hearing OT- Hearing Assessment OT- Hearing Assessment WFL OT- Vision Assessment Vision Assessment Comments Pt states in the past when having ocular migraines would left hemianopia for his vision that would last for 20 minutes. Noted left eye pupil much more dialated then his right eye. Pt able to read the clock appropriately. M7 OT- IP Mobility and Balance Start: 06/10/23 15:58 Freq: Status: Active Protocol: Document 06/10/23 14:06 [facility] (Rec: 06/10/23 16:35 [facility] [id number]) OT- Bed Mobility Assessment Supine to Sit Supine to Sit Assist Contact Guard Assistance OT-Transfer Assessment Sit to and From Stand Sit to and from Stand Minimal Assistance Transfers Transfer Ability Minimal Assistance Technique Transfer Destination Bed,Shower Stall Devices Transfer Assistive Devices Gait Belt,Front Wheeled Walker Comments Mobility Comments Pt KELLY to get to the edge of the bed. KELLY to stand to the FWW. CGA to walk with FWW to theh bathroom and KELLY to assist to step over the threshold of the shower. OT- Balance Assessment Sitting Balance and Reactions Static Sitting Balance Ability Fair Dynamic Sitting Balance Ability Fair Standing Balance and Reactions Static Standing Balance Ability Fair Dynamic Standing Balance Ability Fair Comments Other Balance Tests/Deviations/Treatment Initially pt leaning : posteriorly and having difficulty to sit to midline and in addition tends to lean to the left. Pt has decreased awareness of midline. Wile up on his feet his left foot tend to externally rotate outward. Pt heavily leaning on the bed to help stand up. M8 OT- IP Objective Assessments Start: 06/10/23 15:58 Freq: Status: Active Protocol: Document 06/10/23 14:06 [facility] (Rec: 06/10/23 16:35 [facility] [id number]) OT Gross Range of Motion Upper Extremity Range of Motion Assessment Bilaterally Impaired ROM Impairments Decreased LUE greater then RUE for shoulder flexion 0-90 LUE and 0-95 for RUE. OT Strength Comments Strength Comments BUE shoulder 3-/5 distally 4/5 OT- Coordination Assessment Upper Extremity Finger to Nose Test Left UE Impaired Finger Tapping Test Bilateral UE Impaired Comments Coordination Comments Pt having more difficulty with his left side. OT Sensation Assessment Comments Summary Comments Pt states having difficulty to guide the straw to his mouth and educated pt to use his other hand on the straw to help navigate and if possible to have use of a mirror. Increased kinesthesia left arm from elbow distally, not able to formally assess well for his shoulders due to weakness. M9 OT- IP Assessment and Plan Start: 06/10/23 15:58 Freq: Status: Active Protocol: Document 06/10/23 14:06 [facility] (Rec: 06/10/23 16:35 [facility] [id number]) OT Summary Assessment and Plan Potential Rehabilitation Potential Good Analytic Complexity at Evaluation Moderate Summary OT Impairments Range of Motion,Strength, Balance,Coordination,Sensation ,Functional Cognition, Functional Mobility,Self- Feeding,Grooming,Dressing, Toileting,Bathing,Toilet Transfers,Shower Transfers, Activity Tolerance Progress Towards Goals Slow Progress due to Medical Issues,Slow Progress due to Activity Tolerance,Slow Progress due to Cognition Assessment Summary Pt MOD complexity and main barriers are decreased awareness of midline as tends to lean to the left, decreased BUE strength, coordination, balance, and slow to process and follow commands. Goals Self-Feeding Goal Independent Grooming Goal Independent Dressing Goal Independent Toileting Goal Independent Bathing Goal Independent Toilet Transfer Goal Independent Shower Transfer Goal Independent Days to Meet Goals 15 Frequency of Treatment Frequency Of Treatment Once a Day Treatment Plan OT Treatment Plan ADL Training,Functional Cognition Training,Functional Mobility,Patient/Family Education,Discharge Planning Other Treatment Recommendations and Next Stand at sink for ADl needs. Treatment Focus Discharge Recommendations OT Discharge Recommendations Home,Home with 24/7 Assist Available,Home Health Home Equipment Needs FWW, shower chair Transportation Needs at Discharge Private Vehicle
--- NOTE | 2023-06-10 16:19 | CM.DPC ---
Addendum entered by SHARI Jacobs 06/10/23 16:37: Per OT, patient may benefit from HH services. Patient will need walker/shower chair/assistance from family to d/c. Plan: if safe for home with family and outpatient ETOH resources/not needing inpatient tx for SI, patient may need HH services for PT/OT due to weakness? CM team will follow closely. SL Original Note: DCP Continued: AREA SUPERVISOR reviewed EMR. Per hospitalist, start PT/OT today. Psychiatrist eval for SI pending. Patient continues to be on 1:1 monitoring at this time. Per nursing staff and hospitalist, appropriate for AREA SUPERVISOR to hold off conversation for d/c plan/AREA SUPERVISOR SI Ax for today due to patient's continued hallucinations. May consider AREA SUPERVISOR assessment in upcoming days. Per notes, patient's parents appear supportive. Plan: pending medical prognosis/results from psychiatrist SI Risk Ax. May need inpatient tx. Continue to follow closely. SHARI Jacobs
[2023-06-10] MEDS: LORazepam 2 MG/ML INJ 1 MG IV (20:20)
[2023-06-11] VITALS (8 sets, daily range): BP systolic 147–167; BP diastolic 93–100; PULSE 80–106; RESP 18–31; TEMP 36.2–36.7; O2SAT 94–97
[2023-06-11] MEDS: LORazepam 2 MG/ML INJ 1 MG IV ×3 (00:18→09:07)
[2023-06-11] MEDS: ONDANSETRON 4 MG/2 ML INJ IV (03:28)
[2023-06-11] MEDS: diphenhydrAMINE 50 MG/ML VIAL 25 MG IV (03:28)
[2023-06-11] MEDS: ACETAMINOPHEN 325 MG TABLET 650 MG PO (03:28)
[2023-06-11 04:48] LABS: Add Manual Diff / Slide Review NO; Basophils Absolute Auto 100 /uL (0-100); Basophils Percent Auto 0.7 % (0-2); Eosinophils Absolute Auto 200 /uL (0-450); Eosinophils Percent Auto 1.8 % (2-4); Hematocrit 43.9 % (41-53); Hemoglobin 14.8 g/dL (13.5-17.5); Lymphocytes Absolute Auto 1000 /uL (1100-4500); Lymphocytes Percent Auto 9.2 % (25-40); Mean Corpuscular HGB Conc 33.7 % (30-36); Mean Corpuscular Hemoglobin 31.7 PG (26-34); Mean Corpuscular Volume 94.2 fL (80-100); Monocytes Absolute Auto 1000 /uL (0-900); Neutrophils Absolute Auto 8800 /uL (1500-7000); Neutrophils Percent Auto 79.3 % (50-75); Platelet Count 327 X10^3/uL (150-400); Red Blood Cell Count 4.66 X10^6/uL (4.5-5.9); Red Cell Distribution Width 14.1 % (11.6-14.8)
[2023-06-11 04:58] LABS: Alanine Aminotransferase 36 IU/L (<50); Albumin 3.4 g/dL (3.5-5.0); Alkaline Phosphatase 90 U/L (38-126); Aspartate Aminotransferase 27 IU/L (17-59); BUN Creatinine Ratio 28.6 (6-22); Blood Urea Nitrogen 20 mg/dL (9-20); Calcium 8.4 mg/dL (8.4-10.2); Carbon Dioxide 25 mmol/L (22-32); Chloride 104 mmol/L (98-107); Estimated Glomerular Filt Rate > 60 mL/min (>60); Globulin 3.4 g/dL (1.7-4.1); Glucose 187 mg/dL (70-100); HEMOLYSIS < 15 (0-50); Magnesium 2.3 mg/dL (1.6-2.3); Potassium 3.7 mmol/L (3.4-5.1); Sodium 137 mmol/L (137-145); Total Protein 6.8 g/dL (6.3-8.2)
[2023-06-11] MEDS: lisinopriL 10 MG TABLET PO (08:47)
[2023-06-11] MEDS: THIAMINE 100 MG TABLET PO (08:47)
[2023-06-11] MEDS: FOLIC ACID 1 MG TABLET PO (08:48)
[2023-06-11] MEDS: MULTIVITAMIN 1 TABLET 1 TAB PO (08:49)
[2023-06-11] MEDS: PROPRANOLOL 10 MG TABLET 20 MG PO (08:50)
[2023-06-11] MEDS: PANTOPRAZOLE 40 MG VIAL IV (08:51)
[2023-06-11] MEDS: HEPARIN 5,000 UNIT/ML VIAL 5000 UNIT SUBCUT (08:51)
--- NOTE | 2023-06-11 11:12 | ST.IPTN ---
Visit Care Team Role Provider Type Emanuel Chapa MD Primary Care Provider Non-Staff Address: [address] [place] [address], [id number] So Martínez DO Emergency Provider Physician Referring Provider Address: [address] [place] [address], [id number] Mark Angela MD Admit Provider Physician Attending Provider Address: [address] [place] [address], [id number] Fax: [facility] Treatment Note [facility] Treatment Note Start: 06/09/23 13:12 Freq: Status: Active Protocol: Document 06/11/23 10:54 (Rec: 06/11/23 11:12 [id number]) Speech Pathology Treatment Note Session Time Visit Start Time 10:15 Visit Stop Time 10:50 Total Visit Minutes 35 Visit Information Visit Number 4 Setting Treatment Setting Acute Care Visit Type Note Type Treatment Note General Information Patient History Per H&P: he pt presents to the ER with dull achy pain in the epigastric area for the past 3 days, worse with any type of movement, his last meal was >24 hours ago, his last alcoholic drink was 5 hours ago. He normally drinks one pint to 1/5th of vodka daily, he is not sure whether he wants to quit drinking or not, has never been in rehab before, denies having seizures with withdrawl before. Josesito states that he has had one episode of vomiting, and diarrhea, no hemoptysis, melana, but has a hx of GERD/ PUD as well as anxiety. Pt was admitted to the hospital for detox of ETOH. Since admission, he was intubated due to an upper respiratory obstruction in the airway (unknown etiology). Additionally, he presents with stridor of unkown origin. ENT consult has been ordered to assess for vocal fold dysfunction. Pt self- extubated this morning and has been NPO pending [facility] evaluation. Neck X-ray report has not yet been completed; however, on quick examination of imaging there appears to be an abnormality of the tissue on the R side of the neck (? swelling ?mass) though outside of [facility]'s scope to interpret. Awaiting formal report. Subjective Observations/Patient Presentation The pt reports he is feeling well and is not having any pain. Pt up in chair for session and appeared much more alert and cognizant. Objective Short Term Goals 1. Pt will tolerate current diet of thin liquids via 1/2 teaspoon sips without overt s/ sx aspiration in order to reduce the risk of aspiration pneumonia. MET 2. Pt will tolerate trials of puree solids (IDDSI 4) and thin liquids (IDDSI 0) via cup sip with [facility] without overt s/ sx aspiration in order to progress to less restrictive diet. MET 3. Utilizing compensatory and safe swallowing strategies as trained (small bites/sips, alt bites/sips as needed, fully upright positioning, chew fully, breaks/pause as needed when fatigued, Pt will consume diet upgrade of soft and bite sized solids/thin liquids with min/no overt s/s of asp/ pen. Revenue Collector Goals Pt will tolerate least restrictive diet without overt s/sx aspiration in order to meet nutrition/hydration needs . Treatment Activities [facility] reviewed progress with pt. Conducted PO trials of thin liquids via cup sip, and small straw sip, and consecutive swallows, with verbal cues to reduce bolus size following cough response to multiple swallows. While slow, pt able to self feed at this point. Conducted trials of solids via chiquita creacker and cheese slice. Mastication appears slowed with some fatigue. Good AP transport and clearance. Observed small cough/throat clear x1 following second bite of cracker. Regular bite of cheese resulted in swallow prior to full mastication and an audible effortful swallow, second small bite was improved but still fatiguing. ST provided pt education on diet level options, safe and compensatory strategies of being fully upright w intake ( don't tip head back), small bites and sips, taking time to masticate fully as needed, alternating bites and sips and pausing to rest/swallow when fatigued. Assessment Patient Response to Treatment Good Rehab Potential Good Impairments Identified Swallow Assessment of Overall Progress Improving Assessment of Improvement Pt appears appropriate to advance to a soft and bite sized diet at this time. Provided pt education regarding pursuing MBS, with recommendation to follow up on Wednesday or as an outpatient given rapid improvement, should swallow function not continue to improve over the weekend. Communicated results of PO trials to pt, nursing, and physician (Dr. Wallace) and updated pt signage and diet orders. Reviewed with Patient Progress Being Made Patient/Caregiver Understanding Good Plan Therapeutic Contents Swallowing/Feeding
--- NOTE | 2023-06-11 11:15 | CM.DPC ---
Addendum entered by Adriana Reardon R.N. 06/11/23 15:12: Just found out that [facility] can accept patient. Called Mery at [facility], and gave her the address that patient will be staying at ([facility]), she has received everything already. Addendum entered by Adriana Reardon R.N. 06/11/23 14:52: Carlton at [facility] called and indicated that they can't accept patient, secondary to insurance and alcohol use, at this time, awaiting to hear back from [facility] and [facility] Addendum entered by Adirana Reardon R.N. 06/11/23 14:19: O.T. is suggesting home health with therapy for strengthening. It is noted that patient has [place], and that home health agencies are selective on accepting, case by case basis. Called Duong at [facility], stated they can review and see if they can accept. Called Mery at [facility], she also indicated that they will have administration review. Called Carlton at [facility], he has access to [employer], and will review. Updated patient and brought in list of home health agencies, let him know that it will depend upon which agency can accept. Confirmed that he does have a provider, Dr. Chapa at [facility] in [facility]. Patient will be staying with his parents, who are at bedside. Their address is: [address], [place]. Will make sure that the home health agencies have this address. Will complete face to face and orders, BOSSMAN Yates podiatry assistant, is sending referrals over to [facility] and [facility]. Original Note: DCP Cont: Psych did not see patient yesterday. Hospitalist feels patient is improving, wants to go home. SHARI Simon, will see patient and perform an assessment. Patient plans to go home with parents. P: DCP to continue to follow. SHARI Simon, will perform suicide assessment. Adriana Reardon RN/Final Cigar And Box Examiner
--- NOTE | 2023-06-11 13:37 | OT.IP.TRT ---
Current Diagnoses Alcohol use, unspecified with withdrawal, unspecified (06/03/23) Essential (primary) hypertension (06/03/23) Acute respiratory failure, unspecified whether with hypoxia or hypercapnia (06/03/23) Acute pancreatitis without necrosis or infection, unspecified (06/03/23) Stridor (06/03/23) Occupational Therapy Treatment Note M2 OT-IP Current Condition Start: 06/10/23 15:58 Freq: Status: Active Protocol: Document 06/10/23 14:06 [facility] (Rec: 06/10/23 16:35 [facility] [id number]) Occupational Therapy Current Condition Current Condition Evaluation Date 06/10/23 Treatment Diagnosis ETOH withdrawal, weakness Diagnosis Onset Date 06/03/23 M3 OT- IP Subjective and Pain Start: 06/10/23 15:58 Freq: Status: Active Protocol: Document 06/11/23 13:49 [facility] (Rec: 06/11/23 13:56 [facility] [id number]) OT- Subjective Occupational Therapy Visit Type Type Treatment Note Visit Start Time 13:20 Visit Stop Time 13:37 Total Visit Minutes 17 Occupational Therapy Visit Comments Patient Comments Pt wanting to go for a walk. Pt's parent in the room for caregiver training. Patient/Caregiver Goals To go home. OT Pain Assessment Pain When Pain Assessed At Rest Pain Present Pain Present Denied Pain M4 OT- IP ADL's Start: 06/10/23 15:58 Freq: Status: Active Protocol: Document 06/10/23 14:06 [facility] (Rec: 06/10/23 16:35 [facility] [id number]) OT GWS-Ykxv-Aciwayi Comments OT Self-Feeding Comments Not at meal time. Pt noted was coughing after drinking from the water bottle. OT ADL-Grooming Comments OT Grooming Comments Not performed. OT ADL-Oral Care Comments Oral Care Comments Not performed. OT ADL-Dressing General Eval Lower Body Dressing Ability Moderate Assistance Comments OT Dressing Comments Pt needing increased time to take off his socks and assist to valeri his socks. Pt having more difficulty with his left foot. OT ADL-Toileting Comments OT Toileting Comments Pt not having to go. OT ADL-Bathing Bathing Type Bathing Type Bed Bath General Evaluation Bathing Ability Moderate Assistance Areas Needing Assistance Wash/Dry Back,Wash/Dry Perineal Area Devices Bathing Equipment Shower Chair with Arms Comments OT Bathing Comments Pt needing assist for completeness, assist for his back,hair and pericare needs. M5 OT- IP IADL's Start: 06/10/23 15:58 Freq: Status: Active Protocol: Document 06/10/23 14:06 [facility] (Rec: 06/10/23 16:35 [facility] [id number]) OT-Instrumental Activities of Daily Living Deficits IADL Deficits Identified Deficits Home Safety Awareness Home Safety Comments Pt needing cues for safety for his balance, completeness for showering, and for FWW use. At this time would be best for his parents to provide at least supervision and assist for the pt. M6 OT- IP Functional Cognition Start: 06/10/23 15:58 Freq: Status: Active Protocol: Document 06/11/23 13:49 [facility] (Rec: 06/11/23 13:56 [facility] [id number]) Cognitive Factors Limiting Selfcare Function Cognitive Ability Level of Alertness Alert Patient Orientation Name,Place,Situation Attention Span Ability Capable of Focused Attention, Capable of Sustained Attention Ability to Follow Commands Able to Follow One Step Commands Cognitive Comments Cognitive Assessment Comments Pt able to follow directions better today and get his word out. Pt also able to joke around. M7 OT- IP Mobility and Balance Start: 06/10/23 15:58 Freq: Status: Active Protocol: Document 06/11/23 13:49 [facility] (Rec: 06/11/23 13:56 [facility] [id number]) OT- Bed Mobility Assessment Supine to Sit Supine to Sit Assist Independent Sit to Supine Sit to Supine Assist Independent OT-Transfer Assessment Sit to and From Stand Sit to and from Stand Standby Assistance,Contact Guard Assistance Transfers Transfer Ability Standby Assistance,Contact Guard Assistance Technique Transfer Destination Bed,Chair Devices Transfer Assistive Devices Gait Belt,Front Wheeled Walker Comments Mobility Comments Pt CGA to stand from lower surfaces and close SBA with FWW and occasional CGA. Pt still slightly leans to the left and heavy use of his arms on the FWW. Able to train pt' s mom to valeri/doff the gait belt and how to assist pt as needed. Pt's father able to obtain a FWW. OT- Balance Assessment Sitting Balance and Reactions Static Sitting Balance Ability Good Dynamic Sitting Balance Ability Good Standing Balance and Reactions Static Standing Balance Ability Good Dynamic Standing Balance Ability Fair Comments Other Balance Tests/Deviations/Treatment Pt able to sit at midline : today. Only noted slight lean to the left while up on his feet when walking. Pt still having heavy use of his hand on the FWW. M8 OT- IP Objective Assessments Start: 06/10/23 15:58 Freq: Status: Active Protocol: Document 06/10/23 14:06 [facility] (Rec: 06/10/23 16:35 [facility] [id number]) OT Gross Range of Motion Upper Extremity Range of Motion Assessment Bilaterally Impaired ROM Impairments Decreased LUE greater then RUE for shoulder flexion 0-90 LUE and 0-95 for RUE. OT Strength Comments Strength Comments BUE shoulder 3-/5 distally 4/5 OT- Coordination Assessment Upper Extremity Finger to Nose Test Left UE Impaired Finger Tapping Test Bilateral UE Impaired Comments Coordination Comments Pt having more difficulty with his left side. OT Sensation Assessment Comments Summary Comments Pt states having difficulty to guide the straw to his mouth and educated pt to use his other hand on the straw to help navigate and if possible to have use of a mirror. Increased kinesthesia left arm from elbow distally, not able to formally assess well for his shoulders due to weakness. M9 OT- IP Assessment and Plan Start: 06/10/23 15:58 Freq: Status: Active Protocol: Document 06/11/23 13:49 [facility] (Rec: 06/11/23 13:56 [facility] [id number]) OT Summary Assessment and Plan Potential Rehabilitation Potential Good Analytic Complexity at Evaluation Moderate Summary Progress Towards Goals Progressing Toward Goals Assessment Summary Pt doing much better today and eager to go home. Able to train pt's mom how to assist pt from lower surfaces and how to valeri.doff the gait belt. Pt's father able to get a shower chair and FWW for pt to use. Pt would benefit from home health at this time to help with dynamic balance. Goals Dressing Goal Independent Toileting Goal Independent Bathing Goal Independent Toilet Transfer Goal Independent Shower Transfer Goal Independent Days to Meet Goals 10 Frequency of Treatment Frequency Of Treatment Once a Day Treatment Plan OT Treatment Plan ADL Training,Functional Cognition Training,Functional Mobility,Patient/Family Education,Discharge Planning Discharge Recommendations OT Discharge Recommendations Home with 26/04 Assist Available,Home Health Home Equipment Needs FWW, shower chair Transportation Needs at Discharge Private Vehicle
--- NOTE | 2023-06-11 14:01 | PM.DS.1 ---
History of Present Illness History of Present Illness Date Patient Seen: 06/11/23 Time Patient Seen: 14:01 Chief complaint: abd pain x 3 days Narrative: Per admitting provider, The pt presents to the ER with dull achy pain in the epigastric area for the past 3 days, worse with any type of movement, his last meal was >24 hours ago, his last alcoholic drink was 5 hours ago. He normmally drinks one pint to 1/5th of vodka daily, he is not sure whether he wants to quit drinking or not, has never been in rehab before, denies having seizures with withdrawl before. Josesito states that he has had one episode of vomiting, and diarrhea, no hemoptysis, melana, but has a hx of GERD/ PUD as well as anxiety. Discharge Providers Provider Date of admission: 06/03/23 03:06 Discharge Date: 06/11/23 Primary care physician: Emanuel Chapa MD Consults: 06/03/23 03:21 Consult to Dietitian, Adult Routine Comment: Reason For Exam: alcoholism 06/08/23 10:43 Consult to Speech Therapy Evaluate & Treat Comment: needs a swallow eval after being extubated Physician Instructions: Evaluate and treat 06/10/23 10:13 Consult to Physical Therapy Evaluate & Treat Comment: Physician Instructions: Evaluate and Treat 06/10/23 10:18 Consult to Occupational Therapy Evaluate & Treat Comment: Physician Instructions: Evaluate and treat Discharge provider: Yao Wallace DO Summary Hospital Course Discharge Diagnosis: 1. Stridor with subglottic tracheal narrowing. 2. Acute alcohol withdrawal with DTs, continuing hallucinations 3. Alcoholic pancreatitis 4. Alcoholic hepatitis 5. Acute respiratory failure with hypoxia 6. HTN, chronic 7. GERD, chronic ? 8. Depression, with suicidal ideation and anxiety. 9.? Thrombocytopenia with history of polycythemia Hospital Course: This is a 42 year old male with PMH of HTN, GERD, depression, and possible polycythemia (suspect secondary) who was initially admitted for alcohol withdrawal and alcoholic pancreatitis and alcohol hepatitis with low DF. He was doing well the first day or two on librium, and reduced diet which was slowly being advanced, but began to develop DTs and was moved to the ICU for precedex infusion. Once in the ICU, he developed an upper airway wheezing, found to have an upper airway stenosis on imaging. He became tachypnic, developed belly breathing and appeared to be tiring, and was intubated for airway protection. CT imaging showed no acute pathology after intubation, though there does appear to be swelling around his ETT on my viewing. He was started on steroids with improvement in the swelling. After several days he actually self extubated and did not require reintubation. ENT and pulmonary were asked for recommendations, with pulmonary deferring to ENT for subglottic stenosis and ENT recommending outpatient followup for possible laryngoscopy as long as patient continued to improve. After extubation he also complained of hallucinations which resolved after removal of precedex infusion. He also reported previous suicidal ideation with a distinct plan. He was evaluated by myself and social work and not deemed to be in any imminent danger to himself, and felt no longer to be suicidal after discussions here. Psychiatry was asked to see the patient but could not perform inpatient evaluation prior to discharge. A few days after extubation, his speech and swallow continued to improve, and he did with with physical and occupational therapy. He plans to stay with his parents after discharge. I placed a referral to ENT for further evaluation of subglottic stenosis, but if not accepted please refer from primary care as well. I also recommend outpatient follow up with patient's psychotherapist and primary care provider as he reported self tapering of wellbutrin for additional medication management of depression. Time Spent with Patient Time spent: Greater than 30 minutes Exam Vital Signs (past 8 hours): - 06/11/23 08:47 06/11/23 08:00 06/11/23 09:29 Temperature 97.2 F L Pulse Rate 80 95 H 88 Respiratory Rate 20 22 Blood Pressure 167/100 H 162/100 H 167/100 H Pulse Oximetry 95 Oxygen Delivery Method Oxygen Flow Rate 0 06/11/23 12:00 Temperature Pulse Rate Respiratory Rate Blood Pressure Pulse Oximetry 97 Oxygen Delivery Method Room Air Oxygen Flow Rate Fraction of Inspired Oxygen 21 SaO2/FiO2 Ratio 447 Oxygen Delivery Method Room Air Oxygen Flow Rate 0 Narrative Exam Narrative: Gen: WDWN, no acute distress, no longer on supplemental o2. Pulm: CTA b/l with no wheezing noted today. CV: tachycardic, regular no m/r/g. Skin: no erythema around his neck today. Ext: no edema or joint effusions Objective Labs 06/11/23 04:15 06/11/23 04:15 Labs: Laboratory Results - last 24 hr 06/11/23 06/11/23 04:15 04:15 WBC 11.0 RBC 4.66 Hgb 14.8 Hct 43.9 MCV 94.2 MCH 31.7 MCHC 33.7 RDW 14.1 Plt Count 327 Neut % (Auto) 79.3 H Lymph % (Auto) 9.2 L [place] % (Auto) 9.0 Eos % (Auto) 1.8 L Baso % (Auto) 0.7 Neut # (Auto) 8800 H Lymph # (Auto) 1000 L [place] # (Auto) 1000 H Eos # (Auto) 200 Baso # (Auto) 100 Sodium 137 Potassium 3.7 Chloride 104 Carbon Dioxide 25 BUN 20 Creatinine 0.70 Estimated GFR > 60 BUN/Creatinine Ratio 28.6 H Glucose 187 H Calcium 8.4 Magnesium 2.3 Total Bilirubin 1.0 AST 27 ALT 36 Alkaline Phosphatase 90 Total Protein 6.8 Albumin 3.4 L Globulin 3.4 Albumin/Globulin Ratio 1.0 PFSH Medical History Aftercare following left finger joint replacement surgery Depression Erectile dysfunction due to arterial insufficiency Family history of hypertension Finger wound, simple, open HTN (hypertension) Hyperlipidemia Migraine headache Sterilization consult Surgical History H/O circumcision H/O umbilical hernia repair Family History Mother Hypertension History of thyroid disorder Social History marital status: number of children: 2 household members: none occupational status: employed leisure activities: exercise Smoking Status: Never smoker alcohol intake: current substance use type: does not use Type(s) of exercise: weight lifting and running frequency: 5-6 times per week duration: 45-60 minutes/day Discharge Plan Discharge Plan Patient Disposition: Home Provider Discharge Comment: You were admitted to the hospital with alcohol withdrawal, needed intubation for airway protection due to narrowing below your vocal cords. Recommend outpatient follow up with ENT (this may require referral from primary care sometimes but I have sent one today), and if you desire I recommend seeing a therapist again. Please follow up with your provider regarding your taper of wellbutrin as well, and to consider alternative therapies if desired. Discharge orders & Medications Prescriptions: New prednisone 20 mg tablet See Rx Instructions .ROUTE .COMPLEX Qty: 5 0RF Rx Instructions: 40 mg x1 day, 30 mg x1 day, 20 mg x1 day, 10 mg x1 day then stop Continued lisinopril 10 mg tablet 10 mg PO DAILY Patient Comments: take 1 tablet by mouth once daily bupropion HCl [Wellbutrin XL] 150 mg Tablet Extended Release 24 Hr 450 mg PO QAM cetirizine [Zyrtec] 10 mg Tablet 10 mg PO DAILY PRN (Reason: Itching) Patient Comments: PT USES UP TO 30 MG QDAY PRN TORSO ITCH tadalafil 10 mg tablet 10 mg PO PRN PRN (Reason: Sexual Activity) Rx Instructions: administer approximately 30min before sexual activity; do not use more than 10mg dose per 24hrs aspirin 81 mg Tablet,Chewable 81 mg PO DAILY omeprazole 20 mg capsule,delayed release(DR/EC) 20 mg PO DAILY propranolol 10 mg tablet 20 mg PO BID Follow up/Referrals: Emanuel Chapa MD [Primary Care Provider] - Other Ambulatory Orders: Referral to: (Schedule) Timeframe: 2 Weeks Location: Determined by Patient Ordered By: Yao Wallace Diet/Activity/Treatments Diet: Diet as Tolerated and Regular Activity: As tolerated, no restrictions Visit Report/Discharge Packet Stand Alone Forms: Patient Portal/API, Stroke Signs & Symptoms Discharge Data Primary Care Provider: Emanuel Chapa Discharges patient from system. Discharge Date/Time: 06/11/23 15:15 Quality VTE Deep Vein Thrombosis/Pulmonary Embolism Present on Admission: Yes
--- NOTE | 2023-06-11 14:33 | CM.DANOTE ---
CHIEF CLINICAL DIETITIAN Safety Assessment / RHETT and MH Assessment CHIEF CLINICAL DIETITIAN - Production Operations Engineer Assessment Start: 06/11/23 14:00 Freq: Status: Active Protocol: Document 06/11/23 14:01 [facility] (Rec: 06/11/23 14:33 [facility] [id number]) CHIEF CLINICAL DIETITIAN/Production Operations Engineer Assessment Total time Care Management spent on 35 minutes patient visit-in minutes Presenting Problem Patient presents with acute pancreatitis and decompensated quickly as he started to go through alcohol withdrawal, needing to be intubated to protect airway. Patient ended up extubating himself 06.08.23. Patient has recovered fairly well, still weak, some difficulty swallowing. Patient likely to medically discharge today, Dr Wallace asking for an CHIEF CLINICAL DIETITIAN safety assessment d/t comments patient made about considering suicide w/plan of taking pills and alochol in order to not wake up. 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 # Psych. Hx Mental Health and Chemical Struggles with depression and Dependency alcohol use disorder Family Hx of Behavioral Abuse No family h/o suicide, unlce struggled with alcoholism Psychiatric Hospitalizations (date(s)/ None location) Psychosocial information & Support Had been living on his [place] since divorce from his , has a girlfriend who drinks much more than I do and now plans to discharge home w/his parents (local) while he recovers School/Work Currently unemployed. Has worked as a physician diploma medical assistant Presenting Problem Drinking approx a fifth per day of hard alcohol before being admitted which patient reports as the most I had drank for a long time Precipitating Event(s) Divorce from his Farida, joint custody of their two children (patient has his kids one week per mo), loss of his cat of 15+ years, loss of his job and medical problems Family Hx of Behavioral Abuse Uncle Rehab Facilities? ((Date(s), Location(s) None reported ) History of Withdrawal? Seizures? None reported Longest Period of Sobriety Longest period of sobriety was when his first child was born , he was sober x 1 year Orientation (Person/Place/Time) Oriented but slow processing, still in recovery Stated Mood did not assess Affect (Congruent with Mood?) Flat affect Thought Content - Specify/Describe WNL Obsessions, Delusions, Hallucinations Thought Processes (Jifwoyb-Dxrahyux-Pvgw WNL Guqvozlk-Frcikplr-Hzcszwuikm- Fremtfmaalopes-Vjqfrom-Siguwmvqdylv- Thought Blocking) Speech (Ovbpqa-Chlq-Ldazfza-Rapid-Soft- Slow, soft Loud-Pressured) Motor (Kaspmy-Xxwsccvva-Ekrq-Other) WNL Insight (Jtnc-Gbrt-Llik/Limited) Fair Judgement (Wkak-Ofuf-Dkhr/Limited) Fair Impulse Control (Adequate-Impaired) Impaired Memory (Irswwxrqg-Yrspvt-Jkhyff, Intact Impaired-Intact) Concentration (Intact-Impaired) Intact Attention (Intact-Impaired) Intact Behavior (Appropriate-Inappropriate) Appropriate Additional Comment Seemingly forthcoming with information Suicidal Ideation (Plan) No Homicidal Ideation (Plan) No Intervention Patient intends to remain sober. Discussed the importantce of seeking help through recovery and sobriety. patient admits to thinking about suicide over the last month, had plan to take alieve , oxy and zofran with alcohol in order to not wake up. Patient explains his guilt about the effect of his suicide on his family and children partly kept him from a suicide attempt. Patient wants to be there for his children. Patient commits to securing a counseling appt w/ his counselor for next week. Provided MH and RHETT resources - detox and outpatient and inpatient resources RA Plan Patient shows good insight today into the severity of his drinking and depression, he was forthcoming in discussing his RHETT and mental health and denied current suicidal thoughts or plan. Patient felt safe discharging home w/his supportive parents and agreed to resume his counseling. Educated patient and mom before discharge about the [facility] crisis [place] and [facility] for ongoing MH support. Patient appreciative and eager to discharge the hospital Updated SERGIO shi and Dr Wallace with this [facility]'s recs for safe discharge home w/parents and friends; MH and RHETT resources provided
== END 2023-06-11 15:15 | disposition home or self-care (01) | DRG 282 ==
LOC: ED 01:45 → AC 03:07 → ICU 21:56
PROVIDERS: Internal Medicine; Internal Medicine Pulmonary Disease; Admitting Provider Internal Medicine; Emergency Provider Emergency Medicine; PCP Family Medicine; Referring Provider Emergency Medicine; Visit Provider Internal Medicine
DX: K85.20 Alcohol induced acute pancreatitis without necrosis or infection (principal); I10 Essential (primary) hypertension; E78.5 Hyperlipidemia, unspecified; R00.0 Tachycardia, unspecified; J96.01 Acute respiratory failure with hypoxia; F10.231 Alcohol dependence with withdrawal delirium; K70.10 Alcoholic hepatitis without ascites; K21.9 Gastro-esophageal reflux disease without esophagitis; F32.A Depression, unspecified; D69.6 Thrombocytopenia, unspecified; D75.1 Secondary polycythemia; J38.6 Stenosis of larynx
CPT/HCPCS: 36415; 36569; 36592; 36600; 70360; 70491; 71045; 72040; 74018; 74177; 76700; 80048; 80053; 80076; 80305; 80320; 82140; 82550; 82728; 82805; 82962; 83605; 83690; 83735; 84484; 85025; 85027; 85610; 92526; 92610; 93005; 93306; 93970; 94002; 94003; 94640; 94799; 96361; 96374; 96375; 97110; 97162; 97166; 97530; 97535; 99284; 99291; C9113; J0171; J0330; J0360; J1170; J1200; J1644; J1650; J1815; J1885; J2060; J2270; J2405; J2560; J2704; J2920; J2930; J3010; J3490; J7613; Q9967

== ENCOUNTER 2023-06-12 07:46 | Emergency (ER) | payer OTHER, MEDICAID, SELFPAY ==
[2023-06-06 12:49] VITALS: BMI 29.0
[2023-06-07 16:30] VITALS: O2SAT 95
[2023-06-08 08:24] VITALS: PULSE 78; RESP 0; RESP 16
[2023-06-12] VITALS (15 sets, daily range): BP systolic 133–214; BP diastolic 87–109; PULSE 81–142; RESP 10–46; TEMP 36.2; O2SAT 92–99; BMI 26.2
--- NOTE | 2023-06-12 07:58 | ED_ITS ---
HPI - Anxiety General Chief Complaint: Anxiety Stated Complaint: Anxiety, withdrawls per pt Time Seen by Provider: 06/12/23 07:57 Source: patient Mode of arrival: Family Vehicle History of Present Illness HPI narrative: This is a 42-year-old male with history of anxiety, hypertension, GERD, suspected polycythemia vera with recent hospitalization for necrotizing pancreatitis and alcohol abuse. Patient was hospitalized from 06/03 through 06/11/2023, during his stay he was quite tachycardic and ultimately ended up being intubated for alcohol withdrawal with significant DTs, he was found to have upper airway wheezing during his stay in the ICU and found to have some upper airway stenosis on x-ray imaging but did not show acute change on CT imaging but did appear to have some swelling on his ET tube on evaluation. Has been taking steroids daily. Patient's did self extubate and did not require re- intubation after this. Patient presents today with diaphoresis, tachycardia and feeling shaky. Patient notes he was discharged home but without any sort of benzodiazepine taper and states he does have some chronic benzodiazepine use. Patient states no fevers or chills, he has been diaphoretic today. He denies chest pain or pressure no shortness of breath. No abdominal back or flank pain. He denies any nausea or vomiting. Denies any changes to bowel movements such as diarrhea constipation, no black or bloody stools. Notes his urine has been smelling and dark, denies any dysuria, urgency or frequency. He states he is h ad swelling in his neck since his hospitalizations but does not seem to be any worse but has not improved. He notes he is on steroids daily. He states that his voice fatigued throughout the day but otherwise has not had any worsening changes no new hoarseness or stridor. Patient states no syncope. He states he is currently take oral steroid, propranolol 10 mg twice daily, Wellbutrin 300 mg b.i.d., lisinopril 10 mg daily and aspirin 81 mg daily. States prior surgeries include hernia repair remotely, prior EGD and colonoscopy to evaluate for Guerra's esophagus which was negative. He denies any active tobacco, alcohol or illicit use. He states he is not had any alcohol since his discharge from the hospital. Patient's primary care is Dr. Christiansen, he is seeing Dr. Corado for Hematology due to being evaluated for polycythemia vera. Patient was recommended follow up with outpatient psychotherapy for depression. Related Data Home Medications Medication Instructions Recorded Confirmed omeprazole 20 mg capsule,delayed 20 mg PO DAILY 05/06/21 06/03/23 release propranolol 10 mg tablet 20 mg PO BID 07/30/21 06/03/23 lisinopril 10 mg tablet 10 mg PO DAILY 08/15/21 06/03/23 bupropion HCl 150 mg 24 hr tablet, 450 mg PO QAM 04/01/23 06/03/23 extended release (Wellbutrin XL) cetirizine 10 mg tablet (Zyrtec) 10 mg PO DAILY PRN Itching 04/01/23 06/03/23 tadalafil 10 mg tablet 10 mg PO PRN PRN Sexual Activity 04/01/23 06/03/23 aspirin 81 mg chewable tablet 81 mg PO DAILY 06/03/23 06/03/23 Previous Rx's Medication Instructions Recorded prednisone 20 mg tablet See Rx Instructions .Route 06/11/23 .COMPLEX #5 tabs alprazolam 1 mg tablet See Rx Instructions .Route 06/12/23 .COMPLEX #10 tabs levofloxacin 750 mg tablet 750 mg PO DAILY 7 days #7 tabs 06/12/23 Allergies Allergy/AdvReac Type Severity Reaction Status Date / Time No Known Drug Allergies Allergy Verified 06/12/23 07:56 Review of Systems Review of Systems ROS Unobtainable: All systems reviewed & are unremarkable except as noted in HPI and below Patient History Medical History Aftercare following left finger joint replacement surgery Depression Erectile dysfunction due to arterial insufficiency Family history of hypertension Finger wound, simple, open HTN (hypertension) Hyperlipidemia Migraine headache Sterilization consult Surgical History H/O circumcision H/O umbilical hernia repair Family History Mother Hypertension History of thyroid disorder Social History marital status: number of children: 2 household members: none occupational status: employed leisure activities: exercise Smoking Status: Never smoker alcohol intake: current substance use type: does not use Type(s) of exercise: weight lifting and running frequency: 5-6 times per week duration: 45-60 minutes/day Smoking Status: Never smoker tobacco type: cigarettes alcohol intake frequency: 0-2 drinks per day Alcohol type: hard liquor Substance Use Type: does not use Exam Narrative Exam Narrative: GEN: Slightly disheveled male, alert and oriented x 3, patient appears to be in mild distress. Patient is diaphoretic. HEENT: Atraumatic, pupils are equal round reactive to light, extraocular movements are intact, nares are clear, there is no conjunctival pallor. No scleral icterus noted. Throat is clear without any exudates, erythema, tonsillar enlargement or uvular deviation, no visible external swelling of the neck. Patient is slightly hoarse, no stridor. No difficulty with secretions. Sitting back in the bed comfortably. HEART: Tachycardic but regular Regular rate and rhythm without murmur, clicks, rubs. Pulses are equal in upper and lower extremities LUNGS:Lungs clear to auscultation, no wheezes, rales, crackles, chest moves symmetrically, no tachypnea or accessory muscle use. ABD:bowel sounds normal, soft, nondistended. Non-tender, no guarding, rebound, rigidity, no masses noted, no hepatosplenomegaly :No CVA tenderness MSCL: Non-tender, no muscle atrophy, muscles strength 5/5 upper and lower extremities, full range of motion, normal gait NEURO:CN 2-12 intact, sensation normal. SKIN: No rash, erythema or other skin changes Initial Vital Signs Initial Vital Signs: Vital Signs Temperature 97.1 F L 06/12/23 07:50 Pulse Rate 142 H 06/12/23 07:50 Respiratory Rate 19 06/12/23 07:50 Blood Pressure 169/105 H 06/12/23 07:50 Pulse Oximetry 97 06/12/23 07:50 Oxygen Delivery Method Room Air 06/12/23 07:50 Course Orders Ordered: ED Orders 06/12/23 09:41 Urinalysis and Microscopic Stat Urine Culture Stat Urine Drug Screen, Rapid Stat Discontinued Medications Lactated Ringer's (Lactated Ringers) 2,422.17 mls @ 807.39 mls/hr 30 ml/kg infuse over 3 hr (2422.17 ml) IV NOW ONE Stop: 06/12/23 10:58 Last Infusion: 06/12/23 12:25 Dose: 0 mls/hr Documented By: Admin: 06/12/23 08:44 Dose: 807.39 mls/hr Documented By: NR Ceftriaxone Sodium 2,000 mg/ (Sodium Chloride) 100 mls @ 200 mls/hr IV NOW ONE Stop: 06/12/23 11:07 Last Infusion: 06/12/23 12:25 Dose: 0 mls/hr Documented By: Admin: 06/12/23 11:38 Dose: 200 mls/hr Documented By: NR Lorazepam (Lorazepam 2 Mg/Ml Inj) 1 mg IV NOW ONE Stop: 06/12/23 08:23 Last Admin: 06/12/23 08:46 Dose: 1 mg Documented By: NR Propranolol HCl (Propranolol 10 Mg Tablet) 10 mg PO NOW ONE Stop: 06/12/23 08:23 Last Admin: 06/12/23 08:48 Dose: 10 mg Documented By: NR Vital Signs Vital signs: Vital Signs - 8 hr 06/12/23 10:30 06/12/23 10:30 06/12/23 11:04 Pulse Rate 98 H 92 H Respiratory Rate 34 H 30 H Blood Pressure 133/90 Pulse Oximetry 93 92 06/12/23 11:05 06/12/23 11:05 06/12/23 11:30 Pulse Rate 87 Respiratory Rate 16 Blood Pressure 161/98 H 153/95 H Pulse Oximetry 97 06/12/23 11:30 06/12/23 12:00 06/12/23 12:01 Pulse Rate 86 82 Respiratory Rate 33 H 35 H Blood Pressure 214/109 H Pulse Oximetry 95 95 06/12/23 12:01 06/12/23 12:04 06/12/23 12:04 Pulse Rate 84 81 Respiratory Rate 33 H 20 Blood Pressure 164/90 H Pulse Oximetry 94 95 MDM - Anxiety Lab Data 06/12/23 08:22 06/12/23 08:22 Labs: Lab Results 06/12/23 06/12/23 06/12/23 Range/Units 08:22 08:22 08:22 WBC 15.2 H (4.5-11.0) X10^3/uL RBC 4.92 (4.5-5.9) X10^6/uL Hgb 15.9 (13.5-17.5) g/dL Hct 46.7 (41-53) % MCV 95.0 (80-100) fL MCH 32.3 (26-34) PG MCHC 34.0 (30-36) % RDW 14.1 (11.6-14.8) % Plt Count 445 H (150-400) X10^3/uL Neut % (Auto) 76.0 H (50-75) % Lymph % (Auto) 13.1 L (25-40) % Caswell % (Auto) 8.2 (3-14) % Eos % (Auto) 1.5 L (2-4) % Baso % (Auto) 1.2 (0-2) % Neut # (Auto) 54147 H (3417-2347) /uL Lymph # (Auto) 2000 (7517-7819) /uL Caswell # (Auto) 1200 H (0-900) /uL Eos # (Auto) 200 (0-450) /uL Baso # (Auto) 200 H (0-100) /uL PT 13.7 H (10.1-12.7) SECONDS INR 1.2 (0.9-1.3) APTT 27 (26-36) SECONDS D-Dimer (<500) ng/ml Sodium 139 (137-145) mmol/L Potassium 4.0 (3.4-5.1) mmol/L Chloride 102 (98-107) mmol/L Carbon Dioxide 25 (22-32) mmol/L BUN 17 (9-20) mg/dL Creatinine 0.73 (0.66-1.25) mg/dL Estimated GFR > 60 (>60) mL/min BUN/Creatinine Ratio 23.3 H (6-22) Glucose 178 H (70-100) mg/dL Lactate (0.7-2.1) mmol/L Calcium 9.4 (8.4-10.2) mg/dL Total Bilirubin 0.9 (0.2-1.3) mg/dL AST 46 (17-59) IU/L ALT 52 H (<50) IU/L Alkaline Phosphatase 105 (38-126) U/L Total Creatine Kinase 41 L (55-170) U/L Troponin I < 0.012 (0.01-0.034) ng/mL NT-Pro-B Natriuret Pep 63 (<125) pg/mL Total Protein 7.7 (6.3-8.2) g/dL Albumin 4.0 (3.5-5.0) g/dL Globulin 3.7 (1.7-4.1) g/dL Albumin/Globulin Ratio 1.1 (1.0-2.8) Lipase 333 H D (23-300) U/L Procalcitonin 0.11 (<0.5) ng/mL Urine Color Urine Appearance Urine pH (4.5-8.0) Ur Specific Ranger (1.000-1.035) Urine Protein (Negative) Urine Glucose (UA) (Negative) g/dL Urine Ketones (NEGATIVE) Urine Occult Blood (Negative) Urine Nitrate (Negative) Urine Bilirubin (NEGATIVE) Urine Urobilinogen (0.2) E.U./dL Ur Leukocyte Esterase (NEGATIVE) Urine RBC (0-5/HPF) Urine WBC (0-5/HPF) Ur Squamous Epith Cells (0-5/HPF) Urine Bacteria (None) Ur Culture Indicated? U Opiates 300ng/mL cut (Negative) Ur Oxycodone Screen (Negative) Urine Methadone Screen (Negative) Ur Barbiturates Screen (Negative) U Tricyclic Antidepress (Negative) Ur Phencyclidine Scrn (Negative) Ur Amphetamines Screen (Negative) U Methamphetamines Scrn (Negative) Ur MDMA Scrn (Ecstasy) (Negative) U Benzodiazepines Scrn (Negative) Urine Cocaine Screen (Negative) U Marijuana (THC) Screen (Negative) Ethyl Alcohol ( - 10) mg/dL 06/12/23 06/12/23 06/12/23 Range/Units 08:22 08:22 08:22 WBC (4.5-11.0) X10^3/uL RBC (4.5-5.9) X10^6/uL Hgb (13.5-17.5) g/dL Hct (41-53) % MCV (80-100) fL MCH (26-34) PG MCHC (30-36) % RDW (11.6-14.8) % Plt Count (150-400) X10^3/uL Neut % (Auto) (50-75) % Lymph % (Auto) (25-40) % Caswell % (Auto) (3-14) % Eos % (Auto) (2-4) % Baso % (Auto) (0-2) % Neut # (Auto) (2904-1328) /uL Lymph # (Auto) (1031-4280) /uL Caswell # (Auto) (0-900) /uL Eos # (Auto) (0-450) /uL Baso # (Auto) (0-100) /uL PT (10.1-12.7) SECONDS INR (0.9-1.3) APTT (26-36) SECONDS D-Dimer 3868 H (<500) ng/ml Sodium (137-145) mmol/L Potassium (3.4-5.1) mmol/L Chloride (98-107) mmol/L Carbon Dioxide (22-32) mmol/L BUN (9-20) mg/dL Creatinine (0.66-1.25) mg/dL Estimated GFR (>60) mL/min BUN/Creatinine Ratio (6-22) Glucose (70-100) mg/dL Lactate 1.3 (0.7-2.1) mmol/L Calcium (8.4-10.2) mg/dL Total Bilirubin (0.2-1.3) mg/dL AST (17-59) IU/L ALT (<50) IU/L Alkaline Phosphatase (38-126) U/L Total Creatine Kinase (55-170) U/L Troponin I (0.01-0.034) ng/mL NT-Pro-B Natriuret Pep (<125) pg/mL Total Protein (6.3-8.2) g/dL Albumin (3.5-5.0) g/dL Globulin (1.7-4.1) g/dL Albumin/Globulin Ratio (1.0-2.8) Lipase (23-300) U/L Procalcitonin (<0.5) ng/mL Urine Color Urine Appearance Urine pH (4.5-8.0) Ur Specific Ranger (1.000-1.035) Urine Protein (Negative) Urine Glucose (UA) (Negative) g/dL Urine Ketones (NEGATIVE) Urine Occult Blood (Negative) Urine Nitrate (Negative) Urine Bilirubin (NEGATIVE) Urine Urobilinogen (0.2) E.U./dL Ur Leukocyte Esterase (NEGATIVE) Urine RBC (0-5/HPF) Urine WBC (0-5/HPF) Ur Squamous Epith Cells (0-5/HPF) Urine Bacteria (None) Ur Culture Indicated? U Opiates 300ng/mL cut (Negative) Ur Oxycodone Screen (Negative) Urine Methadone Screen (Negative) Ur Barbiturates Screen (Negative) U Tricyclic Antidepress (Negative) Ur Phencyclidine Scrn (Negative) Ur Amphetamines Screen (Negative) U Methamphetamines Scrn (Negative) Ur MDMA Scrn (Ecstasy) (Negative) U Benzodiazepines Scrn (Negative) Urine Cocaine Screen (Negative) U Marijuana (THC) Screen (Negative) Ethyl Alcohol < 10 ( - 10) mg/dL 06/12/23 06/12/23 Range/Units 09:41 09:41 WBC (4.5-11.0) X10^3/uL RBC (4.5-5.9) X10^6/uL Hgb (13.5-17.5) g/dL Hct (41-53) % MCV (80-100) fL MCH (26-34) PG MCHC (30-36) % RDW (11.6-14.8) % Plt Count (150-400) X10^3/uL Neut % (Auto) (50-75) % Lymph % (Auto) (25-40) % Caswell % (Auto) (3-14) % Eos % (Auto) (2-4) % Baso % (Auto) (0-2) % Neut # (Auto) (5333-6361) /uL Lymph # (Auto) (2725-0107) /uL Caswell # (Auto) (0-900) /uL Eos # (Auto) (0-450) /uL Baso # (Auto) (0-100) /uL PT (10.1-12.7) SECONDS INR (0.9-1.3) APTT (26-36) SECONDS D-Dimer (<500) ng/ml Sodium (137-145) mmol/L Potassium (3.4-5.1) mmol/L Chloride (98-107) mmol/L Carbon Dioxide (22-32) mmol/L BUN (9-20) mg/dL Creatinine (0.66-1.25) mg/dL Estimated GFR (>60) mL/min BUN/Creatinine Ratio (6-22) Glucose (70-100) mg/dL Lactate (0.7-2.1) mmol/L Calcium (8.4-10.2) mg/dL Total Bilirubin (0.2-1.3) mg/dL AST (17-59) IU/L ALT (<50) IU/L Alkaline Phosphatase (38-126) U/L Total Creatine Kinase (55-170) U/L Troponin I (0.01-0.034) ng/mL NT-Pro-B Natriuret Pep (<125) pg/mL Total Protein (6.3-8.2) g/dL Albumin (3.5-5.0) g/dL Globulin (1.7-4.1) g/dL Albumin/Globulin Ratio (1.0-2.8) Lipase (23-300) U/L Procalcitonin (<0.5) ng/mL Urine Color Yellow Urine Appearance Clear Urine pH 6.5 (4.5-8.0) Ur Specific Ranger <=1.005 (1.000-1.035) Urine Protein Negative (Negative) Urine Glucose (UA) Negative (Negative) g/dL Urine Ketones Trace H (NEGATIVE) Urine Occult Blood Negative (Negative) Urine Nitrate Positive H (Negative) Urine Bilirubin Negative (NEGATIVE) Urine Urobilinogen 1.0 (0.2) E.U./dL Ur Leukocyte Esterase Negative (NEGATIVE) Urine RBC None seen (0-5/HPF) Urine WBC 1-5/hpf (0-5/HPF) Ur Squamous Epith Cells 0-1 /hpf (0-5/HPF) Urine Bacteria Few (2-10) H (None) Ur Culture Indicated? Specimen cultured U Opiates 300ng/mL cut Negative (Negative) Ur Oxycodone Screen Negative (Negative) Urine Methadone Screen Negative (Negative) Ur Barbiturates Screen Positive H (Negative) U Tricyclic Antidepress Negative (Negative) Ur Phencyclidine Scrn Negative (Negative) Ur Amphetamines Screen Negative (Negative) U Methamphetamines Scrn Negative (Negative) Ur MDMA Scrn (Ecstasy) Negative (Negative) U Benzodiazepines Scrn Positive H (Negative) Urine Cocaine Screen Negative (Negative) U Marijuana (THC) Screen Negative (Negative) Ethyl Alcohol ( - 10) mg/dL Imaging Data Chest x-ray: Radiologist's Impression: Close Chest CTA (Signed) Ant Harris - 06/12/23 Abdomen/Pelvis CT (Signed) HarrisAnt - 06/12/23 Chest X-Ray (Signed) Hernando Emerson - 06/12/23 Soft Tissue Neck X-Ray (Signed) JonathanHawa - 06/08/23 Chest X-Ray (Signed) JonathanAntolinHawa - 06/08/23 Vascular Ultrasound (Signed) Bill Bassmariangel - 06/08/23 Echocardiogram Ultrasound (Signed) Gayathri Marrero - 06/06/23 Chest X-Ray (Signed) Pritchett,Golden - 06/05/23 Chest X-Ray (Signed) Candis,Golden - 06/05/23 Abdomen X-Ray (Signed) Pritchett,Golden - 06/05/[address] (Signed) Candis,Golden - 06/05/23 Chest X-Ray (Signed) Pritchett,Golden - 06/05/23 Chest X-Ray (Signed) Pritchett,Golden - 06/05/23 Cervical Spine X-Ray (Signed) Pritchett,Golden - 06/05/23 Abdomen Ultrasound (Signed) Hernando Diane - 06/04/23 Chest X-Ray (Signed) Hernando Diane - 06/04/23 Chest X-Ray (Signed) Luis Rhdoes - 06/03/23 Abdomen/Pelvis CT (Signed) Luis Rhodes - 06/03/23 Abdomen Ultrasound (Signed) Candis,Golden - 05/12/23 Launch?[address] [address] XRay Report Signed Patient: Scot Rosenberg MR#: [id number] : 1980 Acct:[id number] Age/Sex: 42 / M Date of Service: 06/12/23 Loc: ED Accession Number: [id number] ?? Procedure: XR chest 1V Ordering Provider: Jennifer Seymour D.O. PROCEDURE:? XR CHEST 1V ? INDICATIONS:? tachycardia, anxiety, recent necrotizing pancreatitis ? TECHNIQUE:? One view of the chest was acquired.? ? COMPARISON:? [facility], CR, XR CHEST 1V, 06/08/2023, 12:42.? [facility], CR, XR CHEST FOR PICC 1V, 06/05/2023, 15:02. ? FINDINGS:? ? Surgical changes and devices:? None.? ? Lungs and pleura:? Lungs are clear.? No pleural effusions or pneumothorax.? ? Mediastinum:? Mediastinal contours appear normal.? Heart size is normal.? ? Bones and chest wall:? No suspicious bony lesions.? Overlying soft tissues appear unremarkable.? ? ? IMPRESSION:? No acute cardiopulmonary abnormality. ? ? Dictated by: Hernando Emerson M.D. on 06/12/2023 at 8:31 ? ? Approved by: Hernando Emerson M.D. on 06/12/2023 at 8:32?? CT scan - chest: Radiologist's Impression: [place] [address] CT Scan Report Signed Patient: Scot Rosenberg MR#: [id number] : 1980 Acct:[id number] Age/Sex: 42 / M Date of Service: 06/12/23 Loc: ED Accession Number: [id number] ?? Procedure: CT angio chest PE protocol Ordering Provider: Jennifer Seymour D.O. PROCEDURE:? CT ANGIO CHEST PE PROTOCOL ? INDICATIONS:? tachycardia, diaphoresis, recent hospitalization, +dimer ? TECHNIQUE:? After the administration of intravenous contrast, 2 mm thick sections acquired from the pulmonary apices to the posterior costophrenic angles.? MIP reformats of the arterial vasculature were utilized.? For radiation dose reduction, the following was used:? automated exposure control, adjustment of mA and/or kV according to patient size.? ? COMPARISON:? None. ? FINDINGS:? Image quality:? Excellent.? ? Pulmonary arteries:? Pulmonary arteries are normal in size, and demonstrate no intraluminal filling defects to suggest central pulmonary embolism.? ? Lungs and pleura:? Small bibasilar pleural effusions associated compressive atelectasis ? Mediastinum:? Heart size is normal, without pericardial effusion.? No mediastinal or hilar adenopathy.? Thoracic aorta is normal in caliber and enhancement.? Esophagus is normal in caliber, without hiatal hernia.? ? Bones and chest wall:? No suspicious bony lesions.? Ribs and thoracic spine appear intact throughout.? Thyroid gland unremarkable.? No axillary or supraclavicular adenopathy.? ? Abdomen:? Visualized upper abdominal solid organs appear normal in the early arterial phase of enhancement.? ? IMPRESSION:? ? No evidence of pulmonary embolism, dissection or aneurysm. ? Small bilateral pleural effusions with associated compressive atelectasis. ? ? ? Approved by: Ant Harris M.D. on 06/12/2023 at 9:41 CT scan - abdomen/pelvis: Radiologist's Impression: [address] [address] [address] Scan Report Signed Patient: Scot Rosenberg MR#: [id number] : 1980 Acct:[id number] Age/Sex: 42 / M Date of Service: 06/12/23 Loc: ED Accession Number: [id number] ?? Procedure: CT abdomen pelvis w con Ordering Provider: Jennifer Seymour D.O. PROCEDURE:? CT ABDOMEN PELVIS W CON ? INDICATIONS:? 42-year-old male with tachycardia and recent necrotizing pancreatitis requiring hospitalization ? TECHNIQUE:? After the administration of intravenous contrast, axial sections acquired from the lung bases to the pubic symphysis.? Coronal and sagittal reformats were performed.? For radiation dose reduction, the following was used:? automated exposure control, adjustment of mA and/or kV according to patient size.? ? COMPARISON:? [facility], CT, CT ABDOMEN PELVIS W CON, 06/03/2023, 1:22. ? FINDINGS: ? Liver: The liver is diffusely decreased in attenuation without focal mass l esion. ? Biliary system:? No calcified cholelithiasis or pericholecystic inflammation.? No intra or extrahepatic bile duct dilatation. ? Pancreas:? Pancreatic edema and peripancreatic phlegmon has improved.? No evidence of organized pseudocyst or abscess.? Focal cystic change in the body and particu larly the uncinate process of the pancreas is again noted, consistent with necrotizing pancreatitis ? Spleen:? Normal in size and density. ? Adrenals:? Normal morphology and density. ? Reproductive system:? Unremarkable as visualized. ? Urinary system:? Normal renal size and attenuation. No renal calculi, hydronephrosis, or solid mass present.? Urinary bladder unremarkable. ? Gastrointestinal system:? The bowel is unremarkable without evidence of bowel obstruction or inflammation. The stomach appears unremarkable. ? Appendix:? No findings to suggest acute appendicitis. ? Peritoneal spaces:? Trace free fluid is much improved from the prior ? Vasculature:? The IVC, aorta and iliac vasculature are unremarkable. ? Abdominal wall:? Bilateral inguinal hernia(s) contain fat without bowel involvem ent. ? Musculoskeletal:? Normal bone mineralization.? No acute fractures.? ? IMPRESSION: ? 1. Persistent but improving necrotizing pancreatitis.? Free fluid in the pelvis has resolved in the interval.? No evidence of organized abscess or pseudocyst.? Approved by: Ant Harris M.D. on 06/12/2023 at 9:51? ECG Data Attestation: I personally reviewed and interpreted this ECG as follows: Prior ECG tracings: available for review Interpretation: Sinus tachycardia rate of 131 DE 118 QRS is [address] No acute [address] elevation or depression noted. Patient has prior from 06/03/23 with no acute or dynamic changes, also shows sinus tachycardia at that time. MDM Narrative Medical decision making narrative: 42-year-old male with history of chronic alcohol abuse who notes he also has had some benzodiazepine use. Patient was recently hospitalized for 9 days for necrotizing pancreatitis, alcohol withdrawal and developed significant DTs stridor and was intubated patient ultimately self extubated and tolerated well he has some persistent mild hoarseness but states not worsening airway he p resents today with anxiety and feeling like he is in withdrawals from benzodiazepine. Patient states last drink was when he was hospitalized on 06/03, he should be outside the window for alcohol withdrawal at this time. He is tachycardic, diaphoretic does note some dark urination with some altered smell. Patient did not have his oral propranolol this morning. We will get fluids, oral propranolol dose of benzodiazepine, labs to evaluate for sepsis, acute kidney injury, pulmonary emboli, cardiac sources. Workup shows leukocytosis, hemoglobin is 15 platelets are 445. Lactate negative, procalcitonin is negative. Coags shows significantly elevated D-dimer at 3800. Patient had recent hospit alization with tachycardia he is not hypoxic but should have CT angio of the chest to rule out pulmonary emboli. Electrolytes, creatinine, LFTs are fairly appropriate ALT is 52, total CK is 41- troponin negative BNP. Lipase is slightly elevated at 333. ETOH is negative. UA shows nitrite positive urine suspicious for UTI. UDS is positive for barbiturates which could be from patient's hospitalization if he received phenobarbital and positive for benzodiazepines. Patient did give dose here. Chest x-ray showed no acute change. With patient's recent hospitalization for necrotizing pancreatitis had some small areas that were concerning but no fluid collections CT chest abdomen pelvis was obtained. Reviewed patient's chart he was noted to be high-risk for DVT but was on subcutaneous prophylaxis and did have DVT ultrasounds which were negative on 06/08/2023 but did shows a Chicas's cyst. His echo from 06/06/2023 was also reviewed showed an EF of 50-55% normal with no evidence of shunt, mitral valve leaflets a borderline thickened but open well mild mitral regurg with trace aortic regurg and trivial pericardial effusion noted. Discussed with patient dimer could be elevated like an secondary to early to polycythemia but with his recent hospitalization, tachycardia diaphoresis felt very appropriate to image with CT angio of the chest and with elevation in white count and platelets would also image abdomen and pelvis. Patient was not quite as elevated during his hospitalization. Patient's workup here shows CT angio has some component of atelectasis pleural effusions but no CT findings of pulmonary emboli or clot, acute changes. Patient's CT abdomen pelvis shows some improvement persistent necrotizing pancreatitis but improving from prior. Patient's workup shows a nitrate positive urine, possible pneumonia versus pleural effusions. Would cover patient with antibiotics his heart rate improved into the 90s with fluids, dose of oral propranolol and a dose of 1 mg of Ativan. Patient is felt safe for discharge home. Plan for antibiotics, we will discuss about a short tapering dose of benzodiazepines unclear if he was taking that regularly but may have been. Patient states he was not taking benzodiazepines regularly until his hospitalization but was taking a lot in the hospital. 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 Discussed return precautions. Also discussed with patient about safety, SI or HI. Patient denies. Did offer to have [facility] reach out to him as we do not have 1 here today patient states he feel like he was well connected prior to discharge. Patient defers [facility] contact but does have some follow up in place. Discharge Plan Departure Patient Disposition: Home Clinical Impression: Acute UTI, Pleural effusion Instructions: DI for Urinary Tract Infection (UTI) Activity Restrictions/Additional Instructions: Your workup today does show a nitrate positive urine consistent with UTI, there is some small pleural effusions with possible atelectasis on your CT imaging but no blood clots in your lungs. Your necrotizing pancreatitis does appear to be improving on CT imaging, there are no fluid collections today or signs of abscess or psuedocyst. Continue to avoid alcohol. Please take antibiotics until completed. Please continue your home medications as prescribed. A short course of oral benzodiazepine is included, I would recommend using this sparingly and follow up with primary care. This medication can make you sleepy do not drive, perform hazardous activities or make any major decisions while taking it. [facility] [place] Please return at any time for fevers, new or worsening abdominal chest or back or flank pain, shortness of breath, lightheadedness or passing out, persistent vomiting, black or bloody stools, persistent shaking, seizure activity, altered mental status or other new or concerning changes. Prescriptions: New levofloxacin 750 mg tablet 750 mg PO DAILY 7 Days Qty: 7 0RF alprazolam 1 mg tablet See Rx Instructions .ROUTE .COMPLEX Qty: 10 0RF Rx Instructions: You may take 1 tablet p.o. b.i.d. times 2 days, then half tablet p.o. t.i.d. x2 days, then half tablet p.o. b.i.d. x2 days, then half tablet p.o. daily x2 days, then half tablet p.o. q.h.s. x 2 days. No Action lisinopril 10 mg tablet 10 mg PO DAILY Patient Comments: take 1 tablet by mouth once daily bupropion HCl [Wellbutrin XL] 150 mg Tablet Extended Release 24 Hr 450 mg PO QAM cetirizine [Zyrtec] 10 mg Tablet 10 mg PO DAILY PRN (Reason: Itching) Patient Comments: PT USES UP TO 30 MG QDAY PRN TORSO ITCH tadalafil 10 mg tablet 10 mg PO PRN PRN (Reason: Sexual Activity) Rx Instructions: administer approximately 30min before sexual activity; do not use more than 10mg dose per 24hrs aspirin 81 mg Tablet,Chewable 81 mg PO DAILY prednisone 20 mg tablet See Rx Instructions .ROUTE .COMPLEX Qty: 5 0RF Rx Instructions: 40 mg x1 day, 30 mg x1 day, 20 mg x1 day, 10 mg x1 day then stop omeprazole 20 mg capsule,delayed release(DR/EC) 20 mg PO DAILY propranolol 10 mg tablet 20 mg PO BID Referrals: Emanuel Chapa MD [Primary Care Provider] - Stand Alone Forms: Patient Portal/API
--- NOTE | 2023-06-12 07:59 | DI.RAD.S_ITS ---
PROCEDURE: XR CHEST 1V INDICATIONS: tachycardia, anxiety, recent necrotizing pancreatitis TECHNIQUE: One view of the chest was acquired. COMPARISON: [facility], [place], XR CHEST 1V, 06/08/2023, 12:42. [facility], [place], XR CHEST FOR PICC 1V, 06/05/2023, 15:02. FINDINGS: Surgical changes and devices: None. Lungs and pleura: Lungs are clear. No pleural effusions or pneumothorax. Mediastinum: Mediastinal contours appear normal. Heart size is normal. Bones and chest wall: No suspicious bony lesions. Overlying soft tissues appear unremarkable. IMPRESSION: No acute cardiopulmonary abnormality. Dictated by: Hernando Emerson M.D. on 06/12/2023 at 8:31 Approved by: Hernando Emerson M.D. on 06/12/2023 at 8:32
[2023-06-12 08:33] LABS: Add Manual Diff / Slide Review NO; Basophils Absolute Auto 200 /uL (0-100); Basophils Percent Auto 1.2 % (0-2); Eosinophils Absolute Auto 200 /uL (0-450); Eosinophils Percent Auto 1.5 % (2-4); Hematocrit 46.7 % (41-53); Hemoglobin 15.9 g/dL (13.5-17.5); Lymphocytes Absolute Auto 2000 /uL (1100-4500); Lymphocytes Percent Auto 13.1 % (25-40); Mean Corpuscular Hemoglobin 32.3 PG (26-34); Monocytes Absolute Auto 1200 /uL (0-900); Monocytes Percent Auto 8.2 % (3-14); Neutrophils Absolute Auto 11500 /uL (1500-7000); Platelet Count 445 X10^3/uL (150-400); Red Blood Cell Count 4.92 X10^6/uL (4.5-5.9); Red Cell Distribution Width 14.1 % (11.6-14.8); White Blood Cell Count 15.2 X10^3/uL (4.5-11.0)
[2023-06-12] MEDS: LACTATED RINGERS 807.39 ML IV (08:44)
[2023-06-12 08:45] LABS: INR 1.2 (0.9-1.3); Prothrombin Time 13.7 SECONDS (10.1-12.7)
[2023-06-12] MEDS: LORazepam 2 MG/ML INJ 1 MG IV (08:46)
[2023-06-12] MEDS: PROPRANOLOL 10 MG TABLET PO (08:48)
[2023-06-12 08:49] LABS: Lactate (Lactic Acid) 1.3 mmol/L (0.7-2.1)
[2023-06-12 08:50] LABS: Alanine Aminotransferase 52 IU/L (<50); Albumin Globulin Ratio 1.1 (1.0-2.8); Alkaline Phosphatase 105 U/L (38-126); Aspartate Aminotransferase 46 IU/L (17-59); BUN Creatinine Ratio 23.3 (6-22); Bilirubin Total 0.9 mg/dL (0.2-1.3); Blood Urea Nitrogen 17 mg/dL (9-20); Calcium 9.4 mg/dL (8.4-10.2); Carbon Dioxide 25 mmol/L (22-32); Chloride 102 mmol/L (98-107); Creatine Kinase 41 U/L (55-170); Estimated Glomerular Filt Rate > 60 mL/min (>60); Globulin 3.7 g/dL (1.7-4.1); Glucose 178 mg/dL (70-100); HEMOLYSIS < 15 (0-50); Lipase 333 U/L (23-300); PTT Partial Thromboplastin Tim 27 SECONDS (26-36); Sodium 139 mmol/L (137-145); Total Protein 7.7 g/dL (6.3-8.2)
[2023-06-12 08:51] LABS: D Dimer 3868 ng/ml (<500)
[2023-06-12 09:02] LABS: NT-proBNP (BNP-Adult 18+) 63 pg/mL (<125); Troponin I < 0.012 ng/mL (0.01-0.034)
--- NOTE | 2023-06-12 09:04 | DI.CT.S_ITS ---
PROCEDURE: CT ABDOMEN PELVIS W CON INDICATIONS: 42-year-old male with tachycardia and recent necrotizing pancreatitis requiring hospitalization TECHNIQUE: After the administration of intravenous contrast, axial sections acquired from the lung bases to the pubic symphysis. Coronal and sagittal reformats were performed. For radiation dose reduction, the following was used: automated exposure control, adjustment of mA and/or kV according to patient size. COMPARISON: [facility], CT, CT ABDOMEN PELVIS W CON, 06/03/2023, 1:22. FINDINGS: Liver: The liver is diffusely decreased in attenuation without focal mass lesion. Biliary system: No calcified cholelithiasis or pericholecystic inflammation. No intra or extrahepatic bile duct dilatation. Pancreas: Pancreatic edema and peripancreatic phlegmon has improved. No evidence of organized pseudocyst or abscess. Focal cystic change in the body and particularly the uncinate process of the pancreas is again noted, consistent with necrotizing pancreatitis Spleen: Normal in size and density. Adrenals: Normal morphology and density. Reproductive system: Unremarkable as visualized. Urinary system: Normal renal size and attenuation. No renal calculi, hydronephrosis, or solid mass present. Urinary bladder unremarkable. Gastrointestinal system: The bowel is unremarkable without evidence of bowel obstruction or inflammation. The stomach appears unremarkable. Appendix: No findings to suggest acute appendicitis. Peritoneal spaces: Trace free fluid is much improved from the prior Vasculature: The IVC, aorta and iliac vasculature are unremarkable. Abdominal wall: Bilateral inguinal hernia(s) contain fat without bowel involvement. Musculoskeletal: Normal bone mineralization. No acute fractures. IMPRESSION: 1. Persistent but improving necrotizing pancreatitis. Free fluid in the pelvis has resolved in the interval. No evidence of organized abscess or pseudocyst. Approved by: Ant Harris M.D. on 06/12/2023 at 9:51
--- NOTE | 2023-06-12 09:04 | DI.CT.S_ITS ---
PROCEDURE: CT ANGIO CHEST PE PROTOCOL INDICATIONS: tachycardia, diaphoresis, recent hospitalization, +dimer TECHNIQUE: After the administration of intravenous contrast, 2 mm thick sections acquired from the pulmonary apices to the posterior costophrenic angles. MIP reformats of the arterial vasculature were utilized. For radiation dose reduction, the following was used: automated exposure control, adjustment of mA and/or kV according to patient size. COMPARISON: None. FINDINGS: Image quality: Excellent. Pulmonary arteries: Pulmonary arteries are normal in size, and demonstrate no intraluminal filling defects to suggest central pulmonary embolism. Lungs and pleura: Small bibasilar pleural effusions associated compressive atelectasis Mediastinum: Heart size is normal, without pericardial effusion. No mediastinal or hilar adenopathy. Thoracic aorta is normal in caliber and enhancement. Esophagus is normal in caliber, without hiatal hernia. Bones and chest wall: No suspicious bony lesions. Ribs and thoracic spine appear intact throughout. Thyroid gland unremarkable. No axillary or supraclavicular adenopathy. Abdomen: Visualized upper abdominal solid organs appear normal in the early arterial phase of enhancement. IMPRESSION: No evidence of pulmonary embolism, dissection or aneurysm. Small bilateral pleural effusions with associated compressive atelectasis. Approved by: Ant Harris M.D. on 06/12/2023 at 9:41
[2023-06-12 09:07] LABS: Ethanol (ETOH) < 10 mg/dL; Procalcitonin 0.11 ng/mL (<0.5)
[2023-06-12 09:58] LABS: Appearance Urine UA CLEAR; Bilirubin Urine UA NEGATIVE (NEGATIVE); Color Urine UA YELLOW; Glucose Urine UA NEGATIVE (Negative); Ketones Urine UA TRACE (NEGATIVE); Leukocyte Esterase Urine UA NEGATIVE (NEGATIVE); Nitrite Urine UA POSITIVE (Negative); Occult Blood Urine UA NEGATIVE (Negative); Protein Urine UA NEGATIVE (Negative); Specific Gravity Urine UA <=1.005 (1.000-1.035); pH Urine UA 6.5 (4.5-8.0)
[2023-06-12 09:59] LABS: Ur Creatinine Normal (Normal); Ur Specific Gravity Normal (Normal); Urine pH Normal (Normal)
[2023-06-12 10:00] LABS: UR Morphine/Opiate cutoff 300 Negative (Negative); Urine Amphetamines Negative (Negative); Urine Barbiturates Positive (Negative); Urine Benzodiazepines Positive (Negative); Urine Cocaine Negative (Negative); Urine MDMA Negative (Negative); Urine Methadone Negative (Negative); Urine Methamphetamines Negative (Negative); Urine Oxycodone Negative (Negative); Urine Phencyclidine Negative (Negative); Urine Tetrahydrocannabinol Negative (Negative); Urine Tricyclic Antidepressant Negative (Negative)
[2023-06-12 10:21] LABS: Bacteria Urine Few (2-10); Culture Indicated Urine Specimen Cultured; RBC Urine None Seen (0-5/HPF); Squamous Epithelial Cell Urine 0-1 /HPF (0-5/HPF); WBC Urine 1-5/HPF (0-5/HPF)
[2023-06-12] MEDS: cefTRIAXone 2,000 MG in SODIUM CHLORIDE 0.9% 100 ML 200 MG IV (11:38)
== END 2023-06-12 12:29 | disposition home or self-care (01) ==
PROVIDERS: Emergency Provider Emergency Medicine; PCP Family Medicine
DX: N39.0 Urinary tract infection, site not specified (principal); B96.20 Unspecified Escherichia coli [E. coli] as the cause of diseases classified elsewhere; R00.0 Tachycardia, unspecified; F10.10 Alcohol abuse, uncomplicated; F41.9 Anxiety disorder, unspecified; R79.89 Other specified abnormal findings of blood chemistry; Z79.899 Other long term (current) drug therapy
CPT/HCPCS: 36415; 71045; 71275; 74177; 80053; 80305; 80320; 81001; 82550; 83605; 83690; 83880; 84145; 84484; 85025; 85379; 85610; 85730; 87040; 87077; 87086; 87186; 93005; 93010; 96365; 96375; 99285; J0696; J2060; Q9967

== ENCOUNTER 2023-06-29 13:42 | Emergency (ER) | payer OTHER, MEDICAID, SELFPAY ==
[2023-06-06 12:49] VITALS: BMI 29.0
[2023-06-07 16:30] VITALS: O2SAT 95
[2023-06-08 08:24] VITALS: PULSE 78; RESP 0; RESP 16
[2023-06-29] VITALS (30 sets, daily range): BP systolic 124–194; BP diastolic 78–111; PULSE 74–99; RESP 17; TEMP 36.6; O2SAT 81–99; BMI 26.1
--- NOTE | 2023-06-29 14:11 | ED.GENADULT ---
HPI - General Adult <Mark Thomas DO - Last Filed: 07/05/23 07:18> General Chief complaint: Abdominal Pain Stated complaint: abd pain Time Seen by Provider: 06/29/23 14:02 Source: patient Mode of arrival: Ambulatory History of Present Illness HPI narrative: Patient is a 42-year-old male. He is here for evaluation of epigastric abdominal pain that he had shortly after he woke up this morning. Has been consistent since then. He had some nausea when he tried to drink some Gatorade earlier today but has been tolerating oral intake since that. No change in bowel habits. No urinary symptoms. He did recently have an issue with pancreatitis secondary to alcohol use although he states this feels separate from that. He is no chest pain or shortness of breath. He did have an umbilical hernia repair but no other abdominal surgeries. Related Data Home Medications Medication Instructions Recorded Confirmed omeprazole 20 mg capsule,delayed 20 mg PO DAILY 05/06/21 06/03/23 release propranolol 10 mg tablet 20 mg PO BID 07/30/21 06/03/23 lisinopril 10 mg tablet 10 mg PO DAILY 08/15/21 06/03/23 bupropion HCl 150 mg 24 hr tablet, 450 mg PO QAM 04/01/23 06/03/23 extended release (Wellbutrin XL) cetirizine 10 mg tablet (Zyrtec) 10 mg PO DAILY PRN Itching 04/01/23 06/03/23 tadalafil 10 mg tablet 10 mg PO PRN PRN Sexual Activity 04/01/23 06/03/23 aspirin 81 mg chewable tablet 81 mg PO DAILY 06/03/23 06/03/23 Previous Rx's Medication Instructions Recorded prednisone 20 mg tablet See Rx Instructions .Route 06/11/23 .COMPLEX #5 tabs alprazolam 1 mg tablet See Rx Instructions .Route 06/12/23 .COMPLEX #10 tabs Allergies Allergy/AdvReac Type Severity Reaction Status Date / Time No Known Drug Allergies Allergy Verified 06/12/23 07:56 Review of Systems <Mark Thomas DO - Last Filed: 07/05/23 07:18> Constitutional Constitutional: Reports system reviewed and no additional complaints, except as documented Cardiovascular Cardiovascular: Reports system reviewed and no additional complaints, except as documented Respiratory Respiratory: Reports system reviewed and no additional complaints, except as documented Gastrointestinal Gastrointestinal: Reports system reviewed and no additional complaints, except as documented Genitourinary Genitourinary: Reports system reviewed and no additional complaints, except as documented Integumentary/Breasts Skin/Breast: Reports system reviewed and no additional complaints, except as documented Hematologic/Lymphatic On Anticoagulants: No Patient History <Mark Thomas DO - Last Filed: 07/05/23 07:18> Medical History Aftercare following left finger joint replacement surgery Depression Erectile dysfunction due to arterial insufficiency Family history of hypertension Finger wound, simple, open HTN (hypertension) Hyperlipidemia Migraine headache Sterilization consult Surgical History H/O circumcision H/O umbilical hernia repair Family History Mother Hypertension History of thyroid disorder Social History marital status: number of children: 2 household members: none occupational status: employed leisure activities: exercise Smoking Status: Never smoker alcohol intake: current substance use type: does not use Type(s) of exercise: weight lifting and running frequency: 5-6 times per week duration: 45-60 minutes/day Smoking Status: Never smoker tobacco type: cigarettes alcohol intake frequency: other Alcohol type: hard liquor Substance Use Type: does not use Exam <Mark Thomas DO - Last Filed: 07/05/23 07:18> Initial Vital Signs Initial Vital Signs: Vital Signs Temperature 98 F 06/29/23 13:49 Pulse Rate 77 06/29/23 13:49 Respiratory Rate 17 06/29/23 13:49 Blood Pressure 194/111 H 06/29/23 13:49 Pulse Oximetry 99 06/29/23 13:49 Oxygen Delivery Method Room Air 06/29/23 13:49 Const General: cooperative, comfortable and No ill appearing HENMT Head: normal to inspection and normocephalic Resp Effort & Inspection: normal respiratory effort Auscultation: clear to auscultation bilaterally Cardio Rate: regular rate Rhythm: regular rhythm GI Inspection: normal to inspection and non-distended Palpation: soft and tender (Epigastric tenderness) Back/Spine/Pelvis Back: No CVA tenderness Skin General: no rashes or lesions noted Neuro General: patient alert, patient awake and moves all extremities Extrem General: normal to inspection <Unruly Hurd DO - Last Filed: 06/30/23 00:36> Initial Vital Signs Initial Vital Signs: Vital Signs Temperature 98 F 06/29/23 13:49 Pulse Rate 77 06/29/23 13:49 Respiratory Rate 17 06/29/23 13:49 Blood Pressure 194/111 H 06/29/23 13:49 Pulse Oximetry 99 06/29/23 13:49 Oxygen Delivery Method Room Air 06/29/23 13:49 Course <Mark Thomas DO - Last Filed: 07/05/23 07:18> Orders Ordered: Discontinued Medications Al Hydrox/Mg Hydrox/Simethicone 20 ml/ Lidocaine HCl 15 ml 0 ml PO NOW ONE Stop: 06/29/23 14:49 Last Admin: 06/29/23 15:14 Dose: 35 ml Documented By: MPO Hydromorphone HCl (Hydromorphone 0.5 Mg Inj) 0.5 mg IV NOW ONE Stop: 06/29/23 21:13 Last Admin: 06/29/23 21:14 Dose: 0.5 mg Documented By: Hydromorphone HCl (Hydromorphone 0.5 Mg Inj) 0.5 mg IV Q2HR PRN PRN Reason: Pain, Severe (7-10) Last Admin: 06/29/23 23:51 Dose: 0.5 mg Documented By: Sodium Chloride (Normal Saline 0.9%) 1,000 mls @ 1,000 mls/hr IV BOLUS ONE Stop: 06/29/23 18:14 Last Infusion: 06/29/23 18:11 Dose: 0 mls/hr Documented By: Admin: 06/29/23 17:19 Dose: 1,000 mls/hr Documented By: KM Sodium Chloride (Normal Saline 0.9%) 1,000 mls @ 125 mls/hr IV CONT MEMO Last Infusion: 06/30/23 00:50 Dose: 125 mls/hr Documented By: Admin: 06/29/23 19:46 Dose: 125 mls/hr Documented By: Lorazepam (Lorazepam 2 Mg/Ml Inj) 1 mg IV NOW ONE Stop: 06/29/23 17:50 Last Admin: 06/29/23 18:01 Dose: 1 mg Documented By: MATTI Ondansetron HCl (Ondansetron 4 Mg Odt) 4 mg PO NOW PRN PRN Reason: Nausea And Vomiting Ondansetron HCl (Ondansetron 4 Mg/2 Ml Inj) 4 mg IV NOW PRN PRN Reason: Nausea And Vomiting Pantoprazole Sodium (Pantoprazole 40 Mg Vial) 40 mg IV NOW ONE Stop: 06/29/23 14:49 Last Admin: 06/29/23 15:13 Dose: 40 mg Documented By: MATTI Propranolol HCl (Propranolol 10 Mg Tablet) 10 mg PO NOW ONE Stop: 06/29/23 22:45 Last Admin: 06/29/23 22:48 Dose: 10 mg Documented By: Vital Signs Vital signs: Vital Signs - 8 hr 06/29/23 17:30 06/29/23 17:31 06/29/23 17:31 Pulse Rate 84 79 Blood Pressure 147/87 H Pulse Oximetry 99 98 06/29/23 17:45 06/29/23 18:00 06/29/23 18:00 Pulse Rate 88 85 Blood Pressure 155/91 H Pulse Oximetry 98 97 06/29/23 18:15 06/29/23 18:30 06/29/23 18:30 Pulse Rate 89 98 H Blood Pressure 157/92 H Pulse Oximetry 98 97 06/29/23 18:45 06/29/23 19:00 06/29/23 19:00 Pulse Rate 99 H 95 H Blood Pressure 136/90 Pulse Oximetry 96 96 06/29/23 19:40 06/29/23 19:40 06/29/23 19:45 Pulse Rate 91 H 90 Blood Pressure 134/88 Pulse Oximetry 97 97 06/29/23 20:00 06/29/23 20:00 06/29/23 20:15 Pulse Rate 86 82 Blood Pressure 141/88 H Pulse Oximetry 98 97 06/29/23 20:30 06/29/23 20:30 06/29/23 20:45 Pulse Rate 82 85 Blood Pressure 139/83 Pulse Oximetry 97 97 06/29/23 21:00 06/29/23 21:00 06/29/23 21:15 Pulse Rate 84 92 H Blood Pressure 144/87 H Pulse Oximetry 98 97 06/29/23 21:30 06/29/23 21:30 06/29/23 21:45 Pulse Rate 91 H 84 Blood Pressure 125/83 Pulse Oximetry 96 96 06/29/23 22:00 06/29/23 22:00 06/29/23 22:15 Pulse Rate 81 95 H Blood Pressure 124/78 Pulse Oximetry 96 95 06/29/23 22:30 06/29/23 22:30 06/29/23 22:45 Pulse Rate 94 H 88 Blood Pressure 129/90 Pulse Oximetry 94 94 06/29/23 23:00 06/29/23 23:00 06/29/23 23:15 Pulse Rate 74 77 Blood Pressure 133/87 Pulse Oximetry 95 95 06/29/23 23:30 06/29/23 23:45 06/30/23 00:00 Pulse Rate 76 76 Blood Pressure 133/81 Pulse Oximetry 95 95 06/30/23 00:00 06/30/23 00:15 Pulse Rate 71 72 Blood Pressure Pulse Oximetry 94 94 <Unruly Hurd DO - Last Filed: 06/30/23 00:36> Orders Ordered: Discontinued Medications Al Hydrox/Mg Hydrox/Simethicone 20 ml/ Lidocaine HCl 15 ml 0 ml PO NOW ONE Stop: 06/29/23 14:49 Last Admin: 06/29/23 15:14 Dose: 35 ml Documented By: MPO Hydromorphone HCl (Hydromorphone 0.5 Mg Inj) 0.5 mg IV NOW ONE Stop: 06/29/23 21:13 Last Admin: 06/29/23 21:14 Dose: 0.5 mg Documented By: Hydromorphone HCl (Hydromorphone 0.5 Mg Inj) 0.5 mg IV Q2HR PRN PRN Reason: Pain, Severe (7-10) Last Admin: 06/29/23 23:51 Dose: 0.5 mg Documented By: Sodium Chloride (Normal Saline 0.9%) 1,000 mls @ 1,000 mls/hr IV BOLUS ONE Stop: 06/29/23 18:14 Last Infusion: 06/29/23 18:11 Dose: 0 mls/hr Documented By: Admin: 06/29/23 17:19 Dose: 1,000 mls/hr Documented By: KM Sodium Chloride (Normal Saline 0.9%) 1,000 mls @ 125 mls/hr IV CONT MEMO Last Infusion: 06/30/23 00:50 Dose: 125 mls/hr Documented By: Admin: 06/29/23 19:46 Dose: 125 mls/hr Documented By: Lorazepam (Lorazepam 2 Mg/Ml Inj) 1 mg IV NOW ONE Stop: 06/29/23 17:50 Last Admin: 06/29/23 18:01 Dose: 1 mg Documented By: MPO Ondansetron HCl (Ondansetron 4 Mg Odt) 4 mg PO NOW PRN PRN Reason: Nausea And Vomiting Ondansetron HCl (Ondansetron 4 Mg/2 Ml Inj) 4 mg IV NOW PRN PRN Reason: Nausea And Vomiting Pantoprazole Sodium (Pantoprazole 40 Mg Vial) 40 mg IV NOW ONE Stop: 06/29/23 14:49 Last Admin: 06/29/23 15:13 Dose: 40 mg Documented By: MATTI Propranolol HCl (Propranolol 10 Mg Tablet) 10 mg PO NOW ONE Stop: 06/29/23 22:45 Last Admin: 06/29/23 22:48 Dose: 10 mg Documented By: Vital Signs Vital signs: Vital Signs - 8 hr 06/29/23 17:30 06/29/23 17:31 06/29/23 17:31 Pulse Rate 84 79 Blood Pressure 147/87 H Pulse Oximetry 99 98 06/29/23 17:45 06/29/23 18:00 06/29/23 18:00 Pulse Rate 88 85 Blood Pressure 155/91 H Pulse Oximetry 98 97 06/29/23 18:15 06/29/23 18:30 06/29/23 18:30 Pulse Rate 89 98 H Blood Pressure 157/92 H Pulse Oximetry 98 97 06/29/23 18:45 06/29/23 19:00 06/29/23 19:00 Pulse Rate 99 H 95 H Blood Pressure 136/90 Pulse Oximetry 96 96 06/29/23 19:40 06/29/23 19:40 06/29/23 19:45 Pulse Rate 91 H 90 Blood Pressure 134/88 Pulse Oximetry 97 97 06/29/23 20:00 06/29/23 20:00 06/29/23 20:15 Pulse Rate 86 82 Blood Pressure 141/88 H Pulse Oximetry 98 97 06/29/23 20:30 06/29/23 20:30 06/29/23 20:45 Pulse Rate 82 85 Blood Pressure 139/83 Pulse Oximetry 97 97 06/29/23 21:00 06/29/23 21:00 06/29/23 21:15 Pulse Rate 84 92 H Blood Pressure 144/87 H Pulse Oximetry 98 97 06/29/23 21:30 06/29/23 21:30 06/29/23 21:45 Pulse Rate 91 H 84 Blood Pressure 125/83 Pulse Oximetry 96 96 06/29/23 22:00 06/29/23 22:00 06/29/23 22:15 Pulse Rate 81 95 H Blood Pressure 124/78 Pulse Oximetry 96 95 06/29/23 22:30 06/29/23 22:30 06/29/23 22:45 Pulse Rate 94 H 88 Blood Pressure 129/90 Pulse Oximetry 94 94 06/29/23 23:00 06/29/23 23:00 06/29/23 23:15 Pulse Rate 74 77 Blood Pressure 133/87 Pulse Oximetry 95 95 06/29/23 23:30 06/29/23 23:45 06/30/23 00:00 Pulse Rate 76 76 Blood Pressure 133/81 Pulse Oximetry 95 95 06/30/23 00:00 06/30/23 00:15 Pulse Rate 71 72 Blood Pressure Pulse Oximetry 94 94 Medical Decision Making <Mark Thomas DO - Last Filed: 07/05/23 07:18> Medical Records Medical records reviewed: Yes I reviewed the patient's medical records. Lab Data Lab results reviewed: Yes I reviewed the patient's lab results. 06/29/23 14:15 06/29/23 14:15 Labs: Lab Results 06/29/23 06/29/23 06/29/23 Range/Units 14:15 14:15 14:15 WBC 8.8 (4.5-11.0) X10^3/uL RBC 4.85 (4.5-5.9) X10^6/uL Hgb 15.5 (13.5-17.5) g/dL Hct 44.9 (41-53) % MCV 92.4 (80-100) fL MCH 31.9 (26-34) PG MCHC 34.5 (30-36) % RDW 14.5 (11.6-14.8) % Plt Count 224 (150-400) X10^3/uL Neut % (Auto) 63.9 (50-75) % Lymph % (Auto) 25.2 (25-40) % [place] % (Auto) 6.8 (3-14) % Eos % (Auto) 3.4 (2-4) % Baso % (Auto) 0.7 (0-2) % Neut # (Auto) 5600 (5793-3133) /uL Lymph # (Auto) 2200 (5012-5777) /uL [place] # (Auto) 600 (0-900) /uL Eos # (Auto) 300 (0-450) /uL Baso # (Auto) 100 (0-100) /uL Sodium 140 (137-145) mmol/L Potassium 3.9 (3.4-5.1) mmol/L Chloride 105 (98-107) mmol/L Carbon Dioxide 27 (22-32) mmol/L BUN 5 L (9-20) mg/dL Creatinine 0.76 (0.66-1.25) mg/dL Estimated GFR > 60 (>60) mL/min BUN/Creatinine Ratio 6.6 (6-22) Glucose 128 H (70-100) mg/dL Lactate 1.6 (0.7-2.1) mmol/L Calcium 10.0 (8.4-10.2) mg/dL Total Bilirubin 0.6 (0.2-1.3) mg/dL AST 31 (17-59) IU/L ALT 41 (<50) IU/L Alkaline Phosphatase 88 (38-126) U/L Total Protein 7.5 (6.3-8.2) g/dL Albumin 4.4 (3.5-5.0) g/dL Globulin 3.1 (1.7-4.1) g/dL Albumin/Globulin Ratio 1.4 (1.0-2.8) Lipase 91 (23-300) U/L Ethyl Alcohol ( - 10) mg/dL 06/29/23 Range/Units 14:15 WBC (4.5-11.0) X10^3/uL RBC (4.5-5.9) X10^6/uL Hgb (13.5-17.5) g/dL Hct (41-53) % MCV (80-100) fL MCH (26-34) PG MCHC (30-36) % RDW (11.6-14.8) % Plt Count (150-400) X10^3/uL Neut % (Auto) (50-75) % Lymph % (Auto) (25-40) % [place] % (Auto) (3-14) % Eos % (Auto) (2-4) % Baso % (Auto) (0-2) % Neut # (Auto) (7444-6461) /uL Lymph # (Auto) (8459-2083) /uL [place] # (Auto) (0-900) /uL Eos # (Auto) (0-450) /uL Baso # (Auto) (0-100) /uL Sodium (137-145) mmol/L Potassium (3.4-5.1) mmol/L Chloride (98-107) mmol/L Carbon Dioxide (22-32) mmol/L BUN (9-20) mg/dL Creatinine (0.66-1.25) mg/dL Estimated GFR (>60) mL/min BUN/Creatinine Ratio (6-22) Glucose (70-100) mg/dL Lactate (0.7-2.1) mmol/L Calcium (8.4-10.2) mg/dL Total Bilirubin (0.2-1.3) mg/dL AST (17-59) IU/L ALT (<50) IU/L Alkaline Phosphatase (38-126) U/L Total Protein (6.3-8.2) g/dL Albumin (3.5-5.0) g/dL Globulin (1.7-4.1) g/dL Albumin/Globulin Ratio (1.0-2.8) Lipase (23-300) U/L Ethyl Alcohol < 10 ( - 10) mg/dL Urine Dip Bedside Urine Glucose Negative Bedside Urine Bilirubin - Negative Bedside Urine Ketone - Negative Urine Specific [place] 1.010 Bedside Urine Occult Blood - Negative Bedside Urine pH 7.0 Bedside Urine Protein - Negative Bedside Urine Urobilinogen - Negative Bedside Urine Nitrite - Negative Bedside Urine Leukocytes - Negative Esterase Point of care testing: Urine Dip Bedside Urine Glucose Negative Bedside Urine Bilirubin - Negative Bedside Urine Ketone - Negative Urine Specific [place] 1.010 Bedside Urine Occult Blood - Negative Bedside Urine pH 7.0 Bedside Urine Protein - Negative Bedside Urine Urobilinogen - Negative Bedside Urine Nitrite - Negative Bedside Urine Leukocytes - Negative Esterase ECG Data Attestation: I personally reviewed and interpreted this ECG as follows: Interpretation: Sinus rhythm Ventricular rate is 74 Normal axis Normal QRS Normal QTC No ST T wave changes MDM Narrative Medical decision making narrative: Patient does have a recent history with alcohol abuse. He was seen here in the emergency department and subsequently admitted on 05/06/2023 for acute pancreatitis. He was discharged on June 11. He is not had any alcohol abuse since he was admitted to the hospital. He had a CT scan on 05/06/2023 which showed acute pancreatitis and concern for necrotizing pancreatitis. There was no pseudocyst involved. He would a repeat CT on 06/12/2023 which showed improvement of necrotizing pancreatitis and no abscess or pseudocyst. He would a right upper quadrant ultrasound on 06/04/2023 which showed relatively unremarkable gallbladder. He arrived today with epigastric abdominal discomfort that started at 0700 hours this morning. Some nausea but no vomiting. He stated that this felt different than his pancreatitis diagnosis. GI panel did nothing for his symptoms. His LFTs and lipase are normal. No fever. Normal white blood cell count. CT scan shows worsening necrotizing pancreatitis now with pseudocyst. Patient does require transfer to hospital with GI capability. Care turned over to Dr. Hurd to follow-up and disposition. <Unruly Hurd, - Last Filed: 06/30/23 00:36> Lab Data Labs: Lab Results 06/29/23 06/29/23 06/29/23 Range/Units 14:15 14:15 14:15 WBC 8.8 (4.5-11.0) X10^3/uL RBC 4.85 (4.5-5.9) X10^6/uL Hgb 15.5 (13.5-17.5) g/dL Hct 44.9 (41-53) % MCV 92.4 (80-100) fL MCH 31.9 (26-34) PG MCHC 34.5 (30-36) % RDW 14.5 (11.6-14.8) % Plt Count 224 (150-400) X10^3/uL Neut % (Auto) 63.9 (50-75) % Lymph % (Auto) 25.2 (25-40) % [place] % (Auto) 6.8 (3-14) % Eos % (Auto) 3.4 (2-4) % Baso % (Auto) 0.7 (0-2) % Neut # (Auto) 5600 (4546-1037) /uL Lymph # (Auto) 2200 (1101-5917) /uL [place] # (Auto) 600 (0-900) /uL Eos # (Auto) 300 (0-450) /uL Baso # (Auto) 100 (0-100) /uL Sodium 140 (137-145) mmol/L Potassium 3.9 (3.4-5.1) mmol/L Chloride 105 (98-107) mmol/L Carbon Dioxide 27 (22-32) mmol/L BUN 5 L (9-20) mg/dL Creatinine 0.76 (0.66-1.25) mg/dL Estimated GFR > 60 (>60) mL/min BUN/Creatinine Ratio 6.6 (6-22) Glucose 128 H (70-100) mg/dL Lactate 1.6 (0.7-2.1) mmol/L Calcium 10.0 (8.4-10.2) mg/dL Total Bilirubin 0.6 (0.2-1.3) mg/dL AST 31 (17-59) IU/L ALT 41 (<50) IU/L Alkaline Phosphatase 88 (38-126) U/L Total Protein 7.5 (6.3-8.2) g/dL Albumin 4.4 (3.5-5.0) g/dL Globulin 3.1 (1.7-4.1) g/dL Albumin/Globulin Ratio 1.4 (1.0-2.8) Lipase 91 (23-300) U/L Ethyl Alcohol ( - 10) mg/dL 06/29/23 Range/Units 14:15 WBC (4.5-11.0) X10^3/uL RBC (4.5-5.9) X10^6/uL Hgb (13.5-17.5) g/dL Hct (41-53) % MCV (80-100) fL MCH (26-34) PG MCHC (30-36) % RDW (11.6-14.8) % Plt Count (150-400) X10^3/uL Neut % (Auto) (50-75) % Lymph % (Auto) (25-40) % [place] % (Auto) (3-14) % Eos % (Auto) (2-4) % Baso % (Auto) (0-2) % Neut # (Auto) (6117-0201) /uL Lymph # (Auto) (7510-2062) /uL [place] # (Auto) (0-900) /uL Eos # (Auto) (0-450) /uL Baso # (Auto) (0-100) /uL Sodium (137-145) mmol/L Potassium (3.4-5.1) mmol/L Chloride (98-107) mmol/L Carbon Dioxide (22-32) mmol/L BUN (9-20) mg/dL Creatinine (0.66-1.25) mg/dL Estimated GFR (>60) mL/min BUN/Creatinine Ratio (6-22) Glucose (70-100) mg/dL Lactate (0.7-2.1) mmol/L Calcium (8.4-10.2) mg/dL Total Bilirubin (0.2-1.3) mg/dL AST (17-59) IU/L ALT (<50) IU/L Alkaline Phosphatase (38-126) U/L Total Protein (6.3-8.2) g/dL Albumin (3.5-5.0) g/dL Globulin (1.7-4.1) g/dL Albumin/Globulin Ratio (1.0-2.8) Lipase (23-300) U/L Ethyl Alcohol < 10 ( - 10) mg/dL Urine Dip Bedside Urine Glucose Negative Bedside Urine Bilirubin - Negative Bedside Urine Ketone - Negative Urine Specific [place] 1.010 Bedside Urine Occult Blood - Negative Bedside Urine pH 7.0 Bedside Urine Protein - Negative Bedside Urine Urobilinogen - Negative Bedside Urine Nitrite - Negative Bedside Urine Leukocytes - Negative Esterase Point of care testing: Urine Dip Bedside Urine Glucose Negative Bedside Urine Bilirubin - Negative Bedside Urine Ketone - Negative Urine Specific [place] 1.010 Bedside Urine Occult Blood - Negative Bedside Urine pH 7.0 Bedside Urine Protein - Negative Bedside Urine Urobilinogen - Negative Bedside Urine Nitrite - Negative Bedside Urine Leukocytes - Negative Esterase MDM Narrative Medical decision making narrative: Patient does have a recent history with alcohol abuse. He was seen here in the emergency department and subsequently admitted on 05/06/2023 for acute pancreatitis. He was discharged on June 11. He is not had any alcohol abuse since he was admitted to the hospital. He had a CT scan on 05/06/2023 which showed acute pancreatitis and concern for necrotizing pancreatitis. There was no pseudocyst involved. He would a repeat CT on 06/12/2023 which showed improvement of necrotizing pancreatitis and no abscess or pseudocyst. He would a right upper quadrant ultrasound on 06/04/2023 which showed relatively unremarkable gallbladder. He arrived today with epigastric abdominal discomfort that started at 0700 hours this morning. Some nausea but no vomiting. He stated that this felt different than his pancreatitis diagnosis. GI panel did nothing for his symptoms. His LFTs and lipase are normal. No fever. Normal white blood cell count. CT scan shows worsening necrotizing pancreatitis now with pseudocyst. Patient does require transfer to hospital with GI capability. Care turned over to Dr. Hurd to follow-up and disposition. 2303 - GI at [facility] ([facility]) ok for transfer. Asks that we speak with hospitalist. 2315 - Dr. Anders (Hospitalist [facility]) happy to accept <Unruly Hurd, - Last Filed: 06/30/23 00:36> Critical Care Time Critical Care Time: Yes Total Critical Care Time: 35 Attestation: The high probability of a clinically significant, sudden or life threatening deterioration of the [GI] system(s) required my full and direct attention, intervention and personal management. The aggregate critical care time was [35] minutes. This time is in addition to time spent performing reported procedures but includes the following: [x] Data Review and interpretation [x] Patient assessment and monitoring of vital signs [x] Documentation [x] Medication orders and management Discharge Plan Departure Patient Disposition: [facility] Clinical Impression: Acute necrotizing pancreatitis, Pancreatic pseudocyst Prescriptions: No Action lisinopril 10 mg tablet 10 mg PO DAILY Patient Comments: take 1 tablet by mouth once daily alprazolam 1 mg tablet See Rx Instructions .ROUTE .COMPLEX Qty: 10 0RF Rx Instructions: You may take 1 tablet p.o. b.i.d. times 2 days, then half tablet p.o. t.i.d. x2 days, then half tablet p.o. b.i.d. x2 days, then half tablet p.o. daily x2 days, then half tablet p.o. q.h.s. x 2 days. bupropion HCl [Wellbutrin XL] 150 mg Tablet Extended Release 24 Hr 450 mg PO QAM cetirizine [Zyrtec] 10 mg Tablet 10 mg PO DAILY PRN (Reason: Itching) Patient Comments: PT USES UP TO 30 MG QDAY PRN TORSO ITCH tadalafil 10 mg tablet 10 mg PO PRN PRN (Reason: Sexual Activity) Rx Instructions: administer approximately 30min before sexual activity; do not use more than 10mg dose per 24hrs aspirin 81 mg Tablet,Chewable 81 mg PO DAILY prednisone 20 mg tablet See Rx Instructions .ROUTE .COMPLEX Qty: 5 0RF Rx Instructions: 40 mg x1 day, 30 mg x1 day, 20 mg x1 day, 10 mg x1 day then stop omeprazole 20 mg capsule,delayed release(DR/EC) 20 mg PO DAILY propranolol 10 mg tablet 20 mg PO BID Referrals: Emanuel Chapa MD [Primary Care Provider] -
[2023-06-29 14:38] LABS: Alanine Aminotransferase 41 IU/L (<50); Albumin 4.4 g/dL (3.5-5.0); Albumin Globulin Ratio 1.4 (1.0-2.8); Alkaline Phosphatase 88 U/L (38-126); Aspartate Aminotransferase 31 IU/L (17-59); BUN Creatinine Ratio 6.6 (6-22); Bilirubin Total 0.6 mg/dL (0.2-1.3); Blood Urea Nitrogen 5 mg/dL (9-20); Carbon Dioxide 27 mmol/L (22-32); Chloride 105 mmol/L (98-107); Estimated Glomerular Filt Rate > 60 mL/min (>60); Globulin 3.1 g/dL (1.7-4.1); Glucose 128 mg/dL (70-100); HEMOLYSIS < 15 (0-50); Lipase 91 U/L (23-300); Potassium 3.9 mmol/L (3.4-5.1); Sodium 140 mmol/L (137-145); Total Protein 7.5 g/dL (6.3-8.2)
[2023-06-29 14:44] LABS: Add Manual Diff / Slide Review NO; Basophils Absolute Auto 100 /uL (0-100); Basophils Percent Auto 0.7 % (0-2); Eosinophils Absolute Auto 300 /uL (0-450); Eosinophils Percent Auto 3.4 % (2-4); Hematocrit 44.9 % (41-53); Hemoglobin 15.5 g/dL (13.5-17.5); Lymphocytes Absolute Auto 2200 /uL (1100-4500); Lymphocytes Percent Auto 25.2 % (25-40); Mean Corpuscular HGB Conc 34.5 % (30-36); Mean Corpuscular Hemoglobin 31.9 PG (26-34); Mean Corpuscular Volume 92.4 fL (80-100); Monocytes Absolute Auto 600 /uL (0-900); Monocytes Percent Auto 6.8 % (3-14); Neutrophils Absolute Auto 5600 /uL (1500-7000); Neutrophils Percent Auto 63.9 % (50-75); Platelet Count 224 X10^3/uL (150-400); Red Blood Cell Count 4.85 X10^6/uL (4.5-5.9); Red Cell Distribution Width 14.5 % (11.6-14.8); White Blood Cell Count 8.8 X10^3/uL (4.5-11.0)
[2023-06-29] MEDS: PANTOPRAZOLE 40 MG VIAL IV (15:13)
[2023-06-29] MEDS: MAG HYDROX/ALUMINUM/SIMETH SUS 20 ML, LIDOCAINE VISCOUS 2% 15 ML PO (15:14)
--- NOTE | 2023-06-29 16:06 | DI.CT.S_ITS ---
PROCEDURE: CT ABDOMEN PELVIS W CON INDICATIONS: Epigastric abdominal pain TECHNIQUE: After the administration of intravenous contrast, axial sections acquired from the lung bases to the pubic symphysis. Coronal and sagittal reformats were performed. For radiation dose reduction, the following was used: automated exposure control, adjustment of mA and/or kV according to patient size. COMPARISON: [facility], CT, CT ABDOMEN PELVIS W CON, 06/12/2023, 9:13. FINDINGS: Image quality: Excellent. Lung bases: Dependent atelectasis in posterior aspect of bilateral lung bases are seen.. Heart: No significant findings. ABDOMEN: Liver: Unremarkable. Gallbladder: Gallbladder is within normal limits. Biliary ducts: Unremarkable. Pancreas: Edematous appearing pancreas with interval development of peripancreatic hypodense collection measures approximately 5.9 x 3.3 x 6.5 cm in size in its largest transverse, AP and craniocaudal dimensions adjacent to superior anterior aspect of pancreas series 2, image 33 and series 4 image 26. There is also a 2nd fluid collection adjacent to head and uncinate process of pancreas and is in close proximity to 1st, 2nd and 3rd portion of duodenum measures up to 2.6 x 5.7 cm in size series 2, image 31. Spleen: Unremarkable. Adrenal Glands: Unremarkable. Kidneys and Ureters: Unremarkable. Stomach and Bowel: There is distal gastric wall thickening and duodenal wall thickening adjacent to the above-mentioned peripancreatic fluid collections. No other area of abnormal bowel wall thickening. No bowel obstruction. Peritoneum: No abnormal intraperitoneal fluid. No free air. Ventral Wall: No hernias. Abdominal Nodes: No retroperitoneal or mesenteric adenopathy by size criteria. Vessels: Aorta and inferior vena cava are normal in size. PELVIS: Pelvic Organs: Unremarkable. Bladder: Unremarkable. Pelvic Nodes: No enlarged lymph nodes. Miscellaneous: No hernias are seen. Bones: No suspicious bony lesions. No acute vertebral body compression fracture. IMPRESSION: 1. Finding is suggestive of progression of necrotizing pancreatitis with interval pseudocyst formation adjacent to head and uncinate process of pancreas. 2. Adjacent duodenal wall thickening and distal gastric wall thickening likely represent reactive inflammatory changes. 3. No bowel obstruction. No peritoneal free fluid or free air. Dictated by: Jame Vick M.D. on 06/29/2023 at 16:45 Approved by: Jame Vick M.D. on 06/29/2023 at 16:56
[2023-06-29] MEDS: SODIUM CHLORIDE 0.9% 1,000 ML 1000 ML IV (17:19)
[2023-06-29] MEDS: LORazepam 2 MG/ML INJ 1 MG IV (18:01)
[2023-06-29 18:29] LABS: Ethanol (ETOH) < 10 mg/dL; Lactate (Lactic Acid) 1.6 mmol/L (0.7-2.1)
[2023-06-29] MEDS: SODIUM CHLORIDE 0.9% 1,000 ML 125 ML IV (19:46)
[2023-06-29] MEDS: HYDROMORPHONE 0.5 MG INJ IV ×2 (21:14→23:51)
[2023-06-29] MEDS: PROPRANOLOL 10 MG TABLET PO (22:48)
[2023-06-30] VITALS: BP 133/81; PULSE 71; O2SAT 94
[2023-06-30 00:15] VITALS: PULSE 72; O2SAT 94
[2023-06-30 00:30] VITALS: PULSE 70; O2SAT 95
[2023-06-30 00:45] VITALS: PULSE 67; O2SAT 95
[2023-06-30 00:48] VITALS: PULSE 82; O2SAT 95
[2023-06-30 00:49] VITALS: BP 167/103
== END 2023-06-30 01:13 | disposition short-term general hospital (02) ==
PROVIDERS: Emergency Medicine; Emergency Provider Emergency Medicine; PCP Family Medicine
DX: K85.91 Acute pancreatitis with uninfected necrosis, unspecified (principal); K86.3 Pseudocyst of pancreas; Z79.899 Other long term (current) drug therapy
CPT/HCPCS: 36415; 74177; 80053; 80320; 81003; 83605; 83690; 85025; 93005; 96361; 96374; 96375; 96376; 99284; 99291; C9113; J1170; J2060; Q9967

== ENCOUNTER → 2023-07-09 14:38 | Outpatient (CLI) | payer OTHER, MEDICAID, SELFPAY ==
[2023-06-06 12:49] VITALS: BMI 29.0
[2023-06-07 16:30] VITALS: O2SAT 95
[2023-06-08 08:24] VITALS: PULSE 78; RESP 0; RESP 16
== END ==
PROVIDERS: PCP Family Medicine; Visit Provider Physician Assistant
DX: R30.0 Dysuria (principal)
CPT/HCPCS: 81002; 87077; 87086; 87186

== ENCOUNTER → 2023-07-28 11:57 | Outpatient (CLI) | payer OTHER, MEDICAID, SELFPAY ==
[2023-06-06 12:49] VITALS: BMI 29.0
[2023-06-07 16:30] VITALS: O2SAT 95
[2023-06-08 08:24] VITALS: PULSE 78; RESP 0; RESP 16
[2023-07-28 15:40] LABS: Appearance Urine UA CLEAR; Bilirubin Urine UA NEGATIVE (NEGATIVE); Color Urine UA YELLOW; Glucose Urine UA NEGATIVE (Negative); Ketones Urine UA NEGATIVE (NEGATIVE); Leukocyte Esterase Urine UA 2+ (NEGATIVE); Nitrite Urine UA NEGATIVE (Negative); Occult Blood Urine UA 1+ (Negative); Protein Urine UA NEGATIVE (Negative); Specific Gravity Urine UA <=1.005 (1.000-1.035); Urobilinogen Urine UA 0.2 E.U./dL (0.2)
[2023-07-28 16:09] LABS: RBC Urine 0-1/HPF (0-5/HPF); WBC Urine 5-10/HPF (0-5/HPF)
[2023-07-28 16:10] LABS: Bacteria Urine Few (2-10); Squamous Epithelial Cell Urine None Seen (0-5/HPF)
== END ==
PROVIDERS: PCP Family Medicine; Referring Provider Family Medicine; Visit Provider Family Medicine
DX: R30.0 Dysuria (principal)
CPT/HCPCS: 81001; 87077; 87086; 87186

== ENCOUNTER → 2023-08-31 11:56 | Outpatient (CLI) | payer OTHER, MEDICAID, SELFPAY ==
[2023-06-06 12:49] VITALS: BMI 29.0
[2023-06-07 16:30] VITALS: O2SAT 95
[2023-06-08 08:24] VITALS: PULSE 78; RESP 0; RESP 16
--- NOTE | 2023-08-31 12:20 | DI.CT.S_ITS ---
PROCEDURE: CT ABDOMEN PELVIS W CON INDICATIONS: Acute pancreatitis with uninfected necrosis TECHNIQUE: After the administration of oral and intravenous contrast, axial sections were acquired from the lung bases to the pubic symphysis. Coronal and sagittal reformats were performed. For radiation dose reduction, the following was used: automated exposure control, adjustment of mA and/or kV according to patient size. COMPARISON:[facility], CT, CT ABDOMEN PELVIS W CON, 06/29/2023, 16:06. FINDINGS: Image quality: Excellent. Since the prior examination the previously noted pancreatic pseudocysts have decreased in size with the largest at the head of the pancreas/body junction now measuring 3.9 cm in maximal dimension. There is [id number] diffuse fatty infiltration of the liver. Spleen, adrenals, kidneys, gallbladder, and visualized large and small bowel appear within normal limits other than mild colonic diverticulosis without evidence for diverticulitis. Appendix is visualized and appears normal. No adenopathy seen within the abdomen or pelvis. No free fluid is present. The lung bases are clear. IMPRESSION: 1. Improvement in the size of the previously noted pancreatic pseudocysts the largest at the head/body junction now measure 3.9 cm in maximal dimension. 2. No findings of acute pancreatitis at the present time. 3. Mild to moderate diffuse fatty infiltration of the liver. 4. Mild colonic diverticulosis. Dictated by: Mark Solorio M.D. on 08/31/2023 at 13:49 Approved by: Mark Solorio M.D. on 08/31/2023 at 13:57
== END ==
PROVIDERS: PCP Family Medicine; Referring Provider Registered Nurse; Visit Provider Registered Nurse
DX: K85.91 Acute pancreatitis with uninfected necrosis, unspecified (principal); K86.3 Pseudocyst of pancreas; K57.30 Diverticulosis of large intestine without perforation or abscess without bleeding; K76.0 Fatty (change of) liver, not elsewhere classified
CPT/HCPCS: 74177

== ENCOUNTER → 2024-02-01 11:17 | Outpatient (CLI) | payer OTHER, MEDICAID, SELFPAY ==
[2023-09-23 15:20] VITALS: PULSE 78; RESP 0; RESP 16; O2SAT 95; BMI 29.0
[2024-02-01 13:05] LABS: Prostate Specific Antigen 2.46 ng/mL (0.10-4.00)
== END ==
PROVIDERS: PCP Family Medicine; Referring Provider Specialist; Visit Provider Specialist
DX: N40.1 Benign prostatic hyperplasia with lower urinary tract symptoms (principal); N13.8 Other obstructive and reflux uropathy
CPT/HCPCS: 36415; 84153

== ENCOUNTER 2024-03-22 18:40 | Inpatient (IN) | payer OTHER, MEDICAID, SELFPAY ==
[2023-09-23 15:20] VITALS: PULSE 78; RESP 0; RESP 16; O2SAT 95; BMI 29.0
[2024-03-22] VITALS (11 sets, daily range): BP systolic 145–192; BP diastolic 85–99; PULSE 73–90; RESP 14–29; TEMP 36.8; O2SAT 94–100; BMI 27.8
--- NOTE | 2024-03-22 18:58 | EKG_ITS ---
[place] [id number] [place] [id number] Test Date: 2024-03-22 Pat Name: Scot Chet Department: [facility] Room: Gender: Male Theoretical Physicist: SHAKILA : 1980 Requested By: Order Number: [id number] Reading MD: Yao Wallace Measurements Intervals [place] Rate: 76 P: -1 W[place]: 100 QRS: 55 QRSD: 76 T: 51 QT: 372 QTc: 418 Interpretive Statements Sinus rhythm with short [place] Electronically Signed On 03-24-2024 16:16:11 PDT by Yao Wallace
--- NOTE | 2024-03-22 18:58 | ED_ITS ---
HPI - Abdominal Pain General Chief Complaint: Abdominal Pain Stated Complaint: Abd Pain Time Seen by Provider: 03/22/24 18:49 History of Present Illness HPI narrative: 43yoM wtih hx alcohol use disorder (drinks 6-12 drinks per day) presents by EMS for severe left-sided abdominal pain that radiates to his back. Patient stated that he had just had a shot of Rogelio when he felt what initially seemed like a cramp, but worsened in intensity until it was unbearable. Reports 10/10 pain in the left side of his abdomen radiating to his back. States that he has had pancreatitis in the past, but this is worse. Related Data Home Medications Medication Instructions Recorded Confirmed omeprazole 20 mg capsule,delayed 20 mg PO DAILY 05/06/21 02/03/24 release propranolol 10 mg tablet 20 mg PO BID 07/30/21 02/03/24 bupropion HCl 150 mg 24 hr tablet, 450 mg PO QAM 04/01/23 02/03/24 extended release (Wellbutrin XL) tadalafil 10 mg tablet 10 mg PO PRN PRN Sexual Activity 04/01/23 02/03/24 aspirin 81 mg chewable tablet 81 mg PO DAILY 06/03/23 02/03/24 cetirizine 10 mg tablet (Zyrtec) 10 mg PO DAILY PRN 02/03/24 02/03/24 Previous Rx's Medication Instructions Recorded tamsulosin 0.4 mg capsule 0.4 mg PO BEDTIME #90 caps 09/28/23 Allergies Allergy/AdvReac Type Severity Reaction Status Date / Time No Known Drug Allergies Allergy Verified 03/22/24 18:50 Patient History Medical History History of recurrent UTI (urinary tract infection) BPH w urinary obs/LUTS Finger wound, simple, open Aftercare following left finger joint replacement surgery Sterilization consult Hyperlipidemia Family history of hypertension Erectile dysfunction due to arterial insufficiency Migraine headache HTN (hypertension) Depression Surgical History H/O circumcision H/O umbilical hernia repair Family History Mother Hypertension History of thyroid disorder Social History marital status: number of children: 2 household members: none occupational status: employed leisure activities: exercise Smoking Status: Never smoker alcohol intake: current substance use type: does not use Type(s) of exercise: weight lifting and running frequency: 5-6 times per week duration: 45-60 minutes/day Smoking Status: Never smoker tobacco type: cigarettes alcohol intake frequency: other Alcohol type: hard liquor Substance Use Type: does not use Exam Initial Vital Signs Initial Vital Signs: Vital Signs Temperature 98.2 F 03/22/24 18:45 Pulse Rate 79 03/22/24 18:45 Respiratory Rate 14 03/22/24 18:45 Blood Pressure 161/89 H 03/22/24 18:45 Pulse Oximetry 100 03/22/24 18:45 Oxygen Delivery Method Room Air 03/22/24 18:45 Const: Awake, alert, uncomfortable, in pain, lying on his left side Cardiac: regular rate, regular rhythm RESP: unlabored, clear bilaterally, no wheezing GI: Soft, generalized tenderness to palpation, particularly left upper quadrant without rebound or guarding Skin: Warm, Dry, intact, no rashes Neuro: AO x3, CN II-XII grossly intact, moves all extremities Course Orders Ordered: ED Orders 03/22/24 18:58 CT abdomen pelvis w con Stat EKG-12 Lead Stat 03/22/24 19:25 Ammonia (NH3) Stat CBC Auto Diff [Complete Blood Count AUTO DIFF] Stat CMP [Comprehensive Metabolic Panel] Stat Ethanol (ETOH) Stat Lactate (Lactic Acid) Stat Lipase Stat MAG [Magnesium] Stat PT [Prothrombin Time INR] Stat 03/22/24 22:52 UA Complete [Urinalysis and Microscopic] Stat Bupropion HCl (Bupropion Xl 150 Mg Tab) 450 mg PO DAILY MEMO Hydromorphone HCl (Hydromorphone 1 Mg Inj) 1 mg IV Q3H PRN PRN Reason: Pain, Severe (7-10) Last Admin: 03/22/24 22:43 Dose: 1 mg Documented By: Sodium Chloride (Normal Saline 0.9%) 1,000 mls @ 200 mls/hr IV CONT MEMO Naloxone HCl (Naloxone 0.4 Mg/Ml Vial) 0.2 mg IV Q2MIN PRN PRN Reason: Opiate Reversal Ondansetron HCl (Ondansetron 4 Mg/2 Ml Inj) 4 mg IV Q2HR PRN PRN Reason: Nausea And Vomiting Propranolol HCl (Propranolol 10 Mg Tablet) 20 mg PO BID MEMO Tamsulosin HCl (Tamsulosin 0.4 Mg Capsule) 0.4 mg PO BEDTIME MEMO Discontinued Medications Folic Acid (Folic Acid 1 Mg Tablet) 1 mg PO NOW ONE Stop: 03/22/24 21:47 Hydromorphone HCl (Hydromorphone 0.5 Mg Inj) 0.5 mg IV NOW ONE Stop: 03/22/24 19:52 Last Admin: 03/22/24 19:57 Dose: 0.5 mg Documented By: Hydromorphone HCl (Hydromorphone 1 Mg Inj) 1 mg IV NOW ONE Stop: 03/22/24 20:34 Last Admin: 03/22/24 20:39 Dose: 1 mg Documented By: Sodium Chloride (Normal Saline 0.9%) 1,000 mls @ 1,000 mls/hr IV BOLUS ONE Stop: 03/22/24 19:56 Last Infusion: 03/22/24 20:22 Dose: Infused Documented By: Admin: 03/22/24 19:28 Dose: 1,000 mls/hr Documented By: JEANNETTE Acetaminophen (Ofirmev) 1,000 mg in 100 mls @ 400 mls/hr IV NOW ONE Stop: 03/22/24 21:27 Last Admin: 03/22/24 21:35 Dose: 400 mls/hr Documented By: Thiamine HCl 100 mg/ Sodium (Chloride) 101 mls @ 404 mls/hr IV NOW ONE Stop: 03/22/24 21:47 Lorazepam (Lorazepam 2 Mg/Ml Inj) 2 mg IV NOW ONE Stop: 03/22/24 21:14 Last Admin: 03/22/24 21:34 Dose: 2 mg Documented By: Metoclopramide HCl (Metoclopramide 10 Mg/2 Ml Inj) 10 mg IV NOW ONE Stop: 03/22/24 18:50 Last Admin: 03/22/24 19:05 Dose: 10 mg Documented By: JEANNETTE Morphine Sulfate (Morphine 4 Mg/Ml Inj) 4 mg IV NOW ONE Stop: 03/22/24 18:58 Last Admin: 03/22/24 19:17 Dose: 4 mg Documented By: Ondansetron HCl (Ondansetron 4 Mg/2 Ml Inj) 4 mg IV NOW ONE Stop: 03/22/24 18:58 Last Admin: 03/22/24 19:17 Dose: 4 mg Documented By: Phenobarbital (Phenobarbital 65 Mg/Ml Vial) 260 mg IV NOW ONE Stop: 03/22/24 21:47 Vital Signs Vital signs: Vital Signs - 8 hr 03/22/24 18:45 03/22/24 19:03 03/22/24 19:30 Temperature 98.2 F Pulse Rate 79 81 Respiratory Rate 14 20 Blood Pressure 161/89 H 192/99 H Pulse Oximetry 100 100 Oxygen Delivery Method Room Air 03/22/24 19:30 03/22/24 20:00 03/22/24 20:00 Temperature Pulse Rate 80 77 78 Respiratory Rate 29 H 22 Blood Pressure 149/86 H Pulse Oximetry 97 99 98 Oxygen Delivery Method Room Air 03/22/24 20:31 03/22/24 21:00 03/22/24 21:30 Temperature Pulse Rate 90 89 79 Respiratory Rate Blood Pressure Pulse Oximetry 99 98 97 Oxygen Delivery Method 03/22/24 22:00 Temperature Pulse Rate 77 Respiratory Rate Blood Pressure Pulse Oximetry 95 Oxygen Delivery Method MDM - Abdominal Pain Differential Diagnosis Differential diagnosis: Likely abdominal pain, acute appendicitis and pancreatitis Lab Data 03/22/24 19:25 03/22/24 19:25 Labs: Lab Results 03/22/24 03/22/24 Range/Units 19:25 21:30 WBC 13.6 H (4.5-11.0) X10^3/uL RBC 5.18 (4.5-5.9) X10^6/uL Hgb 15.7 (13.5-17.5) g/dL Hct 46.6 (41-53) % MCV 89.8 (80-100) fL MCH 30.3 (26-34) PG MCHC 33.8 (30-36) % RDW 15.5 H (11.6-14.8) % Plt Count 260 (150-400) X10^3/uL Neut % (Auto) 75.2 H (50-75) % Lymph % (Auto) 16.4 L (25-40) % [place] % (Auto) 6.4 (3-14) % Eos % (Auto) 1.3 L (2-4) % Baso % (Auto) 0.7 (0-2) % Neut # (Auto) 80163 H (6816-8636) /uL Lymph # (Auto) 2200 (4615-4658) /uL [place] # (Auto) 900 (0-900) /uL Eos # (Auto) 200 (0-450) /uL Baso # (Auto) 100 (0-100) /uL PT 11.6 (9.4-12.5) SECONDS INR 1.0 (0.9-1.3) Sodium 139 (137-145) mmol/L Potassium 4.2 (3.4-5.1) mmol/L Chloride 106 (98-107) mmol/L Carbon Dioxide 22 (22-32) mmol/L BUN 12 (9-20) mg/dL Creatinine 0.99 (0.66-1.25) mg/dL Estimated GFR > 60 (>60) mL/min BUN/Creatinine Ratio 12.1 (6-22) Glucose 107 H (70-100) mg/dL Lactate 3.2 H 1.8 (0.7-2.1) mmol/L Calcium 8.5 (8.4-10.2) mg/dL Magnesium 1.8 (1.6-2.3) mg/dL Total Bilirubin 0.8 (0.2-1.3) mg/dL AST 114 H (17-59) IU/L ALT 81 H (<50) IU/L Alkaline Phosphatase 103 (38-126) U/L Ammonia < 9 L (9-30) umol/L Total Protein 7.5 (6.3-8.2) g/dL Albumin 4.4 (3.5-5.0) g/dL Globulin 3.1 (1.7-4.1) g/dL Albumin/Globulin Ratio 1.4 (1.0-2.8) Lipase 988 H (23-300) U/L Ethyl Alcohol 17 H ( - 10) mg/dL Imaging Data CT scan - abdomen/pelvis: Radiologist's Impression: PROCEDURE: CT ABDOMEN PELVIS W CON INDICATIONS: L SIDED ABD PAIN, HX PANCREATITIS TECHNIQUE: After the administration of intravenous contrast, axial sections acquired from the lung bases to the pubic symphysis. Coronal and sagittal reformats were performed. For radiation dose reduction, the following was used: automated exposure control, adjustment of mA and/or kV according to patient size. COMPARISON: [facility], CT, CT ABDOMEN PELVIS W CON, 08/31/2023, 12:57. [facility], CT, CT ABDOMEN PELVIS W CON, 06/29/2023, 16:06. FINDINGS: Image quality: Diagnostic. Lower Chest: Lung bases are clear. Small hiatal hernia. ABDOMEN: Liver: No solid mass. There is diffuse hypoattenuation of the liver parenchyma relative to the spleen compatible with hepatic steatosis. Gallbladder: No radiopaque gallstones or wall thickening. Biliary ducts: No biliary dilation. Pancreas: There is pancreatic atrophy without ductal dilatation. There is a large pancreatic pseudocyst extending from the head through the tail of the pancreas measuring approximately 14.6 x 7.0 cm in axial cross-sectional dimension and approximately 7.1 cm in craniocaudal dimension. There is mild peripancreatic inflammatory stranding of the pancreatic head and uncinate process. Inflammatory changes extend to involve the adjacent segment of duodenum as well as the duodenal diverticulum. No significant wall thickening of the duodenum. No evidence for perforation or abscess formation. The visualized pancreas demonstrates relatively homogeneous enhancement. Spleen: Size is within normal limits. Adrenal Glands: No adrenal nodules. Kidneys and Ureters: No hydronephrosis. No solid mass. No complex renal cystic lesion which requires follow up. Stomach and Bowel: Normal colonic caliber, without significant wall thickening. Colonic diverticulosis without acute diverticulitis. Peritoneum: No abnormal intraperitoneal fluid. No free air. Ventral Wall: No significant ventral hernia. Abdominal Nodes: No retroperitoneal or mesenteric adenopathy by size criteria. Vessels: Aorta and inferior vena cava are normal in size. PELVIS: Pelvic Organs: Unremarkable. Bladder: No bladder wall thickening, accounting for underdistention. Pelvic Nodes: No enlarged lymph nodes. Miscellaneous: No inguinal hernias are seen. Bones: No aggressive osseous abnormality. Visualized osseous structures appear intact without acute fracture or focal destructive lesion. No acute compression fractures of the imaged spine. IMPRESSION: Mild acute pancreatitis with interval enlargement of now very large pancreatic pseudocyst which appears to extend from the pancreatic head through the pancreatic tail measuring 14.6 x 7.0 x 7.1 cm in size. There is associated duodenitis. No evidence for perforation or abscess formation. Hepatic steatosis. Mild colonic diverticulosis without acute diverticulitis. Other chronic findings as above. Dictated by: Mohit Robert M.D. on 03/22/2024 at 20:50 Approved by: Mohit Robert M.D. on 03/22/2024 at 20:57 MDM Narrative Medical decision making narrative: Uncomfortable but nontoxic male presenting for severe left-sided abdominal pain. Abdomen is soft based tender especially in the upper quadrants of his abdomen. Lying on his left side and position of comfort. States that this feels different than his previous episode of pancreatitis. Pain medications, IV fluids, nausea medications, labs and imaging ordered. Patient is still complaining of severe pain, IV Dilaudid ordered. Laboratory work reviewed: WBC count 13.6, hemoglobin 15.7, platelets 260, sodium 139, potassium 4.2, creatinine 0.99, lactic acid 3.2 (recheck 1.8), AST 114, ALT 81, ammonia less than 9, lipase 988. CT abdomen/pelvis shows pancreatitis with large pseudocyst. Discussed with Dr. Gutierrez of GI at [facility], who stated that if pseudocyst is not infected or causing gastric outlet obstruction then there was no need for transfer or drainage and patient can be handled safely at [facility]. Patient to be admitted for intractable pain and pancreatitis. Patient in agreement with admission. He requested something to prevent withdrawals, as he states that the last time he was admitted he went into DTs. Patient was not appear to be acutely withdrawing at this time, he was not tremulous, tachycardic, or diaphoretic, however thiamine, folic acid, phenobarbital ordered. Discharge Plan Departure Patient Disposition: Admitted As Inpatient Clinical Impression: Acute pancreatitis, Pancreatic pseudocyst, Alcohol use disorder Admit Date/Time: 03/22/24 22:00 Admit Provider: Jose Martin Mcclelland
[2024-03-22] MEDS: METOCLOPRAMIDE 10 MG/2 ML INJ IV (19:05)
[2024-03-22] MEDS: MORPHINE 4 MG/ML INJ IV (19:17)
[2024-03-22] MEDS: ONDANSETRON 4 MG/2 ML INJ IV (19:17)
[2024-03-22] MEDS: SODIUM CHLORIDE 0.9% 1,000 ML 1000 ML IV (19:28)
[2024-03-22 19:33] LABS: Add Manual Diff / Slide Review NO; Basophils Absolute Auto 100 /uL (0-100); Basophils Percent Auto 0.7 % (0-2); Eosinophils Absolute Auto 200 /uL (0-450); Eosinophils Percent Auto 1.3 % (2-4); Hematocrit 46.6 % (41-53); Hemoglobin 15.7 g/dL (13.5-17.5); Lymphocytes Absolute Auto 2200 /uL (1100-4500); Lymphocytes Percent Auto 16.4 % (25-40); Mean Corpuscular HGB Conc 33.8 % (30-36); Mean Corpuscular Hemoglobin 30.3 PG (26-34); Mean Corpuscular Volume 89.8 fL (80-100); Monocytes Absolute Auto 900 /uL (0-900); Monocytes Percent Auto 6.4 % (3-14); Neutrophils Absolute Auto 10200 /uL (1500-7000); Neutrophils Percent Auto 75.2 % (50-75); Platelet Count 260 X10^3/uL (150-400); Red Blood Cell Count 5.18 X10^6/uL (4.5-5.9); Red Cell Distribution Width 15.5 % (11.6-14.8); White Blood Cell Count 13.6 X10^3/uL (4.5-11.0)
[2024-03-22 19:40] LABS: Prothrombin Time 11.6 SECONDS (9.4-12.5)
[2024-03-22 19:43] LABS: Ammonia (NH3) < 9 umol/L (9-30); Lactate (Lactic Acid) 3.2 mmol/L (0.7-2.1)
[2024-03-22 19:45] LABS: Alanine Aminotransferase 81 IU/L (<50); Albumin 4.4 g/dL (3.5-5.0); Albumin Globulin Ratio 1.4 (1.0-2.8); Alkaline Phosphatase 103 U/L (38-126); Aspartate Aminotransferase 114 IU/L (17-59); BUN Creatinine Ratio 12.1 (6-22); Bilirubin Total 0.8 mg/dL (0.2-1.3); Blood Urea Nitrogen 12 mg/dL (9-20); Calcium 8.5 mg/dL (8.4-10.2); Carbon Dioxide 22 mmol/L (22-32); Chloride 106 mmol/L (98-107); Estimated Glomerular Filt Rate > 60 mL/min (>60); Ethanol (ETOH) 17 mg/dL; Globulin 3.1 g/dL (1.7-4.1); Glucose 107 mg/dL (70-100); HEMOLYSIS < 15 (0-50); Lipase 988 U/L (23-300); Magnesium 1.8 mg/dL (1.6-2.3); Potassium 4.2 mmol/L (3.4-5.1); Sodium 139 mmol/L (137-145); Total Protein 7.5 g/dL (6.3-8.2)
[2024-03-22] MEDS: HYDROMORPHONE 0.5 MG INJ IV (19:57)
[2024-03-22] MEDS: HYDROMORPHONE 1 MG INJ IV ×2 (20:39→22:43)
--- NOTE | 2024-03-22 20:43 | PC.NURSE ---
Pt reports that he is still feeling painful. Dr Napoles notified. Verbal order received for additional medication dosing. See MAR.
[2024-03-22 21:04] LABS: Reflexed Lactate in 2 Hours Y
[2024-03-22] MEDS: LORazepam 2 MG/ML INJ IV (21:34)
[2024-03-22] MEDS: ACETAMINOPHEN IV 1,000 MG/100 ML VIAL 400 MG IV (21:35)
[2024-03-22 21:47] LABS: Lactate 2HR (Lactic Acid Rflx) 1.8 mmol/L (0.7-2.1)
[2024-03-22] MEDS: KETAMINE 50 MG/5 ML *SYRINGE 15 MG IV (21:58)
--- NOTE | 2024-03-22 22:28 | P.HP_ITS ---
History of Present Illness History of Present Illness Date Patient Seen: 03/22/24 Chief complaint: Abdominal Pain Narrative: 43 y/o with past medical history of alcoholic pancreatitis, a year ago, presented to ED with severe abdominal pain from recurrent pancreatitis. He was able to quit drinking but unfortunately relapsed a month ago. CT shows large pancreatic pseudocyst.Apart from pain and nausea, no additional complaints, w/o fever, chills, dark or bloody stool. His last drink was less then 24 h ago and he mentioned that he had DT with visual hallucinations when he quit last time. Admitted for pain control, IVFs, on monitor tech, at risk for withdrawal. [facility], [facility] Medical History History of recurrent UTI (urinary tract infection) BPH w urinary obs/LUTS Finger wound, simple, open Aftercare following left finger joint replacement surgery Sterilization consult Hyperlipidemia Family history of hypertension Erectile dysfunction due to arterial insufficiency Migraine headache HTN (hypertension) Depression Surgical History H/O circumcision H/O umbilical hernia repair Family History Mother Hypertension History of thyroid disorder Social History marital status: number of children: 2 household members: none occupational status: employed leisure activities: exercise Smoking Status: Never smoker alcohol intake: current substance use type: does not use Type(s) of exercise: weight lifting and running frequency: 5-6 times per week duration: 45-60 minutes/day Meds Home Medications and Allergies Home Medications Medication Instructions Recorded Confirmed Type omeprazole 20 mg capsule,delayed 20 mg PO DAILY 05/06/21 03/23/24 History release propranolol 10 mg tablet 20 mg PO BID 07/30/21 03/23/24 History bupropion HCl 150 mg 24 hr tablet, 450 mg PO QAM 04/01/23 03/23/24 History extended release (Wellbutrin XL) tadalafil 10 mg tablet 10 mg PO PRN PRN Sexual Activity 04/01/23 03/23/24 History aspirin 81 mg chewable tablet 81 mg PO DAILY 06/03/23 02/03/24 History tamsulosin 0.4 mg capsule 0.4 mg PO BEDTIME #90 caps 09/28/23 03/23/24 Rx cetirizine 10 mg tablet (Zyrtec) 10 mg PO DAILY PRN Allergy Symptoms 02/03/24 03/23/24 History Allergies Allergy/AdvReac Type Severity Reaction Status Date / Time No Known Drug Allergies Allergy Verified 03/22/24 18:50 Review of Systems Constitutional Comments: negative Cardiovascular Comments: negative Respiratory Comments: negative Gastrointestinal Comments: severe epi/hypogastric pain, most of the time 8/10 nauseated Genitourinary Comments: negative Exam Vital Signs (past 8 hours): - 03/22/24 18:45 03/22/24 19:03 03/22/24 19:30 Temperature 98.2 F Pulse Rate 79 81 Respiratory Rate 14 20 Blood Pressure 161/89 H 192/99 H Pulse Oximetry 100 100 Oxygen Delivery Method Room Air 03/22/24 19:30 03/22/24 20:00 03/22/24 20:00 Temperature Pulse Rate 80 77 78 Respiratory Rate 29 H 22 Blood Pressure 149/86 H Pulse Oximetry 97 99 98 Oxygen Delivery Method Room Air 03/22/24 20:31 Temperature Pulse Rate 90 Respiratory Rate Blood Pressure Pulse Oximetry 99 Oxygen Delivery Method Oxygen Delivery Method Room Air Const Other: in no distress, laying in bed HENMT Other: normocephalic Eyes Other: eomi Resp Other: normal respiratory effort Cardio Other: RRR GI Other: not distended, very tender in epigastrium Skin Other: w/o jaundice Neuro Other: w/o deficits w/o tremor Extrem Other: w/o swelling Psych Other: lucid, anxious Objective Labs 03/22/24 19:25 03/22/24 19:25 Labs: Laboratory Results - last 24 hr 03/22/24 03/22/24 19:25 21:30 WBC 13.6 H RBC 5.18 Hgb 15.7 Hct 46.6 MCV 89.8 MCH 30.3 MCHC 33.8 RDW 15.5 H Plt Count 260 Neut % (Auto) 75.2 H Lymph % (Auto) 16.4 L [place] % (Auto) 6.4 Eos % (Auto) 1.3 L Baso % (Auto) 0.7 Neut # (Auto) 14823 H Lymph # (Auto) 2200 [place] # (Auto) 900 Eos # (Auto) 200 Baso # (Auto) 100 PT 11.6 INR 1.0 Sodium 139 Potassium 4.2 Chloride 106 Carbon Dioxide 22 BUN 12 Creatinine 0.99 Estimated GFR > 60 BUN/Creatinine Ratio 12.1 Glucose 107 H Lactate 3.2 H 1.8 Calcium 8.5 Magnesium 1.8 Total Bilirubin 0.8 AST 114 H ALT 81 H Alkaline Phosphatase 103 Ammonia < 9 L Total Protein 7.5 Albumin 4.4 Globulin 3.1 Albumin/Globulin Ratio 1.4 Lipase 988 H Ethyl Alcohol 17 H Assessment & Plan Assessment and plan (1) Acute alcoholic pancreatitis: Status: Acute (2) Alcohol use disorder: Status: Acute (3) BPH w urinary obs/LUTS: Status: Acute (4) HTN (hypertension): Qualifiers: Hypertension type: unspecified Qualified Code(s): I10 - Essential (primary) hypertension Status: Acute (5) Erectile dysfunction due to arterial insufficiency: Status: Acute Assessment & Plan narrative: Acute Alcoholic Pancreatitis - matching relapse after several months w/o alcohol - has very large pseudocyst so at risk for complications, infection or obstruction. For now not for GI, according to their wellness consultant - IVFs, pain and nausea management Alcoholism - discussed the need for complete abstinence - CIWA protocol - w/o substantial signs of withdrawal on admission but appears anxious - transferred to ICU Depression - Welllbutrin GERD - PPI DVT prophylaxis - SCDs Patient seen at [place], [place], via real-time, audiovisual system with integrated electronic sthetoscope and RN at bedside. Provider located in OR.
--- NOTE | 2024-03-22 22:49 | PC.NURSE ---
Pt continues to remain painful. Medicated with PRN for pain.
[2024-03-22 22:55] LABS: Appearance Urine UA CLEAR; Bilirubin Urine UA NEGATIVE (NEGATIVE); Color Urine UA YELLOW; Glucose Urine UA NEGATIVE (Negative); Ketones Urine UA 1+ (NEGATIVE); Leukocyte Esterase Urine UA NEGATIVE (NEGATIVE); Nitrite Urine UA NEGATIVE (Negative); Occult Blood Urine UA NEGATIVE (Negative); Protein Urine UA NEGATIVE (Negative); Urobilinogen Urine UA 0.2 E.U./dL (0.2); pH Urine UA 5.5 (4.5-8.0)
[2024-03-22 23:25] LABS: Bacteria Urine None Seen; RBC Urine None Seen (0-5/HPF); Squamous Epithelial Cell Urine 0-1 /HPF (0-5/HPF); Urine Volume 10mL (spun); WBC Urine None Seen (0-5/HPF)
[2024-03-22 23:26] LABS: Culture Indicated Urine Cult Not Indicated
[2024-03-23] VITALS (22 sets, daily range): BP systolic 129–210; BP diastolic 65–103; PULSE 72–117; RESP 9–30; TEMP 36–37.1; O2SAT 93–98; BMI 27.8
[2024-03-23] MEDS: PHENobarbital 65 MG/ML VIAL 260 MG IV (01:07)
[2024-03-23] MEDS: FOLIC ACID 1 MG TABLET PO ×2 (01:07→08:50)
[2024-03-23] MEDS: THIAMINE 100 MG in SODIUM CHLORIDE 0.9% 100 ML 404 MG IV (01:08)
[2024-03-23] MEDS: HYDROMORPHONE 1 MG INJ IV ×5 (01:55→23:53)
[2024-03-23] MEDS: SODIUM CHLORIDE 0.9% 1,000 ML 200 ML IV ×2 (03:28→08:10)
[2024-03-23] MEDS: OXYCODONE IR 10 MG TABLET PO (06:32)
[2024-03-23] MEDS: ONDANSETRON 4 MG/2 ML INJ IV ×4 (07:35→20:39)
[2024-03-23 07:48] LABS: MRSA (Nasal) PCR NOT DETECTED (Not Detect)
[2024-03-23] MEDS: MULTIVITAMIN 1 TABLET 1 TAB PO (08:49)
[2024-03-23] MEDS: PANTOPRAZOLE DR 20 MG TABLET PO (08:49)
[2024-03-23] MEDS: PROPRANOLOL 10 MG TABLET 20 MG PO (08:49)
[2024-03-23] MEDS: buPROPion XL 150 MG TAB 450 MG PO (08:49)
[2024-03-23] MEDS: THIAMINE 100 MG TABLET PO (08:50)
[2024-03-23] MEDS: CALCIUM CARBONATE 500 MG TAB 1000 MG PO (09:34)
[2024-03-23] MEDS: chlordiazePOXIDE 25 MG CAPSULE 50 MG PO ×2 (10:41→14:50)
[2024-03-23] MEDS: SIMETHICONE 80 MG TABLET PO (10:48)
[2024-03-23] MEDS: LORazepam 2 MG/ML INJ IV ×3 (11:31→22:44)
--- NOTE | 2024-03-23 11:52 | PC.NURSE ---
1130 pt vomited 600cc clear black liquid- zofran given IV
--- NOTE | 2024-03-23 13:47 | P.PN_ITS ---
Subjective Subjective Interval history: 43 M admitted with abdominal pain, alcoholic pancreatitis with large pseudocyst. Pain is better this morning, but not all that hungry. Exam Vital Signs (past 8 hours): - 03/23/24 06:00 03/23/24 08:00 03/23/24 08:00 Temperature 98 F Pulse Rate 77 77 Respiratory Rate 27 H 24 Blood Pressure Pulse Oximetry 94 96 03/23/24 08:00 03/23/24 10:00 03/23/24 12:00 Temperature 97.9 F Pulse Rate 72 88 Respiratory Rate 9 L 27 H Blood Pressure 164/87 H Pulse Oximetry 95 95 03/23/24 12:00 03/23/24 12:29 Temperature Pulse Rate 86 Respiratory Rate 27 H Blood Pressure 129/84 129/84 Pulse Oximetry Oxygen Delivery Method Room Air Oxygen Flow Rate 0 Narrative Exam Narrative: Gen: faitgued appearing male, no acute distress Pulm: CTA b/l with no wheezing noted today. CV: tachycardic, regular no m/r/g. Skin: no erythema around his neck today. Ext: no edema or joint effusions Objective Labs 03/22/24 19:25 03/22/24 19:25 Labs: Laboratory Results - last 24 hr 03/22/24 03/22/24 03/22/24 19:25 21:30 22:52 WBC 13.6 H RBC 5.18 Hgb 15.7 Hct 46.6 MCV 89.8 MCH 30.3 MCHC 33.8 RDW 15.5 H Plt Count 260 Neut % (Auto) 75.2 H Lymph % (Auto) 16.4 L [place] % (Auto) 6.4 Eos % (Auto) 1.3 L Baso % (Auto) 0.7 Neut # (Auto) 51868 H Lymph # (Auto) 2200 [place] # (Auto) 900 Eos # (Auto) 200 Baso # (Auto) 100 PT 11.6 INR 1.0 Sodium 139 Potassium 4.2 Chloride 106 Carbon Dioxide 22 BUN 12 Creatinine 0.99 Estimated GFR > 60 BUN/Creatinine Ratio 12.1 Glucose 107 H Lactate 3.2 H 1.8 Calcium 8.5 Magnesium 1.8 Total Bilirubin 0.8 AST 114 H ALT 81 H Alkaline Phosphatase 103 Ammonia < 9 L Total Protein 7.5 Albumin 4.4 Globulin 3.1 Albumin/Globulin Ratio 1.4 Lipase 988 H Urine Color Yellow Urine Appearance Clear Urine pH 5.5 Ur Specific [place] 1.010 Urine Protein Negative Urine Glucose (UA) Negative Urine Ketones 1+ H Urine Occult Blood Negative Urine Nitrate Negative Urine Bilirubin Negative Urine Urobilinogen 0.2 Ur Leukocyte Esterase Negative Urine RBC None seen Urine WBC None seen Ur Squamous Epith Cells 0-1 /hpf Urine Bacteria None seen Ur Culture Indicated? Cult not indicated Vol Urine Centrifuged 10ml (spun) Nasal Screen MRSA (PCR) Ethyl Alcohol 17 H 03/23/24 03:00 WBC RBC Hgb Hct MCV MCH MCHC RDW Plt Count Neut % (Auto) Lymph % (Auto) [place] % (Auto) Eos % (Auto) Baso % (Auto) Neut # (Auto) Lymph # (Auto) [place] # (Auto) Eos # (Auto) Baso # (Auto) PT INR Sodium Potassium Chloride Carbon Dioxide BUN Creatinine Estimated GFR BUN/Creatinine Ratio Glucose Lactate Calcium Magnesium Total Bilirubin AST ALT Alkaline Phosphatase Ammonia Total Protein Albumin Globulin Albumin/Globulin Ratio Lipase Urine Color Urine Appearance Urine pH Ur Specific [place] Urine Protein Urine Glucose (UA) Urine Ketones Urine Occult Blood Urine Nitrate Urine Bilirubin Urine Urobilinogen Ur Leukocyte Esterase Urine RBC Urine WBC Ur Squamous Epith Cells Urine Bacteria Ur Culture Indicated? Vol Urine Centrifuged Nasal Screen MRSA (PCR) Not detected Ethyl Alcohol PFSH Medical History History of recurrent UTI (urinary tract infection) BPH w urinary obs/LUTS Finger wound, simple, open Aftercare following left finger joint replacement surgery Sterilization consult Hyperlipidemia Family history of hypertension Erectile dysfunction due to arterial insufficiency Migraine headache HTN (hypertension) Depression Surgical History H/O circumcision H/O umbilical hernia repair Family History Mother Hypertension History of thyroid disorder Social History marital status: number of children: 2 household members: none occupational status: employed leisure activities: exercise Smoking Status: Never smoker alcohol intake: current substance use type: does not use Type(s) of exercise: weight lifting and running frequency: 5-6 times per week duration: 45-60 minutes/day Assessment & Plan Assessment & Plan narrative: Acute Alcoholic Pancreatitis with pancreatic pseudocyst - matching relapse after several months w/o alcohol - has very large pseudocyst so at risk for complications, infection or obstruction. No current interventions recommended by GI. - IVFs, pain and nausea management Alcoholism with high risk for alcohol withdrawal and alcoholic hepatitis - discussed the need for complete abstinence - CIIN protocol - w/o substantial signs of withdrawal on admission but appears anxious - last drink was approx 36 hours ago now, started librium with history of alcohol withdrawal with DTs. - continue to trend LFTs, likely alcoholic hepatitis, low DF scoring no indication for steroids. Depression - Continue home Welllbutrin GERD - PPI DVT prophylaxis - SCDs, low risk Code: Full Discussed with nursing staff, case management and overnight provider to contribute to history, assessment and plan noted above.
--- NOTE | 2024-03-23 15:25 | CM.DANOTE ---
Initial DCP Assessment Visit Note Reviewed EMR and team rounds for pt's medical status and updates. Met with pt at bedside to introduce self and role, pt was found to be awake, but very somnolent, was not able to retain focus and kept closing his eyes and drifting off. He lives independently on his sailboat, is , has his own vehicle, and is unemployed. His parents will drive him home once he's medically stable for d/c, likely tomorrow. Payor: Jerry PCP: Dr. Chapa Pt is a 43 year-old M who presented to the ED via EMS with c/o severe left-sided abdominal pain that radiated to his back. He has a hx of RHETT/alcoholism, had an episode of recurrent pancreatitis approximately a year ago. He was able to quit drinking at that time, however relapsed about a month ago. ED dx was acute pancreatitis. Plan was made to start IV fluids, pain control, and CIWA protocol for withdrawl sx. AWNING MAKER will continue to follow and assist with RHETT assessment as well as offer resources for RHETT tx once pt is more lucid and able to participate in assessment. Discharge Planning/Care Management CM Discharge Assessment Start: 03/23/24 15:22 Freq: Status: Active Protocol: Document 03/23/24 15:22 DPL (Rec: 03/23/24 15:25 DPL [id number]) Discharge Planning Assessment Assigned Bridge Teacher SHARI Mandujano Advance Directives? No Advance Directives on File No History Provided By Medical Record Expected Length of Stay 2 Has Patient been admitted in last 30 No days? Prior Living Arrangements Other Comment Pt lives on his sailboat. Household Members none Type of transporation used prior to Drives own vehicle admit Independent with ADL's Yes Is patient alert and oriented? Yes Caregiver for Another No Patient/Family Preference Drug/Alcohol Rehab Comment Rehab only if pt is open and ready to participate in this. Barriers to Discharge No Discharge Plan Home Transportation Arrangement Parents are bedside and willing to support and transport pt as needed Referrals Initiated Other Additional Comment Waiting for ETOH assessment when pt more medically appropriate to participate Whiteboard Updated in Patient Room with Yes name and ext. # of Bridge Teacher Review Status In Process Please Provide Date Initial DC 03/23/22 Assessment Was Performed
[2024-03-23] MEDS: SODIUM CHLORIDE 0.9% 1,000 ML 75 ML IV (16:37)
--- NOTE | 2024-03-23 18:40 | DI.RAD.S_ITS ---
PROCEDURE: XR ABDOMEN 1V INDICATIONS: known pseudocyst, new nausea/vomiting assess TECHNIQUE: One view of the abdomen acquired. COMPARISON: [facility], CR, XR ABDOMEN 1V, 06/05/2023, 12:27. FINDINGS: Surgical changes and devices: None Bowel: Bowel gas pattern is normal. Soft tissues: No suspicious abdominal calcifications. Visualized solid organ contours appear normal in size. Bones: No suspicious bony lesions. IMPRESSION: Nonobstructive bowel gas pattern. Dictated by: Nii Lewis M.D. on 03/23/2024 at 19:39 Approved by: Nii Lewis M.D. on 03/23/2024 at 19:40
[2024-03-24] VITALS (26 sets, daily range): BP systolic 83–158; BP diastolic 50–100; PULSE 86–122; RESP 18–37; TEMP 36.5–37.1; O2SAT 91–97
--- NOTE | 2024-03-24 03:53 | PC.NURSE ---
collected from vomit, done per RN
[2024-03-24] MEDS: LORazepam 2 MG/ML INJ IV ×2 (04:08→06:23)
[2024-03-24 05:05] LABS: Add Manual Diff / Slide Review NO; Basophils Absolute Auto 0 /uL (0-100); Basophils Percent Auto 0.3 % (0-2); Eosinophils Absolute Auto 0 /uL (0-450); Eosinophils Percent Auto 0.1 % (2-4); Hematocrit 39.2 % (41-53); Hemoglobin 13.3 g/dL (13.5-17.5); Lymphocytes Absolute Auto 900 /uL (1100-4500); Lymphocytes Percent Auto 9.2 % (25-40); Mean Corpuscular Hemoglobin 30.8 PG (26-34); Mean Corpuscular Volume 90.6 fL (80-100); Monocytes Absolute Auto 900 /uL (0-900); Monocytes Percent Auto 9.6 % (3-14); Neutrophils Absolute Auto 8000 /uL (1500-7000); Neutrophils Percent Auto 80.8 % (50-75); Platelet Count 159 X10^3/uL (150-400); Red Blood Cell Count 4.32 X10^6/uL (4.5-5.9); Red Cell Distribution Width 15.4 % (11.6-14.8); White Blood Cell Count 9.9 X10^3/uL (4.5-11.0)
[2024-03-24 05:18] LABS: Alanine Aminotransferase 45 IU/L (<50); Albumin 3.7 g/dL (3.5-5.0); Albumin Globulin Ratio 1.3 (1.0-2.8); Alkaline Phosphatase 77 U/L (38-126); Aspartate Aminotransferase 35 IU/L (17-59); BUN Creatinine Ratio 21.2 (6-22); Bilirubin Total 1.1 mg/dL (0.2-1.3); Blood Urea Nitrogen 18 mg/dL (9-20); Calcium 8.2 mg/dL (8.4-10.2); Carbon Dioxide 31 mmol/L (22-32); Chloride 101 mmol/L (98-107); Estimated Glomerular Filt Rate > 60 mL/min (>60); Globulin 2.8 g/dL (1.7-4.1); Glucose 164 mg/dL (70-100); HEMOLYSIS < 15 (0-50); Magnesium 2.3 mg/dL (1.6-2.3); Potassium 3.5 mmol/L (3.4-5.1); Sodium 134 mmol/L (137-145); Total Protein 6.5 g/dL (6.3-8.2)
[2024-03-24] MEDS: METOPROLOL TARTRATE 5 MG/5 ML INJ IV (06:12)
[2024-03-24] MEDS: SODIUM CHLORIDE 0.9% 1,000 ML 75 ML IV ×2 (06:13→18:19)
--- NOTE | 2024-03-24 06:44 | PC.NURSE ---
0830--pt continues to vomit; NG inserted to R nare and connected to LIS; immediate aspiration of 600ml black gastric contents; pt also vomited approx 200ml during tube insertion
--- NOTE | 2024-03-24 06:57 | PC.NURSE ---
pt has been medicated w/ Ativan for CIWA 8-11 and Dilaudid for pain; He was given a dose of Metoprolol 5mg iv this morning for HR 130 and b/p 150s/100s; hr now 98 and b/p 123/59; pt has had 2200ml out of his NG and an additional 500ml emesis prior to tube insertion
[2024-03-24] MEDS: dexmedeTOMIDine in 0.9 % NaCL 400 MCG/100 ML PLAST..BAG IV (08:50)
--- NOTE | 2024-03-24 09:01 | PC.NURSE ---
Dayshift note: 08 This nurse heard loud noises coming from pt room, went into room to find PT OOB in the bathroom with blood on floor from IV that he pulled out, NG tube was on the floor, pt was very confused with urine all around him. PCT and this nurse assisted pt back to chair, bandaged arm and cleaned pt up. Updated Dr Wallace on event, orders received for Precedex, and ICU status. Will attempt to replace NG when pt is more sedated. Bed low and locked, alarm active, curtains open for view room, no further needs at this time.
[2024-03-24] MEDS: PANTOPRAZOLE 40 MG VIAL IV (09:31)
--- NOTE | 2024-03-24 09:41 | DIET.CONS ---
Dietary Consultation Note Admission Date: 03/22/2024 22:00 Assessment: 43 y M admitted for acute alcoholic pancreatitis. Nutrition consulted for alcoholism. This morning pt is confused, vomiting, pulled NG, being sedated to replace NG. Chart reviewed. Ht: 172.72 cm Wt: 83.007 kg BMI: 27.8 UBW: 82.299 kg on 02/03/24; 89 kg on 06/11/23 (-6.7% loss in 9 months, non-severe) Last BM: () MNA: 14 Dylon Score: 17 Diet: 03/23/24 18:40 NPO Diet Diet Modifications: NPO Type: NPO except for Meds Nutrition Percent Meal Consumed 50% 03/23/24 08:00 Labs: RBC 4.32 X10^6/uL (4.5-5.9) L 03/24/24 04:40 Hgb 13.3 g/dL (13.5-17.5) L 03/24/24 04:40 Hct 39.2 % (41-53) L 03/24/24 04:40 Creatinine 0.85 mg/dL (0.66-1.25) 03/24/24 04:40 Lactate 1.8 mmol/L (0.7-2.1) 03/22/24 21:30 Nutrition Diagnosis: Altered GI function r/t compromised exocrine function related to pancreas aeb acute alcoholic pancreatitis Interventions: 1. When pt is able to tolerate po intakes, will support adequate energy and protein needs 2. Will re-assess if pt unable to tolerate po intakes on day 5 EER: [id number] kcals (22-25 kcals/kg per BMI, compared w/ MSJ x1.2) 85-95 g protein (1-1.2 g/kg adjusted IBW per pancreatitis) Monitoring/Evaluations: diet advancement as tolerated Electronically Signed by: Jennifer Harper 03/24/24 09:41 Clinical Dietitian [address] [id number]
[2024-03-24] MEDS: POTASSIUM CHLORIDE IN WATER 10 MEQ/100 ML PIGGYBACK 100 MEQ IV ×2 (11:13→12:44)
--- NOTE | 2024-03-24 13:31 | PM.PN.1 ---
Subjective Subjective Interval history: 43 M admitted with abdominal pain, alcoholic pancreatitis with large pseudocyst. Overnight he started having nausea and vomiting, NG was placed, he was made NPO. Subsequently overnight also started withdrawing from alcohol. He was started on precedex this morning, more calm and no nausea or vomiting. He pulled out his NG tube but will remain out now unless emesis returns again. Exam Vital Signs (past 8 hours): - 03/24/24 06:42 03/24/24 07:00 03/24/24 08:35 Temperature Pulse Rate 100 H 110 H Respiratory Rate 18 35 H Blood Pressure 123/59 L Pulse Oximetry Oxygen Delivery Method Room Air 03/24/24 08:36 03/24/24 08:36 03/24/24 08:37 Temperature Pulse Rate 110 H 109 H Respiratory Rate 37 H 35 H Blood Pressure 131/84 Pulse Oximetry 94 94 Oxygen Delivery Method 03/24/24 08:37 03/24/24 08:38 03/24/24 08:38 Temperature Pulse Rate 113 H Respiratory Rate 34 H Blood Pressure 132/83 127/79 Pulse Oximetry 95 Oxygen Delivery Method 03/24/24 09:00 03/24/24 09:00 03/24/24 10:00 Temperature 98.7 F Pulse Rate 97 H Respiratory Rate 32 H Blood Pressure 100/60 106/66 Pulse Oximetry 95 Oxygen Delivery Method 03/24/24 10:00 03/24/24 11:00 03/24/24 11:00 Temperature Pulse Rate 97 H 96 H Respiratory Rate 29 H 28 H Blood Pressure Pulse Oximetry 95 95 Oxygen Delivery Method Room Air 03/24/24 11:00 03/24/24 12:00 03/24/24 12:00 Temperature Pulse Rate 96 H Respiratory Rate 30 H Blood Pressure 104/66 108/66 Pulse Oximetry 96 Oxygen Delivery Method 03/24/24 13:00 03/24/24 13:00 Temperature Pulse Rate 98 H Respiratory Rate 28 H Blood Pressure 101/66 Pulse Oximetry 96 Oxygen Delivery Method Oxygen Delivery Method Room Air Oxygen Flow Rate 0 Narrative Exam Narrative: Gen: faitgued appearing male, no acute distress, sleepy on precedex did not arouse him this morning. Pulm: CTA b/l with no wheezing noted today. CV: RRR no m/r/g Abd: Soft but with mild distension Ext: no edema or joint effusions Objective Labs 03/24/24 04:40 03/24/24 04:40 Labs: Laboratory Results - last 24 hr 03/24/24 04:40 WBC 9.9 RBC 4.32 L Hgb 13.3 L Hct 39.2 L MCV 90.6 MCH 30.8 MCHC 34.0 RDW 15.4 H Plt Count 159 Neut % (Auto) 80.8 H Lymph % (Auto) 9.2 L [place] % (Auto) 9.6 Eos % (Auto) 0.1 L Baso % (Auto) 0.3 Neut # (Auto) 8000 H Lymph # (Auto) 900 L [place] # (Auto) 900 Eos # (Auto) 0 Baso # (Auto) 0 Sodium 134 L Potassium 3.5 Chloride 101 Carbon Dioxide 31 BUN 18 Creatinine 0.85 Estimated GFR > 60 BUN/Creatinine Ratio 21.2 Glucose 164 H Calcium 8.2 L Magnesium 2.3 Total Bilirubin 1.1 AST 35 ALT 45 Alkaline Phosphatase 77 Total Protein 6.5 Albumin 3.7 Globulin 2.8 Albumin/Globulin Ratio 1.3 PFSH Medical History History of recurrent UTI (urinary tract infection) BPH w urinary obs/LUTS Finger wound, simple, open Aftercare following left finger joint replacement surgery Sterilization consult Hyperlipidemia Family history of hypertension Erectile dysfunction due to arterial insufficiency Migraine headache HTN (hypertension) Depression Surgical History H/O circumcision H/O umbilical hernia repair Family History Mother Hypertension History of thyroid disorder Social History marital status: number of children: 2 household members: none occupational status: employed leisure activities: exercise Smoking Status: Never smoker alcohol intake: current substance use type: does not use Type(s) of exercise: weight lifting and running frequency: 5-6 times per week duration: 45-60 minutes/day Assessment & Plan Assessment & Plan narrative: Acute Alcoholic Pancreatitis with pancreatic pseudocyst - matching relapse after several months w/o alcohol - has very large pseudocyst so at risk for complications, infection or obstruction. No current interventions recommended by GI. - unclear if nausea/vomiting was related to withdrawal or pseudocyst - will continue NPO for today, treat withdrawal and see if improvement. Repeat XR yesterday without obvious obstruction or perforation. - NG tube was placed, but patient removed in setting of withdrawal delirium. Given no nausea or vomiting today, will hold on replacement at this time. - if nausea and diet intolerance continues, consider IR guided drainage or transfer for GI evaluation. Alcohol withdrawal and alcoholic hepatitis - discussed the need for complete abstinence - CIWA protocol, started on precedex morning of 03/24, moved to the ICU. - started librium with history of alcohol withdrawal with DTs, but now that NPO have moved to precedex. If able to tolerate diet consider resuming librium. - continue to trend LFTs, likely alcoholic hepatitis, low DF scoring no indication for steroids. Depression - Continue home Welllbutrin when able to tolerate PO intake. GERD - PPI DVT prophylaxis - Lovenox Code: Full Discussed with nursing staff, case management and overnight provider to contribute to history, assessment and plan noted above. I spent 40 minutes providing critical care management this patient. This excludes time spent in performing separately billed procedures.
[2024-03-24] MEDS: dexmedeTOMIDine in 0.9 % NaCL 400 MCG/100 ML PLAST..BAG 8.301 MCG IV (16:08)
[2024-03-25] VITALS (23 sets, daily range): BP systolic 97–142; BP diastolic 56–85; PULSE 77–119; RESP 20–38; TEMP 36.9; O2SAT 94–99
[2024-03-25] MEDS: HYDROMORPHONE 1 MG INJ IV ×3 (01:05→22:08)
[2024-03-25] MEDS: HYDROMORPHONE 0.5 MG INJ IV ×2 (04:52→11:44)
[2024-03-25] MEDS: dexmedeTOMIDine in 0.9 % NaCL 400 MCG/100 ML PLAST..BAG 8.301 MCG IV (04:53)
[2024-03-25 05:19] LABS: Add Manual Diff / Slide Review NO; Basophils Absolute Auto 0 /uL (0-100); Basophils Percent Auto 0.5 % (0-2); Eosinophils Absolute Auto 100 /uL (0-450); Eosinophils Percent Auto 1.7 % (2-4); Lymphocytes Absolute Auto 1200 /uL (1100-4500); Lymphocytes Percent Auto 23.1 % (25-40); Mean Corpuscular HGB Conc 34.4 % (30-36); Mean Corpuscular Hemoglobin 31.4 PG (26-34); Mean Corpuscular Volume 91.3 fL (80-100); Monocytes Absolute Auto 600 /uL (0-900); Monocytes Percent Auto 10.9 % (3-14); Neutrophils Absolute Auto 3400 /uL (1500-7000); Neutrophils Percent Auto 63.8 % (50-75); Platelet Count 112 X10^3/uL (150-400); Red Cell Distribution Width 15.2 % (11.6-14.8); White Blood Cell Count 5.4 X10^3/uL (4.5-11.0)
[2024-03-25 05:34] LABS: Alanine Aminotransferase 26 IU/L (<50); Albumin 3.1 g/dL (3.5-5.0); Albumin Globulin Ratio 1.1 (1.0-2.8); Alkaline Phosphatase 67 U/L (38-126); Aspartate Aminotransferase 21 IU/L (17-59); BUN Creatinine Ratio 20.5 (6-22); Bilirubin Total 0.8 mg/dL (0.2-1.3); Blood Urea Nitrogen 18 mg/dL (9-20); Calcium 7.9 mg/dL (8.4-10.2); Carbon Dioxide 26 mmol/L (22-32); Chloride 109 mmol/L (98-107); Estimated Glomerular Filt Rate > 60 mL/min (>60); Globulin 2.8 g/dL (1.7-4.1); Glucose 121 mg/dL (70-100); HEMOLYSIS < 15 (0-50); Magnesium 2.6 mg/dL (1.6-2.3); Potassium 3.8 mmol/L (3.4-5.1); Sodium 135 mmol/L (137-145); Total Protein 5.9 g/dL (6.3-8.2)
[2024-03-25] MEDS: SODIUM CHLORIDE 0.9% 1,000 ML 75 ML IV (08:10)
[2024-03-25] MEDS: ENOXAPARIN 40 MG/0.4 ML SYRINGE SUBCUT (09:01)
[2024-03-25] MEDS: PANTOPRAZOLE 40 MG VIAL IV (09:01)
--- NOTE | 2024-03-25 12:31 | P.PN_ITS ---
Subjective Subjective Date Patient Seen: 03/25/24 Time Patient Seen: 08:40 Interval history: Yesterday: 43 M admitted with abdominal pain, alcoholic pancreatitis with large pseudocyst. Overnight he started having nausea and vomiting, NG was placed, he was made NPO. Subsequently overnight also started withdrawing from alcohol. He was started on precedex this morning, more calm and no nausea or vomiting. He pulled out his NG tube but will remain out now unless emesis returns again. Interval history: The patient reports he is feeling better. He has no evidence of active withdrawal. He remains on low-dose Precedex this morning. Had no nausea or vomiting. He is interested in advancing a clear liquid diet. He is also interested in ongoing alcoholic rehabilitation efforts after discharge. Exam Vital Signs (past 8 hours): - 03/25/24 05:00 03/25/24 05:00 03/25/24 06:00 Pulse Rate 78 77 Respiratory Rate 29 H 25 H Blood Pressure 109/65 Pulse Oximetry 98 97 Oxygen Delivery Method 03/25/24 06:00 03/25/24 07:00 03/25/24 07:00 Pulse Rate 88 Respiratory Rate 33 H Blood Pressure 107/64 108/68 Pulse Oximetry 98 Oxygen Delivery Method 03/25/24 08:00 03/25/24 08:00 03/25/24 08:00 Pulse Rate 86 Respiratory Rate 33 H Blood Pressure 134/80 Pulse Oximetry 99 Oxygen Delivery Method Room Air 03/25/24 09:00 03/25/24 09:00 03/25/24 10:00 Pulse Rate 93 H 86 Respiratory Rate 28 H 25 H Blood Pressure 130/72 Pulse Oximetry 98 95 Oxygen Delivery Method 03/25/24 10:00 03/25/24 11:00 03/25/24 11:00 Pulse Rate 88 Respiratory Rate 38 H Blood Pressure 110/56 L 115/75 Pulse Oximetry 98 Oxygen Delivery Method 03/25/24 12:00 03/25/24 12:00 Pulse Rate 91 H Respiratory Rate 27 H Blood Pressure 127/79 Pulse Oximetry 99 Oxygen Delivery Method Oxygen Delivery Method Room Air Oxygen Flow Rate 0 Narrative Exam Narrative: GENERAL: This is a well-nourished, well-developed patient, in no apparent distress. EYES: Pupils equal round and reactive. Extraocular motions intact. No scleral icterus. No injection or drainage. ENT: Mucous membranes pink and moist. NECK: Trachea midline. No JVD, bruits or lymphadenopathy. Supple, nontender, no meningeal signs. CARDIOVASCULAR: Regular rate and rhythm without murmurs, gallops, or rubs. RESPIRATORY: Clear to auscultation. GASTROINTESTINAL: Abdomen soft, mild epigastric tenderness, nondistended, no guarding or rebound. EXTREMITIES: No clubbing, cyanosis, or edema. BACK: Nontender without deformity or crepitance. No flank tenderness. NEUROLOGIC: Alert, oriented, speech fluent, full upper and lower motor strength, no focal deficits evident. No asterixis. DERMATOLOGIC: No rashes or skin lesions. Objective Labs 03/25/24 04:35 03/25/24 04:35 Labs: Laboratory Results - last 24 hr 03/25/24 04:35 WBC 5.4 RBC 3.50 L Hgb 11.0 L Hct 32.0 L MCV 91.3 MCH 31.4 MCHC 34.4 RDW 15.2 H Plt Count 112 L Neut % (Auto) 63.8 Lymph % (Auto) 23.1 L [place] % (Auto) 10.9 Eos % (Auto) 1.7 L Baso % (Auto) 0.5 Neut # (Auto) 3400 Lymph # (Auto) 1200 [place] # (Auto) 600 Eos # (Auto) 100 Baso # (Auto) 0 Sodium 135 L Potassium 3.8 Chloride 109 H Carbon Dioxide 26 BUN 18 Creatinine 0.88 Estimated GFR > 60 BUN/Creatinine Ratio 20.5 Glucose 121 H Calcium 7.9 L Magnesium 2.6 H Total Bilirubin 0.8 AST 21 ALT 26 Alkaline Phosphatase 67 Total Protein 5.9 L Albumin 3.1 L Globulin 2.8 Albumin/Globulin Ratio 1.1 [facility] Medical History History of recurrent UTI (urinary tract infection) BPH w urinary obs/LUTS Finger wound, simple, open Aftercare following left finger joint replacement surgery Sterilization consult Hyperlipidemia Family history of hypertension Erectile dysfunction due to arterial insufficiency Migraine headache HTN (hypertension) Depression Surgical History H/O circumcision H/O umbilical hernia repair Family History Mother Hypertension History of thyroid disorder Social History marital status: number of children: 2 household members: none occupational status: employed leisure activities: exercise Smoking Status: Never smoker alcohol intake: current substance use type: does not use Type(s) of exercise: weight lifting and running frequency: 5-6 times per week duration: 45-60 minutes/day Assessment & Plan Assessment & Plan narrative: Acute Alcoholic Pancreatitis with pancreatic pseudocyst - relapse after several months w/o alcohol - has very large pseudocyst 14.6 x 7 x 7.1 cm on 03/22/2024 CT scan, so at risk for complications, infection or obstruction. No current interventions recommended by GI. - unclear if nausea/vomiting was related to withdrawal or pseudocyst - will advance to clear liquid diet today today, continue to treat withdrawal and likely wean off Precedex in the next 24 hours, consider oral Librium taper. - NG tube was placed, but patient removed in setting of withdrawal delirium. - if nausea and diet intolerance, consider IR guided drainage or transfer for GI evaluation. Alcohol withdrawal and alcoholic hepatitis - discussed the need for complete abstinence. Discussed and counseled further today. - CIWA protocol, started on precedex morning of 03/24, moved to the ICU, hoping to wean off in the next 24 hours. - started librium with history of alcohol withdrawal with DTs on precedex. If able to tolerate diet consider resuming librium. - continue to trend LFTs, likely alcoholic hepatitis, low DF scoring no indication for steroids. Depression - resume home Welllbutrin when able to tolerate PO intake. GERD - PPI DVT prophylaxis - Lovenox Code: Full Discussed with nursing staff, case management and overnight provider to contribute to history, assessment and plan noted above. Time Spent With Patient Time with patient: 30 to 49 minutes with 50% spent counseling/coordinating care Quality VTE Deep Vein Thrombosis/Pulmonary Embolism Present on Admission: No MIPS - Admit I confirm the patient?s Advance Care Plan is present, Code status is documented, Surrogate decision maker is in patient?s record [If Yes, STOP here]: Yes MIPS - Meds 'Current medications' to include all prescriptions, [id number] products, herbals, cannabis/cannabidiol products, and vitamin/mineral/dietary (nutritional) supplements. I have utilized all available resources to obtain, update, or review the patient?s current medications. [If Yes, STOP here]: Yes PROFEE Charge codes Subsequent inpatient/observation care: 52132
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
[2024-03-25] MEDS: ONDANSETRON 4 MG/2 ML INJ IV (20:22)
[2024-03-25] MEDS: PROPRANOLOL 10 MG TABLET 20 MG PO (21:16)
[2024-03-25] MEDS: TRAZODONE 50 MG TABLET PO (23:48)
[2024-03-26] VITALS (8 sets, daily range): BP systolic 104–161; BP diastolic 64–90; PULSE 76–84; RESP 16–18; TEMP 36.6–37.1; O2SAT 84–99
[2024-03-26] MEDS: HYDROMORPHONE 1 MG INJ IV (03:52)
[2024-03-26 05:35] LABS: Add Manual Diff / Slide Review NO; Basophils Absolute Auto 0 /uL (0-100); Basophils Percent Auto 0.4 % (0-2); Eosinophils Absolute Auto 100 /uL (0-450); Eosinophils Percent Auto 2.6 % (2-4); Hematocrit 29.4 % (41-53); Lymphocytes Absolute Auto 1100 /uL (1100-4500); Lymphocytes Percent Auto 22.5 % (25-40); Mean Corpuscular Hemoglobin 31.3 PG (26-34); Mean Corpuscular Volume 91.9 fL (80-100); Monocytes Absolute Auto 600 /uL (0-900); Monocytes Percent Auto 11.7 % (3-14); Neutrophils Absolute Auto 3100 /uL (1500-7000); Neutrophils Percent Auto 62.8 % (50-75); Platelet Count 139 X10^3/uL (150-400); Red Cell Distribution Width 14.6 % (11.6-14.8)
[2024-03-26 05:48] LABS: Alanine Aminotransferase 22 IU/L (<50); Albumin Globulin Ratio 1.1 (1.0-2.8); Alkaline Phosphatase 65 U/L (38-126); Aspartate Aminotransferase 20 IU/L (17-59); Bilirubin Total 0.8 mg/dL (0.2-1.3); Blood Urea Nitrogen 10 mg/dL (9-20); Calcium 7.9 mg/dL (8.4-10.2); Carbon Dioxide 27 mmol/L (22-32); Chloride 106 mmol/L (98-107); Estimated Glomerular Filt Rate > 60 mL/min (>60); Globulin 2.8 g/dL (1.7-4.1); Glucose 133 mg/dL (70-100); HEMOLYSIS < 15 (0-50); Magnesium 2.3 mg/dL (1.6-2.3); Potassium 3.6 mmol/L (3.4-5.1); Sodium 134 mmol/L (137-145); Total Protein 5.8 g/dL (6.3-8.2)
[2024-03-26] MEDS: dexmedeTOMIDine in 0.9 % NaCL 400 MCG/100 ML PLAST..BAG IV (05:50)
[2024-03-26] MEDS: buPROPion XL 150 MG TAB 450 MG PO (10:17)
[2024-03-26] MEDS: FOLIC ACID 1 MG TABLET PO (10:17)
[2024-03-26] MEDS: ENOXAPARIN 40 MG/0.4 ML SYRINGE SUBCUT (10:17)
[2024-03-26] MEDS: PANTOPRAZOLE 40 MG VIAL IV (10:17)
[2024-03-26] MEDS: MULTIVITAMIN 1 TABLET 1 TAB PO (10:18)
[2024-03-26] MEDS: THIAMINE 100 MG TABLET PO (10:18)
[2024-03-26] MEDS: PROPRANOLOL 10 MG TABLET 20 MG PO ×2 (10:20→21:08)
--- NOTE | 2024-03-26 12:36 | PM.PN.1 ---
Subjective Subjective Date Patient Seen: 03/26/24 Time Patient Seen: 08:20 Interval history: The patient reports considerable nausea overnight, and felt weaker, and that he might be going back into withdrawal. Precedex infusion was restarted and he feels better this morning. He was able to take in a full liquid diet this morning. Exam Vital Signs (past 8 hours): - 03/26/24 08:00 03/26/24 09:13 03/26/24 09:14 Temperature Pulse Rate Respiratory Rate Blood Pressure 119/77 Pulse Oximetry 84 L Oxygen Delivery Method Room Air 03/26/24 09:14 03/26/24 09:28 Temperature 98 F Pulse Rate 77 80 Respiratory Rate 17 Blood Pressure 119/77 Pulse Oximetry 97 98 Oxygen Delivery Method Oxygen Delivery Method Room Air Oxygen Flow Rate 0 Narrative Exam Narrative: GENERAL: This is a well-nourished, well-developed patient, in no apparent distress. No jaundice. EYES: Pupils equal round and reactive. Extraocular motions intact. No scleral icterus. ENT: Mucous membranes pink and moist. NECK: Supple, nontender, no meningeal signs. CARDIOVASCULAR: Regular rate and rhythm without murmurs, gallops, or rubs. RESPIRATORY: Clear to auscultation. GASTROINTESTINAL: Abdomen soft, mild epigastric tenderness, nondistended, no guarding or rebound. EXTREMITIES: No clubbing, cyanosis, or edema. NEUROLOGIC: Alert, oriented, speech fluent, full upper and lower motor strength, no focal deficits evident. No asterixis. DERMATOLOGIC: No rashes or skin lesions. Objective Labs 03/26/24 04:35 03/26/24 04:35 Labs: Laboratory Results - last 24 hr 03/26/24 04:35 WBC 5.0 RBC 3.20 L Hgb 10.0 L Hct 29.4 L MCV 91.9 MCH 31.3 MCHC 34.0 RDW 14.6 Plt Count 139 L Neut % (Auto) 62.8 Lymph % (Auto) 22.5 L [place] % (Auto) 11.7 Eos % (Auto) 2.6 Baso % (Auto) 0.4 Neut # (Auto) 3100 Lymph # (Auto) 1100 [place] # (Auto) 600 Eos # (Auto) 100 Baso # (Auto) 0 Sodium 134 L Potassium 3.6 Chloride 106 Carbon Dioxide 27 BUN 10 Creatinine 0.83 Estimated GFR > 60 BUN/Creatinine Ratio 12.0 Glucose 133 H Calcium 7.9 L Magnesium 2.3 Total Bilirubin 0.8 AST 20 ALT 22 Alkaline Phosphatase 65 Total Protein 5.8 L Albumin 3.0 L Globulin 2.8 Albumin/Globulin Ratio 1.1 [facility] Medical History History of recurrent UTI (urinary tract infection) BPH w urinary obs/LUTS Finger wound, simple, open Aftercare following left finger joint replacement surgery Sterilization consult Hyperlipidemia Family history of hypertension Erectile dysfunction due to arterial insufficiency Migraine headache HTN (hypertension) Depression Surgical History H/O circumcision H/O umbilical hernia repair Family History Mother Hypertension History of thyroid disorder Social History marital status: number of children: 2 household members: none occupational status: employed leisure activities: exercise Smoking Status: Never smoker alcohol intake: current substance use type: does not use Type(s) of exercise: weight lifting and running frequency: 5-6 times per week duration: 45-60 minutes/day Assessment & Plan Assessment & Plan narrative: Acute Alcoholic Pancreatitis with pancreatic pseudocyst - relapse after several months w/o alcohol. NG tube was placed, but patient removed in setting of withdrawal delirium. - has very large pseudocyst 14.6 x 7 x 7.1 cm on 03/22/2024 CT scan, therefore at risk for complications, infection or obstruction. No current interventions recommended by GI. - unclear if nausea/vomiting was related to withdrawal or pseudocyst but improving overall - will advance to lowfat diet today today, stop Precedex and continue to treat withdrawal with oral Librium as needed (he prefers no scheduled medications). - if nausea and diet intolerance, consider IR guided drainage or transfer for GI evaluation. Alcohol withdrawal and alcoholic hepatitis - discussed the need for complete abstinence. Discussed and counseled further today. - CIWA protocol, started on precedex morning of 03/24, moved to the ICU, hoping to wean off in the next 24 hours. - started librium with history of alcohol withdrawal with DTs on precedex. If able to tolerate diet consider resuming librium. - continue to trend LFTs, likely alcoholic hepatitis, low DF scoring no indication for steroids. Depression - continue home bupopion. Denies suicidality. GERD - PPI Polycythemia/anemia -the patient reports he had been undergoing an outpatient evaluation for polycythemia, with baseline hematocrits in the 50-53% range. Hematocrit is down to 29% today likely due to acute illness and chronic disease, and possible GI blood loss from gastritis. No acute blood loss evident. Will continue to monitor. DVT prophylaxis - Lovenox Code: Full Discussed with nursing staff, case management and overnight provider to contribute to history, assessment and plan noted above. Likely discharge home tomorrow if doing well. Transition from ICU to floor status. Quality VTE Deep Vein Thrombosis/Pulmonary Embolism Present on Admission: No PROFEE Charge codes Subsequent inpatient/observation care: [id number]
--- NOTE | 2024-03-26 12:46 | CM.DPNOTE ---
DCP Note QUALITY ASSURANCE LAB TECHNICIAN reviewed EMR. Per provider, potentially dc home tomorrow due to having to go back on precedex. CIWAs have been 0-2 past 12 hours. Per previous QUALITY ASSURANCE LAB TECHNICIAN notes, completed comprehensive DCP assessment and provided resources as appropriate. QUALITY ASSURANCE LAB TECHNICIAN met with pt briefly in room. Deny any new DCP/CM needs at this time. Family coming to visit pt when this QUALITY ASSURANCE LAB TECHNICIAN was leaving. Plan: Discharge back to his boat anticipated, w/friends and family to support, outpatient and inpatient RHETT and RHETT/MH counseling resources provided. CM team will plan to follow clinical course closely in case addtl needs, questions concerns arise about discharge and /or RHETT/MH resources. SHARI Jacobs
[2024-03-26] MEDS: ACETAMINOPHEN 325 MG TABLET 650 MG PO (14:47)
[2024-03-26] MEDS: OXYCODONE IR 5 MG TABLET PO (14:47)
[2024-03-26] MEDS: DEXTROSE 5%-0.45NS W/KCL 20MEQ 1,000 ML 100 MEQ IV (14:53)
[2024-03-26 17:44] LABS: Bilirubin Urine UA NEGATIVE (NEGATIVE); Color Urine UA YELLOW; Glucose Urine UA 1+ g/dL (Negative); Ketones Urine UA NEGATIVE (NEGATIVE); Leukocyte Esterase Urine UA 3+ (NEGATIVE); Nitrite Urine UA NEGATIVE (Negative); Occult Blood Urine UA 1+ (Negative); Protein Urine UA TRACE (Negative); Specific Gravity Urine UA 1.015 (1.000-1.035)
[2024-03-26 17:49] LABS: Appearance Urine UA CLOUDY
[2024-03-26 17:53] LABS: Bacteria Urine Many (>30); Culture Indicated Urine Specimen Cultured; RBC Urine 0-1/HPF (0-5/HPF); Squamous Epithelial Cell Urine None Seen (0-5/HPF); Urine Volume 10mL (spun); WBC Urine 30-100/HPF (0-5/HPF)
[2024-03-26] MEDS: TRIMETH/SULFA 160/800 (DS) TABLET 1 TAB PO (19:27)
[2024-03-26] MEDS: TAMSULOSIN 0.4 MG CAPSULE PO (21:07)
[2024-03-26] MEDS: TRAZODONE 50 MG TABLET PO (21:08)
[2024-03-26] MEDS: OXYCODONE IR 5 MG TABLET 10 MG PO (21:08)
[2024-03-26] MEDS: chlordiazePOXIDE 25 MG CAPSULE PO (21:08)
[2024-03-27] MEDS: TRAZODONE 50 MG TABLET PO (01:24)
[2024-03-27] MEDS: chlordiazePOXIDE 25 MG CAPSULE PO (01:24)
[2024-03-27] MEDS: DEXTROSE 5%-0.45NS W/KCL 20MEQ 1,000 ML 100 MEQ IV (01:34)
[2024-03-27] MEDS: OXYCODONE IR 5 MG TABLET 10 MG PO ×2 (02:18→10:00)
[2024-03-27 06:25] VITALS: BP 116/78; PULSE 88; RESP 16; TEMP 36.9; O2SAT 96
[2024-03-27 06:29] LABS: Add Manual Diff / Slide Review NO; Basophils Absolute Auto 0 /uL (0-100); Basophils Percent Auto 0.6 % (0-2); Eosinophils Absolute Auto 100 /uL (0-450); Eosinophils Percent Auto 2.3 % (2-4); Hematocrit 31.3 % (41-53); Hemoglobin 10.6 g/dL (13.5-17.5); Lymphocytes Absolute Auto 800 /uL (1100-4500); Lymphocytes Percent Auto 16.6 % (25-40); Mean Corpuscular HGB Conc 33.8 % (30-36); Mean Corpuscular Hemoglobin 30.9 PG (26-34); Mean Corpuscular Volume 91.4 fL (80-100); Monocytes Absolute Auto 500 /uL (0-900); Monocytes Percent Auto 10.2 % (3-14); Neutrophils Absolute Auto 3300 /uL (1500-7000); Neutrophils Percent Auto 70.3 % (50-75); Platelet Count 174 X10^3/uL (150-400); Red Blood Cell Count 3.42 X10^6/uL (4.5-5.9); Red Cell Distribution Width 14.5 % (11.6-14.8); White Blood Cell Count 4.7 X10^3/uL (4.5-11.0)
[2024-03-27 07:02] LABS: BUN Creatinine Ratio 10.1 (6-22); Blood Urea Nitrogen 8 mg/dL (9-20); Calcium 8.2 mg/dL (8.4-10.2); Carbon Dioxide 27 mmol/L (22-32); Chloride 104 mmol/L (98-107); Estimated Glomerular Filt Rate > 60 mL/min (>60); Glucose 185 mg/dL (70-100); HEMOLYSIS < 15 (0-50); Potassium 3.7 mmol/L (3.4-5.1); Sodium 134 mmol/L (137-145)
[2024-03-27 08:00] VITALS: BP 138/73; PULSE 86; RESP 16; TEMP 36.9; O2SAT 98
[2024-03-27] MEDS: ACETAMINOPHEN 325 MG TABLET 650 MG PO (08:41)
[2024-03-27] MEDS: FOLIC ACID 1 MG TABLET PO (08:41)
[2024-03-27] MEDS: THIAMINE 100 MG TABLET PO (08:41)
[2024-03-27] MEDS: MULTIVITAMIN 1 TABLET 1 TAB PO (08:41)
[2024-03-27] MEDS: PROPRANOLOL 10 MG TABLET 20 MG PO (08:42)
[2024-03-27] MEDS: TRIMETH/SULFA 160/800 (DS) TABLET 1 TAB PO (08:42)
[2024-03-27] MEDS: buPROPion XL 150 MG TAB 450 MG PO (08:42)
[2024-03-27] MEDS: PANTOPRAZOLE 40 MG VIAL IV (08:43)
[2024-03-27 12:00] VITALS: BP 111/70; PULSE 76; RESP 16; O2SAT 96
[2024-03-27] MEDS: polyethylene glycoL 3350 17 GM POWD.PACK PO (13:20)
--- NOTE | 2024-03-27 13:23 | PM.DS.1 ---
History of Present Illness History of Present Illness Date Patient Seen: 03/27/24 Time Patient Seen: 12:30 Chief complaint: Abdominal Pain Narrative: Per admitting provider, 43 y/o with past medical history of alcoholic pancreatitis, a year ago, presented to ED with severe abdominal pain from recurrent pancreatitis. He was able to quit drinking but unfortunately relapsed a month ago. CT shows large pancreatic pseudocyst.Apart from pain and nausea, no additional complaints, w/o fever, chills, dark or bloody stool. His last drink was less then 24 h ago and he mentioned that he had DT with visual hallucinations when he quit last time. Admitted for pain control, IVFs, on awake overnight monitor, at risk for withdrawal. Discharge Providers Provider Date of admission: 03/22/24 22:00 Discharge Date: 03/27/24 Primary care physician: Emanuel Chapa MD Consults: 03/23/24 06:22 Consult to Dietitian, Adult Routine Comment: Reason For Exam: alcoholism Discharge provider: Yao Wallace DO Summary Hospital Course Discharge Diagnosis: Acute Alcoholic Pancreatitis with pancreatic pseudocyst Alcohol withdrawal and alcoholic hepatitis Depression GERD Polycythemia/anemia Acute cystitis, possible prostatitis, not present on admission. Hospital Course: This is a 43 year old male with PMH of polycythemia, alcohol use, prior DTs who presented with nausea and vomiting after restarting drinking alcohol. He was admitted with pancreatitis, imaging showed a large pseudocyst though without obstruction no interventions were recommended after discussion with OSH GI provider. He developed nausea and vomiting on HD#1,NG tube was placed with concern for possible obstruction, but ultimately deemed likely due to alcohol withdrawal as symptoms improved with precedex administration. NG tube was not replaced and his diet was slowly advanced. Precedex was weaned. At the time of discharge, his pain was controlled with oral medications and he was tolerating a low fat diet. He was counseled on return precautions and counseled on alcohol cessation. He was given a few days of pain medications and a few doses of benzodiazepines in case of withdrawal symptoms. He developed some dysuria during admission, and has had a number of frequent urinary infections in the past. Previous E. coli cultures have grown resistant organisms to fluoroquinolones. He was discharged with a course of bactrim for 4 weeks for presumed prostatitis. He follows with urology and outpatient follow up is recommended. Consider repeat cultures in approximately 1 week to check effectiveness of therapy. Time Spent with Patient Time spent: Greater than 30 minutes Exam Vital Signs (past 8 hours): - 03/27/24 06:25 03/27/24 08:00 03/27/24 09:00 Temperature 98.4 F 98.5 F Pulse Rate 88 86 Respiratory Rate 16 16 Blood Pressure 116/78 138/73 Pulse Oximetry 96 98 Oxygen Delivery Method Room Air Oxygen Flow Rate 0 0 03/27/24 12:00 Temperature Pulse Rate 76 Respiratory Rate 16 Blood Pressure 111/70 Pulse Oximetry 96 Oxygen Delivery Method Oxygen Flow Rate 0 Oxygen Delivery Method Room Air Oxygen Flow Rate 0 Narrative Exam Narrative: GENERAL: This is a well-nourished, well-developed patient, in no apparent distress. No jaundice. EXTREMITIES: No clubbing, cyanosis, or edema. NEUROLOGIC: Alert, oriented, speech fluent, full upper and lower motor strength, no focal deficits evident. No tremulousness. Objective Labs 03/27/24 06:10 03/27/24 06:10 Labs: Laboratory Results - last 24 hr 03/26/24 03/27/24 17:35 06:10 WBC 4.7 RBC 3.42 L Hgb 10.6 L Hct 31.3 L MCV 91.4 MCH 30.9 MCHC 33.8 RDW 14.5 Plt Count 174 Neut % (Auto) 70.3 Lymph % (Auto) 16.6 L [place] % (Auto) 10.2 Eos % (Auto) 2.3 Baso % (Auto) 0.6 Neut # (Auto) 3300 Lymph # (Auto) 800 L [place] # (Auto) 500 Eos # (Auto) 100 Baso # (Auto) 0 Sodium 134 L Potassium 3.7 Chloride 104 Carbon Dioxide 27 BUN 8 L Creatinine 0.79 Estimated GFR > 60 BUN/Creatinine Ratio 10.1 Glucose 185 H Calcium 8.2 L Urine Color Yellow Urine Appearance Cloudy Urine pH 7.0 Ur Specific [place] 1.015 Urine Protein Trace H Urine Glucose (UA) 1+ H Urine Ketones Negative Urine Occult Blood 1+ H Urine Nitrate Negative Urine Bilirubin Negative Urine Urobilinogen 1.0 Ur Leukocyte Esterase 3+ H Urine RBC 0-1/hpf Urine WBC 30-100/hpf H Ur Squamous Epith Cells None seen Urine Bacteria Many (>30) H Urine Yeast 0-1/hpf Ur Culture Indicated? Specimen cultured Vol Urine Centrifuged 10ml (spun) [facility] Medical History History of recurrent UTI (urinary tract infection) BPH w urinary obs/LUTS Finger wound, simple, open Aftercare following left finger joint replacement surgery Sterilization consult Hyperlipidemia Family history of hypertension Erectile dysfunction due to arterial insufficiency Migraine headache HTN (hypertension) Depression Surgical History H/O circumcision H/O umbilical hernia repair Family History Mother Hypertension History of thyroid disorder Social History marital status: number of children: 2 household members: none occupational status: employed leisure activities: exercise Smoking Status: Never smoker alcohol intake: current substance use type: does not use Type(s) of exercise: weight lifting and running frequency: 5-6 times per week duration: 45-60 minutes/day Discharge Plan Discharge Plan Patient Disposition: Home Provider Discharge Comment: You were admitted to the hospital with a pancreatitis flare and enlarged pseudocyst. This pseudocyst is monitored clinically. Please seek evaluation if you develop worsening pain, inability to tolerate food, or fever. Continue low fat diet and avoidance of alcohol. Discharge orders & Medications Prescriptions: New sulfamethoxazole-trimethoprim 800-160 mg Tablet 1 tab PO BID 28 Days Qty: 56 0RF hydromorphone 2 mg tablet 2 - 4 mg PO Q4-6H PRN (Reason: pain) 7 Days Qty: 20 0RF lorazepam 1 mg tablet 1 mg PO TID PRN (Reason: alcohol withdrawal) 7 Days Qty: 10 0RF Continued bupropion HCl [Wellbutrin XL] 150 mg Tablet Extended Release 24 Hr 450 mg PO QAM tadalafil 10 mg tablet 10 mg PO PRN PRN (Reason: Sexual Activity) Rx Instructions: administer approximately 30min before sexual activity; do not use more than 10mg dose per 24hrs aspirin 81 mg Tablet,Chewable 81 mg PO DAILY omeprazole 20 mg capsule,delayed release(DR/EC) 20 mg PO DAILY propranolol 10 mg tablet 10 mg PO BID tamsulosin 0.4 mg capsule 0.4 mg PO BEDTIME Qty: 90 3RF cetirizine [Zyrtec] 10 mg tablet 10 mg PO DAILY PRN (Reason: Allergy Symptoms) Follow up/Referrals: Emanuel Chapa MD [Primary Care Provider] - Diet/Activity/Treatments Diet: Diet as Tolerated and Low-fat Activity: As tolerated Skin/Wound/Dressing Care Report to your healthcare provider any signs of infection, such as:: chills, fever and increased pain Visit Report/Discharge Packet Instructions: Hydromorphone, Lorazepam, Sulfamethoxazole/Trimethoprim (By mouth) Stand Alone Forms: Patient Portal/API, Stroke Signs & Symptoms Discharge Data Primary Care Provider: Emanuel Chapa Quality VTE Deep Vein Thrombosis/Pulmonary Embolism Present on Admission: No
--- NOTE | 2024-03-27 15:31 | CM.DPC ---
DCP Discharge HOme Per MD, pt is medically stable to discharge today with a taper and outpt f/u and no further identified barriers to discharge. Per RN, instructions provided and pt taken to family POV. Pt was given multiple ETOH resource options and pt agreeable to f/u after discharge. SHARI Zavala
== END 2024-03-27 14:50 | disposition home or self-care (01) | DRG 282 ==
LOC: ED 19:37 → AC 22:01 → ICU 03-23 02:55
PROVIDERS: Internal Medicine; Admitting Provider Internal Medicine; Emergency Provider Emergency Medicine; PCP Family Medicine; Referring Provider Emergency Medicine; Visit Provider Internal Medicine
DX: K85.20 Alcohol induced acute pancreatitis without necrosis or infection (principal); N30.00 Acute cystitis without hematuria; N41.0 Acute prostatitis; N40.1 Benign prostatic hyperplasia with lower urinary tract symptoms; N13.8 Other obstructive and reflux uropathy; I10 Essential (primary) hypertension; N52.1 Erectile dysfunction due to diseases classified elsewhere; I77.1 Stricture of artery; F32.A Depression, unspecified; K21.9 Gastro-esophageal reflux disease without esophagitis; K86.3 Pseudocyst of pancreas; F10.239 Alcohol dependence with withdrawal, unspecified; K70.10 Alcoholic hepatitis without ascites; D75.1 Secondary polycythemia; D64.9 Anemia, unspecified; B96.20 Unspecified Escherichia coli [E. coli] as the cause of diseases classified elsewhere; Y90.0 Blood alcohol level of less than 20 mg/100 ml
CPT/HCPCS: 36415; 74018; 74177; 80048; 80053; 80320; 81001; 81003; 82140; 83605; 83690; 83735; 85025; 85610; 87077; 87086; 87186; 87797; 93005; 96374; 96375; 99284; 99285; C9113; J0136; J1170; J1650; J2060; J2270; J2405; J2560; J2765; Q9967

== ENCOUNTER 2024-05-07 17:14 | Emergency (ER) | payer OTHER, MEDICAID, SELFPAY ==
[2023-09-23 15:20] VITALS: PULSE 78; RESP 0; RESP 16; O2SAT 95
[2024-03-23 03:54] VITALS: BMI 27.8
[2024-05-07] VITALS (21 sets, daily range): BP systolic 94–162; BP diastolic 59–105; PULSE 66–126; RESP 18–39; TEMP 36.6; O2SAT 96–99; BMI 24.0
[2024-05-07 17:39] LABS: Add Manual Diff / Slide Review NO; Basophils Absolute Auto 0 /uL (0-100); Basophils Percent Auto 0.5 % (0-2); Eosinophils Absolute Auto 100 /uL (0-450); Hematocrit 47.6 % (41-53); Hemoglobin 15.8 g/dL (13.5-17.5); Lymphocytes Absolute Auto 3600 /uL (1100-4500); Lymphocytes Percent Auto 47.1 % (25-40); Mean Corpuscular HGB Conc 33.2 % (30-36); Mean Corpuscular Hemoglobin 29.4 PG (26-34); Mean Corpuscular Volume 88.5 fL (80-100); Monocytes Absolute Auto 700 /uL (0-900); Monocytes Percent Auto 9.7 % (3-14); Neutrophils Absolute Auto 3200 /uL (1500-7000); Neutrophils Percent Auto 41.7 % (50-75); Platelet Count 325 X10^3/uL (150-400); Red Blood Cell Count 5.38 X10^6/uL (4.5-5.9); Red Cell Distribution Width 15.9 % (11.6-14.8); White Blood Cell Count 7.7 X10^3/uL (4.5-11.0)
[2024-05-07 17:43] LABS: Alanine Aminotransferase 22 IU/L (<50); Albumin 5.2 g/dL (3.5-5.0); Albumin Globulin Ratio 1.6 (1.0-2.8); Alkaline Phosphatase 78 U/L (38-126); Aspartate Aminotransferase 27 IU/L (17-59); BUN Creatinine Ratio 12.1 (6-22); Bilirubin Total 0.6 mg/dL (0.2-1.3); Blood Urea Nitrogen 16 mg/dL (9-20); Calcium 10.3 mg/dL (8.4-10.2); Carbon Dioxide 22 mmol/L (22-32); Chloride 106 mmol/L (98-107); Estimated Glomerular Filt Rate > 60 mL/min (>60); Globulin 3.3 g/dL (1.7-4.1); Glucose 90 mg/dL (70-100); HEMOLYSIS 26 (0-50); Lipase 418 U/L (23-300); Potassium 4.6 mmol/L (3.4-5.1); Sodium 143 mmol/L (137-145); Total Protein 8.5 g/dL (6.3-8.2)
[2024-05-07] MEDS: ONDANSETRON 4 MG/2 ML INJ IV (17:46)
--- NOTE | 2024-05-07 17:53 | EKG_ITS ---
[facility] [address] [address] Test Date: 2024-05-07 Pat Name: Scot Chet Department: [facility] Room: Gender: Male Mold Operator: SANGEETHA : 1980 Requested By: Order Number: [id number] Reading MD: Kg Kam Measurements Intervals [place] Rate: 134 P: 79 FL: 130 QRS: 45 QRSD: 72 T: 81 QT: 292 QTc: 436 Interpretive Statements Sinus tachycardia Electronically Signed On 05-08-2024 7:28:14 PDT by Kg Kam
[2024-05-07] MEDS: THIAMINE 200 MG in SODIUM CHLORIDE 0.9% 100 ML 408 MG IV (18:13)
[2024-05-07] MEDS: SODIUM CHLORIDE 0.9% 1,000 ML 1000 ML IV ×2 (18:13→19:37)
[2024-05-07] MEDS: HYDROMORPHONE 1 MG INJ IV ×2 (18:16→19:26)
[2024-05-07] MEDS: DROPERIDOL 5 MG/2 ML VIAL 2.5 MG IV (18:17)
--- NOTE | 2024-05-07 18:18 | ED.ABDPAIN ---
HPI - Abdominal Pain General Chief Complaint: Abdominal Pain Stated Complaint: Abd px Time Seen by Provider: 05/07/24 17:57 Source: patient and EMS Mode of arrival: EMS History of Present Illness HPI narrative: 43-year-old male with history of alcohol use disorder in remission (3 months sober), pancreatitis with pseudocyst presents by EMS from home for abdominal pain. Patient reports that he was in his kitchen when he had sudden onset sharp midepigastric abdominal pain with nausea and vomiting. Feels similar to previous episodes of pancreatitis. States that he initially saw Gastroenterology after his 1st pancreatitis flare, but he states that he was told he did not need to follow up after his 1st visit and has not seen them in nearly 1 year. Related Data Home Medications Medication Instructions Recorded Confirmed omeprazole 20 mg capsule,delayed 20 mg PO DAILY 05/06/21 03/23/24 release propranolol 10 mg tablet 10 mg PO BID 07/30/21 03/23/24 bupropion HCl 150 mg 24 hr tablet, 450 mg PO QAM 04/01/23 03/23/24 extended release (Wellbutrin XL) tadalafil 10 mg tablet 10 mg PO PRN PRN Sexual Activity 04/01/23 03/23/24 aspirin 81 mg chewable tablet 81 mg PO DAILY 06/03/23 03/23/24 cetirizine 10 mg tablet (Zyrtec) 10 mg PO DAILY PRN Allergy Symptoms 02/03/24 03/23/24 Previous Rx's Medication Instructions Recorded tamsulosin 0.4 mg capsule 0.4 mg PO BEDTIME #90 caps 09/28/23 hydrocodone 5 mg-acetaminophen 325 1 tab PO Q8H PRN pain #14 tabs 05/07/24 mg tablet promethazine 25 mg tablet 25 mg PO Q6H PRN nausea and 05/07/24 vomiting #30 tabs Allergies Allergy/AdvReac Type Severity Reaction Status Date / Time No Known Drug Allergies Allergy Verified 03/22/24 18:50 Patient History Medical History History of recurrent UTI (urinary tract infection) BPH w urinary obs/LUTS Finger wound, simple, open Aftercare following left finger joint replacement surgery Sterilization consult Hyperlipidemia Family history of hypertension Erectile dysfunction due to arterial insufficiency Migraine headache HTN (hypertension) Depression Surgical History H/O circumcision H/O umbilical hernia repair Family History Mother Hypertension History of thyroid disorder Social History marital status: number of children: 2 household members: none occupational status: employed leisure activities: exercise Smoking Status: Never smoker alcohol intake: current substance use type: does not use Type(s) of exercise: weight lifting and running frequency: 5-6 times per week duration: 45-60 minutes/day Smoking Status: Never smoker tobacco type: cigarettes alcohol intake frequency: other Alcohol type: hard liquor Substance Use Type: marijuana Exam Initial Vital Signs Initial Vital Signs: Vital Signs Pulse Rate 119 H 05/07/24 17:25 Respiratory Rate 26 H 05/07/24 17:25 Pulse Oximetry 98 05/07/24 17:25 Const: Awake, alert, uncomfortable, in pain Cardiac: Tachycardia, regular rhythm RESP: unlabored, speaking in complete sentences without dyspnea GI: Generalized tenderness to palpation Skin: Warm, Dry, intact, no rashes Neuro: AO x3, CN II-XII grossly intact, moves all extremities Course Orders Ordered: Discontinued Medications Hydrocodone Bitart/Acetaminophen (Hydrocodone/Acet 5/325 Prepack) 1 bottle MISC DIRECTED ONE Stop: 05/07/24 21:48 Last Admin: 05/07/24 21:54 Dose: 1 bottle Documented By: AB Diphenhydramine HCl (Diphenhydramine 50 Mg/Ml Vial) 50 mg IV NOW ONE Stop: 05/07/24 17:59 Last Admin: 05/07/24 18:17 Dose: Not Given Documented By: SB Droperidol (Droperidol 5 Mg/2 Ml Vial) 2.5 mg IV NOW ONE Stop: 05/07/24 17:59 Last Admin: 05/07/24 18:17 Dose: 2.5 mg Documented By: SB Folic Acid (Folic Acid 1 Mg Tablet) 1 mg PO NOW ONE Stop: 05/07/24 17:59 Last Admin: 05/07/24 18:48 Dose: 1 mg Documented By: SB Hydromorphone HCl (Hydromorphone 1 Mg Inj) 1 mg IV NOW ONE Stop: 05/07/24 17:59 Last Admin: 05/07/24 18:16 Dose: 1 mg Documented By: SAAD Hydromorphone HCl (Hydromorphone 1 Mg Inj) 1 mg IV NOW ONE Stop: 05/07/24 19:22 Last Admin: 05/07/24 19:26 Dose: 1 mg Documented By: Thiamine HCl 200 mg/ Sodium (Chloride) 102 mls @ 408 mls/hr IV NOW ONE Stop: 05/07/24 17:59 Last Infusion: 05/07/24 18:47 Dose: Infused Documented By: Admin: 05/07/24 18:13 Dose: 408 mls/hr Documented By: SB Sodium Chloride (Normal Saline 0.9%) 1,000 mls @ 1,000 mls/hr IV BOLUS ONE Stop: 05/07/24 18:57 Last Infusion: 05/07/24 19:32 Dose: Infused Documented By: Admin: 05/07/24 18:13 Dose: 1,000 mls/hr Documented By: SAAD Sodium Chloride (Normal Saline 0.9%) 1,000 mls @ 1,000 mls/hr IV BOLUS ONE Stop: 05/07/24 20:35 Last Infusion: 05/07/24 20:40 Dose: Infused Documented By: Admin: 05/07/24 19:37 Dose: 1,000 mls/hr Documented By: Ondansetron HCl (Ondansetron 4 Mg/2 Ml Inj) 4 mg IV NOW PRN PRN Reason: Nausea And Vomiting Last Admin: 05/07/24 17:46 Dose: 4 mg Documented By: SAAD Ondansetron HCl (Ondansetron 4 Mg Odt) 4 mg PO NOW PRN PRN Reason: Nausea And Vomiting Promethazine HCl (Promethazine 25 Mg Tablet) 25 mg PO NOW ONE Stop: 05/07/24 21:48 Last Admin: 05/07/24 21:54 Dose: 25 mg Documented By: AB Vital Signs Vital signs: Vital Signs - 8 hr 05/07/24 19:45 05/07/24 19:45 05/07/24 20:00 Pulse Rate 80 Respiratory Rate 20 Blood Pressure 100/68 111/59 L Pulse Oximetry 97 05/07/24 20:00 05/07/24 20:15 05/07/24 20:15 Pulse Rate 76 74 Respiratory Rate 19 24 Blood Pressure 123/68 Pulse Oximetry 98 99 05/07/24 20:30 05/07/24 20:30 05/07/24 20:45 Pulse Rate 66 Respiratory Rate 21 Blood Pressure 122/67 125/75 Pulse Oximetry 98 05/07/24 20:45 05/07/24 21:00 05/07/24 21:00 Pulse Rate 88 80 Respiratory Rate 23 19 Blood Pressure 105/63 Pulse Oximetry 97 97 05/07/24 21:15 05/07/24 21:15 05/07/24 21:30 Pulse Rate 80 82 Respiratory Rate 23 25 H Blood Pressure 115/66 Pulse Oximetry 97 97 05/07/24 21:30 05/07/24 21:45 05/07/24 21:45 Pulse Rate 92 H Respiratory Rate 18 Blood Pressure 115/65 118/77 Pulse Oximetry 97 MDM - Abdominal Pain Differential Diagnosis Differential diagnosis: Likely abdominal pain, gastroenteritis and pancreatitis Lab Data 05/07/24 17:18 05/07/24 17:18 Labs: Lab Results 05/07/24 Range/Units 17:18 WBC 7.7 (4.5-11.0) X10^3/uL RBC 5.38 (4.5-5.9) X10^6/uL Hgb 15.8 (13.5-17.5) g/dL Hct 47.6 (41-53) % MCV 88.5 (80-100) fL MCH 29.4 (26-34) PG MCHC 33.2 (30-36) % RDW 15.9 H (11.6-14.8) % Plt Count 325 (150-400) X10^3/uL Neut % (Auto) 41.7 L (50-75) % Lymph % (Auto) 47.1 H (25-40) % Smith % (Auto) 9.7 (3-14) % Eos % (Auto) 1.0 L (2-4) % Baso % (Auto) 0.5 (0-2) % Neut # (Auto) 3200 (3895-2346) /uL Lymph # (Auto) 3600 (9839-8959) /uL Smith # (Auto) 700 (0-900) /uL Eos # (Auto) 100 (0-450) /uL Baso # (Auto) 0 (0-100) /uL Sodium 143 (137-145) mmol/L Potassium 4.6 (3.4-5.1) mmol/L Chloride 106 (98-107) mmol/L Carbon Dioxide 22 (22-32) mmol/L BUN 16 (9-20) mg/dL Creatinine 1.32 H (0.66-1.25) mg/dL Estimated GFR > 60 (>60) mL/min BUN/Creatinine Ratio 12.1 (6-22) Glucose 90 (70-100) mg/dL Calcium 10.3 H (8.4-10.2) mg/dL Total Bilirubin 0.6 (0.2-1.3) mg/dL AST 27 (17-59) IU/L ALT 22 (<50) IU/L Alkaline Phosphatase 78 (38-126) U/L Total Protein 8.5 H (6.3-8.2) g/dL Albumin 5.2 H (3.5-5.0) g/dL Globulin 3.3 (1.7-4.1) g/dL Albumin/Globulin Ratio 1.6 (1.0-2.8) Lipase 418 H (23-300) U/L Ethyl Alcohol < 10 ( - 10) mg/dL MDM Narrative Medical decision making narrative: Nausea, vomiting, midepigastric abdominal pain similar to previous episodes of pancreatitis. Patient reports that he has been sober for the last 3 months, but does have history of large pseudocyst and several episodes previously of pancreatitis. Pain and nausea meds ordered Labs significant for lipase 418, creatinine 1.32 (GFR >60). Patient has known pseudocyst and pain consistent with pancreatitis flare-ups, no indication to repeat scan at this time. Patient pain improved with several L of IV fluids and several rounds of pain medications. Subsequently able to tolerate sips of clear fluids. Patient stated that he would like to go home at this time with pain medications. He has a lining machine tender appointment tomorrow and is familiar with progression of diet following pancreatitis flares. Patient counseled on importance of following with GI and referral numbner provided. Discharge Plan Departure Patient Disposition: Home Clinical Impression: Acute pancreatitis Instructions: DI for Pancreatitis Activity Restrictions/Additional Instructions: Pain medications and nausea medications have been sent to the right in [place]. Follow a light diet, you may progress to normal foods as tolerated. I do recommend following up with Gastroenterology with your recurrent pancreatitis flares. Prescriptions: New hydrocodone-acetaminophen 5-325 mg tablet 1 tab PO Q8H PRN (Reason: pain) Qty: 14 0RF promethazine 25 mg tablet 25 mg PO Q6H PRN (Reason: nausea and vomiting) Qty: 30 0RF No Action bupropion HCl [Wellbutrin XL] 150 mg Tablet Extended Release 24 Hr 450 mg PO QAM tadalafil 10 mg tablet 10 mg PO PRN PRN (Reason: Sexual Activity) Rx Instructions: administer approximately 30min before sexual activity; do not use more than 10mg dose per 24hrs aspirin 81 mg Tablet,Chewable 81 mg PO DAILY omeprazole 20 mg capsule,delayed release(DR/EC) 20 mg PO DAILY propranolol 10 mg tablet 10 mg PO BID tamsulosin 0.4 mg capsule 0.4 mg PO BEDTIME Qty: 90 3RF cetirizine [Zyrtec] 10 mg tablet 10 mg PO DAILY PRN (Reason: Allergy Symptoms) Referrals: Lewis Bolanos MD [Non-Staff] - Emanuel Chapa MD [Primary Care Provider] - Stand Alone Forms: Patient Portal/API
[2024-05-07 18:23] LABS: Ethanol (ETOH) < 10 mg/dL
[2024-05-07] MEDS: FOLIC ACID 1 MG TABLET PO (18:48)
[2024-05-07] MEDS: PROMETHAZINE 25 MG TABLET PO (21:54)
[2024-05-07] MEDS: HYDROCODONE/ACET 5/325 PREPACK 1 BOTTLE MISC (21:54)
--- NOTE | 2024-05-07 22:06 | PC.NURSE ---
Pt able to sit up at edge of bed independently. Pt able to ambulate without assistance, stand by with family member.
== END 2024-05-07 22:07 | disposition home or self-care (01) ==
PROVIDERS: Student in an Organized Health Care Education/Training Program; Emergency Provider Emergency Medicine; PCP Family Medicine
DX: K85.90 Acute pancreatitis without necrosis or infection, unspecified (principal)
CPT/HCPCS: 80053; 80320; 83690; 85025; 93005; 96365; 96375; 96376; 99284; J1170; J1790; J2405

== ENCOUNTER 2024-05-27 17:55 | Emergency (ER) | payer OTHER, MEDICAID, SELFPAY ==
[2023-09-23 15:20] VITALS: PULSE 78; RESP 0; RESP 16; O2SAT 95
[2024-03-23 03:54] VITALS: BMI 27.8
[2024-05-27] VITALS (18 sets, daily range): BP systolic 151–178; BP diastolic 83–93; PULSE 65–130; RESP 14–26; TEMP 36.3; O2SAT 90–100
--- NOTE | 2024-05-27 18:01 | ED_ITS ---
HPI - Abdominal Pain General Chief Complaint: Abdominal Pain Stated Complaint: abd pain/ known pancreatitis Time Seen by Provider: 05/27/24 17:58 History of Present Illness HPI narrative: 43-year-old male with history of alcohol use disorder in remission (sober since 03/2024), history of pancreatitis with pseudocyst presents by EMS from home for midepigastric abdominal pain. Patient states that when he woke up yesterday he noticed abdominal discomfort, but it was initially manageable at home. Throughout the day it has worsened in intensity. This evening he attempted to take a p.o. Dilaudid and p.o. Vicodin, however he vomited it did not keep these medications down. Pending GI appointment in June. Patient states that he has continued his sobriety and has not had any alcoholic beverages since his admission to the hospital in March of 2024. Related Data Home Medications Medication Instructions Recorded Confirmed omeprazole 20 mg capsule,delayed 20 mg PO DAILY 05/06/21 03/23/24 release propranolol 10 mg tablet 10 mg PO BID 07/30/21 03/23/24 bupropion HCl 150 mg 24 hr tablet, 450 mg PO QAM 04/01/23 03/23/24 extended release (Wellbutrin XL) tadalafil 10 mg tablet 10 mg PO PRN PRN Sexual Activity 04/01/23 03/23/24 aspirin 81 mg chewable tablet 81 mg PO DAILY 06/03/23 03/23/24 cetirizine 10 mg tablet (Zyrtec) 10 mg PO DAILY PRN Allergy Symptoms 02/03/24 03/23/24 Previous Rx's Medication Instructions Recorded tamsulosin 0.4 mg capsule 0.4 mg PO BEDTIME #90 caps 09/28/23 hydrocodone 5 mg-acetaminophen 325 1 tab PO Q8H PRN pain #14 tabs 05/07/24 mg tablet promethazine 25 mg tablet 25 mg PO Q6H PRN nausea and 05/07/24 vomiting #30 tabs Allergies Allergy/AdvReac Type Severity Reaction Status Date / Time No Known Drug Allergies Allergy Verified 03/22/24 18:50 Patient History Medical History History of recurrent UTI (urinary tract infection) BPH w urinary obs/LUTS Finger wound, simple, open Aftercare following left finger joint replacement surgery Sterilization consult Hyperlipidemia Family history of hypertension Erectile dysfunction due to arterial insufficiency Migraine headache HTN (hypertension) Depression Surgical History H/O circumcision H/O umbilical hernia repair Family History Mother Hypertension History of thyroid disorder Social History marital status: number of children: 2 household members: none occupational status: employed leisure activities: exercise Smoking Status: Former smoker alcohol intake: current substance use type: does not use Type(s) of exercise: weight lifting and running frequency: 5-6 times per week duration: 45-60 minutes/day Smoking Status: Never smoker tobacco type: cigarettes alcohol intake frequency: other Alcohol type: hard liquor Substance Use Type: marijuana Exam Initial Vital Signs Initial Vital Signs: Vital Signs Pulse Rate 105 H 05/27/24 17:59 Blood Pressure 178/87 H 05/27/24 17:59 Pulse Oximetry 100 05/27/24 17:59 Const: Awake, alert, uncomfortable, nontoxic appearing Cardiac: Tachycardia, regular rhythm RESP: unlabored, clear bilaterally, no wheezing GI: Soft, generalized tenderness to deep palpation without rebound or guarding Skin: Warm, Dry, intact, no rashes Neuro: AO x3, CN II-XII grossly intact, moves all extremities Course Orders Ordered: ED Orders 05/27/24 18:00 CT abdomen pelvis w con Stat EKG-12 Lead Stat 05/27/24 18:20 CBC Auto Diff [Complete Blood Count AUTO DIFF] Stat CMP [Comprehensive Metabolic Panel] Stat Ethanol (ETOH) Stat Lipase Stat 05/27/24 20:47 COVID19 -Nasal RAPID Stat Sodium Chloride (Normal Saline 0.9%) 1,000 mls @ 125 mls/hr IV CONT MEMO Last Admin: 05/27/24 20:42 Dose: 125 mls/hr Documented By: Discontinued Medications Diazepam (Diazepam 10 Mg/2 Ml Syringe) 2 mg IV NOW ONE Stop: 05/27/24 20:34 Last Admin: 05/27/24 20:42 Dose: 2 mg Documented By: Diazepam (Diazepam 10 Mg/2 Ml Syringe) 2 mg IV NOW ONE Stop: 05/27/24 21:38 Last Admin: 05/27/24 21:44 Dose: 2 mg Documented By: Hydromorphone HCl (Hydromorphone 1 Mg Inj) 1 mg IV NOW ONE Stop: 05/27/24 18:18 Last Admin: 05/27/24 18:51 Dose: 1 mg Documented By: KARMA Hydromorphone HCl (Hydromorphone 1 Mg Inj) 1 mg IV NOW ONE Stop: 05/27/24 19:27 Last Admin: 05/27/24 19:34 Dose: 1 mg Documented By: ROSARIO Hydromorphone HCl (Hydromorphone 0.5 Mg Inj) 0.5 mg IV NOW ONE Stop: 05/27/24 20:34 Last Admin: 05/27/24 20:42 Dose: 0.5 mg Documented By: Hydromorphone HCl (Hydromorphone 1 Mg Inj) 1 mg IV NOW ONE Stop: 05/27/24 23:39 Sodium Chloride (Normal Saline 0.9%) 1,000 mls @ 1,000 mls/hr IV BOLUS ONE Stop: 05/27/24 19:16 Last Infusion: 05/27/24 20:17 Dose: Infused Documented By: Admin: 05/27/24 18:48 Dose: 1,000 mls/hr Documented By: KARMA Ondansetron HCl (Ondansetron 4 Mg/2 Ml Inj) 4 mg IV NOW ONE Stop: 05/27/24 18:18 Last Admin: 05/27/24 18:50 Dose: 4 mg Documented By: KARMA Vital Signs Vital signs: Vital Signs - 8 hr 05/27/24 17:59 05/27/24 17:59 05/27/24 18:00 Temperature Pulse Rate 105 H Respiratory Rate Blood Pressure 178/87 H 170/93 H Pulse Oximetry 100 Oxygen Delivery Method 05/27/24 18:00 05/27/24 18:10 05/27/24 18:10 Temperature Pulse Rate 100 H 93 H Respiratory Rate Blood Pressure 167/84 H Pulse Oximetry 100 100 Oxygen Delivery Method 05/27/24 18:17 05/27/24 18:30 05/27/24 18:30 Temperature 97.3 F L Pulse Rate 87 73 Respiratory Rate 18 Blood Pressure 170/93 H 153/83 H Pulse Oximetry 100 98 Oxygen Delivery Method Room Air 05/27/24 19:06 05/27/24 19:30 05/27/24 20:00 Temperature Pulse Rate 108 H 95 H 81 Respiratory Rate Blood Pressure Pulse Oximetry 90 L 100 97 Oxygen Delivery Method 05/27/24 20:30 05/27/24 20:45 05/27/24 20:45 Temperature Pulse Rate 99 H 111 H Respiratory Rate 20 Blood Pressure 171/92 H Pulse Oximetry 100 100 Oxygen Delivery Method 05/27/24 21:00 05/27/24 21:30 05/27/24 22:00 Temperature Pulse Rate 130 H 115 H 93 H Respiratory Rate 26 H 15 18 Blood Pressure Pulse Oximetry 100 100 97 Oxygen Delivery Method Room Air 05/27/24 22:24 05/27/24 22:24 05/27/24 22:25 Temperature Pulse Rate 106 H 65 Respiratory Rate 14 18 Blood Pressure 161/89 H 161/93 H Pulse Oximetry 99 98 Oxygen Delivery Method Room Air 05/27/24 22:30 05/27/24 22:30 05/27/24 22:40 Temperature Pulse Rate 95 H 101 H Respiratory Rate 17 20 Blood Pressure 157/90 H Pulse Oximetry 97 98 Oxygen Delivery Method Room Air 05/27/24 22:40 05/27/24 22:50 05/27/24 22:50 Temperature Pulse Rate 98 H Respiratory Rate 26 H Blood Pressure 151/91 H 167/90 H Pulse Oximetry 99 Oxygen Delivery Method MDM - Abdominal Pain Differential Diagnosis Differential diagnosis: Likely abdominal pain, gastroenteritis and pancreatitis Lab Data 05/27/24 18:20 05/27/24 18:20 Labs: Lab Results 05/27/24 05/27/24 Range/Units 18:20 20:47 WBC 9.1 (4.5-11.0) X10^3/uL RBC 4.43 L (4.5-5.9) X10^6/uL Hgb 12.9 L (13.5-17.5) g/dL Hct 38.5 L (41-53) % MCV 86.8 (80-100) fL MCH 29.0 (26-34) PG MCHC 33.4 (30-36) % RDW 16.1 H (11.6-14.8) % Plt Count 269 (150-400) X10^3/uL Neut % (Auto) 73.6 (50-75) % Lymph % (Auto) 17.1 L (25-40) % [place] % (Auto) 7.7 (3-14) % Eos % (Auto) 0.8 L (2-4) % Baso % (Auto) 0.8 (0-2) % Neut # (Auto) 6700 (1143-3176) /uL Lymph # (Auto) 1600 (9886-3049) /uL [place] # (Auto) 700 (0-900) /uL Eos # (Auto) 100 (0-450) /uL Baso # (Auto) 100 (0-100) /uL Sodium 136 L (137-145) mmol/L Potassium 4.6 (3.4-5.1) mmol/L Chloride 103 (98-107) mmol/L Carbon Dioxide 21 L (22-32) mmol/L BUN 11 (9-20) mg/dL Creatinine 1.08 (0.66-1.25) mg/dL Estimated GFR > 60 (>60) mL/min BUN/Creatinine Ratio 10.2 (6-22) Glucose 146 H (70-100) mg/dL Calcium 9.6 (8.4-10.2) mg/dL Total Bilirubin 1.0 (0.2-1.3) mg/dL AST 24 (17-59) IU/L ALT 20 (<50) IU/L Alkaline Phosphatase 82 (38-126) U/L Total Protein 7.4 (6.3-8.2) g/dL Albumin 4.6 (3.5-5.0) g/dL Globulin 2.8 (1.7-4.1) g/dL Albumin/Globulin Ratio 1.6 (1.0-2.8) Lipase 123 (23-300) U/L Ethyl Alcohol < 10 ( - 10) mg/dL SARS-CoV-2 (PCR) Negative (Negative) Imaging Data CT scan - abdomen/pelvis: Radiologist's Impression: PROCEDURE: CT ABDOMEN PELVIS W CON INDICATIONS: MIDEPIGASTRIC ABD PAIN, HX PANCREATITIS AND PSEUDOCYST TECHNIQUE: After the administration of intravenous contrast, axial sections acquired from the lung bases to the pubic symphysis. Coronal and sagittal reformats were performed. For radiation dose reduction, the following was used: automated exposure control, adjustment of mA and/or kV according to patient size. COMPARISON: [facility], CT, CT ABDOMEN PELVIS W CON, 08/31/2023, 12:57. [facility], CT, CT ABDOMEN PELVIS W CON, 03/22/2024, 19:37. FINDINGS: Image quality: Diagnostic. Lower Chest: No significant findings. ABDOMEN: Liver: No solid mass. Gallbladder: Within normal limits. No calcified stone. Biliary ducts: No biliary dilation. Pancreas: Large pancreatic fluid collection measuring 11.8 x 5.7 x 5.2 cm, (2/33 and 3/25) previously remeasured in a similar fashion 15 x 7.3 x 7.2 cm on 03/22/2024. The collection demonstrates increased heterogeneous density. There is a focus of hyperdensity at the right aspect anterior to the pancreatic head measuring 2.2 cm, (2/32), new. This is concerning for pseudoaneurysm, most likely pancreaticoduodenal artery. Small collection posterior to the tail the pancreas measuring 2.4 x 1.4 cm, (2/25), previously 2.9 x 1.7 cm. Likely a 2nd pseudocyst. Measures 60 Hounsfield units. Contiguous collection medial to the stomach 0.4 x 3.1 cm, (2/25), previously not present. The pancreatic parenchyma is effaced and appears atrophic. The pancreatic duct is not identified. The splenic vein is effaced. There are multiple upper abdominal varices. Suspect splenic vein occlusion. Spleen: Size is within normal limits. Small splenule. Adrenal Glands: No adrenal nodules. Kidneys and Ureters: No hydronephrosis. No solid mass. No complex renal cystic lesion which requires follow up. Stomach and Bowel: Normal colonic caliber, without significant wall thickening. Normal appendix. Peritoneum: No abnormal intraperitoneal fluid. No free air. Ventral Wall: No significant ventral hernia. Abdominal Nodes: No retroperitoneal or mesenteric adenopathy by size criteria. Vessels: Aorta and inferior vena cava are normal in size. PELVIS: Pelvic Organs: Small volume of free fluid in the pelvis measuring 56 Hounsfield units. Bladder: No stone. Pelvic Nodes: No enlarged lymph nodes. Miscellaneous: No inguinal hernias are seen. Bones: No aggressive osseous abnormality. IMPRESSION: 1. Large pancreatic pseudocyst versus walled-off necrosis measuring 11.8 cm. The collection is overall similar in size with an area now projecting medial to the stomach. -Patient would likely benefit from transgastric drainage. 2. Interval development of a pseudoaneurysm measuring 2.2 cm within the pseudocyst. This could be originating off of the pancreaticoduodenal artery. -Recommend interventional radiology consultation. 3. Multiple upper abdominal varices. 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 4. Small volume of free fluid in the pelvis. Greater than water density and possibly hemorrhage or debris. Comment: Findings were discussed with Jennifer Napoles at 8:22 p.m. Dictated by: Cipriano Rivera M.D. on 05/27/2024 at 20:09 Approved by: Cipriano Rivera M.D. on 05/27/2024 at 20:32 MDM Narrative Medical decision making narrative: Patient presenting for abdominal pain with known history of pancreatitis and pseudocyst. Abdomen soft but diffusely tender in the upper quadrants. Pain medications, nausea medications, IV fluids ordered. Laboratory work ordered. Patient was not scanned on previous ER visit on 05/07/2024, however since this is a 2nd visit within this month for same complaint a repeat CT scan will be ordered. Laboratory work is reviewed, fairly unremarkable. Patient has required numerous doses of IV medications for pain. WBC count 9.1, hemoglobin 12.9, platelets 269, sodium 136, potassium 4.6, creatinine 1.08, T bili 1.0, AST 24, ALT 20, alk phos 82, lipase 123. Repeat CT of the abdomen and pelvis shows pseudocyst as seen previously, however radiology called to inform me that there has been interval development of a pseudoaneurysm measuring 2.2 cm, likely the pancreaticoduodenal artery. Radiology recommends transfer to Center with Interventional Radiology as these have high-risk of rupture and bleeding. Patient informed of laboratory work and imaging findings as well as recommendations for transfer. Patient requested medications for anxiety, which were ordered. Discussed case with numerous specialists at [facility], [facility], [facility]. Patient was finally accepted by [address] with a available bed. Patient informed of acceptance at outside hospital. Critical Care Time Critical Care Time Critical Care Time: Yes Total Critical Care Time: 62 Attestation: peripancreatic pseudoaneurysm with risk for rupture and bleed requiring transfer to higher level of care of IR evaluation and drainage. Discharge Plan Departure Patient Disposition: Home Clinical Impression: Pancreas artery pseudoaneurysm Prescriptions: No Action hydrocodone-acetaminophen 5-325 mg tablet 1 tab PO Q8H PRN (Reason: pain) Qty: 14 0RF promethazine 25 mg tablet 25 mg PO Q6H PRN (Reason: nausea and vomiting) Qty: 30 0RF bupropion HCl [Wellbutrin XL] 150 mg Tablet Extended Release 24 Hr 450 mg PO QAM tadalafil 10 mg tablet 10 mg PO PRN PRN (Reason: Sexual Activity) Rx Instructions: administer approximately 30min before sexual activity; do not use more than 10mg dose per 24hrs aspirin 81 mg Tablet,Chewable 81 mg PO DAILY omeprazole 20 mg capsule,delayed release(DR/EC) 20 mg PO DAILY propranolol 10 mg tablet 10 mg PO BID tamsulosin 0.4 mg capsule 0.4 mg PO BEDTIME Qty: 90 3RF cetirizine [Zyrtec] 10 mg tablet 10 mg PO DAILY PRN (Reason: Allergy Symptoms) Referrals: Emanuel Chapa MD [Primary Care Provider] - Stand Alone Forms: Patient Portal/API
--- NOTE | 2024-05-27 18:13 | EKG_ITS ---
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
[2024-05-27 18:28] LABS: Add Manual Diff / Slide Review NO; Basophils Absolute Auto 100 /uL (0-100); Basophils Percent Auto 0.8 % (0-2); Eosinophils Absolute Auto 100 /uL (0-450); Eosinophils Percent Auto 0.8 % (2-4); Hematocrit 38.5 % (41-53); Hemoglobin 12.9 g/dL (13.5-17.5); Lymphocytes Absolute Auto 1600 /uL (1100-4500); Lymphocytes Percent Auto 17.1 % (25-40); Mean Corpuscular HGB Conc 33.4 % (30-36); Mean Corpuscular Volume 86.8 fL (80-100); Monocytes Absolute Auto 700 /uL (0-900); Monocytes Percent Auto 7.7 % (3-14); Neutrophils Absolute Auto 6700 /uL (1500-7000); Neutrophils Percent Auto 73.6 % (50-75); Platelet Count 269 X10^3/uL (150-400); Red Blood Cell Count 4.43 X10^6/uL (4.5-5.9); Red Cell Distribution Width 16.1 % (11.6-14.8); White Blood Cell Count 9.1 X10^3/uL (4.5-11.0)
[2024-05-27 18:39] LABS: Alanine Aminotransferase 20 IU/L (<50); Albumin 4.6 g/dL (3.5-5.0); Albumin Globulin Ratio 1.6 (1.0-2.8); Alkaline Phosphatase 82 U/L (38-126); Aspartate Aminotransferase 24 IU/L (17-59); BUN Creatinine Ratio 10.2 (6-22); Blood Urea Nitrogen 11 mg/dL (9-20); Calcium 9.6 mg/dL (8.4-10.2); Carbon Dioxide 21 mmol/L (22-32); Chloride 103 mmol/L (98-107); Estimated Glomerular Filt Rate > 60 mL/min (>60); Ethanol (ETOH) < 10 mg/dL; Globulin 2.8 g/dL (1.7-4.1); Glucose 146 mg/dL (70-100); HEMOLYSIS < 15 (0-50); Lipase 123 U/L (23-300); Potassium 4.6 mmol/L (3.4-5.1); Sodium 136 mmol/L (137-145); Total Protein 7.4 g/dL (6.3-8.2)
[2024-05-27] MEDS: SODIUM CHLORIDE 0.9% 1,000 ML 1000 ML IV (18:48)
[2024-05-27] MEDS: ONDANSETRON 4 MG/2 ML INJ IV (18:50)
[2024-05-27] MEDS: HYDROMORPHONE 1 MG INJ IV ×3 (18:51→23:57)
--- NOTE | 2024-05-27 20:15 | PC.NURSE ---
pain is down to 7/10. Pt wanting more pain medication. MD notified.
[2024-05-27] MEDS: HYDROMORPHONE 0.5 MG INJ IV (20:42)
[2024-05-27] MEDS: diazePAM 10 MG/2 ML SYRINGE 2 MG IV ×2 (20:42→21:44)
[2024-05-27] MEDS: SODIUM CHLORIDE 0.9% 1,000 ML 125 ML IV (20:42)
--- NOTE | 2024-05-27 20:58 | PC.NURSE ---
Pt moved to telemetry in room 10. HR NSR 107. Discussed plan of care with pt, understands.
[2024-05-27 21:20] LABS: COVID19 -Nasal RAPID Negative (Negative)
--- NOTE | 2024-05-27 21:40 | PC.NURSE ---
Dr Napoles notified of BP of 171/92. Pt requesting additional benzo to reduce BP. New orders received.
--- NOTE | 2024-05-27 21:41 | PC.NURSE ---
[facility]IST Note: Started to find placement for pt in several hospitals with the following responses: - [facility] @ 2035: Talked with Joe. Pt placed on their list and faxed over Doc note, Facesheet and pushed images. - [facility] @ 2052: Talked with Lamin. Pt placed on list and faxed over Doc note, facesheet and pushed images. Fax number on transfer call list is incorrect and was given a new number to fax - @ 2101: Talked with Nohem[facility]. Pt placed on list and sent over facesheet. Pushed images. - [facility] @ 2131: Talked with Vane. Pt placed on list. Sent over facesheet and pushed images. - [facility] @ 2109: Talked with connie Harris. Denied putting pt on list as they have no available.
--- NOTE | 2024-05-27 23:51 | PC.NURSE ---
Addendum entered by Tiarra Hawkins CNA 05/27/24 23:53: Nurse Report # [phone] Original Note: [facility] Note: Pt was accepted to [facility] [address]. This [facility] called [facility] and will arrive shortly. Also called transfer centers to cancel pt on their lists.
[2024-05-28 00:13] VITALS: BP 155/87; PULSE 75; RESP 18; TEMP 36.9; O2SAT 100
[2024-05-28 00:48] VITALS: BP 134/84; PULSE 65; RESP 18; TEMP 36.8; O2SAT 98
== END 2024-05-28 00:51 | disposition home or self-care (01) ==
PROVIDERS: Emergency Provider Emergency Medicine; PCP Family Medicine
DX: I72.8 Aneurysm of other specified arteries (principal); R00.0 Tachycardia, unspecified
CPT/HCPCS: 36415; 74177; 80053; 80320; 83690; 85025; 87635; 93005; 96361; 96374; 96375; 96376; 99284; 99291; J1170; J2405; J3360; Q9967

== ENCOUNTER → 2024-06-29 13:53 | Outpatient (CLI) | payer OTHER, MEDICAID, SELFPAY ==
[2023-09-23 15:20] VITALS: PULSE 78; RESP 0; RESP 16; O2SAT 95
[2024-03-23 03:54] VITALS: BMI 27.8
--- NOTE | 2024-06-29 13:54 | DI.CT.S_ITS ---
PROCEDURE: CT ABDOMEN PELVIS W CON INDICATIONS: abdominal pain hx of pancreatitis TECHNIQUE: After the administration of intravenous contrast, axial sections acquired from the lung bases to the pubic symphysis. Coronal and sagittal reformats were performed. For radiation dose reduction, the following was used: automated exposure control, adjustment of mA and/or kV according to patient size. COMPARISON: [facility], CT, CT ABDOMEN PELVIS W CON, 05/27/2024, 18:49. FINDINGS: Image quality: Diagnostic Lower chest: Unremarkable lung bases. Mildly patulous distal esophagus Liver: No suspicious hepatic lesion Gallbladder and biliary system: Unremarkable, nondilated Pancreas: Walled off necrotic collection measures 10 x 5 cm on a single axial slice 11/29, slightly smaller when it measured 12 x 5.3 cm previously. 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 Similar hypervascular lesion at the dome at the dome of the left lobe measuring 6 mm, stable from 2022, possibly a benign hemangioma. Spleen: Borderline splenomegaly at 12-13 cm Adrenals: No discrete nodules Kidneys: No solid mass or hydronephrosis Vessels and lymph nodes: The portal confluence is compressed. The splenic vein is occluded with numerous upper abdominal/perigastric portal venous collaterals. No abdominal aortic aneurysm or pathologic lymph nodes by size criteria Bowel and peritoneum: Mildly distended stomach without small bowel obstruction. No pathologic ascites. Body wall: Unremarkable Pelvis: Bladder is unremarkable. Mildly heterogeneous prostate is not well assessed on this study Bones: Degenerative changes, no acute or suspicious osseous finding IMPRESSION: Pancreatitis related Walled off necrosis is slightly smaller than 05/27/2024. Consider continued imaging surveillance. 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 Other stable/incidental findings above, without acute changes. Dictated by: Mark Blackwell M.D. on 06/30/2024 at 13:55 Approved by: Mark Blackwell M.D. on 06/30/2024 at 14:01
== END ==
PROVIDERS: PCP Family Medicine; Referring Provider Nurse Practitioner Acute Care; Visit Provider Nurse Practitioner Acute Care
DX: K86.3 Pseudocyst of pancreas (principal); K85.91 Acute pancreatitis with uninfected necrosis, unspecified; I82.891 Chronic embolism and thrombosis of other specified veins; K31.89 Other diseases of stomach and duodenum
CPT/HCPCS: 74177; Q9967

== ENCOUNTER → 2024-08-07 11:22 | Outpatient (CLI) | payer OTHER, MEDICAID, SELFPAY ==
[2023-09-23 15:20] VITALS: PULSE 78; RESP 0; RESP 16; O2SAT 95
[2024-03-23 03:54] VITALS: BMI 27.8
[2024-08-07 13:20] LABS: Prostate Specific Antigen 1.05 ng/mL (0.10-4.00)
== END ==
LOC: LAB 11:23
PROVIDERS: PCP Family Medicine; Referring Provider Urology; Visit Provider Urology
DX: N40.1 Benign prostatic hyperplasia with lower urinary tract symptoms (principal); N13.8 Other obstructive and reflux uropathy
CPT/HCPCS: 36415; 84153

== ENCOUNTER → 2024-09-04 15:16 | Outpatient (CLI) | payer OTHER, MEDICAID, SELFPAY ==
[2023-09-23 15:20] VITALS: PULSE 78; RESP 0; RESP 16; O2SAT 95
[2024-03-23 03:54] VITALS: BMI 27.8
--- NOTE | 2024-09-04 15:17 | DI.CT.S_ITS ---
PROCEDURE: CT ABDOMEN PELVIS W CON INDICATIONS: pseudocyst of pancreas TECHNIQUE: After the administration of intravenous contrast, axial sections acquired from the lung bases to the pubic symphysis. Coronal and sagittal reformats were performed. For radiation dose reduction, the following was used: automated exposure control, adjustment of mA and/or kV according to patient size. COMPARISON: [facility], CT, CT ABDOMEN PELVIS W CON, 06/29/2024, 14:27. [facility], CT, CT ABDOMEN PELVIS W CON, 05/27/2024, 18:49. FINDINGS: Image quality: Diagnostic. Lower Chest: No significant findings. ABDOMEN: Liver: No solid mass. Gallbladder: No radiopaque gallstones or wall thickening. Biliary ducts: No biliary dilation. Pancreas: Continued interval decrease in walled-off necrotic fluid collection/pseudocyst adjacent to the pancreas now measuring approximately 8.9 x 4.1 cm in axial transverse dimension (49/series 2) versus approximately 10.0 x 5.0 cm previously. Homogeneous enhancement of the pancreatic parenchyma. No pancreatic ductal dilatation. No peripancreatic inflammation. Stable appearance of coiling of pseudoaneurysm at the gastroduodenal artery adjacent to the pancreatic head. Spleen: Borderline splenomegaly redemonstrated. The spleen measures approximately 12.9 cm in size. Adrenal Glands: No adrenal nodules. Kidneys and Ureters: No hydronephrosis. No solid mass. No complex renal cystic lesion which requires follow up. Stomach and Bowel: Normal colonic caliber, without significant wall thickening. Normal appendix. No evidence for small bowel obstruction or associated inflammatory changes. Peritoneum: No abnormal intraperitoneal fluid. No free air. Ventral Wall: No significant ventral hernia. Abdominal Nodes: No retroperitoneal or mesenteric adenopathy by size criteria. Vessels: Scattered atherosclerotic calcifications of the abdominal aorta and iliac vessels without aneurysmal dilatation. The inferior vena cava appears patent. As before, there is compression of the portal confluence with occluded splenic vein and numerous upper abdominal/perigastric portal venous collaterals. PELVIS: Pelvic Organs: Unremarkable. Bladder: No bladder wall thickening, accounting for underdistention. Pelvic Nodes: No enlarged lymph nodes. Miscellaneous: No inguinal hernias are seen. Bones: No aggressive osseous abnormality. Visualized osseous structures appear intact without acute fracture or focal destructive lesion. No acute compression fractures of the imaged spine. IMPRESSION: Continued interval decrease in size pancreatic pseudocyst now measuring 8.9 x 4.1 cm versus 10.0 x 5.0 cm previously. Consider continued imaging surveillance. Stable appearance of coiling of the gastroduodenal artery adjacent to the pancreatic head. 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 Other non acute and chronic findings as above. Dictated by: Mohit Robert M.D. on 09/04/2024 at 17:47 Approved by: Mohit Robert M.D. on 09/04/2024 at 17:56
== END ==
PROVIDERS: PCP Family Medicine; Referring Provider Nurse Practitioner Acute Care; Visit Provider Nurse Practitioner Acute Care
DX: K86.3 Pseudocyst of pancreas (principal); I82.891 Chronic embolism and thrombosis of other specified veins; I86.8 Varicose veins of other specified sites; I70.0 Atherosclerosis of aorta
CPT/HCPCS: 74177; Q9967